=== PATIENT | female | born 1940 | race Caucasian/White ===

== ENCOUNTER 2019-12-11 14:10 | Outpatient (CLI) | payer MEDICARE, OTHER, SELFPAY ==
--- NOTE | 2019-12-11 14:20 | XR_ITS ---
WS: [id number] DEXA (DUAL ENERGY X-RAY ABSORPTIOMETRY) Bone mineral density was performed using a [employer] machine. HISTORY: OSTEOPOROSIS COMPARISON: 03/08/2015 Lumbar spine BMD (L1-L4): 0.797 g/cm2 T score: -3.2 Z score: -1.3 Total hip BMD: Left: 0.635 g/cm2. T score: -3.0 Z score: -0.9 Right: 0.715 g/cm2. T score: -2.3 Z score: -0.3 10 year probability of a major osteoporotic fracture is 24%. Compared to the prior study from 02/28/2015. Lumbar spine bone mineral density has decreased by 7.0%. Bilateral hips bone mineral density has decreased by 10.4%. XR/XR DEXA axial skeleton* [id number] IMPRESSION: OSTEOPOROSIS based upon the WHO classification for females. Significant decrease in bone mineral density in the lumbar spine and hips since 03/08/2015.
--- NOTE | 2019-12-11 14:21 | XR_ITS ---
WS: [id number] LUMBAR SPINE: 3 VIEWS TECHNIQUE: AP, lateral and L5-S1 spot. 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 Increase in lumbar lordosis. L1 30% compression fracture is stable. No retropulsio n. No new fractures. Disc spaces are narrowed throughout the lumbar spine. Facet arthropathy throughout the lumbar spine. Mild narrowing of the SI joints bilaterally. Prior cholecystectomy. XR/XR lumbar spine 2-3V* [id number] IMPRESSION: 1. Increase in lumbar lordosis with osteopenia. 2. Stable 30% L1 compression fracture. 3. Atherosclerosis aorta.
== END 2019-12-11 14:11 | disposition home or self-care (01) ==
LOC: RADWPI 14:20
PROVIDERS: Family Provider Family Medicine; PCP Family Medicine; Visit Provider Family Medicine
DX: M47.817 Spondylosis without myelopathy or radiculopathy, lumbosacral region (principal); M81.0 Age-related osteoporosis without current pathological fracture; M40.56 Lordosis, unspecified, lumbar region; M85.88 Other specified disorders of bone density and structure, other site; M48.56XA Collapsed vertebra, not elsewhere classified, lumbar region, initial encounter for fracture; X58.XXXA Exposure to other specified factors, initial encounter; I70.0 Atherosclerosis of aorta
CPT/HCPCS: 72100; 77080

== ENCOUNTER 2019-12-11 14:21 | Outpatient (CLI) | payer MEDICARE, OTHER, SELFPAY ==
--- NOTE | 2019-12-11 14:37 | XR_ITS ---
WS: [id number] CHEST 2 VIEWS HISTORY: COUGH COMPARISON: None available. Lungs: Mild pulmonary hyperinflation with flattening of the diaphragms. No pneumonia or pulmonary nod ule. Cardiac size: Normal. Mediastinum/Aorta: Mild atherosclerosis aorta. Bones: Increase in thoracic kyphosis. XR/XR chest 2V* [id number] IMPRESSION: Chronic emphysema with no acute cardiopulmonary disease.
== END 2019-12-11 14:22 | disposition home or self-care (01) ==
LOC: RADWPI 14:24
PROVIDERS: Family Provider Family Medicine; PCP Family Medicine
DX: J43.9 Emphysema, unspecified (principal)
CPT/HCPCS: 71046

== ENCOUNTER 2019-12-24 09:31 | Outpatient (CLI) | payer MEDICARE, OTHER, SELFPAY ==
[2019-12-24 10:05] LABS: Basophils # 0.1 10^3/uL (0.0-0.1); Basophils % 1.1 %; Eosinophils # 0.2 10^3/uL (0.0-0.8); Eosinophils % 2.7 %; Hematocrit 39.8 % (37.0-47.0); Hemoglobin 12.8 g/dL (11.5-15.3); Lymphocytes # 1.8 10^3/uL (0.8-4.8); Lymphocytes % 27.9 %; Mean Corpuscular HGB Conc 32.2 g/dL (30.0-36.0); Mean Corpuscular Hemoglobin 30.5 pg (28.0-34.0); Mean Platelet Volume 10.7 fL (7.4-10.4); Monocytes # 0.8 10^3/uL (0.2-0.9); Monocytes % 12.6 %; Neutrophils # 3.7 10^3/uL (1.8-7.7); Neutrophils % 55.4 %; Nucleated Red Blood Cells % 0 %; Platelet Count 386 10^3/cmm (130-400); Red Blood Count 4.19 10^6/uL (4.1-5.3); Red Cell Distribution Width 15.5 % (12.1-15.1); White Blood Count 6.6 10^3/uL (4.0-10.0)
[2019-12-24 10:31] LABS: Alanine Aminotransferase 23 U/L (0-33); Albumin Level 4.3 g/dL (3.5-5.2); Alkaline Phosphatase 85 IU/L (35-105); Anion Gap 13.1 (5-19); Aspartate Amino Transferase 23 U/L (0-32); Blood Urea Nitrogen 32 mg/dL (8-23); Calcium 10.2 mg/dL (8.5-10.5); Carbon Dioxide 32 mmol/L (22-29); Chloride 96 mmol/L (98-107); Globulin 3.1 g/dL (1.3-4.6); Glucose 105 mg/dL (65-115); Lactate Dehydrogenase 186 U/L (135-214); Potassium 4.1 mmol/L (3.5-5.1); Sodium 137 mmol/L (136-145); Total Bilirubin 0.4 mg/dL (0.15-1.2); Total Protein 7.4 g/dL (6.6-8.7)
[2019-12-24 12:28] LABS: Ferritin 45 ng/mL (15-150)
--- NOTE | 2019-12-24 19:39 | ONC FU_ITS ---
Dr. Ruano Patient Follow-Up Note Patient: Ingrid De Leon Unit #: [id number]: [id number] Dicatated By: Duong Ruano M.D.Date of Visit:Dec 24, 2019 Onc Med Follow-up/Prog Note Chief Complaint: Renal cell cancer. 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 She had known renal cell carcinoma, having undergone laparoscopic left nephrectomy at [facility] in 2004. In June 2016 she had evaluation with a CT pulmonary angiogram after presenting with chest pain and shortness of breath. That study showed no evidence of pulmonary emboli or other acute pathology. However, she was incidentally noted to have a pancreatic tail mass measuring 2.3 x 2.[address] abdomen/pelvis on 07/10/2016 again showed evidence of pancreatic tail neoplasm measuring 2.5 x 2.2 x 2 cm. There was evidence of previous left nephrectomy. There was no evidence for any other primary or metastatic neoplasm. She then had further evaluation by Dr. Henao in [place]. EUS with biopsy of the pancreatic mass on 08/06/2016 showed clear cell carcinoma. On 08/28/2016 she underwent exploratory laparotomy with left pancreatectomy and splenectomy, splenic artery lymph node dissection, mobilization of splenic flexure and omental pedicle flap. Pathology showed a well defined 2.9 x 2.2 x 2.1 cm mass located at the distal tip of the pancreatic parenchyma. There was no invasion into the outer surface of the pancreas nor into the splenic vessels or peripancreatic adipose tissue. 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 Tumor was noted to focally extend to within less than 1 mm of the inked peripancreatic soft tissue margin, but the final surgical margins were negative for neoplasm. There was no involvement in the spleen and there was no involvement into splenic artery lymph nodes. I had seen her initially on 11/19/2016. She was clearly at high risk for further recurrence, but in the absence of any approved adjuvant therapy for renal cell carcinoma, she was advised to continue observation/expectant management. Her other medical illnesses include hypertension, dyslipidemia, coronary artery disease, peripheral arterial disease, COPD,and GERD. She has a history of smoking 1 pack of cigarettes daily for 25-30 years. She quit smoking at least 15 years ago. INTERIM HISTORY: Surveillance CT of the abdomen/pelvis on 04/17/2017 showed postoperative changes of splenectomy, distal pancreatectomy, and left nephrectomy. Two small fluid collections within the left upper quadrant appeared to have diminished in size. There was no evidence for residual or recurrent disease. She continued regular followup with surveillance CT scans with Dr. Henao. Her repeat CT scan on 05/15/2018 showed evidence of relatively diffuse pneumoperitoneum, volume of which appeared stable or slightly increased. A very small focal defect within the right upper quadrant anterior abdominal wall with localized fat herniation measuring up to 3.9 cm was noted, and the hernia sac also appeared to contain gas from the pneumoperitoneum. Multiple gas bubbles were noted within the anterior lower abdomen and interspersed amongst bowel loops in the right lower quadrant of the abdomen and in the left side of the abdomen similar to the previous exam. The findings were felt to be suggestive of bowel perforation. Multiple air-fluid levels were noted within the small and large bowel. There was no obvious recurrence/progression of the renal cell cancer. She remained on observation/expectant management. I had seen her for a scheduled visit on 10/02/2019. She had multiple complaints, the most significant was that she had been hurting all over, particularly in her right hand and in her left arm and left leg. She had seen Dr. Daneille recently, and she had started taking ccolchicine. She also complained of shortness of breath and abdominal bloating. With those complaints, she had a restaging PET/CT on 10/10/2019. It showed no evidence for recurrent or residual malignancy. There were bilateral COPD changes noted. She is seen now for a follow-up visit. She says that about a month ago she was treated again for pneumonia. She continued, though, to have shortness of breath, to the point that she could not hardly breathe. She also was having back pain. She had seen Dr. Danielle. Her chest x-ray on 12/11/2019 showed evidence of chronic emphysema with no acute findings. X-ray of the lumbar spine showed stable 30% compression fracture at L1. DEXA scan showed T score -3.2 in the lumbar spine, -3.0 in the left hip, and -2.3 in the right hip. She was started on lisinopril, and she says her breathing has improved significantly since then. She says her energy is better now than it was. Her ECOG score is 1. She has good appetite. She has no fever or night sweats. She has not had much cough. She has some vague chest discomfort. She continues to complain of postprandial gas. She has constipation at times. She has not had diarrhea. She still has bad back pain, and she has been having muscle cramps in her legs and feet, both during the daytime and at night. Medications: Aspirin 0.5 Tablet (of 325 mg) Tablet, enteric coated Oral daily, Calcium-Vitamin D-Vitamin K mg 0.5 Tablet (of 750-500-40 mg - Units - mcg) Oral daily, Co Q-10 1 Capsule Oral daily, [place] 1 Tablet (of 0.6 mg) Oral daily, Creon 2 Capsule (of 16678 Units) Capsule Delayed Release Particles Oral t.i.d., HYDROcodone-Acetaminophen 1 Tablet (of 5-325 mg) Oral q 6 hours PRN, Lisinopril 0.5 (20 mg) Tablet Oral daily, Magnesium Oxide 1 Tablet (of 400 mg) Oral daily, Metoprolol Tartrate 1 (50 mg) Tablet Oral daily, MiraLax 1 Pack Oral b.i.d. PRN, [place] 3 1 (1200 mg) Capsule Oral daily, Ondansetron HCl 1 Tablet (of 4 mg) Oral t.i.d., Pantoprazole Sodium 1 (40 mg) Tablet, enteric coated Oral b.i.d., Rescue remedy spray Liquid PRN, Spiriva HandiHaler 1 (18 mcg) Capsule Inhalation every am, Ventolin HFA 1 puff(s) (of 108 (90 base) mcg/act) Aerosol, solution Inhalation PRN Allergies: No Known Allergies. Review of Systems: Constitutional - Her energy is better than it was. She does normal housework. Her appetite is good and her weight is up 10 pounds from her last visit. No fever, chills, hot flashes, or night sweats. ECOG score is 1, ENMT - She has postnasal drip. No mouth sores. No sore throat or difficulty swallowing, Hematologic/Lymphatic - She bruises easily, Respiratory - No shortness of breath. No cough. No pleuritic pain or hemoptysis, Cardiovascular - No angina pain. No palpitations, Gastrointestinal - No nausea or vomiting. She has heartburn depending on what she eats. She has constipation at times. No blood in the stool or black stools, Genitourinary (F) - No dysuria or hematuria. No urinary frequency. No urgency or incontinence, Musculoskeletal - She has been having more pain in her back. She is having cramping in her legs and feet, both during the daytime and at night, Integumentary - No skin complications, Neurologic - She has a headache at times. No dizziness. No numbness/paresthesias or other focal neurologic symptoms, Psychiatric - No anxiety or depression. No insomnia. Vital Signs: Performed on Dec 24, 2019 11:51 Height - 62.50 in Weight - 141.4 lbs (LOW) BSA - 1.66 sq.m BMI - 25.45 Temperature - 98.1 F (LOW) Pulse - 64 /min Respiration - 26 /min BP - 144/63 mm(hg) (HIGH) O2 Sat - 95 % (LOW) Pain - 5 Physical Examination: Constitutional - She looks pretty good generally, though she still appears short of breath with effort, Eyes - Sclerae nonicteric. Conjunctivae clear, ENMT - No lesions noted in the oral cavity, Hematologic/Lymphatic - No cervical, clavicular, or axillary adenopathy, Respiratory - Lungs sound clear with diminished air movement bilaterally, Cardiovascular - Heart rhythm is regular. There is no murmur, gallop or rub noted, Abdomen - Soft. Liver is not enlarged. There is no abdominal mass or ascites noted, and there is no inguinal adenopathy, Extremities - No edema, Neurologic - No focal neurologic deficits noted. Lab/Imaging: Test performed on Dec 24, 2019 09:36 Ferritin 45 ng/mL LDH (Total) 186 U/L Sodium 137 mmol/L Potassium 4.1 mmol/L Chloride 96 mmol/L CO2 32 mmol/L Anion Gap 13.1 BUN 32 mg/dL Creatinine 1.0 mg/dL Cr Clearance (Est) 45.43 mL/min Glucose 105 mg/dL Calcium 10.2 mg/dL Protein, Total 7.4 g/dL Albumin 4.3 g/dL Globulin 3.1 g/dL Bilirubin, Total 0.4 mg/dL ALT (SGPT) 23 U/L AST (SGOT) 23 U/L Alkaline Phosphatase 85 IU/L WBC 6.6 10 3/uL RBC 4.19 10 6/uL HGB 12.8 g/dL HCT 39.8 % MCV 95.0 fL MCH 30.5 pg MCHC 32.2 g/dL RDW 15.5 % Platelet Count 386 10 3/cmm MPV 10.7 fL Neutrophils 3.7 10 3/uL Lymphocytes 1.8 10 3/uL Monocytes 0.8 10 3/uL Eosinophils 0.2 10 3/uL Basophils 0.1 10 3/uL Neutrophil % 55.4 % Lymphocyte % 27.9 % Monocyte % 12.6 % Eosinophil % 2.7 % Basophils % 1.1 % Impression: 1. 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 She is currently N.E.D. following exploratory laparotomy with left pancreatectomy and splenectomy on 08/28/2016. 2. She underwent laparoscopic left nephrectomy for renal cell cancer in 2004. Her other medical illnesses include: 3. Hypertension. 4. Dyslipidemia. 5. Coronary artery disease. 6. Peripheral arterial disease. 7. GERD. 8. COPD. She has been followed on observation. She had persistent nausea/vomiting following her pancreatic surgery, but those symptoms eventually improved on treatment with Creon and ondansetron. During her further follow-up she continued to have somewhat marginal performance status, but with no evidence of any further recurrence/progression of the renal cell cancer. In September 2019 she had presented with worsening fatigue and generalized musculoskeletal pain. The symptoms were somewhat worrisome for recurrence/progression of her renal cell cancer, but a restaging PET/CT showed no evidence of residual or recurrent malignancy. She has since then had ongoing problems with fatigue, shortness of breath, and back pain. She continues to complain of postprandial abdominal bloating. Her breathing, though, has improved somewhat after starting lisinopril. She also has evidence of osteoporosis by DEXA scan, for which she is currently on treatment with calcitonin and calcium/vitamin D. Plan: She remains on observation/expectant management for the renal cell cancer. She is continuing cardiology follow-up with Dr. Brooks. I will see her again in 6 months, or sooner as needed. In the meantime, I will check serum iron studies. She will be given iron replacement if she is deficient. If not, she will be given the option to try ropinirole for the muscle cramps. Signed By: Duong Ruano M.D. <<Signature on File>>
[2019-12-25 08:03] LABS: Iron 124 ug/dL (37-145); Percent Saturation 37.2 % (20-50); Total Iron Binding Capacity 333 mcg/dl; Unsaturated Iron Binding 209 ug/dL (112-347)
== END 2019-12-24 09:32 | disposition home or self-care (01) ==
LOC: ONCMED 09:31
PROVIDERS: Family Provider Family Medicine; PCP Family Medicine; Visit Provider Internal Medicine Medical Oncology
DX: Z08 Encounter for follow-up examination after completed treatment for malignant neoplasm (principal); Z85.528 Personal history of other malignant neoplasm of kidney; D64.9 Anemia, unspecified; I10 Essential (primary) hypertension; E78.5 Hyperlipidemia, unspecified; I25.10 Atherosclerotic heart disease of native coronary artery without angina pectoris; I73.9 Peripheral vascular disease, unspecified; K21.9 Gastro-esophageal reflux disease without esophagitis; J44.9 Chronic obstructive pulmonary disease, unspecified; R25.2 Cramp and spasm; M81.0 Age-related osteoporosis without current pathological fracture; Z79.891 Long term (current) use of opiate analgesic; Z79.899 Other long term (current) drug therapy; Z90.5 Acquired absence of kidney; Z90.410 Acquired total absence of pancreas; Z90.411 Acquired partial absence of pancreas
CPT/HCPCS: 80053; 82728; 83540; 83550; 83615; 85025; 99214

== ENCOUNTER 2020-06-23 10:02 | Outpatient (CLI) | payer MEDICARE, OTHER, SELFPAY ==
[2020-06-23 10:39] LABS: Basophils # 0.1 10^3/uL (0.0-0.1); Basophils % 1.4 %; Eosinophils # 0.3 10^3/uL (0.0-0.8); Eosinophils % 4.3 %; Hematocrit 40.9 % (37.0-47.0); Hemoglobin 12.8 g/dL (11.5-15.3); Lymphocytes # 1.9 10^3/uL (0.8-4.8); Lymphocytes % 27.8 %; Mean Corpuscular HGB Conc 31.3 g/dL (30.0-36.0); Mean Corpuscular Hemoglobin 30.4 pg (28.0-34.0); Mean Corpuscular Volume 97.1 fL (81-99); Mean Platelet Volume 10.8 fL (7.4-10.4); Monocytes # 0.8 10^3/uL (0.2-0.9); Monocytes % 11.3 %; Neutrophils # 3.81 10^3/uL (1.8-7.7); Neutrophils % 55.1 %; Nucleated Red Blood Cells % 0 %; Platelet Count 375 10^3/cmm (130-400); Red Blood Count 4.21 10^6/uL (4.1-5.3); Red Cell Distribution Width 15.5 % (12.1-15.1); White Blood Count 6.9 10^3/uL (4.0-10.0)
[2020-06-23 10:59] LABS: Alanine Aminotransferase 31 U/L (0-33); Albumin Level 4.1 g/dL (3.5-5.2); Alkaline Phosphatase 111 IU/L (35-105); Anion Gap 9.9 (5-19); Aspartate Amino Transferase 37 U/L (0-32); Blood Urea Nitrogen 23 mg/dL (8-23); Calcium 9.5 mg/dL (8.5-10.5); Carbon Dioxide 35 mmol/L (22-29); Chloride 92 mmol/L (98-107); Ferritin 68 ng/mL (15-150); Globulin 3.4 g/dL (1.3-4.6); Glucose 109 mg/dL (65-115); Iron 62 ug/dL (37-145); Lactate Dehydrogenase 216 U/L (135-214); Osmolality Calculated 273 mOsm/kg (285-295); Percent Saturation 21.3 % (20-50); Potassium 3.9 mmol/L (3.5-5.1); Sodium 133 mmol/L (136-145); Total Bilirubin 0.2 mg/dL (0.15-1.2); Total Iron Binding Capacity 291 mcg/dl; Total Protein 7.5 g/dL (6.6-8.7); Unsaturated Iron Binding 229 ug/dL (112-347)
--- NOTE | 2020-06-26 13:50 | ONC FU_ITS ---
Dr. Ruano Patient Follow-Up Note Patient: Ingrid De Leon Unit #: [id number]: [id number] Dicatated By: Duong Ruano M.D.Date of Visit:Jun 23, 2020 Onc Med Follow-up/Prog Note Chief Complaint: Renal cell cancer. 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 She had known renal cell carcinoma, having undergone laparoscopic left nephrectomy at [facility] in 2004. In June 2016 she had evaluation with a CT pulmonary angiogram after presenting with chest pain and shortness of breath. That study showed no evidence of pulmonary emboli or other acute pathology. However, she was incidentally noted to have a pancreatic tail mass measuring 2.3 x 2.[address] abdomen/pelvis on 07/10/2016 again showed evidence of pancreatic tail neoplasm measuring 2.5 x 2.2 x 2 cm. There was evidence of previous left nephrectomy. There was no evidence for any other primary or metastatic neoplasm. She then had further evaluation by Dr. Henao in [place]. EUS with biopsy of the pancreatic mass on 08/06/2016 showed clear cell carcinoma. On 08/28/2016 she underwent exploratory laparotomy with left pancreatectomy and splenectomy, splenic artery lymph node dissection, mobilization of splenic flexure and omental pedicle flap. Pathology showed a well defined 2.9 x 2.2 x 2.1 cm mass located at the distal tip of the pancreatic parenchyma. There was no invasion into the outer surface of the pancreas nor into the splenic vessels or peripancreatic adipose tissue. 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 Tumor was noted to focally extend to within less than 1 mm of the inked peripancreatic soft tissue margin, but the final surgical margins were negative for neoplasm. There was no involvement in the spleen and there was no involvement into splenic artery lymph nodes. I had seen her initially on 11/19/2016. She was clearly at high risk for further recurrence, but in the absence of any approved adjuvant therapy for renal cell carcinoma, she was advised to continue observation/expectant management. Her other medical illnesses include hypertension, dyslipidemia, coronary artery disease, peripheral arterial disease, COPD,and GERD. She has a history of smoking 1 pack of cigarettes daily for 25-30 years. She quit smoking at least 15 years ago. INTERIM HISTORY: Surveillance CT of the abdomen/pelvis on 04/17/2017 showed postoperative changes of splenectomy, distal pancreatectomy, and left nephrectomy. Two small fluid collections within the left upper quadrant appeared to have diminished in size. There was no evidence for residual or recurrent disease. She continued regular followup with surveillance CT scans with Dr. Henao. Her repeat CT scan on 05/15/2018 showed evidence of relatively diffuse pneumoperitoneum, volume of which appeared stable or slightly increased. A very small focal defect within the right upper quadrant anterior abdominal wall with localized fat herniation measuring up to 3.9 cm was noted, and the hernia sac also appeared to contain gas from the pneumoperitoneum. Multiple gas bubbles were noted within the anterior lower abdomen and interspersed amongst bowel loops in the right lower quadrant of the abdomen and in the left side of the abdomen similar to the previous exam. The findings were felt to be suggestive of bowel perforation. Multiple air-fluid levels were noted within the small and large bowel. There was no obvious recurrence/progression of the renal cell cancer. I had seen her for a scheduled visit on 10/02/2019. She had multiple complaints, the most significant was that she had been hurting all over, particularly in her right hand and in her left arm and left leg. She had seen Dr. Danielle recently, and she had started taking ccolchicine. She also complained of shortness of breath and abdominal bloating. With those complaints, she had a restaging PET/CT on 10/10/2019. It showed no evidence for recurrent or residual malignancy. There were bilateral COPD changes noted. With those findings she continued on observation/expectant management. She is seen now for a follow-up visit. She has been feeling pretty good generally. Her main complaint is that she is short of breath, and it does limit her activity. She has started on a pulmonary nebulizer, but thus far she is using it only twice a day at half the recommended dosage. She is still able to do housework and live independently. ECOG score is 1. Her appetite is good. She has no fever or night sweats. She does not complain of cough. She occasionally has chest pain. Her nausea has been adequately managed with medication. She says her acid reflux is not as bad now after she stopped taking the medications for it. Bowel and bladder function have been okay. She does complain of having generalized pain, which he localizes to her muscles rather than to joints or bone. She has had some headaches. She has no focal neurologic symptoms. Medications: Aspirin 0.5 Tablet (of 325 mg) Tablet, enteric coated Oral daily, Calcium-Vitamin D-Vitamin K mg 1 Tablet (of 750-500-40 mg - Units - mcg) Oral daily, Co Q-10 1 Capsule Oral daily, Creon 2 Capsule (of 22386 Units) Capsule Delayed Release Particles Oral t.i.d., HYDROcodone-Acetaminophen 1 Tablet (of 5-325 mg) Oral q 6 hours PRN, Lisinopril 0.5 (20 mg) Tablet Oral daily, Magnesium Oxide 1 Tablet (of 400 mg) Oral daily, Metoprolol Tartrate 1 (50 mg) Tablet Oral daily, MiraLax 1 Pack Oral b.i.d. PRN, [place] 3 1 (1200 mg) Capsule Oral daily, Ondansetron HCl 1 Tablet (of 4 mg) Oral t.i.d., Rescue remedy spray Liquid PRN, Symbicort 1 Puff(s) (of 160-4.5 mcg/act) Aerosol Inhalation daily Allergies: No Known Allergies. Review of Systems: Constitutional - She has limited activity tolerance, but she is able to do housework and live independently. Appetite is good and weight is stable. No fever, night sweats, or hot flashes. ECOG score is 1, ENMT - No sinus congestion/drainage. No mouth sores. She recently has had sore throat. No difficulty swallowing, Hematologic/Lymphatic - She has some bruising, Respiratory - She has shortness of breath. No cough. No pleuritic pain or hemoptysis, Cardiovascular - She occasionally has chest pain. No palpitations, Gastrointestinal - She has had ongoing problems with nausea, but it is now managed adequately with medication. She says her acid reflux is not as bad now after stopping the medications. No diarrhea or constipation. No blood in the stool or black stools, Genitourinary (F) - No dysuria or hematuria. No urinary frequency. No urgency or incontinence, Musculoskeletal - She has pain all over. She thinks it is in the muscle rather than the joints or bone, Integumentary - No skin rash, Neurologic - She has had some headaches. No dizziness. No numbness or tingling. No other focal neurologic symptoms, Psychiatric - No anxiety or depression. No insomnia. Vital Signs: Performed on Jun 23, 2020 12:30 Height - 62.50 in Weight - 150.4 lbs (HIGH) BSA - 1.70 sq.m BMI - 27.07 Temperature - 97.9 F (LOW) Pulse - 71 /min Respiration - 28 /min BP - 119/51 mm(hg) O2 Sat - 93 % (LOW) Pain - 0 Physical Examination: Constitutional - She looks pretty good generally. She does appear short of breath with effort, Eyes - Sclerae nonicteric. Conjunctivae clear, ENMT - No lesions noted in the oral cavity, Hematologic/Lymphatic - No cervical, clavicular, or axillary adenopathy, Respiratory - Lungs sound clear with diminished air movement bilaterally, Cardiovascular - Heart rhythm is regular. There is no murmur, gallop or rub noted, Abdomen - Soft. Liver and spleen are not enlarged. There is no abdominal mass or ascites noted and there is no inguinal adenopathy, Extremities - No edema. Dorsalis pedis pulses are palpable bilaterally, Neurologic - No focal neurologic deficits noted. Lab/Imaging: Test performed on Jun 23, 2020 10:15 Ferritin 68 ng/mL Iron 62 mcg/dL LDH (Total) 216 U/L Sodium 133 mmol/L Iron Binding Capacity (TIBC) 291 mcg/dl Potassium 3.9 mmol/L % Iron Saturation 21.3 % Chloride 92 mmol/L CO2 35 mmol/L UIBC 229 mcg/dL Anion Gap 9.9 BUN 23 mg/dL Creatinine 0.7 mg/dL Cr Clearance (Est) 69.03 mL/min Glucose 109 mg/dL Calcium 9.5 mg/dL Protein, Total 7.5 g/dL Albumin 4.1 g/dL Globulin 3.4 g/dL Bilirubin, Total 0.2 mg/dL ALT (SGPT) 31 U/L AST (SGOT) 37 U/L Alkaline Phosphatase 111 IU/L WBC 6.9 10 3/uL RBC 4.21 10 6/uL HGB 12.8 g/dL HCT 40.9 % MCV 97.1 fL MCH 30.4 pg MCHC 31.3 g/dL RDW 15.5 % Platelet Count 375 10 3/cmm MPV 10.8 fL Neutrophils 3.81 10 3/uL Lymphocytes 1.9 10 3/uL Monocytes 0.8 10 3/uL Eosinophils 0.3 10 3/uL Basophils 0.1 10 3/uL Neutrophil % 55.1 % Lymphocyte % 27.8 % Monocyte % 11.3 % Eosinophil % 4.3 % Basophils % 1.4 % NRBC % 0 % Impression: 1. 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 She is currently N.E.D. following exploratory laparotomy with left pancreatectomy and splenectomy on 08/28/2016. 2. She underwent laparoscopic left nephrectomy for renal cell cancer in 2004. Her other medical illnesses include: 3. Hypertension. 4. Dyslipidemia. 5. Coronary artery disease. 6. Peripheral arterial disease. 7. GERD. 8. COPD. She has been followed on observation. She had persistent nausea/vomiting following her pancreatic surgery, but those symptoms eventually improved on treatment with Creon and ondansetron. During her further follow-up she continued to have somewhat marginal performance status, but with no evidence of any further recurrence/progression of the renal cell cancer. In September 2019 she had presented with worsening fatigue and generalized musculoskeletal pain. The symptoms were somewhat worrisome for recurrence/progression of her renal cell cancer, but a restaging PET/CT showed no evidence of residual or recurrent malignancy. She was found to have evidence of osteoporosis by DEXA scan, for which she has been on treatment with calcitonin and calcium/vitamin D. She continues to complain of shortness of breath and fatigue. She also complains of having generalized muscle pain. She has limited activity tolerance, but she is still able to live independently. She has now started Symbicort and a pulmonary nebulizer for her COPD. Plan: She remains on observation/expectant management for the renal cell cancer. She will continue the Symbicort, as directed. I did encourage her to increase her pulmonary nebulizer to 4 times a day. She continues her regular follow-up and imaging with Dr. Henao. I will see her again in 6 months, or sooner as needed. Signed By: Duong Ruano M.D. <<Signature on File>>
== END 2020-06-23 10:03 | disposition home or self-care (01) ==
LOC: ONCMED 10:07
PROVIDERS: PCP Family Medicine; Visit Provider Internal Medicine Medical Oncology
DX: Z08 Encounter for follow-up examination after completed treatment for malignant neoplasm (principal); Z85.528 Personal history of other malignant neoplasm of kidney; D64.9 Anemia, unspecified; Z90.5 Acquired absence of kidney; M79.10 Myalgia, unspecified site; I10 Essential (primary) hypertension; E78.5 Hyperlipidemia, unspecified; I25.10 Atherosclerotic heart disease of native coronary artery without angina pectoris; I73.9 Peripheral vascular disease, unspecified; K21.9 Gastro-esophageal reflux disease without esophagitis; J44.9 Chronic obstructive pulmonary disease, unspecified; Z90.411 Acquired partial absence of pancreas; Z90.81 Acquired absence of spleen
CPT/HCPCS: 36415; 80053; 82728; 83540; 83550; 83615; 85025; G0463

== ENCOUNTER 2020-08-01 10:29 | Outpatient (CLI) | payer MEDICARE, OTHER, SELFPAY ==
--- NOTE | 2020-08-01 10:46 | XR_ITS ---
WS: [id number] Bilateral hips. HISTORY: Hip pain. No trauma. TECHNIQUE: 2 views of each hip. Bones are very mildly osteopenic. Mild narrowing of the hip joints bilaterally. Mild irregularity leda ng the acetabulum. No destructive bone lesions. No soft tissue abnormality. XR/XR hip BI 3-4V wo/w [place] [id number] IMPRESSION: Mild bilateral hip joint osteoarthritis.
== END 2020-08-01 10:30 | disposition home or self-care (01) ==
LOC: RADWPI 10:33
PROVIDERS: PCP Family Medicine; Visit Provider Family Medicine
DX: M17.0 Bilateral primary osteoarthritis of knee (principal)
CPT/HCPCS: 73522

== ENCOUNTER 2020-11-18 09:58 | Outpatient (CLI) | payer MEDICARE, OTHER, SELFPAY ==
--- NOTE | 2020-11-18 10:05 | XR_ITS ---
WS: [id number] PROCEDURE: XR chest 2V* [id number] CLINICAL INFORMATION: WHEEZING COMPARISON: December 11, 2019 FINDINGS: Heart: Normal cardiac silhouette. Calcification. Lungs: Moderate chronic emphysematous changes. No acute pulmonary infiltrates. No consolidation pleur al fluid. Bones: Osteopenia. Chronic anterior wedging in the mid thoracic spine. Surgical clips at the GE junct ion. Cholecystectomy. XR/XR chest 2V* [id number] IMPRESSION: 1. Chronic emphysematous changes. 2. No acute pulmonary infiltrates. 3. Moderate thoracic kyphosis is unchanged.
== END 2020-11-18 09:59 | disposition home or self-care (01) ==
LOC: RADWPI 10:02
PROVIDERS: PCP Family Medicine; Visit Provider Family Medicine
DX: R06.2 Wheezing (principal); M40.294 Other kyphosis, thoracic region
CPT/HCPCS: 71046

== ENCOUNTER 2020-11-29 20:59 | Emergency (ER) | payer MEDICARE, OTHER, SELFPAY ==
[2020-11-29 21:04] VITALS: BP 126/61; PULSE 99; RESP 22; TEMP 36.7; O2SAT 90; BMI 24.7
--- NOTE | 2020-11-29 21:15 | W.ED.ABDPA2 ---
HPI - Abdominal Pain General: Chief Complaint: Abdominal Pain Stated Complaint: PAIN IN R SIDE Time Seen by Provider: 11/29/20 21:14 Source: patient Mode of arrival: ambulatory Limitations: no limitations History of Present Illness: HPI narrative: 80-year-old female comes in today with right upper quadrant abdominal pain for the last 2 days. Patient takes hydrocodone for her pain routinely but has not been able to control the pain with hydrocodone. Patient has a history of renal carcinoma. Patient also has atherosclerosis, dyslipidemia, hypertension, peripheral artery disease, and COPD. Patient appears in mild to moderate pain. Patient appears no acute distress. Review of Systems General: Reports: 10 or more systems reviewed and unremarkable except in HPI and below GI: Reports: abdominal pain PFSH ED PFSH: Medical History (Updated 11/29/20 @ 23:26 by FELICIA Borges) ASHD (arteriosclerotic heart disease) COPD (chronic obstructive pulmonary disease) Dyslipidemia HTN (hypertension) PAD (peripheral artery disease) Renal cell cancer S/p nephrectomy Tobacco abuse, in remission Family History Father CAD (coronary artery disease) Brother CAD (coronary artery disease) Myocardial infarction Social History Smoking and tobacco status: former smoker Lives independently: Yes Marital status: / Pets and animals: Yes Physical Exam Const: COMMON NORMALS: no acute distress and patient oriented x3 GENERAL APPEARANCE: cooperative HENMT: COMMON NORMALS: normocephalic and Normal external nose present HEAD & SCALP: normal to inspection and normocephalic NOSE: Normal external nose present MOUTH: Normal oral and palatal mucosa present (Mildly dry) Eye: GENERAL EYE: appearance normal, both eyes and all related structures Neck/C-Spine: COMMON NORMALS: full ROM Lymph: LYMPHATIC: no lymphadenopathy noted Chest: COMMONS NORMALS: normal inspection of the chest Resp: COMMON NORMALS: normal respiratory effort EFFORT & INSPECTION: Yes able to speak in complete sentences Cardio: COMMON NORMALS: regular rate and regular rhythm RATE: regular rate RHYTHM: regular rhythm GI: COMMON NORMALS: Soft to palpation and non-tender PALPATION: Yes Soft to palpation and Yes Tenderness to palpation present (GI) Details: RUQ Back/Pelvis: COMMON NORMALS: thoracic and lumbar spine normal to inspection Extremity: COMMON NORMALS: normal to inspection Neuro: COMMON NORMALS: patient oriented x3 and moves all extremities Psych: COMMON NORMALS: mental status grossly normal and cooperative Skin: COMMON NORMALS: no rashes or lesions noted GENERAL SKIN EXAM: no rashes or lesions noted Course Vital Signs: Vital signs: Vital Signs Temperature 98.1 F 11/29/20 21:04 Pulse Rate 93 11/29/20 23:45 Respiratory Rate 21 H 11/29/20 23:45 Blood Pressure 165/80 11/29/20 23:45 Pulse Oximetry 92 11/29/20 23:45 MDM - Abdominal Pain MDM Narrative: Medical decision making narrative: Patient comes in today with some right upper abdominal/right flank pain. Patient has a history of COPD, and cancer. On exam patient has decreased breath sounds in bilateral bases. Patient is mildly hypoxic on room air at 90 to 89-90%. Patient is alert and oriented and responds appropriately to questioning. Differential diagnosis includes renal calculi, constipation, pneumonia, sepsis. Laboratory values noted a high white count of 16.9 thousand. Metabolic panel noted a mild decrease in her sodium at 125. Chest x-ray noted a right lower lobe pneumonia. CT scan abdomen pelvis noted constipation with right lower lobe pneumonia. Reviewed exam with patient with recommendations for treatment with antibiotic. Offered to admit patient but she refused at this time and wished to go home. Patient was placed on antibiotic recommendations for follow-up or return to the ER for worsening symptoms. Lab Data: Labs: Lab Results 11/29/20 11/29/20 11/29/20 Range/Units 21:23 21:23 22:28 WBC 16.9 H (4.0-10.0) 10^3/ uL RBC 4.01 L (4.1-5.3) 10^6/u L Hgb 12.2 (11.5-15.3) g/dL Hct 37.4 (37.0-47.0) % MCV 93.3 (81-99) fL MCH 30.4 (28.0-34.0) pg MCHC 32.6 (30.0-36.0) g/dL RDW 14.1 (12.1-15.1) % Plt Count 316 (130-400) 10^3/c mm MPV 11.0 H (7.4-10.4) fL Neut % (Auto) 88.9 % Lymph % (Auto) 3.1 % Henderson % (Auto) 7.0 % Eos % (Auto) 0.1 % Baso % (Auto) 0.2 % Neut # (Auto) 15.02 H (1.8-7.7) 10^3/u L Lymph # (Auto) 0.5 L (0.8-4.8) 10^3/u L Henderson # (Auto) 1.2 H (0.2-0.9) 10^3/u L Eos # (Auto) 0.0 (0.0-0.8) 10^3/u L Baso # (Auto) 0.0 (0.0-0.1) 10^3/u L Nucleated RBC % (a uto) 0 % Nucleated RBCs # 0.0 /100WBC Sodium 125 L (136-145) mmol/L Potassium 4.1 (3.5-5.1) mmol/L Chloride 86 L (98-107) mmol/L Carbon Dioxide 25 (22-29) mmol/L Anion Gap 18.1 (5-19) BUN 19 (8-23) mg/dL Creatinine 0.6 (0.5-0.9) mg/dL GFR Calculation Not Reportable Glucose 124 H (65-115) mg/dL Calculated Osmolal ity 264 L (285-295) mOsm/k g Lactic Acid 0.7 (0.5-2.2) mmol/L Calcium 9.7 (8.5-10.5) mg/dL Total Bilirubin 0.7 (0.15-1.2) mg/dL AST 29 (0-32) U/L ALT 22 (0-33) U/L Alkaline Phosphata se 92 (35-105) IU/L Total Protein 7.3 (6.6-8.7) g/dL Albumin 3.4 L (3.5-5.2) g/dL Globulin 3.9 (1.3-4.6) g/dL Lipase 8 L (13-60) U/L Discharge Plan Discharge Patient Disposition: Home Clinical Impression: Pneumonia Qualifiers: Pneumonia type: due to unspecified organism Laterality: right Lung location: lower lobe of lung Qualified Code(s): J18.9 - Pneumonia, unspecified organism Constipation Qualifiers: Constipation type: unspecified constipation type Qualified Code(s): K59.00 - Constipation, unspecified Condition: Stable Prescriptions: New Senna Laxative 8.6 mg tablet 8.6 mg PO BID Qty: 10 RF: 0 cefdinir 300 mg capsule 300 mg PO BID 10 Days Qty: 20 RF: 0 azithromycin 250 mg tablet 250 mg PO DAILY 4 Days RF: 0 tramadol 50 mg tablet 50 mg PO Q6H PRN (Reason: pain) Qty: 14 RF: 0 No Action indapamide 2.5 mg tablet 2.5 mg PO QAM RF: 0 ondansetron HCl 4 mg tablet 4 mg PO Q6H PRNRF: 0 pantoprazole 40 mg tablet,delayed release (DR/EC) 40 mg PO DAILY RF: 0 zuqzmh-erjjtzer-eyqpelj PO DAILY RF: 0 omega-3 fatty acids [Fish Oil Concentrate] 1,000 mg capsule 1,000 mg PO DAILY RF: 0 coenzyme Q10 [Co Q-10] 100 mg capsule 200 mg PO DAILY RF: 0 albuterol sulfate [Ventolin HFA] 90 mcg/actuation HFA aerosol inhaler 2 puff INHALATION Q6H PRNRF: 0 cholecalciferol (vitamin D3) PO DAILY RF: 0 Spiriva with HandiHaler 18 mcg capsule, w/inhalation device 1 cap INHALATION DAILY RF: 0 aspirin [Aspir-Kelli] 325 mg tablet,delayed release (DR/EC) 325 mg PO DAILY RF: 0 metoprolol succinate 50 mg tablet extended release 24 hr 50 mg PO DAILY RF: 0 Discharge Orders: Discharge ED (Routine); Ordered 11/29/20 Ordered By: Ari Gan Referrals: Jose Danielle MD [Primary Care Provider] - Discharge Diet: Usual diet Discharge Activity: Increase activity as tolerated Patient Instructions: Constipation (ED) Activity Restrictions/Additional Instructions: Continue with routine care. Take medication and use inhalers as directed. Drink plenty of water. Follow-up with primary care for further treatment. Return to the emergency department for worsening symptoms. 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
[2020-11-29 21:29] LABS: Basophils % 0.2 %; Eosinophils % 0.1 %; Hematocrit 37.4 % (37.0-47.0); Hemoglobin 12.2 g/dL (11.5-15.3); Lymphocytes # 0.5 10^3/uL (0.8-4.8); Lymphocytes % 3.1 %; Mean Corpuscular HGB Conc 32.6 g/dL (30.0-36.0); Mean Corpuscular Hemoglobin 30.4 pg (28.0-34.0); Mean Corpuscular Volume 93.3 fL (81-99); Monocytes # 1.2 10^3/uL (0.2-0.9); Neutrophils # 15.02 10^3/uL (1.8-7.7); Neutrophils % 88.9 %; Nucleated Red Blood Cells % 0 %; Platelet Count 316 10^3/cmm (130-400); Red Blood Count 4.01 10^6/uL (4.1-5.3); Red Cell Distribution Width 14.1 % (12.1-15.1); White Blood Count 16.9 10^3/uL (4.0-10.0)
[2020-11-29] MEDS: morphine 4 mg/mL SDV 1 mL IVP (21:43)
[2020-11-29] MEDS: ondansetron 2 mg/ML SDV 2 mL 4 MG IVP (21:44)
[2020-11-29] MEDS: sodium chloride 0.9% 500 ML 999 ML IV (21:44)
--- NOTE | 2020-11-29 22:00 | XR_ITS ---
WS: [id number] PORTABLE CHEST HISTORY: dyspnea, abd pain COMPARISON: 11/18/2020 New dense area of consolidation in the RIGHT lower lobe. Otherwise very mild interstitial thickening at the LEFT lung base. Changes of emphysema. Small pleural effusion on the RIGHT with obscuration of the costophrenic angle. Cardiac size: Normal. Mediastinum/Aorta: Mild atherosclerosis aorta. Osteopenia. XR/XR chest 1V portable [id number] IMPRESSION: 1. New RIGHT lower lobe pneumonia. 2. Mild interstitial thickening at the LEFT lung base. May be pneumonitis.
[2020-11-29 22:09] LABS: Albumin Level 3.4 g/dL (3.5-5.2); Alkaline Phosphatase 92 IU/L (35-105); Blood Urea Nitrogen 19 mg/dL (8-23); Calcium 9.7 mg/dL (8.5-10.5); Carbon Dioxide 25 mmol/L (22-29); Chloride 86 mmol/L (98-107); Globulin 3.9 g/dL (1.3-4.6); Glucose 124 mg/dL (65-115); Lipase 8 U/L (13-60); Osmolality Calculated 264 mOsm/kg (285-295); Sodium 125 mmol/L (136-145); Total Bilirubin 0.7 mg/dL (0.15-1.2); Total Protein 7.3 g/dL (6.6-8.7)
[2020-11-29 22:16] LABS: Alanine Aminotransferase 22 U/L (0-33); Anion Gap 18.1 (5-19); Aspartate Amino Transferase 29 U/L (0-32); Potassium 4.1 mmol/L (3.5-5.1)
[2020-11-29 22:54] LABS: Lactic Sepsis W/Reflex 0.7 mmol/L (0.5-2.2)
--- NOTE | 2020-11-29 23:00 | CTR_ITS ---
PROCEDURE INFORMATION: Exam: CT Abdomen And Pelvis Without Contrast Exam date and time: 11/29/2020 11:02 PM Age: 80 years old Clinical indication: Abdominal pain; Right; Prior surgery; Surgery type: Gb. Nephrectomy. ; Patient HX: RT flank pain with dysuria. History of renal/pancreatic cancer; Additional info: Right flank pain TECHNIQUE: Imaging protocol: Computed tomography of the abdomen and pelvis without contrast. Total images: 308 Radiation optimization: All CT scans at this facility use at least one of these dose optimization techniques: automated exposure control; mA and/or kV adjustment per patient size (includes targeted exams where dose is matched to clinical indication); or iterative reconstruction. COMPARISON: CR XR hip BI 3-4V wo/w pel [id number] 08/01/2020 11:05 AM RADIATION DOSE METRICS: Total DLP (mGy-cm): 909.85 FINDINGS: Lungs: Within the field of view evidence of right lower lobe pneumonia. Associated right lower lobe tubular and cystic bronchiectasis. Panlobular emphysema. Mild peripheral interstitial pneumonitis right middle lobe. Mediastinal space: Small hiatal hernia. Liver: No visible hepatic mass. Rare hepatic calcified granuloma of antecedent disease. Gallbladder and bile ducts: Status post cholecystectomy. Pancreas: Status post partial pancreatectomy. Spleen: Status post splenectomy. Adrenal glands: Adrenal glands stable and unremarkable. Kidneys and ureters: Status post left nephrectomy. Right kidney unremarkable. No hydronephrosis or perinephric fluid. No visible nephrolithiasis. No visible right ureterolithiasis. Stomach and bowel: Constipation with fecal impaction. Nonobstructive bowel pattern. No visible evidence of significant adynamic or reactive ileus. Appendix: Findings suggesting status post appendectomy. Intraperitoneal space: No visible pneumoperitoneum. No visible generalized intraperitoneal ascites. Vasculature: The abdominal aorta is nonaneurysmal. Advanced arterial sclerotic disease. Lymph nodes: No visible generalized intraperitoneal or retroperitoneal lymphadenopathy. Urinary bladder: Urinary bladder unremarkable. Reproductive: Unremarkable as visualized. Bones/joints: No visible osteolytic or osteoblastic destructive process. Failure segmentation/hemivertebra T11 and T12. Old mild superior endplate depression L1. Osteopenia/osteoporosis. Degenerative disease. Soft tissues: Unremarkable. Other findings: Evidence of antecedent granulomatous disease. CT/CT kidney stone [id number] IMPRESSION: 1. Right lower lobe pneumonia. 2. Evidence of mild right middle lobe pneumonitis. 3. Constipation with fecal impaction. 4. Other nonurgent, nonemergent, chronic, postoperative, and age related findings as detailed in text above. Radiation Dose CTDIVOL = (mGy): DLP = 909.85 (mGy-cm)
[2020-11-29 23:45] VITALS: BP 165/80; PULSE 93; RESP 21; O2SAT 92
[2020-11-29] MEDS: azithromycin 250 mg Tablet 500 MG PO (23:47)
[2020-11-29] MEDS: cefTRIAXone 1,000 MG in sodium chloride 0.9% (plus) 50 ML 100 MG IV (23:47)
[2020-11-30] MEDS: ondansetron 2 mg/ML SDV 2 mL 4 MG IVP (00:20)
[2020-11-30] MEDS: TRAMadol 50 mg Tablet PO (00:21)
[2020-11-30 00:44] VITALS: BP 153/67; PULSE 84; RESP 17; O2SAT 94
== END 2020-11-30 00:35 | disposition home or self-care (01) ==
PROVIDERS: Emergency Provider Nurse Practitioner Family; PCP Family Medicine
DX: K59.00 Constipation, unspecified (principal); J44.0 Chronic obstructive pulmonary disease with (acute) lower respiratory infection; J18.9 Pneumonia, unspecified organism; Z79.82 Long term (current) use of aspirin; E78.5 Hyperlipidemia, unspecified; I10 Essential (primary) hypertension; Z85.528 Personal history of other malignant neoplasm of kidney; Z90.5 Acquired absence of kidney; Z87.891 Personal history of nicotine dependence
CPT/HCPCS: 12345; 36415; 71045; 74176; 80053; 83605; 83690; 85025; 96365; 96375; 96376; 99282; 99283; J0696; J2270; J2405; J7040; Q0144

== ENCOUNTER 2021-01-16 08:07 | Outpatient (CLI) | payer MEDICARE, OTHER, SELFPAY ==
[2021-01-16 08:40] LABS: Basophils # 0.1 10^3/uL (0.0-0.1); Basophils % 1.3 %; Eosinophils # 0.3 10^3/uL (0.0-0.8); Hemoglobin 12.4 g/dL (11.5-15.3); Lymphocytes # 1.5 10^3/uL (0.8-4.8); Lymphocytes % 22.2 %; Mean Corpuscular Hemoglobin 29.7 pg (28.0-34.0); Mean Corpuscular Volume 95.9 fL (81-99); Mean Platelet Volume 10.6 fL (7.4-10.4); Monocytes # 0.6 10^3/uL (0.2-0.9); Monocytes % 9.1 %; Neutrophils # 4.22 10^3/uL (1.8-7.7); Neutrophils % 63.3 %; Nucleated Red Blood Cells % 0 %; Platelet Count 466 10^3/cmm (130-400); Red Blood Count 4.17 10^6/uL (4.1-5.3); Red Cell Distribution Width 15.1 % (12.1-15.1); White Blood Count 6.7 10^3/uL (4.0-10.0)
[2021-01-16 08:56] LABS: Alanine Aminotransferase 12 U/L (0-33); Albumin Level 3.6 g/dL (3.5-5.2); Alkaline Phosphatase 102 IU/L (35-105); Anion Gap 11.4 (5-19); Aspartate Amino Transferase 23 U/L (0-32); Blood Urea Nitrogen 10 mg/dL (8-23); Calcium 9.7 mg/dL (8.5-10.5); Carbon Dioxide 33 mmol/L (22-29); Chloride 99 mmol/L (98-107); Globulin 3.5 g/dL (1.3-4.6); Glucose 105 mg/dL (65-115); Lactate Dehydrogenase 217 U/L (135-214); Osmolality Calculated 287 mOsm/kg (285-295); Potassium 4.4 mmol/L (3.5-5.1); Sodium 139 mmol/L (136-145); Total Bilirubin 0.3 mg/dL (0.15-1.2); Total Protein 7.1 g/dL (6.6-8.7)
--- NOTE | 2021-01-19 07:00 | ONC FU_ITS ---
Dr. Ruano Patient Follow-Up Note Patient: Ingrid De Leon Unit #: [id number]: 1940 Dicatated By: Duong Ruano M.D.Date of Visit:Jan 16, 2021 Onc Med Follow-up/Prog Note Chief Complaint: Renal cell cancer. 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 She had known renal cell carcinoma, having undergone laparoscopic left nephrectomy at [facility] in 2004. In June 2016 she had evaluation with a CT pulmonary angiogram after presenting with chest pain and shortness of breath. That study showed no evidence of pulmonary emboli or other acute pathology. However, she was incidentally noted to have a pancreatic tail mass measuring 2.3 x 2.[address] abdomen/pelvis on 07/10/2016 again showed evidence of pancreatic tail neoplasm measuring 2.5 x 2.2 x 2 cm. There was evidence of previous left nephrectomy. There was no evidence for any other primary or metastatic neoplasm. She then had further evaluation by Dr. Henao in [place]. EUS with biopsy of the pancreatic mass on 08/06/2016 showed clear cell carcinoma. On 08/28/2016 she underwent exploratory laparotomy with left pancreatectomy and splenectomy, splenic artery lymph node dissection, mobilization of splenic flexure and omental pedicle flap. Pathology showed a well defined 2.9 x 2.2 x 2.1 cm mass located at the distal tip of the pancreatic parenchyma. There was no invasion into the outer surface of the pancreas nor into the splenic vessels or peripancreatic adipose tissue. 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 Tumor was noted to focally extend to within less than 1 mm of the inked peripancreatic soft tissue margin, but the final surgical margins were negative for neoplasm. There was no involvement in the spleen and there was no involvement into splenic artery lymph nodes. I had seen her initially on 11/19/2016. She was clearly at high risk for further recurrence, but in the absence of any approved adjuvant therapy for renal cell carcinoma, she was advised to continue observation/expectant management. Surveillance CT of the abdomen/pelvis on 04/17/2017 showed postoperative changes of splenectomy, distal pancreatectomy, and left nephrectomy. Two small fluid collections within the left upper quadrant appeared to have diminished in size. There was no evidence for residual or recurrent disease. She continued regular followup with surveillance CT scans with Dr. Henao. Her repeat CT scan on 05/15/2018 showed evidence of relatively diffuse pneumoperitoneum, volume of which appeared stable or slightly increased. A very small focal defect within the right upper quadrant anterior abdominal wall with localized fat herniation measuring up to 3.9 cm was noted, and the hernia sac also appeared to contain gas from the pneumoperitoneum. Multiple gas bubbles were noted within the anterior lower abdomen and interspersed amongst bowel loops in the right lower quadrant of the abdomen and in the left side of the abdomen similar to the previous exam. The findings were felt to be suggestive of bowel perforation. Multiple air-fluid levels were noted within the small and large bowel. There was no obvious recurrence/progression of the renal cell cancer. I had seen her for a scheduled visit on 10/02/2019. She had multiple complaints, the most significant was that she had been hurting all over, particularly in her right hand and in her left arm and left leg. She had seen Dr. Danielle and she had started taking ccolchicine. She also complained of shortness of breath and abdominal bloating. With those complaints, she had a restaging PET/CT on 10/10/2019. It showed no evidence for recurrent or residual malignancy. There were bilateral COPD changes noted. With those findings she continued on observation/expectant management for the renal cell cancer. Her other medical illnesses include hypertension, dyslipidemia, coronary artery disease, peripheral arterial disease, COPD,and GERD. She has a history of smoking 1 pack of cigarettes daily for 25-30 years. She quit smoking at least 15 years ago. INTERIM HISTORY: On 11/29/2020 she was seen in the emergency room with abdominal pain. Her noncontrast CT abdomen/pelvis showed right lower lobe and right middle lobe pneumonia. There was evidence of constipation with fecal impaction. There were no other acute findings, and there was no evidence of metastatic disease. She improved with antibiotic therapy. She is seen for a follow-up visit. She has been feeling pretty good generally. She does complain that she has been having headaches, but she has had migraines all her life. Her energy has been okay. She still has limited activity. ECOG score is 1. She has good appetite. She has not had fever or night sweats. She had a recent episode in which she felt like she was about to freeze to . She says her breathing is better, though she still has some shortness of breath. She does not complain of cough and she has not been having chest pain. She was having vomiting and acid reflux symptoms after she stopped her GI meds, that is better now since she started taking them again. She says her bowel function has been okay. She has no complaints. She continues to complain that she has pain all over, but that is chronic. She has no focal neurologic symptoms. Medications: Aspirin 0.5 Tablet (of 325 mg) Tablet, enteric coated Oral daily, Calcium-Vitamin D-Vitamin K mg 1 Tablet (of 750-500-40 mg - Units - mcg) Oral daily, Co Q-10 1 Capsule Oral daily, [place] 2 Capsule ([place] 84679 Units) Capsule Delayed Release Particles Oral t.i.d., HYDROcodone-Acetaminophen 1 Tablet (of 5-325 mg) Oral q 6 hours PRN, Lisinopril 0.5 (20 mg) Tablet Oral daily, Magnesium Oxide 1 Tablet (of 400 mg) Oral daily, Metoprolol Tartrate 1 (50 mg) Tablet Oral daily, MiraLax 1 Pack Oral b.i.d. PRN, Axtell 3 1 (1200 mg) Capsule Oral daily, Ondansetron HCl 1 Tablet (of 4 mg) Oral t.i.d., Rescue remedy spray Liquid PRN, Symbicort 1 Puff(s) (of 160-4.5 mcg/act) Aerosol Inhalation daily Allergies: No Known Allergies. Vital Signs: Performed on Jan 16, 2021 09:42 Height - 62.50 in Weight - 145.6 lbs (LOW) BSA - 1.68 sq.m BMI - 26.21 Temperature - 98.0 F (LOW) Pulse - 71 /min Respiration - 20 /min BP - 158/82 mm(hg) (HIGH) O2 Sat - 92 % (LOW) Pain - 3 Fatigue - 5 Physical Examination: Constitutional - She looks pretty good generally, Eyes - Sclerae nonicteric. Conjunctivae clear, ENMT - No lesions noted in the oral cavity, Hematologic/Lymphatic - No cervical, clavicular, or axillary adenopathy, Respiratory - Lungs show diminished air movement bilaterally. There are scattered rales present, Cardiovascular - Heart rhythm is regular. There is no murmur, gallop or rub noted, Abdomen - Soft. Liver and spleen are not enlarged. There is no abdominal mass or ascites noted and there is no inguinal adenopathy, Extremities - No edema, Neurologic - No focal neurologic deficits noted. Lab/Imaging: Test performed on Jan 16, 2021 08:16 LDH (Total) 217 U/L Sodium 139 mmol/L Potassium 4.4 mmol/L Chloride 99 mmol/L CO2 33 mmol/L Anion Gap 11.4 BUN 10 mg/dL Creatinine 0.7 mg/dL Cr Clearance (Est) 65.72 mL/min Glucose 105 mg/dL Osmolality - Calculated 287 mOsm/kg Calcium 9.7 mg/dL Protein, Total 7.1 g/dL Albumin 3.6 g/dL Globulin 3.5 g/dL Bilirubin, Total 0.3 mg/dL ALT (SGPT) 12 U/L AST (SGOT) 23 U/L Alkaline Phosphatase 102 IU/L WBC 6.7 10 3/uL RBC 4.17 10 6/uL HGB 12.4 g/dL HCT 40.0 % MCV 95.9 fL MCH 29.7 pg MCHC 31.0 g/dL RDW 15.1 % Platelet Count 466 10 3/cmm MPV 10.6 fL Neutrophils 4.22 10 3/uL Lymphocytes 1.5 10 3/uL Monocytes 0.6 10 3/uL Eosinophils 0.3 10 3/uL Basophils 0.1 10 3/uL Neutrophil % 63.3 % Lymphocyte % 22.2 % Monocyte % 9.1 % Eosinophil % 4.0 % Basophils % 1.3 % NRBC % 0 % Problem List: 1. 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 She has been without evidence of disease following exploratory laparotomy with left pancreatectomy and splenectomy on 08/28/2016. 2. She underwent laparoscopic left nephrectomy for renal cell cancer in 2004. 3. Hypertension. 4. Dyslipidemia. 5. Coronary artery disease. 6. Peripheral arterial disease. 7. GERD. 8. COPD. 9. Osteoporosis. 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 She had undergone laparoscopic left nephrectomy for the renal cell cancer in 2004. She had evidence of pancreatic tail mass by CT scan in June 2016, subsequently confirmed on biopsy to be metastatic clear cell carcinoma. On 08/28/2016 she underwent left pancreatectomy with complete resection of the mass. Pathology was again consistent with metastatic clear-cell adenocarcinoma. She was then followed expectantly. In September 2019 she had presented with worsening fatigue and generalized musculoskeletal pain. The symptoms were somewhat worrisome for recurrence/progression of her renal cell cancer, but a restaging PET/CT showed no evidence of residual or recurrent malignancy. She was found to have evidence of osteoporosis by DEXA scan, for which she has been on treatment with calcitonin and calcium/vitamin D. During follow-up she has had chronic symptoms including fatigue and generalized pain and she has shortness of breath with limited activity tolerance associated with her underlying COPD. Her overall clinical status, though, remained stable, thus far with no evidence of any further recurrence of the renal cell cancer. She remains on observation/expectant management. I will see her again in 6 months. Signed By: Duong Ruano M.D. <<Signature on File>>
== END 2021-01-16 08:08 | disposition home or self-care (01) ==
LOC: ONCMED 08:11
PROVIDERS: PCP Family Medicine; Visit Provider Internal Medicine Medical Oncology
DX: Z08 Encounter for follow-up examination after completed treatment for malignant neoplasm (principal); Z85.07 Personal history of malignant neoplasm of pancreas; I10 Essential (primary) hypertension; E78.5 Hyperlipidemia, unspecified; I25.10 Atherosclerotic heart disease of native coronary artery without angina pectoris; I73.9 Peripheral vascular disease, unspecified; K21.9 Gastro-esophageal reflux disease without esophagitis; J44.9 Chronic obstructive pulmonary disease, unspecified; M81.0 Age-related osteoporosis without current pathological fracture; Z79.899 Other long term (current) drug therapy
CPT/HCPCS: 36415; 80053; 83615; 85025; G0463

== ENCOUNTER 2021-01-27 12:27 | Outpatient (CLI) | payer MEDICARE, OTHER, SELFPAY ==
--- NOTE | 2021-01-27 12:34 | USCV_ITS ---
Haley Ingrid Age: 80 Gender: F : 1940 Exam Date: 01/27/2021 13:22 Ordering Phys: Jose Danielle MD Technologist: TAMERA [place] [facility] [place]ication: CHRONIC OBSTRUCTIVE PULMONARY DZ BP: 168 / 72 HR: 74 Rhythm: Sinus Technical Quality: Adequate MEASUREMENTS (Male / Female) Normal Values 2D ECHO LV Diastolic Diameter PLAX 2.9 cm 4.2 - 5.9 / 3.9 - 5.3 cm LV Systolic Diameter PLAX 2.3 cm IVS Diastolic Thickness 1.5 cm 0.6 - 1.0 / 0.6 - 0.9 cm IVS Systolic Thickness 2.0 cm LVPW Diastolic Thickness 1.3 cm 0.6 - 1.0 / 0.6 - 0.9 cm LVPW Systolic Thickness 1.6 cm RV Chamber Size 2.6 cm LVOT Diameter 2.0 cm LV Ejection Fraction 2D Teich 48.6 % LV Ejection Fraction MOD 2C 42.4 % LV Ejection Fraction 2C AL 47.1 % LA Diameter 2.6 cm LA Width 3.1 cm LA Height 4.4 cm RA Width 3.1 cm RA Height 4.4 cm Aorta at Sinotubular Diameter 2.6 cm M-MODE Aortic Annulus Diameter 2.9 cm LA Ao Ratio MM 0.9 MV E Point Septal Separation 0.5 cm DOPPLER AV Peak Velocity 138.0 cm/s LVOT Peak Velocity 126.0 cm/s AV Area Cont Eq vti 2.6 cm squared AV Area Cont Eq pk 3.0 cm squared MV Area PHT 2.9 cm squared Mitral E to A Ratio 0.6 MV E' Velocity 32.5 cm/s Mitral E to MV E' Ratio 7.1 Mitral E to LV E' Lateral Ratio 6.5 Mitral E to LV E' Septal Ratio 7.7 TR Peak Velocity 382.2 cm/s TR Peak Gradient 58.4 mmHg Right Atrial Pressure 8.0 mmHg Pulmonary Artery Systolic Pressu 66.4 mmHg PV Peak Velocity 87.0 cm/s RV Acceleration Time 0.1 s RV Ejection Time 0.3 s RV AcT/ET 0.4 FINDINGS Left Ventricle Normal left ventricular size, systolic function and wall thickness, with no regional wall motion abnormalities. Left ventricular ejection fraction is estimated at 65 %. Grade I diastolic dysfunction (abnormal relaxation filling pattern), normal to mildly elevated filling pressures. Right Ventricle Normal right ventricular size and systolic function. Pulmonary artery pressure estimated at 25 mm Hg. Right Atrium Normal right atrial size. Left Atrium Normal left atrial size. Mitral Valve Structurally normal mitral valve. No mitral valve stenosis. No significant mitral valve regurgitation. Aortic Valve Aortic valve not well visualized. No aortic valve stenosis. No aortic valve regurgitation. Tricuspid Valve Structurally normal tricuspid valve. Trace tricuspid valve regurgitation. Pulmonic Valve Pulmonic valve not well visualized. Pericardium No pericardial effusion. Aorta Normal sized aortic root. CONCLUSIONS 1. Normal left ventricular size, systolic function and wall thickness, with no regional wall motion abnormalities. Left ventricular ejection fraction is estimated at 65 %. Grade I diastolic dysfunction (abnormal relaxation filling pattern), normal to mildly elevated filling pressures. 2. Pulmonary artery pressure estimated at 25 mm Hg. 3. No significant valvular abnormality. 4. No prior similar studies to compare. Mikayla Chamberlain MD (Electronically Signed) Final Date: 30 January 2021 06:38 S
== END 2021-01-27 12:28 | disposition home or self-care (01) ==
LOC: US 12:28
PROVIDERS: PCP Family Medicine; Visit Provider Family Medicine
DX: J44.9 Chronic obstructive pulmonary disease, unspecified (principal)
CPT/HCPCS: 93306

== ENCOUNTER → 2021-02-02 13:24 | Outpatient (BNVA) | payer MEDICARE, OTHER, SELFPAY | PROVIDERS: PCP Family Medicine; Visit Provider Family Medicine | DX: J44.9 Chronic obstructive pulmonary disease, unspecified (principal); Z20.822 Contact with and (suspected) exposure to COVID-19 | CPT/HCPCS: 87635 ==

== ENCOUNTER 2021-02-07 12:37 | Outpatient (CLI) | payer MEDICARE, OTHER, SELFPAY ==
--- NOTE | 2021-02-07 13:30 | PFTS_ITS ---
Date of Study:02/07/21 Date of Dictation: 02/07/2021 MECHANICS: Postbronchodilator forced vital capacity (FVC) is reduced. Postbronchodilator forced expiratory volume in one second (FEV1) is severely reduced 39 %. FEV1/FVC is reduced. There is significant response to bronchodilators. FLOW VOLUME LOOP: Scooping of expiratory limb suggestive of severe airway obstruction LUNG VOLUMES: Not measured DIFFUSING CAPACITY FOR CARBON MONOXIDE: Not measured . INTERPRETATION: The spirometry suggestive of severe obstructive ventilatory defect. There is significant response to bronchodilators. Please correlate clinically. MTDD
== END 2021-02-07 12:38 | disposition home or self-care (01) ==
LOC: RT 12:37
PROVIDERS: PCP Family Medicine; Visit Provider Family Medicine
DX: J44.9 Chronic obstructive pulmonary disease, unspecified (principal)
CPT/HCPCS: 94060; J7611

== ENCOUNTER 2021-02-15 08:47 | Outpatient (CLI) | payer MEDICARE, OTHER, SELFPAY ==
--- NOTE | 2021-02-15 08:58 | CT_ITS ---
WS: [id number] CT ABDOMEN AND PELVIS WITH CONTRAST HISTORY: GENERALIZED ABDOMINAL PAIN, history of renal and pancreatic cancer. TECHNIQUE: Imaging performed of the abdomen and pelvis with IV contrast. Single phase imaging of the abdomen. Coronal and sagittal reformats are submitted. All CT scans at [facility] use at least one of these dose optimization techniques: automated exposure control; mA and/or kV adjustment per patient size (includes targeted exams where dose is matched to clinical indication); or iterativ e reconstruction. IV CONTRAST: Visipaque 320; 95 mL IV. Oral contrast: Yes. DLP: 1079.31 mGycm COMPARISON: 11/29/2020 Lower thorax: Chronic emphysematous changes at the lung bases. A few scattered vague opacifications a t the RIGHT lung base. Mild pneumonitis. Heart is normal size. Small hiatal hernia. Liver/biliary system: Normal size liver. There is new portal venous air. There is also mild duct dila tation. Which was not present on 11/29/2020. Gallbladder: Status post cholecystectomy. Pancreas: Atrophic pancreas. The distal pancreas has been surgically removed. Remaining pancreas is a trophic. Spleen: Prior splenectomy. Adrenal glands: Normal. Right kidney: Normal. Left kidney: Prior nephrectomy. No recurrent mass at the surgical bed. Aorta: Extensive atherosclerosis. No aneurysm. There is extensive free air within the peritoneal cavity. There is evidence for pneumatosis involving large segment of the small bowel and possibly the descending colon also. Small amount of ascites. Pelvis: Marked fecal retention in the distal colon. No free fluid in the pelvis. Bones: L1 30% compression fracture. Osteopenia. CT/CT abdomen pelvis w con* [id number] IMPRESSION: 1. Large amount of free air with pneumatosis/ischemic change within the small bowel and probable descending colon and portal venous air. 2. New intrahepatic bile duct dilatation. 3. Prior splenectomy, cholecystectomy and LEFT nephrectomy. 4. Partial pancreatectomy. 5. Chronic emphysema. Notified Derian Vazquez at 02/15/2021 10:30 AM.
[2021-02-15] MEDS: iohexol 300 mg/mL 50 mL Btl PO (09:00)
[2021-02-15] MEDS: iodixanol 320 mg/mL 100mL Btl IV (10:01)
== END 2021-02-15 08:48 | disposition home or self-care (01) ==
LOC: RADWPI 08:54
PROVIDERS: PCP Family Medicine; Visit Provider Family Medicine
DX: R10.84 Generalized abdominal pain (principal); Z85.07 Personal history of malignant neoplasm of pancreas; Z85.528 Personal history of other malignant neoplasm of kidney; Z90.411 Acquired partial absence of pancreas; Z90.81 Acquired absence of spleen; Z90.49 Acquired absence of other specified parts of digestive tract; Z90.5 Acquired absence of kidney
CPT/HCPCS: 74177; Q9967

== ENCOUNTER 2021-05-19 09:19 | Outpatient (CLI) | payer MEDICARE, OTHER, SELFPAY ==
--- NOTE | 2021-05-19 09:30 | USCV_ITS ---
Ingrid De Leon Age: 80 Gender: F : 1940 Exam Date: 05/19/2021 09:59 Ordering Phys: Cruzito Coronado M.D ([email or web address]) Technologist: Sari Fajardo Exam Location: [facility] Indication: sob BP: 168 / 88 HR: 67 Rhythm: Sinus Technical Quality: Adequate MEASUREMENTS (Male / Female) Normal Values 2D ECHO LV Diastolic Diameter PLAX 3.2 cm 4.2 - 5.9 / 3.9 - 5.3 cm LV Systolic Diameter PLAX 1.6 cm IVS Diastolic Thickness 0.8 cm 0.6 - 1.0 / 0.6 - 0.9 cm IVS Systolic Thickness 1.8 cm LVPW Diastolic Thickness 0.8 cm 0.6 - 1.0 / 0.6 - 0.9 cm LVPW Systolic Thickness 1.5 cm LVOT Diameter 2.0 cm LV Ejection Fraction 2D Teich 83.4 % LV Ejection Fraction MOD 2C 51.9 % LV Ejection Fraction 2C AL 53.5 % LA Diameter 2.5 cm LA Width 3.2 cm LA Height 4.4 cm RA Width 2.9 cm RA Height 4.4 cm Aorta at Sinotubular Diameter 3.3 cm M-MODE LV Diastolic Diameter MM 4.8 cm 4.2 - 5.9 / 3.9 - 5.3 cm LV Systolic Diameter MM 4.0 cm LV Ejection Fraction MM Teich 32.4 % IVS Diastolic Thickness MM 0.6 cm 0.6 - 1.0 / 0.6 - 0.9 cm IVS Systolic Thickness MM 0.8 cm LVPW Diastolic Thickness MM 1.2 cm 0.6 - 1.0 / 0.6 - 0.9 cm LVPW Systolic Thickness MM 1.5 cm Aortic Annulus Diameter 3.7 cm LA Ao Ratio MM 0.6 MV E Point Septal Separation 0.3 cm DOPPLER MV E' Velocity 8.0 cm/s TR Peak Velocity 204.2 cm/s TR Peak Gradient 16.7 mmHg TR Mean Velocity 163.7 cm/s TR Mean Gradient 12.7 mmHg TR Velocity Time Integral 70.3 cm Right Atrial Pressure 3.0 mmHg Pulmonary Artery Systolic Pressu 19.7 mmHg PV Peak Velocity 61.0 cm/s RV Acceleration Time 0.1 s RV Ejection Time 0.3 s RV AcT/ET 0.2 FINDINGS Left Ventricle LV systolic function is normal with EF of 55-60%. No regional wall motion abnormalities are seen. Diastolic function is abnormal Right Ventricle Normal size and function Right Atrium Normal in size Left Atrium Normal in size Mitral Valve Grossly normal Aortic Valve Not well visualized Tricuspid Valve Grossly normal. Insufficient TR jet to calculate RVSP Pulmonic Valve Grossly normal Pericardium Normal Aorta Not well visualized CONCLUSIONS LV systolic function is normal with EF of 55-60%. Diastolic function is abnormal Compared to prior echocardiogram from 01/27/21, no signficant changes are noted Cruzito Coronado MD (Electronically Signed) Final Date: 28 May 2021 16:47 S
== END 2021-05-19 09:20 | disposition home or self-care (01) ==
LOC: RAD 09:24
PROVIDERS: PCP Family Medicine; Visit Provider Internal Medicine
DX: R06.02 Shortness of breath (principal)
CPT/HCPCS: 93308

== ENCOUNTER 2021-06-01 10:20 | Outpatient (CLI) | payer MEDICARE, OTHER, SELFPAY ==
--- NOTE | 2021-06-01 10:46 | XR_ITS ---
WS: [id number] PA and lateral chest, 06/01/2021 Clinical Data: PNEUMONIA OF BOTH LOWER LOBES DUE TO INFECTIOUS ORGANISM Comparison: Portable chest, 11/29/2020. Findings: There is minimal patchy atelectasis persists in the right lower lobe. No nodules, masses or effusions are seen. The pulmonary vascularity is nonremarkable. The heart is normal. The aortic arch and descending aorta show minimal calcification and tortuosity. XR/XR chest 2V* [id number] Impression: 1. Minimal right lower lobe atelectasis. 2. Atherosclerosis.
== END 2021-06-01 10:21 | disposition home or self-care (01) ==
PROVIDERS: PCP Family Medicine; Visit Provider Family Medicine
DX: J18.9 Pneumonia, unspecified organism (principal); J98.11 Atelectasis; I70.90 Unspecified atherosclerosis
CPT/HCPCS: 71046

== ENCOUNTER 2021-08-09 09:38 | Outpatient (CLI) | payer MEDICARE, OTHER, SELFPAY ==
--- NOTE | 2021-08-09 09:59 | XR_ITS ---
WS: [id number] LUMBAR SPINE TECHNIQUE: 3 views of the lumbar spine CLINICAL INFORMATION: LUMBAR AND SACRAL SPONDYLARTHRITIS COMPARISON: None. FINDINGS: Osteopenia. Mild lumbar curve convex right. Chronic anterior wedging in the lower lumbar spine and up per lumbar spine at L1. This appears unchanged since December 11, 2019. Mild disc space narrowing L2-3 with slight retrolisthesis L2 on L3. Moderate to advanced facet arthropathy L5-S1. Aortic calcificat ion. Cholecystectomy clips. XR/XR lumbar spine 2-3V* [id number] IMPRESSION: 1. Osteopenia. 2. Mild lumbar curve. 3. Chronic compression L1 unchanged. No acute appearing compression fractures. 4. Moderate spondylitic changes.
== END 2021-08-09 09:39 | disposition home or self-care (01) ==
PROVIDERS: PCP Family Medicine; Visit Provider Family Medicine
DX: M47.817 Spondylosis without myelopathy or radiculopathy, lumbosacral region (principal); M85.88 Other specified disorders of bone density and structure, other site; S32.019A Unspecified fracture of first lumbar vertebra, initial encounter for closed fracture; X58.XXXA Exposure to other specified factors, initial encounter
CPT/HCPCS: 72100

== ENCOUNTER 2021-08-29 09:51 | Outpatient (CLI) | payer MEDICARE, OTHER, SELFPAY ==
[2021-08-29 10:42] LABS: Basophils # 0.1 10^3/uL (0.0-0.1); Basophils % 0.6 %; Eosinophils # 0.3 10^3/uL (0.0-0.8); Eosinophils % 2.2 %; Hematocrit 39.8 % (37.0-47.0); Hemoglobin 12.6 g/dL (11.5-15.3); Lymphocytes # 2.4 10^3/uL (0.8-4.8); Mean Corpuscular HGB Conc 31.7 g/dL (30.0-36.0); Mean Corpuscular Hemoglobin 29.9 pg (28.0-34.0); Mean Corpuscular Volume 94.5 fl (81-99); Mean Platelet Volume 10.9 fL (7.4-10.4); Monocytes # 1.4 10^3/uL (0.2-0.9); Monocytes % 10.8 %; Neutrophils # 8.41 10^3/uL (1.8-7.7); Neutrophils % 67.1 %; Nucleated Red Blood Cells % 0 %; Platelet Count 396 10^3/cmm (130-400); Red Blood Count 4.21 10^6/uL (4.1-5.3); White Blood Count 12.5 10^3/uL (4.0-10.0)
[2021-08-29 11:01] LABS: Alanine Aminotransferase 18 U/L (0-33); Albumin Level 3.7 g/dL (3.5-5.2); Alkaline Phosphatase 88 IU/L (35-105); Anion Gap 13.8 (5-19); Aspartate Amino Transferase 19 U/L (0-32); Blood Urea Nitrogen 13 mg/dL (8-23); Calcium 9.8 mg/dL (8.5-10.5); Carbon Dioxide 30 mmol/L (22-29); Chloride 100 mmol/L (98-107); Globulin 3.4 g/dL (1.3-4.6); Glucose 111 mg/dL (65-115); Lactate Dehydrogenase 219 U/L (135-214); Osmolality Calculated 291 mOsm/kg (285-295); Potassium 3.8 mmol/L (3.5-5.1); Sodium 140 mmol/L (136-145); Total Bilirubin 0.3 mg/dL (0.15-1.2); Total Protein 7.1 g/dL (6.6-8.7)
--- NOTE | 2021-09-02 10:27 | ONC FU_ITS ---
Dr. Ruano Patient Follow-Up Note Patient: Ingrid De Leon Unit #: [id number]: 1940 Dicatated By: Duong Ruano M.D.Date of Visit:Aug 29, 2021 Onc Med Follow-up/Prog Note Chief Complaint: Renal cell cancer. 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 She had known renal cell carcinoma, having undergone laparoscopic left nephrectomy at [facility] in 2004. In June 2016 she had evaluation with a CT pulmonary angiogram after presenting with chest pain and shortness of breath. That study showed no evidence of pulmonary emboli or other acute pathology. However, she was incidentally noted to have a pancreatic tail mass measuring 2.3 x 2.[address] abdomen/pelvis on 07/10/2016 again showed evidence of pancreatic tail neoplasm measuring 2.5 x 2.2 x 2 cm. There was evidence of previous left nephrectomy. There was no evidence for any other primary or metastatic neoplasm. She then had further evaluation by Dr. Henao in [place]. EUS with biopsy of the pancreatic mass on 08/06/2016 showed clear cell carcinoma. On 08/28/2016 she underwent exploratory laparotomy with left pancreatectomy and splenectomy, splenic artery lymph node dissection, mobilization of splenic flexure and omental pedicle flap. Pathology showed a well defined 2.9 x 2.2 x 2.1 cm mass located at the distal tip of the pancreatic parenchyma. There was no invasion into the outer surface of the pancreas nor into the splenic vessels or peripancreatic adipose tissue. 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 Tumor was noted to focally extend to within less than 1 mm of the inked peripancreatic soft tissue margin, but the final surgical margins were negative for neoplasm. There was no involvement in the spleen and there was no involvement into splenic artery lymph nodes. I had seen her initially on 11/19/2016. She was clearly at high risk for further recurrence, but in the absence of any approved adjuvant therapy for renal cell carcinoma, she was advised to continue observation/expectant management. Surveillance CT of the abdomen/pelvis on 04/17/2017 showed postoperative changes of splenectomy, distal pancreatectomy, and left nephrectomy. Two small fluid collections within the left upper quadrant appeared to have diminished in size. There was no evidence for residual or recurrent disease. She continued regular followup with surveillance CT scans with Dr. Henao. Her repeat CT scan on 05/15/2018 showed evidence of relatively diffuse pneumoperitoneum, volume of which appeared stable or slightly increased. A very small focal defect within the right upper quadrant anterior abdominal wall with localized fat herniation measuring up to 3.9 cm was noted, and the hernia sac also appeared to contain gas from the pneumoperitoneum. Multiple gas bubbles were noted within the anterior lower abdomen and interspersed amongst bowel loops in the right lower quadrant of the abdomen and in the left side of the abdomen similar to the previous exam. The findings were felt to be suggestive of bowel perforation. Multiple air-fluid levels were noted within the small and large bowel. There was no obvious recurrence/progression of the renal cell cancer. I had seen her for a scheduled visit on 10/02/2019. She had multiple complaints, the most significant was that she had been hurting all over, particularly in her right hand and in her left arm and left leg. She had seen Dr. Danielle and she had started taking ccolchicine. She also complained of shortness of breath and abdominal bloating. With those complaints, she had a restaging PET/CT on 10/10/2019. It showed no evidence for recurrent or residual malignancy. There were bilateral COPD changes noted. With those findings she continued on observation/expectant management for the renal cell cancer. Her other medical illnesses include hypertension, dyslipidemia, coronary artery disease, peripheral arterial disease, COPD,and GERD. She has a history of smoking 1 pack of cigarettes daily for 25-30 years. She quit smoking at least 15 years ago. INTERIM HISTORY: On 11/29/2020 she was seen in the emergency room with abdominal pain. Her noncontrast CT abdomen/pelvis showed right lower lobe and right middle lobe pneumonia. There was evidence of constipation with fecal impaction. There were no other acute findings, and there was no evidence of metastatic disease. She improved with antibiotic therapy. A repeat CT of the abdomen/pelvis on 02/15/2021 showed new intrahepatic bile duct dilatation with a large amount of free air with pneumatosis/ischemic changes within the small bowel and probably descending colon. She has been following with Dr. Henao for further management. She did have a recent CT scan done at the [facility] in [place]. I do not have that result available yet. She is seen for a follow-up visit. She has been feeling okay. She does have limited activity tolerance, but she has been walking and doing light work. ECOG score is one. Her appetite is not very good, but her weight is up 3 pounds. She does not have fever or night sweats. She has shortness of breath and she is using oxygen in the evening. She does not complain of cough. She has been having some chest pain and she is being followed by cardiology now. She has a little nausea. She has ongoing problems with constipation. She sometimes has hesitancy with urination, but bladder function remains adequate. She has been having pain in her back and legs, and she also has pain in both ankles. She has headache when her blood pressure is elevated. She does not complain of dizziness, and she has no focal neurologic symptoms. Medications: Anucort-HC 1 (25 mg) Suppository Rectal t.i.d., Aspirin 0.5 Tablet (of 325 mg) Tablet, enteric coated Oral daily, Calcium-Vitamin D-Vitamin K mg 1 Tablet (of 750-500-40 mg - Units - mcg) Oral daily, Co Q-10 1 Capsule Oral daily, Creon 2 Capsule (of 04193 Units) Capsule Delayed Release Particles Oral t.i.d., HYDROcodone-Acetaminophen 1 Tablet (of 5-325 mg) Oral q 6 hours PRN, Lisinopril 0.5 (20 mg) Tablet Oral daily, Magnesium Oxide 1 Tablet (of 400 mg) Oral daily, Metoprolol Tartrate 1 (50 mg) Tablet Oral daily, MiraLax 1 Pack Oral b.i.d. PRN, [place] 3 1 (1200 mg) Capsule Oral daily, Ondansetron HCl 1 Tablet (of 4 mg) Oral t.i.d., Rescue remedy spray Liquid PRN, Symbicort 1 Puff(s) (of 160-4.5 mcg/act) Aerosol Inhalation daily Allergies: No Known Allergies. Vital Signs: Performed on Aug 29, 2021 12:56 Height - 62.50 in Weight - 157.4 lbs (HIGH) BSA - 1.74 sq.m BMI - 28.33 Temperature - 96.6 F (LOW) Pulse - 71 /min Respiration - 20 /min BP - 138/64 mm(hg) O2 Sat - 95 % (LOW) Pain - 6 Fatigue - 5 Physical Examination: Constitutional - She looks pretty good generally, Eyes - Sclerae nonicteric. Conjunctivae clear, ENMT - No lesions noted in the oral cavity, Hematologic/Lymphatic - No cervical, clavicular, or axillary adenopathy, Respiratory - Lungs sound clear with diminished air movement bilaterally, Cardiovascular - Heart rhythm is regular. There is no murmur, gallop or rub noted, Abdomen - Mildly distended and tympanic. There is some tenderness in the epigastric area. Liver and spleen are not enlarged. There is no abdominal mass or ascites noted and there is no inguinal adenopathy, Extremities - No edema. She has chronic purpura, Neurologic - No focal neurologic deficits noted. Lab/Imaging: Test performed on Aug 29, 2021 10:25 LDH (Total) 219 U/L Sodium 140 mmol/L Potassium 3.8 mmol/L Chloride 100 mmol/L CO2 30 mmol/L Anion Gap 13.8 BUN 13 mg/dL Creatinine 0.7 mg/dL Cr Clearance (Est) 71.04 mL/min Glucose 111 mg/dL Osmolality - Calculated 291 mOsm/kg Calcium 9.8 mg/dL Protein, Total 7.1 g/dL Albumin 3.7 g/dL Globulin 3.4 g/dL Bilirubin, Total 0.3 mg/dL ALT (SGPT) 18 U/L AST (SGOT) 19 U/L Alkaline Phosphatase 88 IU/L WBC 12.5 10 3/uL RBC 4.21 10 6/uL HGB 12.6 g/dL HCT 39.8 % MCV 94.5 fl MCH 29.9 pg MCHC 31.7 g/dL RDW 15.0 % Platelet Count 396 10 3/cmm MPV 10.9 fL Neutrophils 8.41 10 3/uL Lymphocytes 2.4 10 3/uL Monocytes 1.4 10 3/uL Eosinophils 0.3 10 3/uL Basophils 0.1 10 3/uL Neutrophil % 67.1 % Lymphocyte % 19.0 % Monocyte % 10.8 % Eosinophil % 2.2 % Basophils % 0.6 % NRBC % 0 % Problem List: 1. 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 She has been without evidence of disease following exploratory laparotomy with left pancreatectomy and splenectomy on 08/28/2016. 2. She underwent laparoscopic left nephrectomy for renal cell cancer in 2004. 3. Hypertension. 4. Dyslipidemia. 5. Coronary artery disease. 6. Peripheral arterial disease. 7. GERD. 8. COPD. 9. Osteoporosis. 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 She had undergone laparoscopic left nephrectomy for the renal cell cancer in 2004. She had evidence of pancreatic tail mass by CT scan in June 2016, subsequently confirmed on biopsy to be metastatic clear cell carcinoma. On 08/28/2016 she underwent left pancreatectomy with complete resection of the mass. Pathology was again consistent with metastatic clear-cell adenocarcinoma. She was then followed expectantly. In September 2019 she had presented with worsening fatigue and generalized musculoskeletal pain. The symptoms were somewhat worrisome for recurrence/progression of her renal cell cancer, but a restaging PET/CT showed no evidence of residual or recurrent malignancy. She was found to have evidence of osteoporosis by DEXA scan, for which she has been on treatment with calcitonin and calcium/vitamin D. During follow-up she has had chronic symptoms including fatigue and generalized pain and she has shortness of breath with limited activity tolerance associated with her underlying COPD. She had significant changes on follow-up CT abdomen/pelvis in February. She has had further management with Dr. Henao in [place], which included a recent follow-up CT. I will request records from Dr. Henao's office, and I will also request the CT scans for review. She will have further evaluation as indicated. The absence of any evidence of recurrence/progression of the renal cell cancer, I will just plan to see her again in 6 months. Signed By: Duong Ruano M.D. <<Signature on File>>
== END 2021-08-29 09:52 | disposition home or self-care (01) ==
LOC: ONCMED 09:59
PROVIDERS: PCP Family Medicine; Visit Provider Internal Medicine Medical Oncology
DX: C64.2 Malignant neoplasm of left kidney, except renal pelvis (principal); C78.89 Secondary malignant neoplasm of other digestive organs; Z79.899 Other long term (current) drug therapy
CPT/HCPCS: 36415; 80053; 83615; 85025; 99214

== ENCOUNTER 2021-10-01 15:26 | Inpatient (IN) | payer MEDICARE, OTHER, SELFPAY ==
[2021-10-01] VITALS (8 sets, daily range): BP systolic 142–198; BP diastolic 66–86; PULSE 74–82; RESP 15–18; TEMP 36.6–36.7; O2SAT 91–97
--- NOTE | 2021-10-01 15:54 | CTR_ITS ---
PROCEDURE INFORMATION: Exam: CT Abdomen And Pelvis With Contrast Exam date and time: 10/01/2021 3:54 PM Age: 81 years old Clinical indication: Abdominal pain; Localized; Left; Prior surgery; Surgery date: 6+ months; Surgery type: Whipple, spleen, gb, appy, L neph; Patient HX: HX of pancreatic and renal cell CA C/O L sided abd pain and constipation x 10 days TECHNIQUE: Imaging protocol: Computed tomography of the abdomen and pelvis with contrast. Radiation optimization: All CT scans at this facility use at least one of these dose optimization techniques: automated exposure control; mA and/or kV adjustment per patient size (includes targeted exams where dose is matched to clinical indication); or iterative reconstruction. Contrast material: VISI 320; Contrast volume: 95 ml; Contrast route: INTRAVENOUS (IV); COMPARISON: CT abdomen pelvis w con* [id number] 02/15/2021 9:57 AM RADIATION DOSE METRICS: Total DLP (mGy-cm): 1301.69 FINDINGS: Lungs: There is unchanged bronchiectasis and mild interstitial and ground-glass opacity in the lung bases compatible with unchanged mild pneumonitis or fibrosis. There is subpleural atelectasis of the dependent portions of the lungs. Diaphragm: A small hiatal hernia is present. Liver: The liver is otherwise homogeneous in density. Gallbladder and bile ducts: There has been a cholecystectomy. There is mild intrahepatic biliary duct dilatation compatible probable postoperative reservoir type changes. Pancreas: Postoperative changes of partial pancreatectomy are noted. No new pancreatic mass or inflammatory changes. Spleen: Normal. No splenomegaly. Adrenal glands: The adrenal glands are normal. Kidneys and ureters: There has been a left nephrectomy. Stomach and bowel: There is a large amount of colonic stool compatible with constipation without definite impaction. The stomach is collapsed. There is wall thickening of the distal stomach and duodenum. This appearance is compatible with probable gastro duodenitis increased since the prior exam. There are fluid-filled mildly dilated loops of small bowel with air-fluid levels compatible with a partial small bowel obstruction measuring up to 3.3 cm. There is an abrupt transition zone in the right lower quadrant without wall thickening suggestive of adhesions. Appendix: A normal appendix is identified. Intraperitoneal space: Unremarkable. No free air. No significant fluid collection. Vasculature: The aorta demonstrates moderate atherosclerotic calcification. Lymph nodes: Unremarkable.No enlarged lymph nodes. Urinary bladder: The bladder is normal. Reproductive: Unremarkable as visualized. Bones/joints: There is no acute bony abnormality. Chronic anterior wedging deformity of L1 is again noted as is partial fusion of T11 and T12. Soft tissues: There is a fat-containing umbilical hernia. CT/CT abdomen pelvis w con* [id number] IMPRESSION: 1. There are fluid-filled mildly dilated loops of small bowel with air-fluid levels compatible with a partial small bowel obstruction measuring up to 3.3 cm. There is an abrupt transition zone in the right lower quadrant without wall thickening suggestive of adhesions. 2. The stomach is collapsed. There is prominent wall thickening of the distal stomach and duodenum. This appearance is compatible with probable gastro duodenitis increased since the prior exam. 3. There is a large amount of colonic stool compatible with constipation without definite impaction. Radiation Dose CTDIVOL = (mGy): DLP = 1301.69 (mGy-cm)
[2021-10-01 16:19] LABS: Basophils # 0.1 10^3/uL (0.0-0.1); Basophils % 1.6 %; Eosinophils # 0.3 10^3/uL (0.0-0.8); Eosinophils % 3.9 %; Hematocrit 39.2 % (37.0-47.0); Hemoglobin 13.3 g/dL (11.5-15.3); Lymphocytes # 1.4 10^3/uL (0.8-4.8); Lymphocytes % 22.4 %; Mean Corpuscular HGB Conc 33.9 g/dL (30.0-36.0); Mean Corpuscular Hemoglobin 30.5 pg (28.0-34.0); Mean Corpuscular Volume 89.9 fl (81-99); Mean Platelet Volume 10.9 fL (7.4-10.4); Monocytes # 0.9 10^3/uL (0.2-0.9); Monocytes % 14.3 %; Neutrophils # 3.67 10^3/uL (1.8-7.7); Neutrophils % 57.5 %; Nucleated Red Blood Cells % 0 %; Platelet Count 391 10^3/cmm (130-400); Red Blood Count 4.36 10^6/uL (4.1-5.3); White Blood Count 6.4 10^3/uL (4.0-10.0)
--- NOTE | 2021-10-01 17:11 | ED_ITS ---
HPI - General Adult General: Chief complaint: Abdominal Pain Stated complaint: NOT HAVING BOWEL MOVEMENTS IN 12 DAYS Time Seen by Provider: 10/01/21 15:52 History of Present Illness: HPI narrative: Patient is an 81-year-old female with a history of left kidney cancer, COPD, prior rectal resection over 10 years ago presenting to emergency room with concerns of constipation. Patient tell me that she has improved for the last 12 days. She has tried enema, suppository without any improvement in symptoms. Patient is followed by Dr. Mayo and has an appointment with a shell molding roller blast operator in the next few days. Given no bowel movement in the last 12 days, patient decided to come to the emergency room for evaluation. Patient has no complaints of abdominal pain, has been able to pass gas without difficulty. Denies any fever or chills, nausea/vomiting. Has not had any decreased p.o. intake. No associated chest pain, shortness breath, palpitation or lightheadedness. Patient noticed that her abdomen is distended. Onset:12 days ago Duration:12 days Location:home Severity:moderate Review of Systems Narrative: Constitutional: No fever, no chills. HEENT: No vision changes CV: No chest pain, no palpitations PULM: no cough, no dyspnea. GI: No abdominal pain, no N/V/D. +constipation x 12 days : No dysuria MSKEL: No muscle pain SKIN: No new rashes, no lesions. NEURO: No headache, no focal weakness. HEME: No visible bruises PSYCH: Normal mood PFSH ED PFSH: Medical History ASHD (arteriosclerotic heart disease) COPD (chronic obstructive pulmonary disease) Dyslipidemia HTN (hypertension) PAD (peripheral artery disease) Renal cell cancer S/p nephrectomy Tobacco abuse, in remission Family History Father CAD (coronary artery disease) Brother CAD (coronary artery disease) Myocardial infarction Social History Smoking and tobacco status: former smoker Lives independently: Yes Marital status: / Pets and animals: Yes Physical Exam Narrative: EXAM NARRATIVE: Head: Atraumatic Eyes: PERRL, conjunctiva without injection ENT: Mucous membrane moist NECK: Supple, ROM intact LUNGS: LCTAB, no crackles/rhonchi CV: RRR ABDOMEN: Soft, +abd distension, no focal TTP. NO guarding rebound, guarding, rigidity. No CVA tenderness to percussion. Neg Irwin/Neg McBurney's point tenderness, no suprabupic tenderness to palpation. EXTREMITY: Normal ROM SKIN: No rash or erythema NEURO: Awake and alert, no focal motor deficits PSYCH: Normal mood and affect Course Vital Signs: Vital signs: Vital Signs Temperature 98.4 F 10/03/21 07:26 Pulse Rate 83 10/03/21 10:51 Respiratory Rate 16 10/03/21 10:51 Blood Pressure 154/66 10/03/21 07:26 Pulse Oximetry 92 10/03/21 10:51 MDM - General Adult MDM Narrative: Medical decision making narrative: Patient is an 81-year-old female with a history of COPD, left kidney cancer, prior rectal resection presenting to the emergency room with constipation x10 days. On exam, patient is hemodynamically stable without focal tenderness to palpation in the abdomen. Patient appears to have grossly distended abdomen. Workup: CBC, CMP, Lipase, UA, CT abd+pelvis CT abdomen pelvis showed partial small bowel obstruction with severe constipation. Patient will be given enema. NG-tube will be placed. No leukocytosis, afebrile, will be admitted to the hospital for enema and management small bowel dysfunction in the setting of severe constipation Disposition: Admission Lab Data: Labs: Lab Results 10/01/21 10/01/21 10/01/21 16:11 16:11 16:54 WBC 6.4 10^3/uL 10^3/ uL (4.0-10.0) RBC 4.36 10^6/uL 10^6 /uL (4.1-5.3) Hgb 13.3 g/dL g/dL (11.5-15.3) Hct 39.2 % % (37.0-47.0) MCV 89.9 fl fl (81-99) MCH 30.5 pg pg (28.0-34.0) MCHC 33.9 g/dL g/dL (30.0-36.0) RDW 15.0 % % (12.1-15.1) Plt Count 391 10^3/cmm 10^3 /cmm (130-400) MPV 10.9 fL H fL (7.4-10.4) Neut % (Auto) 57.5 % % Lymph % (Auto) 22.4 % % [place] % (Auto) 14.3 % % Eos % (Auto) 3.9 % % Baso % (Auto) 1.6 % % Neut # (Auto) 3.67 10^3/uL 10^3 /uL (1.8-7.7) Lymph # (Auto) 1.4 10^3/uL 10^3/ uL (0.8-4.8) [place] # (Auto) 0.9 10^3/uL 10^3/ uL (0.2-0.9) Eos # (Auto) 0.3 10^3/uL 10^3/ uL (0.0-0.8) Baso # (Auto) 0.1 10^3/uL 10^3/ uL (0.0-0.1) Nucleated RBC % (a uto) 0 % % Nucleated RBCs # 0.0 /100WBC /100W BC Sodium Cancelled 138 mmol/L mmol/L (136-145) Potassium Cancelled 4.2 mmol/L mmol/L (3.5-5.1) Chloride Cancelled 99 mmol/L mmol/L (98-107) Carbon Dioxide Cancelled 28 mmol/L mmol/L (22-29) Anion Gap Cancelled 15.2 (5-19) BUN Cancelled 9 mg/dL mg/dL (8-23) Creatinine Cancelled 0.6 mg/dL mg/dL (0.5-0.9) GFR Calculation Cancelled Not Reportable Glucose Cancelled 93 mg/dL mg/dL (65-115) Calculated Osmolal ity Cancelled 284 mOsm/kg L mOs m/kg (285-295) Calcium Cancelled 9.7 mg/dL mg/dL (8.5-10.5) Total Bilirubin Cancelled 0.3 mg/dL mg/dL (0.15-1.2) AST Cancelled 28 U/L U/L (0-32) ALT Cancelled 121 U/L H U/L (0-33) Alkaline Phosphata se Cancelled 123 IU/L H IU/L (35-105) Total Protein Cancelled 7.0 g/dL g/dL (6.6-8.7) Albumin Cancelled 3.9 g/dL g/dL (3.5-5.2) Globulin Cancelled 3.1 g/dL g/dL (1.3-4.6) Lipase Cancelled 10 U/L L U/L (13-60) Urine Color Urine Appearance Urine pH Ur Specific Gravit y Urine Protein Urine Glucose (UA) Urine Ketones Urine Blood Urine Nitrate Urine Bilirubin Urine Urobilinogen Ur Leukocyte Debbie ase 10/01/21 17:29 WBC RBC Hgb Hct MCV MCH MCHC RDW Plt Count MPV Neut % (Auto) Lymph % (Auto) [place] % (Auto) Eos % (Auto) Baso % (Auto) Neut # (Auto) Lymph # (Auto) [place] # (Auto) Eos # (Auto) Baso # (Auto) Nucleated RBC % (a uto) Nucleated RBCs # Sodium Potassium Chloride Carbon Dioxide Anion Gap BUN Creatinine GFR Calculation Glucose Calculated Osmolal ity Calcium Total Bilirubin AST ALT Alkaline Phosphata se Total Protein Albumin Globulin Lipase Urine Color Straw (Yellow) Urine Appearance Clear (CLEAR) Urine pH 6 (5-7) Ur Specific Gravit y 1.005 (1.005-1.030) Urine Protein Neg (Negative) Urine Glucose (UA) Norm (Normal) Urine Ketones Negative (Negative) Urine Blood Neg (Negative) Urine Nitrate Negative (Negative) Urine Bilirubin Neg (Negative) Urine Urobilinogen Norm mg/dL mg/dL (Negative) Ur Leukocyte Debbie ase Negative (Negative) Imaging Data^: Other Imaging: Radiologist's impression: [address] [id number] Scan ReportSigned Patient: Ingrid De Leon SUnit #: [id number]: 9Acct#:[id number]/Sex: 81 / FADM Date: 10/01/21Loc: ERRoom/Bed:Attending Dr: Ordering Provider/Ordering MD: Mahin Handley MD Date of Service: 10/01/21 Procedure(s): CT abdomen pelvis w con* [id number] Accession Number(s): [id number] Report Number: [id number] PROCEDURE INFORMATION: Exam: CT Abdomen And Pelvis With Contrast Exam date and time: 10/01/2021 3:54 PM Age: 81 years old Clinical indication: Abdominal pain; Localized; Left; Prior surgery; Surgery date: 6+ months; Surgery type: Whipple, spleen, gb, appy, L neph; Patient HX: HX of pancreatic and renal cell CA C/O L sided abd pain and constipation x 10 days TECHNIQUE: Imaging protocol: Computed tomography of the abdomen and pelvis with contrast. Radiation optimization: All CT scans at this facility use at least one of these dose optimization techniques: automated exposure control; mA and/or kV adjustment per patient size (includes targeted exams where dose is matched to clinical indication); or iterative reconstruction. Contrast material: VISI 320; Contrast volume: 95 ml; Contrast route: INTRAVENOUS (IV); COMPARISON: CT abdomen pelvis w con* [id number] 02/15/2021 9:57 AM RADIATION DOSE METRICS: Total DLP (mGy-cm): 1301.69 FINDINGS: Lungs: There is unchanged bronchiectasis and mild interstitial and ground-glass opacity in the lung bases compatible with unchanged mild pneumonitis or fibrosis. There is subpleural atelectasis of the dependent portions of the lungs. Diaphragm: A small hiatal hernia is present. Liver: The liver is otherwise homogeneous in density. Gallbladder and bile ducts: There has been a cholecystectomy. There is mild intrahepatic biliary duct dilatation compatible probable postoperative reservoir type changes. Pancreas: Postoperative changes of partial pancreatectomy are noted. No new pancreatic mass or inflammatory changes. Spleen: Normal. No splenomegaly. Adrenal glands: The adrenal glands are normal. Kidneys and ureters: There has been a left nephrectomy. Stomach and bowel: There is a large amount of colonic stool compatible with constipation without definite impaction. The stomach is collapsed. There is wall thickening of the distal stomach and duodenum. This appearance is compatible with probable gastro duodenitis increased since the prior exam. There are fluid-filled mildly dilated loops of small bowel with air-fluid levels compatible with a partial small bowel obstruction measuring up to 3.3 cm. There is an abrupt transition zone in the right lower quadrant without wall thickening suggestive of adhesions. Appendix: A normal appendix is identified. Intraperitoneal space: Unremarkable. No free air. No significant fluid collection. Vasculature: The aorta demonstrates moderate atherosclerotic calcification. Lymph nodes: Unremarkable.No enlarged lymph nodes. Urinary bladder: The bladder is normal. Reproductive: Unremarkable as visualized. Bones/joints: There is no acute bony abnormality. Chronic anterior wedging deformity of L1 is again noted as is partial fusion of T11 and T12. Soft tissues: There is a fat-containing umbilical hernia. CT/CT abdomen pelvis w con* [id number] IMPRESSION: 1. There are fluid-filled mildly dilated loops of small bowel with air-fluid levels compatible with a partial small bowel obstruction measuring up to 3.3 cm. There is an abrupt transition zone in the right lower quadrant without wall thickening suggestive of adhesions. 2. The stomach is collapsed. There is prominent wall thickening of the distal stomach and duodenum. This appearance is compatible with probable gastro duodenitis increased since the prior exam. 3. There is a large amount of colonic stool compatible with constipation without definite impaction. 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
[2021-10-01 17:44] LABS: Add Urine Microscopic? NO; Charge for UA Resulting for Rev
[2021-10-01 17:47] LABS: Bilirubin Urine Neg (Negative); Blood Urine Neg (Negative); Glucose Urine UA Norm (Normal); Ketones Urine Negative (Negative); Leukocyte Esterase Urine Negative (Negative); Nitrate Urine Negative (Negative); Protein Urine Neg (Negative); Specific Gravity, Urine 1.005 (1.005-1.030); Urine Appearance Clear (CLEAR); Urine Color Straw (Yellow); Urobilinogen Urine Norm (Negative); pH Urine 6 (5-7)
[2021-10-01 18:15] LABS: Alanine Aminotransferase 121 U/L (0-33); Albumin Level 3.9 g/dL (3.5-5.2); Alkaline Phosphatase 123 IU/L (35-105); Anion Gap 15.2 (5-19); Aspartate Amino Transferase 28 U/L (0-32); Blood Urea Nitrogen 9 mg/dL (8-23); Calcium 9.7 mg/dL (8.5-10.5); Carbon Dioxide 28 mmol/L (22-29); Chloride 99 mmol/L (98-107); Globulin 3.1 g/dL (1.3-4.6); Glucose 93 mg/dL (65-115); Lipase 10 U/L (13-60); Osmolality Calculated 284 mOsm/kg (285-295); Potassium 4.2 mmol/L (3.5-5.1); Sodium 138 mmol/L (136-145); Total Bilirubin 0.3 mg/dL (0.15-1.2)
[2021-10-01] MEDS: iodixanol 320 mg/mL 100mL Btl IV (18:41)
--- NOTE | 2021-10-01 19:29 | XRR_ITS ---
PROCEDURE INFORMATION: Exam: XR Chest Exam date and time: 10/01/2021 7:29 PM Age: 81 years old Clinical indication: Device placement; Ng tube; Additional info: Post ng tube insertion TECHNIQUE: Imaging protocol: XR of the chest. Views: 1 view. COMPARISON: CR XR chest 2V* [id number] 06/01/2021 10:52 AM FINDINGS: Tubes, catheters and devices: Enteric tube tip is over the fundus of the stomach (proximal stomach). Lungs: Unremarkable. No consolidation. Pleural spaces: Unremarkable. No pleural effusion. No pneumothorax. Heart/Mediastinum: Unremarkable. No cardiomegaly. Bones/joints: Unremarkable. XR/XR chest 1V [id number] IMPRESSION: Enteric tube tip is over the fundus of the stomach (proximal stomach). Radiation Dose CTDIVOL = (mGy): DLP = (mGy-cm)
[2021-10-01] MEDS: LORazepam 2 mg/mL INJ 1 mL 0.5 MG IVP (19:50)
[2021-10-01] MEDS: Fleet Enema 133 mL Enema PR (21:26)
[2021-10-01] MEDS: lidocaine 2% Urojet 20 mL TOPICAL (21:26)
--- NOTE | 2021-10-01 23:57 | PM.HP ---
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 She is currently disease free, on observation with oncology. Presented to the ER today with c/o constipation over the last 10-12 days. She has tried suppositries and enemas without significant improvement. denies nausea, vomiting, passing flatus, abdominal pain + along with noted abdominal distension. Review of Systems General: Reports: 10 or more systems reviewed and unremarkable except in HPI and below Const: Denies: fever(s), chills or body aches Eyes: Denies: change in vision, blurry vision or photophobia ENMT: Reports: hoarseness; Denies: throat pain, enlarged tonsils, odynophagia or nasal congestion Card: Denies: chest pain, palpitations, irregular heart rhythm, edema, swelling of feet/ankles, lightheadedness, pre-syncope, dyspnea on exertion or orthopnea Resp: Denies: dyspnea, productive cough, non-productive cough, wheezing, stridor, pain on inspiration, change in phlegm color, hemoptysis or chest congestion GI: Denies: abdominal pain, nausea, vomiting, hematemesis, coffee ground emesis, dysphagia, heartburn, diarrhea, constipation, GI cramping, change in stool character, hematochezia or melena : Denies: flank pain, difficulty voiding, dysuria, urinary frequency, urinary urgency, urinary hesitancy or hematuria Musc: Denies: neck pain, back pain, extremity pain, joint swelling, joint warmth or deformity Neuro: Denies: headache(s), numbness in extremities, weakness in extremities, sensory changes, difficulty walking, frequent falls, dizziness, vertigo, behavioral changes, Slurred speech present or seizure-like activity Psych: Denies: anxiety, depression, suicidal ideation or homicidal ideation Endo: Denies: polyuria, polydipsia, tired all the time, cold intolerance or hot flashes [place]/Lymph: Denies: easy bruising or easy bleeding Medications/Allergies Home Medications Medication Instructions Recorded Confirmed Last Taken Type albuterol sulfate 90 mcg/actuation 2 puff INHALATION Q6H PRN 12/30/19 04/17/21 Unknown History aerosol inhaler aspirin 325 mg tablet,delayed 325 mg PO DAILY 12/30/19 04/17/21 Unknown History release cholecalciferol (vitamin D3) PO DAILY 12/30/19 04/17/21 Unknown History coenzyme Q10 100 mg capsule 200 mg PO DAILY cap 12/30/19 04/17/21 Unknown History [id number] [Creon] PO DAILY 12/30/19 04/17/21 Unknown History metoprolol succinate 50 mg 50 mg PO DAILY 12/30/19 04/17/21 Unknown History tablet,extended release 24 hr omega-3 fatty acids 1,000 mg 1,000 mg PO DAILY 12/30/19 04/17/21 Unknown History capsule ondansetron HCl 4 mg tablet 4 mg PO Q6H PRN 12/30/19 04/17/21 Unknown History pantoprazole 40 mg tablet,delayed 40 mg PO DAILY 12/30/19 04/17/21 Unknown History release tiotropium bromide 18 mcg capsule 1 cap INHALATION DAILY 12/30/19 04/17/21 Unknown History with inhalation device indapamide 2.5 mg tablet 2.5 mg PO QAM 05/27/20 04/17/21 Unknown History sennosides [Senna Laxative] 8.6 mg PO BID #10 tab 11/29/20 04/17/21 Unknown Rx tramadol 50 mg PO Q6H PRN #14 tab 11/29/20 04/17/21 Unknown Rx polyethylene glycol 3350 [Miralax] 8.5 g PO DAILY PRN 28 Days #238 g 10/01/21 Unknown Rx Allergies Allergy/AdvReac Type Severity Reaction Status Date / Time adhesive tape Allergy Unknown Unknown Verified 04/17/21 13:13 PFSH Acute PFSH: Medical History ASHD (arteriosclerotic heart disease) COPD (chronic obstructive pulmonary disease) Dyslipidemia HTN (hypertension) PAD (peripheral artery disease) Renal cell cancer S/p nephrectomy Tobacco abuse, in remission Family History Father CAD (coronary artery disease) Brother CAD (coronary artery disease) Myocardial infarction Social History Smoking and tobacco status: former smoker Lives independently: Yes Marital status: / Pets and animals: Yes Vitals/I&O/Wt Last Vital Signs Temp 98.1 F 10/01/21 23:30 Pulse 74 10/01/21 23:30 Resp 18 10/01/21 23:30 BP 178/86 10/01/21 23:37 Pulse Ox 91 10/01/21 23:30 Weight last 48 hrs Weight 70.307 kg Physical Exam Narrative: EXAM NARRATIVE: General: No acute distress, AO x3 HEENT: PERRLA, pupils bilaterally equal and reactive, pallors not present Chest: Normal vesicular breath sounds, no added sounds, equal good air entry bilaterally CVS: S1-S2 regular, no murmurs, no tachycardia, no gallops, no rubs Abdomen: Soft, nontender, mildly distended, sluggish BS Neuro: No focal deficits, no facial deformity, AO x3, power 5/5 in all limbs Data : 10/01/21 16:11 10/01/21 16:54 Other Labs: Laboratory Results WBC 6.4 10^3/uL (4.0-10.0) 10/01/21 16:11 RBC 4.36 10^6/uL (4.1-5.3) 10/01/21 16:11 Hgb 13.3 g/dL (11.5-15.3) 10/01/21 16:11 Hct 39.2 % (37.0-47.0) 10/01/21 16:11 MCV 89.9 fl (81-99) 10/01/21 16:11 MCH 30.5 pg (28.0-34.0) 10/01/21 16:11 MCHC 33.9 g/dL (30.0-36.0) 10/01/21 16:11 RDW 15.0 % (12.1-15.1) 10/01/21 16:11 Plt Count 391 10^3/cmm (130-400) 10/01/21 16:11 MPV 10.9 fL (7.4-10.4) H 10/01/21 16:11 Neut % (Auto) 57.5 % 10/01/21 16:11 Lymph % (Auto) 22.4 % 10/01/21 16:11 [place] % (Auto) 14.3 % 10/01/21 16:11 Eos % (Auto) 3.9 % 10/01/21 16:11 Baso % (Auto) 1.6 % 10/01/21 16:11 Neut # (Auto) 3.67 10^3/uL (1.8-7.7) 10/01/21 16:11 Lymph # (Auto) 1.4 10^3/uL (0.8-4.8) 10/01/21 16:11 Becker # (Auto) 0.9 10^3/uL (0.2-0.9) 10/01/21 16:11 Eos # (Auto) 0.3 10^3/uL (0.0-0.8) 10/01/21 16:11 Baso # (Auto) 0.1 10^3/uL (0.0-0.1) 10/01/21 16:11 Nucleated RBC % (auto) 0 % 10/01/21 16:11 Nucleated RBCs # 0.0 /100WBC 10/01/21 16:11 Sodium 138 mmol/L (136-145) 10/01/21 16:54 Potassium 4.2 mmol/L (3.5-5.1) 10/01/21 16:54 Chloride 99 mmol/L (98-107) 10/01/21 16:54 Carbon Dioxide 28 mmol/L (22-29) 10/01/21 16:54 Anion Gap 15.2 (5-19) 10/01/21 16:54 BUN 9 mg/dL (8-23) 10/01/21 16:54 Creatinine 0.6 mg/dL (0.5-0.9) 10/01/21 16:54 GFR Calculation Not Reportable 10/01/21 16:54 Glucose 93 mg/dL (65-115) 10/01/21 16:54 Calculated Osmolality 284 mOsm/kg (285-295) L 10/01/21 16:54 Calcium 9.7 mg/dL (8.5-10.5) 10/01/21 16:54 Total Bilirubin 0.3 mg/dL (0.15-1.2) 10/01/21 16:54 AST 28 U/L (0-32) 10/01/21 16:54 ALT 121 U/L (0-33) H 10/01/21 16:54 Alkaline Phosphatase 123 IU/L (35-105) H 10/01/21 16:54 Total Protein 7.0 g/dL (6.6-8.7) 10/01/21 16:54 Albumin 3.9 g/dL (3.5-5.2) 10/01/21 16:54 Globulin 3.1 g/dL (1.3-4.6) 10/01/21 16:54 Lipase 10 U/L (13-60) L 10/01/21 16:54 Urine Color Straw (Yellow) 10/01/21 17:29 Urine Appearance Clear (CLEAR) 10/01/21 17:29 Urine pH 6 (5-7) 10/01/21 17:29 Ur Specific [place] 1.005 (1.005-1.030) 10/01/21 17:29 Urine Protein Neg (Negative) 10/01/21 17:29 Urine Glucose (UA) Norm (Normal) 10/01/21 17:29 Urine Ketones Negative (Negative) 10/01/21 17:29 Urine Blood Neg (Negative) 10/01/21 17:29 Urine Nitrate Negative (Negative) 10/01/21 17:29 Urine Bilirubin Neg (Negative) 10/01/21 17:29 Urine Urobilinogen Norm mg/dL (Negative) 10/01/21 17:29 Ur Leukocyte Esterase Negative (Negative) 10/01/21 17:29 Impressions Abdomen/Pelvis CT 10/01/21 15:54 IMPRESSION: 1. There are fluid-filled mildly dilated loops of small bowel with air-fluid levels compatible with a partial small bowel obstruction measuring up to 3.3 cm. There is an abrupt transition zone in the right lower quadrant without wall thickening suggestive of adhesions. 2. The stomach is collapsed. There is prominent wall thickening of the distal stomach and duodenum. This appearance is compatible with probable gastro duodenitis increased since the prior exam. 3. There is a large amount of colonic stool compatible with constipation without definite impaction. Radiation Dose CTDIVOL = (mGy): DLP = 1301.69 (mGy-cm) Chest X-Ray 10/01/21 19:29 IMPRESSION: Enteric tube tip is over the fundus of the stomach (proximal stomach). Radiation Dose CTDIVOL = (mGy): DLP = (mGy-cm) A&P Assessment and plan (1) Small bowel obstruction: Presenting with abdominal pain, distension and constipation x 10-[address] abdomen with SBO with transition zone in the right lower quadrant without wall thickening suggestive of adhesions, likely from prior surgeries Significant stool burden noted NG placed in ER to suction Given fleet enema additionally NPO until clinically improving COnservative mangament for now Clinically appearing to be euvolemic surgery consult if no significant improvement Status: Acute Additional A&P Information Obstructive lung disease : Continue albuterol and tiotropium inhalation CAD: continue ASA, metoprolol DVT ppx: lovenox Full code Attestations Medical Necessity Statement*: anticipate >2midnight admission for above defined care Coding Level of Care Code Acute Door Maker for [facility] Fwd Diagnoses Small bowel obstruction K56.609
[2021-10-02] VITALS (12 sets, daily range): BP systolic 136–182; BP diastolic 64–100; PULSE 71–92; RESP 15–20; TEMP 36.3–36.8; O2SAT 90–94
[2021-10-02] MEDS: morphine 4 mg/mL SDV 1 mL 2 MG IVP ×2 (00:06→23:37)
[2021-10-02] MEDS: famotidine 20 mg/2 mL INJ IVP ×2 (00:06→23:37)
[2021-10-02] MEDS: hyDRALAzine 20 mg/mL INJ 1 mL 10 MG IVP (03:50)
[2021-10-02 06:30] LABS: Basophils # 0.1 10^3/uL (0.0-0.1); Basophils % 1.9 %; Eosinophils # 0.4 10^3/uL (0.0-0.8); Hemoglobin 12.5 g/dL (11.5-15.3); Lymphocytes # 1.6 10^3/uL (0.8-4.8); Lymphocytes % 25.3 %; Mean Corpuscular HGB Conc 32.1 g/dL (30.0-36.0); Mean Corpuscular Hemoglobin 29.8 pg (28.0-34.0); Mean Corpuscular Volume 93.1 fl (81-99); Mean Platelet Volume 11.9 fL (7.4-10.4); Monocytes # 0.9 10^3/uL (0.2-0.9); Monocytes % 13.9 %; Neutrophils % 52.6 %; Nucleated Red Blood Cells % 0 %; Platelet Count 348 10^3/cmm (130-400); Red Blood Count 4.19 10^6/uL (4.1-5.3); Red Cell Distribution Width 15.4 % (12.1-15.1); White Blood Count 6.5 10^3/uL (4.0-10.0)
[2021-10-02 06:47] LABS: Alanine Aminotransferase 94 U/L (0-33); Albumin Level 3.4 g/dL (3.5-5.2); Alkaline Phosphatase 110 IU/L (35-105); Anion Gap 14.8 (5-19); Aspartate Amino Transferase 23 U/L (0-32); Blood Urea Nitrogen 8 mg/dL (8-23); Calcium 9.1 mg/dL (8.5-10.5); Carbon Dioxide 25 mmol/L (22-29); Chloride 103 mmol/L (98-107); Globulin 2.7 g/dL (1.3-4.6); Glucose 84 mg/dL (65-115); NT Pro B Type Natriuretic Pept 398 pg/mL (0-450); Osmolality Calculated 286 mOsm/kg (285-295); Potassium 3.8 mmol/L (3.5-5.1); Sodium 139 mmol/L (136-145); Thyroid Stimulating Hormone 1.74 uIU/mL (0.27-4.20); Total Bilirubin 0.4 mg/dL (0.15-1.2); Total Protein 6.1 g/dL (6.6-8.7)
[2021-10-02] MEDS: ondansetron 2 mg/ML SDV 2 mL 4 MG IVP (07:46)
[2021-10-02] MEDS: metoprolol succinate ER (24 HR) 50 mg Tablet PO (08:46)
[2021-10-02] MEDS: enoxaparin 40 mg/0.4 mL Syringe SUBCUT (08:46)
--- NOTE | 2021-10-02 09:45 | PC.CHAP ---
Pastoral Care Encounter/Spiritual Assessment Type of Contact [] Declined chemical processing technician visit [] Patient/Family/Request visit [] Outpatient visit [] Follow-up visit [] Physician referral [] Code/Alert [x] Routine visit [] Staff referral [] Actively dying [] Patient sleeping [] Family support [] [] Out of room [] Palliative care [] [] Receiving care in room [] Pre-surgical visit [] Trauma [] Long length of stay [] ICU visit [] Other: Relational/Emotional Strength [x] Patient feels connected with others/family/visitors/staff [] Distress [] Loneliness/isolation [] Abandonment Spirituality of Patient [x] Person of Jordyn [] Attends Cheondoism of their Jordyn [x] Believes in Prayer [] Reads Bible or Anglican materials [] There are Spiritual issues to be addressed Community Placement Worker Interventions [x] Prayer [x] Active listening [x] Non-anxious presence [x] Spiritual/emotional support [] Crisis/trauma care [] Spiritual counseling [] Bereavement support [] Provided bereavement packet [] Provided Bible/devotional materials [] Provided toy/stuffed animal, coloring book to patient or family member [] Provided Communion [] Anointing/[place] [] Salvation [] Completed spiritual assessment [] Other: Impact on Illness or Injury [] Angry [] Fearful [] Anxious [] Often cries [] Exhaustion [] Unable to work [] Unable to attend cheondoism [] Unable to walk/stand [] Unable to read [] Unable to drive [] Unable to eat/drink [] Unable to sleep [] Unable to be with family [] Patient intubated [] Other: Summary Time spent with patient 10 min
--- NOTE | 2021-10-02 10:33 | PC.PHAR ---
pt states she takes care of her own medications-pt states she stop taking the diltiazem filled on 08/24/21 90d/s for 120mg daily-pt states she takes 2 of the lisinopril 2.5mg tabs along with a 5mg tab daily-rx for 2.5mg daily filled on 09/12/21 90d/s and 5mg bid filled on 06/01/21 90d/s-notes are made in the pharmacy comments
--- NOTE | 2021-10-02 11:35 | PM.CONSULT ---
Providers/Reason For Consult Consulting Physician/Specialty*: Cosme Hollingsworth MD Reason for Consult*: Bowel obstruction Requesting Physician: Dr. 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 Patient presented with worsening abdominal discomfort and constipation as she did not have a bowel movement for the past 12 days or so. Patient undergone further work-up in the emergency department CT scan of the abdomen pelvis was done and shows: 1. There are fluid-filled mildly dilated loops of small bowel with air-fluid levels compatible with a partial small bowel obstruction measuring up to 3.3 cm. There is an abrupt transition zone in the right lower quadrant without wall thickening suggestive of adhesions. 2. The stomach is collapsed. There is prominent wall thickening of the distal stomach and duodenum. This appearance is compatible with probable gastro duodenitis increased since the prior exam. 3. There is a large amount of colonic stool compatible with constipation without definite impaction. General surgery was consulted and during the patient had an NG placed with 300 mL out, patient has been reporting that she has been passing gas. Review of Systems General: Reports: 10 or more systems reviewed and unremarkable except in HPI and below Meds/Allergies Home Medications and Allergies Home Medications Medication Instructions Recorded Confirmed Last Taken Type albuterol sulfate 90 mcg/actuation 2 puff INHALATION QID PRN 12/30/19 10/02/21 Unknown History aerosol inhaler coenzyme Q10 100 mg capsule 200 mg PO DAILY cap 12/30/19 10/02/21 Unknown History metoprolol succinate 50 mg 50 mg PO QAM 12/30/19 10/02/21 Unknown History tablet,extended release 24 hr ondansetron HCl 4 mg tablet 4 mg PO TID PRN 12/30/19 10/02/21 Unknown History polyethylene glycol 3350 [Miralax] 8.5 g PO DAILY PRN 28 Days #238 g 10/01/21 Unknown Rx Probiotic 1 cap PO DAILY PRN 10/02/21 10/02/21 Unknown History [employer] Care 1 tab PO DAILY 10/02/21 10/02/21 Unknown History aspirin [Aspir-81] 81 mg PO QAM 10/02/21 10/02/21 Unknown History budesonide-formoterol [Symbicort] 2 puff INHALATION BID 10/02/21 10/02/21 Unknown History diltiazem HCl 120 mg PO .PT STOP TAKING 10/02/21 10/02/21 Unknown History hydrocodone-acetaminophen 1 tab PO Q6H PRN 10/02/21 10/02/21 Unknown History hydrocortisone acetate [Anucort-HC] 25 mg PA TID PRN 10/02/21 10/02/21 Unknown History lactulose 15 ml PO BID 10/02/21 10/02/21 Unknown History tdlseb-[id number]-duxiulr [Creon] 2 cap PO TID 10/02/21 10/02/21 Unknown History lisinopril 5 mg PO QAM 10/02/21 10/02/21 Unknown History lisinopril 5 mg PO QAM 10/02/21 10/02/21 Unknown History magnesium oxide 420 mg PO DAILY 10/02/21 10/02/21 Unknown History nortriptyline 25 mg PO BEDTIME 10/02/21 10/02/21 Unknown History Allergies Allergy/AdvReac Type Severity Reaction Status Date / Time adhesive tape Allergy Unknown Unknown Verified 10/02/21 13:21 Current Medications Current Medications Generic Name Dose Route Start Last Admin Trade Name Freq PRN Reason Stop Dose Admin Aspirin 325 mg 10/02/21 09:00 10/02/21 08:47 Aspirin 325 Mg Tablet PO Not Given DAILY KAMARI Enoxaparin Sodium 40 mg 10/02/21 09:00 10/02/21 08:46 Enoxaparin 40 Mg/0.4 Ml Syringe SUBCUT 40 mg Q24H KAMARI Administration Famotidine 20 mg 10/01/21 23:45 10/02/21 00:06 Famotidine 20 Mg/2 Ml Inj IVP 20 mg Q12H KAMARI Administration Metoprolol Succinate 50 mg 10/02/21 09:00 10/02/21 08:46 Metoprolol Succinate Er (24 Hr) 50 Mg Tablet PO 50 mg DAILY KAMARI Administration Morphine Sulfate 2 mg 10/01/21 23:49 10/02/21 00:06 Morphine 4 Mg/Ml Sdv 1 Ml IVP 2 mg Q6H PRN Administration SEVERE PAIN Ondansetron HCl 4 mg 10/01/21 23:49 10/02/21 07:46 Ondansetron 2 Mg/Ml Sdv 2 Ml IVP 4 mg Q8H PRN Administration vomiting, or N/V if npo PFSH Acute PFSH: Medical History ASHD (arteriosclerotic heart disease) COPD (chronic obstructive pulmonary disease) Dyslipidemia HTN (hypertension) PAD (peripheral artery disease) Renal cell cancer S/p nephrectomy Tobacco abuse, in remission Family History Father CAD (coronary artery disease) Brother CAD (coronary artery disease) Myocardial infarction Social History Smoking and tobacco status: former smoker Lives independently: Yes Marital status: / Pets and animals: Yes Vitals/I&O/Wt Last Vital Signs Temp 97.5 F L 10/02/21 07:50 Pulse 83 10/02/21 08:20 Resp 17 10/02/21 08:20 BP 147/83 10/02/21 07:50 Pulse Ox 90 10/02/21 08:20 10/01/21 10/02/21 10/02/21 22:59 06:59 14:59 Output Total 200 / 200 Balance -200 / -200 Weight last 48 hrs Weight 155 lb Physical Exam Const: COMMON NORMALS: no acute distress and patient oriented x3 GENERAL APPEARANCE: cooperative ORIENTATION/CONSCIOUSNESS: Yes awake, Yes oriented to person, Yes oriented to place and Yes oriented to time HENMT: COMMON NORMALS: normocephalic HEAD & SCALP: normocephalic Eye: COMMON NORMALS: Equal, round and reactive pupils present and no scleral icterus PUPIL: Yes Equal, round and reactive pupils present Lymph: LYMPHATIC: no lymphadenopathy noted Chest: COMMONS NORMALS: normal inspection of the chest Resp: COMMON NORMALS: normal respiratory effort and clear to auscultation bilaterally AUSCULTATION: clear to auscultation bilaterally Cardio: COMMON NORMALS: S1 normal heart sound present and S2 normal heart sound present; negative for No murmurs present (Cardio) HEART SOUNDS: S1 normal heart sound present and S2 normal heart sound present GI: COMMON NORMALS: Soft to palpation; negative for No hepatosplenomegaly present INSPECTION: No normal to inspection and Yes incision (Previous chevron incision) PALPATION: Yes Soft to palpation, No Firmness to palpation present (GI), No Tenderness to palpation present (GI), No Guarding due to palpation present (GI), No Rigid due to palpation and No No hepatosplenomegaly present OTHER: Bowel sounds are hyperactive Neuro: COMMON NORMALS: patient oriented x3 SENSORIUM/ORIENTATION: Yes oriented to person, Yes oriented to place and Yes oriented to time Psych: COMMON NORMALS: mental status grossly normal Skin: COMMON NORMALS: no rashes or lesions noted GENERAL SKIN EXAM: no rashes or lesions noted A&P Assessment and plan (1) Small bowel obstruction: After thorough history physical examination and reviewing the chart and images of the CT scan of the abdomen pelvis with my personal interpretation patient does have a load of hard stool in her colon and since she has been passing gas I did discuss with the patient to start administer magnesium citrate 300 mL via the NG when she starts having bowel movements will DC NG and start the patient on clear liquid diet. There is no distinct transition point as I did discuss the CT scan images with Dr. Gonzalez I do believe that the patient's underlying pathology mainly constipation We will continue to follow on patient's clinical progress Assurance and education All questions have been answered and all concerns have been addressed to patient's satisfaction Thank you for consulting general surgery to participate taking care Ms. De Leon Status: Acute Consult Attestations Medical Necessity Statement: Per admitting service Time Spent in Patient Care: (>than 50% of time spent in counselling and/or direct pt care on unit). Coding Level of Care Code Acute Director Medical Science for Chg Fwd Exam Comprehensive Diagnoses Small bowel obstruction K56.609
--- NOTE | 2021-10-02 13:00 | P.PN_ITS ---
Subjective Subjective: Interval history: Seen this morning. Patient states that she has a history of rectal rupture due to constipation years ago. She has been on bowel regimen at home. Recently she was placed on nortriptyline by her doctor for anxiety and she believes that is what got her constipated. She has not had a bowel movement in 13 days at this point. She says she has tried enemas multiple times at home and was given 1 enema in the ER as well but nothing has happened so far. NG tube is draining reddish liquid. She is very concerned about her constipation and would like to have something given to her this morning. Vitals/I&O/Wt Last Vital Signs Temp 97.4 F L 10/02/21 12:00 Pulse 81 10/02/21 12:00 Resp 16 10/02/21 12:00 BP 136/73 10/02/21 12:00 Pulse Ox 94 10/02/21 12:00 10/01/21 10/02/21 10/02/21 22:59 06:59 14:59 Output Total 200 / 200 Balance -200 / -200 Weight last 48 hrs Weight 70.307 kg Physical Exam Narrative: EXAM NARRATIVE: General: Alert oriented x3, patient seen this morning sitting at edge of bed, NG tube in place draining reddish liquid. About 250 cc seen in the canister. HEENT: Normocephalic, atraumatic, EOMI, breathing normally, normal respiratory effort. Cardio: Regular rate rhythm, normal S1-S2, no murmurs rubs gallops, Respiratory: Diminished bilateral air entry, no wheezes or rhonchi appreciated. Clear to auscultation bilaterally GI: Abdomen soft, nontender, mildly distended, hyperactive bowel sounds present, no guarding or rigidity, Behavior: Appropriate and cooperative Extremities: no edema, no cyanosis Data : 10/02/21 04:58 10/02/21 04:58 A&P Assessment and plan (1) Constipation: Status: Acute (2) Small bowel obstruction: Status: Acute (3) Dyslipidemia: Status: Acute (4) HTN (hypertension): Status: Acute (5) COPD (chronic obstructive pulmonary disease): Status: Acute Additional A&P Information #Small bowel obstruction with transition zone in the right lower quadrant #History of appendectomy, cholecystectomy, pancreatectomy, nephrectomy #Acute on chronic constipation?no bowel movement for 13 days - Significant stool burden noted - NG placed in ER to suction - Given fleet enema additionally in ER. Still no BM. - Keep NPO - Consult gen surgery Dr. Mooney, will await recommendations. #Dyslipidemia #Hypertension -Continue home medications #COPD -PFT shows severe obstructive ventilatory defect with significant response to bronchodilators. Patient does have a history of COPD. Not on home oxygen. -On Symbicort and albuterol at home Attestations Medical Necessity Statement*: > 48 hours Time Spent in Patient Care: 16 - 35 minutes Coding Level of Care Code Acute Industrial Engineering Technologist for Chg Fwd Diagnoses Constipation K59.00 Small bowel obstruction K56.609 Dyslipidemia E78.5 HTN (hypertension) I10 COPD (chronic obstructive pulmonary disease) J44.9
[2021-10-02] MEDS: magnesium citrate Btl 296 mL 300 ML PO (13:47)
[2021-10-02] MEDS: dextrose 5%-sod chloride 0.9% 1,000 ML 100 ML IV (17:23)
--- NOTE | 2021-10-02 18:50 | PC.NURSE ---
Report to Dalia GALYE
[2021-10-03] VITALS (8 sets, daily range): BP systolic 148–171; BP diastolic 66–81; PULSE 70–92; RESP 16–18; TEMP 36.6–36.9; O2SAT 90–93
[2021-10-03] MEDS: dextrose 5%-sod chloride 0.9% 1,000 ML 100 ML IV ×3 (03:28→23:41)
[2021-10-03 05:16] LABS: Basophils # 0.1 10^3/uL (0.0-0.1); Basophils % 1.5 %; Eosinophils # 0.3 10^3/uL (0.0-0.8); Eosinophils % 5.9 %; Hematocrit 39.2 % (37.0-47.0); Hemoglobin 12.6 g/dL (11.5-15.3); Lymphocytes # 1.2 10^3/uL (0.8-4.8); Lymphocytes % 21.5 %; Mean Corpuscular HGB Conc 32.1 g/dL (30.0-36.0); Mean Corpuscular Hemoglobin 30.1 pg (28.0-34.0); Mean Corpuscular Volume 93.8 fl (81-99); Mean Platelet Volume 11.4 fL (7.4-10.4); Monocytes # 0.9 10^3/uL (0.2-0.9); Neutrophils % 55.1 %; Nucleated Red Blood Cells % 0 %; Platelet Count 371 10^3/cmm (130-400); Red Blood Count 4.18 10^6/uL (4.1-5.3); Red Cell Distribution Width 15.7 % (12.1-15.1); White Blood Count 5.4 10^3/uL (4.0-10.0)
[2021-10-03 06:22] LABS: Blood Urea Nitrogen 11 mg/dL (8-23); Calcium 8.6 mg/dL (8.5-10.5); Carbon Dioxide 27 mmol/L (22-29); Chloride 105 mmol/L (98-107); Glucose 117 mg/dL (65-115); Osmolality Calculated 292 mOsm/kg (285-295); Sodium 141 mmol/L (136-145)
[2021-10-03] MEDS: morphine 4 mg/mL SDV 1 mL 2 MG IVP (06:55)
--- NOTE | 2021-10-03 07:28 | PC.NURSE ---
Milk and Molasses enema given by [facility] at 0715. Patient tolerated well.
--- NOTE | 2021-10-03 07:50 | PC.NURSE ---
Patient had a moderate amount of liquid stool out at this time. a small amount of formed stool was noted. Patient also went to the bathroom and passed more stool but flushed before this nurse could see it.
--- NOTE | 2021-10-03 07:58 | XRR_ITS ---
PROCEDURE INFORMATION: Exam: XR Abdomen Exam date and time: 10/03/2021 7:58 AM Age: 81 years old Clinical indication: Condition or disease; Intestinal condition; Obstruction; Prior surgery; Surgery type: Lt kindey, pancreas; Patient HX: Abd pain all over, vomiitting, constipation x 15 days, follow up sbs; Additional info: Erect and supine, bowel obstruction TECHNIQUE: Imaging protocol: XR of the abdomen. Views: 2 Views. Upright and supine views. COMPARISON: CT abdomen pelvis w con* [id number] 10/01/2021 6:29 PM FINDINGS: Tubes, catheters and devices: Surgical clips over the upper abdomen. Enteric tube terminates in the region of the gastric fundus, with adjacent surgical clips. Gastrointestinal tract: Large volume of stool throughout the colon to the rectum. No dilated loops of small bowel identified. Intraperitoneal space: No free air. Bones/joints: No acute bony abnormality. XR/XR abdomen min 2V [id number] IMPRESSION: 1. Large volume of stool throughout the colon consistent with constipation. No dilated loops of small bowel are identified. 2. No free air. 3. Enteric tube terminates in the region of the gastric fundus. Radiation Dose CTDIVOL = (mGy): DLP = (mGy-cm)
[2021-10-03] MEDS: enoxaparin 40 mg/0.4 mL Syringe SUBCUT (08:41)
[2021-10-03] MEDS: metoprolol succinate ER (24 HR) 50 mg Tablet PO (08:41)
[2021-10-03] MEDS: ondansetron 2 mg/ML SDV 2 mL 4 MG IVP (08:41)
--- NOTE | 2021-10-03 14:59 | PM.PN ---
Subjective Subjective: Interval history: Patient seen this morning. She had vomiting with mag citrate yesterday and was given a milk molasses enema this morning. Still waiting to have a bowel movement. Abdomen does feel softer and she feels better but has not had a bowel movement so far. Patient states that she feels feces are stuck in the rectum and just not coming out. Vitals/I&O/Wt Last Vital Signs Temp 98.2 F 10/03/21 11:52 Pulse 87 10/03/21 11:52 Resp 16 10/03/21 11:52 BP 171/81 10/03/21 11:52 Pulse Ox 91 10/03/21 11:52 10/02/21 10/03/21 10/03/21 22:59 06:59 14:59 Intake Total 1120 / 1240 Output Total 600 / 600 980 / 1580 Balance -600 / -480 140 / -340 Weight last 48 hrs Weight 70.307 kg Physical Exam Narrative: EXAM NARRATIVE: General: Alert oriented x3, patient seen this this morning laying in bed appearing comfortable., NG tube in place . HEENT: Normocephalic, atraumatic, EOMI, breathing normally, normal respiratory effort. Cardio: Regular rate rhythm, normal S1-S2, no murmurs rubs gallops, Respiratory: Diminished bilateral air entry, no wheezes or rhonchi appreciated. Clear to auscultation bilaterally GI: Abdomen soft, nontender, mildly distended, bowel sounds present and seem to be normoactive today ,no guarding or rigidity, abdominal distention has decreased slightly and abdomen is much more soft compared to prior day. Behavior: Appropriate and cooperative Extremities: no edema, no cyanosis Data : 10/03/21 04:18 10/03/21 04:18 A&P Assessment and plan (1) Constipation: Status: Acute (2) Small bowel obstruction: Status: Acute (3) Dyslipidemia: Status: Acute (4) HTN (hypertension): Status: Acute (5) COPD (chronic obstructive pulmonary disease): Status: Acute Additional A&P Information #Small bowel obstruction with transition zone in the right lower quadrant #History of appendectomy, cholecystectomy, pancreatectomy, nephrectomy #Acute on chronic constipation?no bowel movement for 13 days - Significant stool burden noted. Most likely her symptoms are due to constipation. Case discussed with Dr. Hollingsworth. It does not seem that the patient has a true small bowel obstruction at this point. Her abdominal exam has improved. We will just give her time to get better. Enema given this morning did produce a very small bowel movement. We will see how the patient does. Continue to monitor. - NG placed in ER to suction - Given fleet enema additionally in ER. She vomited out the mag citrate that was given to her yesterday. - Keep NPO -Dr. Hollingsworth on board. Will await further recommendations. We will coordinate care with him for this patient. #Dyslipidemia #Hypertension -Continue home medications #COPD -PFT shows severe obstructive ventilatory defect with significant response to bronchodilators. Patient does have a history of COPD. Not on home oxygen. -On Symbicort and albuterol at home Attestations Medical Necessity Statement*: Greater than 24-hour stay anticipated at this point. Time Spent in Patient Care: 16 - 35 minutes Coding Level of Care Code Acute Animal Chiropractor for [facility] Fwd Diagnoses Constipation K59.00 Small bowel obstruction K56.609 Dyslipidemia E78.5 HTN (hypertension) I10 COPD (chronic obstructive pulmonary disease) J44.9
--- NOTE | 2021-10-03 15:40 | PC.NURSE ---
NG tube removed by Dr. Hollingsworth at this time. Patient may have slow clear liquids now.
[2021-10-03] MEDS: lactulose oral liq 20 gm/30 mL UDC 30 GM PO ×2 (16:21→21:35)
--- NOTE | 2021-10-03 16:29 | PM.PN ---
Subjective Subjective: Interval history: Patient overall feels well and continues to pass gas, did not tolerate magnesium citrate yesterday and she did vomit some. Medications: Reviewed: Yes Vitals/I&O/Wt Last Vital Signs Temp 98.0 F 10/03/21 16:00 Pulse 72 10/03/21 16:00 Resp 16 10/03/21 16:00 BP 152/81 10/03/21 16:00 Pulse Ox 92 10/03/21 16:00 10/03/21 10/03/21 10/03/21 06:59 14:59 22:59 Intake Total 1120 / 1240 1000 / 1000 Output Total 980 / 1580 Balance 140 / -340 1000 / 1000 Physical Exam Narrative: EXAM NARRATIVE: Patient is conscious alert oriented X3 BMI 27.5 Head and neck examination PERRLA no masses no cervical lymphadenopathy no jaundice NG in place with gastric aspirate Abdomen nontender nondistended soft no organomegaly guarding or rigidity/no signs of peritonitis Data : 10/03/21 04:18 10/03/21 04:18 A&P Assessment and plan (1) Small bowel obstruction: At that point I will offer the patient milk and molasses enema Will obtain KUB erect and supine position Once patient responds to that and she feels better we will follow on the x-rays as well, likely will DC NG tube and start the patient on clear liquid diet. The KUB came through and with my personal interpretation. There is no evidence of bowel obstruction yet the patient has a large load of stools in her colon, will add lactulose 30 mL every 6 hours Assurance and education All questions have been answered and all concerns have been addressed to patient's satisfaction Thank you for consulting general surgery to participate taking care Ms. De Leon Status: Acute Attestations Medical Necessity Statement*: per Admitting service Time Spent in Patient Care: 16 - 35 minutes (>than 50% of time spent in counselling and/or direct pt care on unit). Coding Level of Care Code Acute Environmental Adviser for [facility] Diagnoses Small bowel obstruction K56.609
--- NOTE | 2021-10-03 18:41 | PC.NURSE ---
Report to board certified family physician at this time.
[2021-10-03] MEDS: famotidine 20 mg/2 mL INJ IVP (23:49)
[2021-10-04] VITALS: BP 144/72; PULSE 78; RESP 17; TEMP 36.6; O2SAT 90
[2021-10-04 04:00] VITALS: BP 140/70; PULSE 83; RESP 17; TEMP 36.6; O2SAT 91
[2021-10-04] MEDS: lactulose oral liq 20 gm/30 mL UDC 30 GM PO (04:29)
[2021-10-04 05:16] LABS: Basophils # 0.1 10^3/uL (0.0-0.1); Basophils % 1.8 %; Eosinophils # 0.4 10^3/uL (0.0-0.8); Hematocrit 38.5 % (37.0-47.0); Hemoglobin 11.9 g/dL (11.5-15.3); Lymphocytes # 1.6 10^3/uL (0.8-4.8); Lymphocytes % 29.4 %; Mean Corpuscular HGB Conc 30.9 g/dL (30.0-36.0); Mean Corpuscular Hemoglobin 29.8 pg (28.0-34.0); Mean Corpuscular Volume 96.5 fl (81-99); Mean Platelet Volume 11.6 fL (7.4-10.4); Monocytes % 17.1 %; Neutrophils # 2.48 10^3/uL (1.8-7.7); Neutrophils % 44.5 %; Nucleated Red Blood Cells % 0 %; Platelet Count 337 10^3/cmm (130-400); Red Blood Count 3.99 10^6/uL (4.1-5.3); Red Cell Distribution Width 15.9 % (12.1-15.1); White Blood Count 5.6 10^3/uL (4.0-10.0)
[2021-10-04 05:36] LABS: Anion Gap 10.8 (5-19); Blood Urea Nitrogen 6 mg/dL (8-23); Carbon Dioxide 26 mmol/L (22-29); Chloride 109 mmol/L (98-107); Glucose 110 mg/dL (65-115); Magnesium 2.3 mg/dL (1.7-2.3); Osmolality Calculated 292 mOsm/kg (285-295); Potassium 3.8 mmol/L (3.5-5.1); Sodium 142 mmol/L (136-145)
[2021-10-04 07:39] VITALS: BP 85/44; PULSE 84; RESP 17; TEMP 37.2; O2SAT 93
[2021-10-04] MEDS: metoprolol succinate ER (24 HR) 50 mg Tablet PO (07:52)
[2021-10-04] MEDS: enoxaparin 40 mg/0.4 mL Syringe SUBCUT (07:52)
--- NOTE | 2021-10-04 09:21 | PC.SOCIAL ---
IMM updated IMM dated and initialed, copy made and given to patient
[2021-10-04 09:38] VITALS: PULSE 75; RESP 17; O2SAT 93
[2021-10-04 11:18] VITALS: BP 155/77; PULSE 78; RESP 17; TEMP 36.7; O2SAT 91
--- NOTE | 2021-10-04 12:05 | P.DS_ITS ---
Discharge Providers Date of Admission: 10/01/21 19:29 Date of Discharge: October 04, 2021 Attending Provider at Admission: Becca Trujillo MD Attending Provider at Discharge: Betty Skelton MD Primary Care Provider: Jose Danielle MD Diagnoses at Discharge Discharge Diagnosis (1) Small bowel obstruction: Status: Acute Reason for Visit Reason for Visit: NOT HAVING BOWEL MOVEMENTS IN 12 DAYS Hospital Course Hospital Course HPI as per Dr. Trujillo Ingrid De Leon is a 81 year old female with PMH hypertension, coronary disease, dyslipidemia, peripheral arterial disease, prior tobacco abuse, COPD, renal cell carcinoma stage IV metastatic to the tail of the pancreas s/p exploratory laparotomy with left pancreatectomy and splenectomy in 2015 and s/p left nephrectomy in 2004. She is currently disease free, on observation with oncology. Presented to the ER today with c/o constipation over the last 10-12 days. She has tried suppositries and enemas without significant improvement. denies nausea, vomiting, passing flatus, abdominal pain + along with noted abdominal distension. Course: Patient admitted for small bowel obstruction with transition zone in lateral quadrant. It appears that patient had constipation and there was no evidence of small bowel obstruction after images reviewed by general surgery and radiology. Patient was given enema, mag citrate and lactulose. She was able to pass gas and have bowel movement and tolerated diet. Therefore she was discharged. Patient is to follow-up with colorectal surgery outpatient for her chronic constipation and history of rectal rupture years ago. Patient in agreement with going home and appears back to baseline. Surgery cleared patient for discharge today. Physical Exam Narrative: EXAM NARRATIVE: General: Alert oriented x3, patient seen this this morning laying in bed appearing comfortable HEENT: Normocephalic, atraumatic, EOMI, breathing normally, normal respiratory effort. Cardio: Regular rate rhythm, normal S1-S2, no murmurs rubs gallops, Respiratory: Diminished bilateral air entry, no wheezes or rhonchi appreciated. Clear to auscultation bilaterally GI: Abdomen soft, nontender, abdominal distention decreased, bowel sounds normoactive. Behavior: Appropriate and cooperative Extremities: no edema, no cyanosis Discharge Data Data Completed and Pending: Completed Studies During Hospitalization Category Date Time Status CT abdomen pelvis w con* [id number] Urge nt Cat Scan 10/01/21 15:54 Completed XR abdomen min 2V [id number] Urgent Exams 10/03/21 07:58 Completed XR chest 1V [id number] Urgent Exams 10/01/21 19:29 Completed Labs from last 24 hours 10/04/21 10/04/21 04:14 04:14 WBC 5.6 RBC 3.99 L Hgb 11.9 Hct 38.5 MCV 96.5 MCH 29.8 MCHC 30.9 RDW 15.9 H Plt Count 337 MPV 11.6 H Neut % (Auto) 44.5 Lymph % (Auto) 29.4 Pacific % (Auto) 17.1 Eos % (Auto) 7.0 Baso % (Auto) 1.8 Neut # (Auto) 2.48 Lymph # (Auto) 1.6 [place] # (Auto) 1.0 H Eos # (Auto) 0.4 Baso # (Auto) 0.1 Nucleated RBC % (a uto) 0 Nucleated RBCs # 0.0 Sodium 142 Potassium 3.8 Chloride 109 H Carbon Dioxide 26 Anion Gap 10.8 BUN 6 L Creatinine 0.6 GFR Calculation Not Reportable Glucose 110 Calculated Osmolal ity 292 Calcium 8.0 L Magnesium 2.3 Vitals: Last Vital Signs Temp 98.1 F 10/04/21 11:18 Pulse 78 10/04/21 11:18 Resp 17 10/04/21 11:18 BP 155/77 10/04/21 11:18 Pulse Ox 91 10/04/21 11:18 Discharge Plan Discharge Patient Disposition: Home Condition: Stable Prescriptions: New Miralax 17 gram/dose powder 8.5 g PO DAILY PRN (Reason: constipation) 28 Days Qty: 238 RF: 0 Continued ondansetron HCl 4 mg tablet 4 mg PO TID PRN (Reason: Nausea And Vomiting) RF: 0 coenzyme Q10 [Co Q-10] 100 mg capsule 200 mg PO DAILY RF: 0 albuterol sulfate [Ventolin HFA] 90 mcg/actuation HFA aerosol inhaler 2 puff INHALATION QID PRN (Reason: Shortness Of Breath) RF: 0 metoprolol succinate [Toprol XL] 50 mg tablet extended release 24 hr 50 mg PO QAM RF: 0 magnesium oxide 420 mg Tablet 420 mg PO DAILY RF: 0 hydrocodone-acetaminophen 10-325 mg tablet 1 tab PO Q6H PRN (Reason: Pain) RF: 0 aspirin 81 mg Tablet,Delayed Release (Dr/Ec) 81 mg PO QAM RF: 0 Anucort-HC 25 mg suppository 25 mg IA TID PRN (Reason: Hemorrhoids) RF: 0 lactulose 10 gram/15 mL solution 15 ml PO BID RF: 0 Creon 36,000-114,000- 180,000 unit capsule,delayed release(DR/EC) 2 cap PO TID RF: 0 lisinopril 5 mg tablet 5 mg PO QAM RF: 0 lisinopril 2.5 mg tablet 5 mg PO QAM RF: 0 Symbicort 160-4.5 mcg/actuation HFA aerosol inhaler 2 puff INHALATION BID RF: 0 Probiotic 1 cap PO DAILY PRN (Reason: while on antibiotics) RF: 0 [employer] Bone Care 1 tab PO DAILY RF: 0 diltiazem HCl 120 mg capsule,extended release 24hr 120 mg PO .PT STOP TAKING RF: 0 Held nortriptyline 25 mg capsule 25 mg PO BEDTIME RF: 0 Hold Instructions: discuss with PCP before resuming Discharge Orders: Discharge Order (Routine); Ordered 10/04/21 Ordered By: Betty Skelton Referrals: Jose Danielle MD [Primary Care Provider] - 10/19/21 8:30 am Discharge Diet: Advance as tolerated Discharge Activity: Resume usual activity Patient Instructions: Polyethylene Glycol 3350 (By mouth), Constipation (ED), Opioid Safety Activity Restrictions/Additional Instructions: Our telehealth case manager will have you follow-up with Colorectal surgery in the next few days. You would be expected to have a phone call with our telehealth case manager who will put you on the schedule. Follow up with colorectal surgery. Discharge Attestations Time Spent in Discharge Care*: less than 30 min Quality Metrics Clinical Quality Measures During this hospital stay, did patient experience: None Coding Level of Care Code Acute Chg FW DC note Diagnoses Small bowel obstruction K56.609
--- NOTE | 2021-10-04 14:43 | PC.NURSE ---
Called patient's son Walker De Leon [phone] was unable to leave message. Called patient's son Fish [phone], he said he will call patient's son that is coming to get her and let him know.
--- NOTE | 2021-10-04 15:00 | PC.NURSE ---
IV removed intact. Patient tolerated well. Patient is A&Ox3. Respirations even and non-labored on room air. Reviewed discharge with patient. Patient verbalized understanding of follow up appointments and understands that case management will call her and talk to her about following up with sturgeon.
--- NOTE | 2021-10-04 15:22 | PC.NURSE ---
patient taken to private vehicle via wheelchair and transported home by son.
[2021-10-04 15:33] VITALS: BP 155/77; PULSE 78; RESP 17; TEMP 36.7; O2SAT 91
--- NOTE | 2021-10-09 09:28 | PC.SOCIAL ---
discharge follow up call made, pt reports she hasn't had a bm since being discharged on 10-04. She hasn't been taking the Miralax as prescribed, she reports is doesn't work for her. She has been take herbal supplements. Also reports she can't get her kidneys to work this am. Casting House Laborer called and spoke with Dr. Hollingsworth's office, they will let advertising copy writer know when they can see her. Updated pt on info. Will keep in touch with patient.
--- NOTE | 2021-10-09 13:42 | PC.SOCIAL ---
aligner typewriter called and let pt know that dr. mansfield's recommends pt to see her pcp until she can follow up with him. appointment made with dr. mansfield for 12-2 @1300. spoke with pt to see if she would see her pcp before. she states he's only in twice a month. she states she cant' wait to see dr. mansfield which aligner typewriter understands. pt states she is miserable and she will just go to [place] to have the surgery. discussed with pt to return to the ED if she didn't get anything scheduled in [place]. writers number given to patient if she needs further help.
== END 2021-10-04 15:20 | disposition home or self-care (01) | DRG 392 ==
LOC: ER 20:27 → MEDSURG 20:38
PROVIDERS: Internal Medicine; Admitting Provider Student in an Organized Health Care Education/Training Program; Emergency Provider Emergency Medicine; PCP Family Medicine; Visit Provider Internal Medicine
DX: K59.09 Other constipation (principal); K66.0 Peritoneal adhesions (postprocedural) (postinfection); I25.10 Atherosclerotic heart disease of native coronary artery without angina pectoris; J44.9 Chronic obstructive pulmonary disease, unspecified; I10 Essential (primary) hypertension; E78.5 Hyperlipidemia, unspecified; I73.9 Peripheral vascular disease, unspecified; K29.90 Gastroduodenitis, unspecified, without bleeding; Z85.53 Personal history of malignant neoplasm of renal pelvis; Z90.411 Acquired partial absence of pancreas; Z90.81 Acquired absence of spleen; Z90.5 Acquired absence of kidney; Z79.82 Long term (current) use of aspirin; Z87.891 Personal history of nicotine dependence; Z87.19 Personal history of other diseases of the digestive system; Z90.49 Acquired absence of other specified parts of digestive tract
CPT/HCPCS: 36415; 71045; 74019; 74177; 80048; 80053; 81003; 83690; 83735; 83880; 84443; 85025; 96372; 99285; J0360; J1650; J2060; J2270; J2405; J3490; Q9967

== ENCOUNTER 2021-10-10 10:19 | Observation (INO) | payer MEDICARE, OTHER, SELFPAY ==
[2021-10-10] VITALS (7 sets, daily range): BP systolic 104–200; BP diastolic 61–112; PULSE 82–102; RESP 16–23; TEMP 36.3–36.9; O2SAT 93–98
[2021-10-10 11:42] LABS: Add Urine Microscopic? NO; Charge for UA Resulting for Rev
[2021-10-10 11:46] LABS: Basophils # 0.1 10^3/uL (0.0-0.1); Basophils % 0.7 %; Eosinophils # 0.1 10^3/uL (0.0-0.8); Eosinophils % 1.9 %; Hematocrit 43.7 % (37.0-47.0); Hemoglobin 14.3 g/dL (11.5-15.3); Lymphocytes # 1.2 10^3/uL (0.8-4.8); Lymphocytes % 16.6 %; Mean Corpuscular HGB Conc 32.7 g/dL (30.0-36.0); Mean Corpuscular Hemoglobin 29.9 pg (28.0-34.0); Mean Corpuscular Volume 91.4 fl (81-99); Mean Platelet Volume 11.7 fL (7.4-10.4); Monocytes # 0.6 10^3/uL (0.2-0.9); Monocytes % 7.8 %; Neutrophils # 5.44 10^3/uL (1.8-7.7); Neutrophils % 72.7 %; Nucleated Red Blood Cells % 0 %; Platelet Count 343 10^3/cmm (130-400); Red Blood Count 4.78 10^6/uL (4.1-5.3); Red Cell Distribution Width 15.5 % (12.1-15.1); White Blood Count 7.5 10^3/uL (4.0-10.0)
--- NOTE | 2021-10-10 12:01 | CT_ITS ---
WS: [id number] CT ABDOMEN PELVIS TECHNIQUE: Contrast-enhanced CT of the abdomen and pelvis with coronal and sagittal reformatted image s. CLINICAL INFORMATION: abd pain COMPARISON: CT October 01, 2021 DLP: 1359.[address] scans at [facility] use at least one of these dose optimization techniques: automated e xposure control; mA and/or kV adjustment per patient size (includes targeted exams where dose is matc hed to clinical indication); or iterative reconstruction. FINDINGS: Marked constipation with dilatation of the rectosigmoid progressed compared to previous with wall thi ckening and surrounding induration. Mild wall thickening is new compared to previous. Small amount of free fluid in the pelvis. Tortuous sigmoid colon. Associated compression of the bladder. Transverse colon is decompressed. Submucosal enhancement involving the transverse colon and left jerardo cending colon. Recommend correlation for infectious or inflammatory colitis. Previously described small bowel obstruction has significantly improved with normal caliber small bow el loops today with a few air-fluid levels. No evidence of high-grade small bowel obstruction today. Submucosal enhancement diffusely involving the small bowel suspicious for enteritis. Again seen is the small esophageal hiatal hernia with gastric and duodenal mucosal enhancement compat ible with gastroduodenitis. This is unchanged. Lung bases are well aerated. Diffuse fatty infiltratio n the liver. Cholecystectomy clips. Normal portal vein and splenic vein. A few tiny hepatic cysts. Or igin gland is normal. Normal right renal parenchymal enhancement. Right extrarenal pelvis is unchange d. Prior resection of the pancreatic tail. Prior cholecystectomy and splenectomy. Prior left nephrectomy . Postoperative changes at the GE junction. Normal caliber abdominal aorta. No periaortic lymphadenopathy. No inguinal lymphadenopathy. CT/CT abdomen pelvis w con* [id number] IMPRESSION: 1. Marked progressed constipation with impaction and distention of the rectosi gmoid progressed compared to previous. Associated compression of the bladder. W all thickening with induration of the sigmoid colon is new from previous. Small amount of free fluid in the pelvis. 2. Previous described small bowel obstruction has significantly improved and e ssentially resolved. 3. Diffuse mucosal enhancement involving the small bowel and colon compatible with infectious or inflammatory enterocolitis. 4. Diffuse fatty infiltration liver. 5. Prior postoperative changes splenectomy,, left nephrectomy, cholecystectomy , and resection of the pancreatic tail. 6. Gastroduodenitis as previously described. Notified Raghav Hines DO at 10/10/2021 12:53 PM.
[2021-10-10 12:02] LABS: Urine Color Dark Yellow (Yellow)
[2021-10-10 12:03] LABS: Bilirubin Urine 1+ (Negative); Blood Urine Neg (Negative); Glucose Urine UA Norm (Normal); Ketones Urine 1+ (Negative); Nitrate Urine Negative (Negative); Protein Urine Neg (Negative); Urine Appearance Clear (CLEAR); pH Urine 5 (5-7)
[2021-10-10 12:04] LABS: Leukocyte Esterase Urine Negative (Negative); Urobilinogen Urine Norm (Negative)
[2021-10-10] MEDS: iodixanol 320 mg/mL 100mL Btl IV (12:32)
--- NOTE | 2021-10-10 12:38 | W.ED.ABDPA2 ---
HPI - Abdominal Pain General: Chief Complaint: Abdominal Pain Stated Complaint: CONSTIPATED/NO BOWEL MOVEMENTS Time Seen by Provider: 10/10/21 11:02 History of Present Illness: HPI narrative: 81-year-old female presents emergency room complaining abdominal pain and distention. She is recently at the hospital and admitted had thought she had a bowel obstruction initially based on the CT however it was mostly obstipation and she had adequate relief with milk molasses enema and was discharged home. She was discharged home 6 days ago and states she has not had a bowel movement since she having abdominal pain and discomfort and distention. She denies any fever sweats chills vomiting or passing any liquid stool. She denies any hematochezia or melena. Said multiple previous surgeries. MD elicited complaint: abdominal pain Pertinent past history: constipation Onset (ago): day(s) (6) Pain Consistency: constant Location: Diffuse Severity: mild Quality: cramping Radiation: none Exacerbating factors: nothing Relieving factors: nothing Associated Symptoms: Reports GI cramping and poor appetite; Denies anorexia, belching, bloating, change in bowel habits, change in stool character, chills, coffee ground emesis, constipation, diarrhea, dyspepsia, dysuria, excessive flatus, fever(s), heartburn, hematochezia, hematuria, hematemesis, fecal incontinence, loose stools, melena, nausea, syncope and vomiting Review of Systems Const: Denies: fever(s) or chills ENMT: Denies: throat pain, ear or mastoid pain, nasal discharge or nasal congestion Card: Denies: syncope Resp: Denies: dyspnea, productive cough or non-productive cough GI: Reports: GI cramping; Denies: nausea, vomiting, hematemesis, coffee ground emesis, heartburn, diarrhea, constipation, bloating, belching, excessive flatus, fecal incontinence, change in bowel habits, change in stool character, hematochezia or melena : Denies: dysuria or hematuria Skin/Breast: Denies: rash or pruritus PFSH ED PFSH: Medical History (Updated 10/17/21 @ 07:06 by Raghav Hines DO) ASHD (arteriosclerotic heart disease) COPD (chronic obstructive pulmonary disease) Dyslipidemia HTN (hypertension) PAD (peripheral artery disease) Renal cell cancer S/p nephrectomy Tobacco abuse, in remission Family History Father CAD (coronary artery disease) Brother CAD (coronary artery disease) Myocardial infarction Social History Smoking and tobacco status: former smoker Lives independently: Yes Marital status: / Pets and animals: Yes Physical Exam Const: COMMON NORMALS: no acute distress GENERAL APPEARANCE: cooperative and comfortable ORIENTATION/CONSCIOUSNESS: Yes awake, Yes oriented to person, Yes oriented to place and Yes oriented to time HENMT: COMMON NORMALS: normocephalic, atraumatic and hearing grossly normal bilaterally HEAD & SCALP: normocephalic and atraumatic Neck/C-Spine: COMMON NORMALS: no JVD Resp: COMMON NORMALS: normal respiratory effort, No retractions, No use of accessory muscles and clear to auscultation bilaterally AUSCULTATION: clear to auscultation bilaterally Cardio: COMMON NORMALS: no JVD, regular rate, regular rhythm and No murmurs present (Cardio) RATE: regular rate RHYTHM: regular rhythm GI: COMMON NORMALS: No hepatosplenomegaly present AUSCULTATION: Yes normoactive bowel sounds PALPATION: Yes Tenderness to palpation present (GI) (diffuse), No Guarding due to palpation present (GI) and Yes No hepatosplenomegaly present Extremity: COMMON NORMALS: normal to inspection, capillary refill normal, no clubbing, cyanosis or edema, no calf tenderness and no pedal edema Neuro: SENSORIUM/ORIENTATION: Yes oriented to person, Yes oriented to place and Yes oriented to time Skin: COMMON NORMALS: no rashes or lesions noted GENERAL SKIN EXAM: no rashes or lesions noted Course Vital Signs: Vital signs: Vital Signs Temperature 97.7 F 10/11/21 08:00 Pulse Rate 71 10/11/21 08:05 Respiratory Rate 20 H 10/11/21 08:05 Blood Pressure 116/72 10/11/21 08:00 Pulse Oximetry 94 10/11/21 08:05 MDM - Abdominal Pain MDM Narrative: Medical decision making narrative: Significant obstipation with inflammation of the colon. Radiology report concern for possible rupture of colon with distention worsens. Discussed with hospitalist and surgery patient start antibiotics orders written Lab Data: Labs: Lab Results 10/10/21 10/10/21 10/10/21 11:30 11:30 11:30 WBC 7.5 10^3/uL 10^3/ uL (4.0-10.0) RBC 4.78 10^6/uL 10^6 /uL (4.1-5.3) Hgb 14.3 g/dL g/dL (11.5-15.3) Hct 43.7 % % (37.0-47.0) MCV 91.4 fl fl (81-99) MCH 29.9 pg pg (28.0-34.0) MCHC 32.7 g/dL g/dL (30.0-36.0) RDW 15.5 % H % (12.1-15.1) Plt Count 343 10^3/cmm 10^3 /cmm (130-400) MPV 11.7 fL H fL (7.4-10.4) Neut % (Auto) 72.7 % % Lymph % (Auto) 16.6 % % [place] % (Auto) 7.8 % % Eos % (Auto) 1.9 % % Baso % (Auto) 0.7 % % Neut # (Auto) 5.44 10^3/uL 10^3 /uL (1.8-7.7) Lymph # (Auto) 1.2 10^3/uL 10^3/ uL (0.8-4.8) [place] # (Auto) 0.6 10^3/uL 10^3/ uL (0.2-0.9) Eos # (Auto) 0.1 10^3/uL 10^3/ uL (0.0-0.8) Baso # (Auto) 0.1 10^3/uL 10^3/ uL (0.0-0.1) Nucleated RBC % (a uto) 0 % % Nucleated RBCs # 0.0 /100WBC /100W BC Sodium Cancelled Potassium Cancelled Chloride Cancelled Carbon Dioxide Cancelled Anion Gap Cancelled BUN Cancelled Creatinine Cancelled GFR Calculation Cancelled Glucose Cancelled Calculated Osmolal ity Cancelled Lactic Acid 1.1 mmol/L mmol/L (0.5-2.2) Calcium Cancelled Magnesium Total Bilirubin Cancelled AST Cancelled ALT Cancelled Alkaline Phosphata se Cancelled Total Protein Cancelled Albumin Cancelled Globulin Cancelled Lipase Procalcitonin Urine Color Urine Appearance Urine pH Ur Specific Gravit y Urine Protein Urine Glucose (UA) Urine Ketones Urine Blood Urine Nitrate Urine Bilirubin Urine Urobilinogen Ur Leukocyte Debbie ase 10/10/21 10/10/21 10/10/21 11:30 13:46 13:46 WBC RBC Hgb Hct MCV MCH MCHC RDW Plt Count MPV Neut % (Auto) Lymph % (Auto) [place] % (Auto) Eos % (Auto) Baso % (Auto) Neut # (Auto) Lymph # (Auto) [place] # (Auto) Eos # (Auto) Baso # (Auto) Nucleated RBC % (a uto) Nucleated RBCs # Sodium 139 mmol/L mmol/L (136-145) Potassium 4.2 mmol/L mmol/L (3.5-5.1) Chloride 103 mmol/L mmol/L (98-107) Carbon Dioxide 23 mmol/L mmol/L (22-29) Anion Gap 17.2 (5-19) BUN 11 mg/dL mg/dL (8-23) Creatinine 0.6 mg/dL mg/dL (0.5-0.9) GFR Calculation Not Reportable Glucose 73 mg/dL mg/dL (65-115) Calculated Osmolal ity 286 mOsm/kg mOsm/ kg (285-295) Lactic Acid Calcium 8.9 mg/dL mg/dL (8.5-10.5) Magnesium 1.9 mg/dL mg/dL (1.7-2.3) Total Bilirubin 0.4 mg/dL mg/dL (0.15-1.2) AST 24 U/L U/L (0-32) ALT 27 U/L U/L (0-33) Alkaline Phosphata se 86 IU/L IU/L (35-105) Total Protein 5.7 g/dL L g/dL (6.6-8.7) Albumin 3.7 g/dL g/dL (3.5-5.2) Globulin 2.0 g/dL g/dL (1.3-4.6) Lipase 31 U/L U/L (13-60) Procalcitonin Urine Color Dark yellow (Yellow) Urine Appearance Clear (CLEAR) Urine pH 5 (5-7) Ur Specific Gravit y 1.020 (1.005-1.030) Urine Protein Neg (Negative) Urine Glucose (UA) Norm (Normal) Urine Ketones 1+ H (Negative) Urine Blood Neg (Negative) Urine Nitrate Negative (Negative) Urine Bilirubin 1+ H (Negative) Urine Urobilinogen Norm mg/dL mg/dL (Negative) Ur Leukocyte Debbie ase Negative (Negative) 10/10/21 13:46 WBC RBC Hgb Hct MCV MCH MCHC RDW Plt Count MPV Neut % (Auto) Lymph % (Auto) [place] % (Auto) Eos % (Auto) Baso % (Auto) Neut # (Auto) Lymph # (Auto) [place] # (Auto) Eos # (Auto) Baso # (Auto) Nucleated RBC % (a uto) Nucleated RBCs # Sodium Potassium Chloride Carbon Dioxide Anion Gap BUN Creatinine GFR Calculation Glucose Calculated Osmolal ity Lactic Acid Calcium Magnesium Total Bilirubin AST ALT Alkaline Phosphata se Total Protein Albumin Globulin Lipase Procalcitonin 0.05 ng/mL ng/mL (0-0.5) Urine Color Urine Appearance Urine pH Ur Specific Gravit y Urine Protein Urine Glucose (UA) Urine Ketones Urine Blood Urine Nitrate Urine Bilirubin Urine Urobilinogen Ur Leukocyte Debbie ase Discharge Plan Discharge Patient Disposition: Placed in Observation Admit Provider: Doron Rich Clinical Impression: Colitis, Obstipation, COPD (chronic obstructive pulmonary disease), HTN (hypertension), ASHD (arteriosclerotic heart disease) Discharge Diet: Cardiac Discharge Activity: Resume usual activity Coding Level of Care Code ED Degree Clerk for [employer] Fwd Exam Comprehensive
[2021-10-10 12:50] LABS: Lactic Sepsis W/Reflex 1.1 mmol/L (0.5-2.2)
[2021-10-10] MEDS: morphine 4 mg/mL SDV 1 mL 2 MG IVP (13:21)
[2021-10-10] MEDS: ketorolac 30 mg/mL INJ 15 MG IVP (13:21)
[2021-10-10] MEDS: metroNIDAZOLE IV 500 MG/100 ML PREMIX 100 MG IV (14:30)
[2021-10-10 14:49] LABS: Alanine Aminotransferase 27 U/L (0-33); Albumin Level 3.7 g/dL (3.5-5.2); Alkaline Phosphatase 86 IU/L (35-105); Anion Gap 17.2 (5-19); Aspartate Amino Transferase 24 U/L (0-32); Blood Urea Nitrogen 11 mg/dL (8-23); Calcium 8.9 mg/dL (8.5-10.5); Carbon Dioxide 23 mmol/L (22-29); Chloride 103 mmol/L (98-107); Creatinine Clr Calc Pharmacy 48.6505; Glucose 73 mg/dL (65-115); Osmolality Calculated 286 mOsm/kg (285-295); Potassium 4.2 mmol/L (3.5-5.1); Sodium 139 mmol/L (136-145); Total Bilirubin 0.4 mg/dL (0.15-1.2); Total Protein 5.7 g/dL (6.6-8.7)
[2021-10-10 14:54] LABS: Lipase 31 U/L (13-60); Magnesium 1.9 mg/dL (1.7-2.3)
[2021-10-10] MEDS: ciprofloxacin 400 MG/200 ML PREMIX 200 MG IV (14:56)
--- NOTE | 2021-10-10 15:39 | PC.PHAR ---
pt states she hasnt taken her medications in about 6 days since she was discharged from here-pt states her meds are the same as when she was here before-pt still states she takes 2 of the lisinopril 2.5mg tabs and a 5mg tab daily to make 10mg daily-ext med history shows 2.5mg daily last filled on 09/12/21 90d/s and 5mg bid filled on 06/01/21 90d/s-notes are made in the pharmacy comments-pts son had a med list with the medications entered med list had vit d zinc and vit c pt not taking
--- NOTE | 2021-10-10 16:52 | PM.HP ---
Providers/Chief Complaint Admitting Physician: Doron Rich MD Primary Care Provider: Jose Danielle MD Chief Complaint: CONSTIPATED/NO BOWEL MOVEMENTS History of Present Illness Ingrid De Leon is a 81 year old female with a past medical history of hypertension, CAD, dyslipidemia, peripheral arterial disease, tobacco abuse, COPD, renal cell carcinoma, pancreatic cancer, status post exploratory laparotomy with left pancreectomy, splenectomy, appendectomy, history of left nephrectomy in 2004, who presents to [facility] due to constipation, and abdominal pain. Patient was recently admitted to [facility] for small bowel obstruction,secondary to surgical adhesions, was also found to have a significant stool burden, was discharged home. She tells me that she has not had a bowel movement since she got in the hospital, she continues have abdominal pain, abdominal distention, she thinks that she had another bowel obstruction so she came to the emergency room. No fevers, chills, no lightheadedness, dizziness. No nausea, no vomiting. Work-up in the emergency room, CAT scan shows 1. Marked progressed constipation with impaction and distention of the rectosigmoid progressed compared to previous. Associated compression of the bladder. Wall thickening with induration of the sigmoid colon is new from previous. Small amount of free fluid in the pelvis. 2. Previous described small bowel obstruction has significantly improved and essentially resolved. 3. Diffuse mucosal enhancement involving the small bowel and colon compatible with infectious or inflammatory enterocolitis. 4. Diffuse fatty infiltration liver. 5. Prior postoperative changes splenectomy,, left nephrectomy, cholecystectomy, and resection of the pancreatic tail. 6. Gastroduodenitis as previously described. Patient was given a enema, in the emergency room, hospitalist team was called for admission. Patient is currently having a bowel movement, she is feeling better, no fevers, chills, nausea, vomiting?161/77, pulse 84, respiratory 18, temp 97.3, saturating 94% on 2 L she has been given Cipro and Flagyl, Review of Systems Const: Denies: fever(s), chills, fatigue or malaise Eyes: Denies: change in vision or blurry vision Card: Denies: chest pain or palpitations Resp: Denies: dyspnea, productive cough, non-productive cough or wheezing GI: Reports: abdominal pain and nausea; Denies: hematemesis, hematochezia or melena : Denies: flank pain, dysuria or urinary frequency Skin/Breast: Denies: rash Neuro: Denies: headache(s), dizziness or vertigo Medications/Allergies Home Medications Medication Instructions Recorded Confirmed Last Taken Type albuterol sulfate 90 mcg/actuation 2 puff INHALATION QID PRN 12/30/19 10/10/21 Unknown History aerosol inhaler coenzyme Q10 100 mg capsule 200 mg PO DAILY cap 12/30/19 10/10/21 Unknown History metoprolol succinate 50 mg 50 mg PO QAM 12/30/19 10/10/21 Unknown History tablet,extended release 24 hr ondansetron HCl 4 mg tablet 4 mg PO TID PRN 12/30/19 10/10/21 Unknown History polyethylene glycol 3350 [Miralax] 8.5 g PO DAILY PRN 28 Days #238 g 10/01/21 10/10/21 Unknown Rx Creon 2 cap PO TID 10/02/21 10/10/21 Unknown History Probiotic 1 cap PO DAILY PRN 10/02/21 10/10/21 Unknown History [employer] 1 tab PO DAILY 10/02/21 10/10/21 Unknown History aspirin 81 mg PO QAM 10/02/21 10/10/21 Unknown History budesonide-formoterol [Symbicort] 2 puff INHALATION BID 10/02/21 10/10/21 Unknown History diltiazem HCl 120 mg PO .PT STOP TAKING 10/02/21 10/10/21 Unknown History hydrocodone-acetaminophen 1 tab PO Q6H PRN 10/02/21 10/10/21 Unknown History hydrocortisone acetate [Anucort-HC] 25 mg PA TID PRN 10/02/21 10/10/21 Unknown History lactulose 15 ml PO BID 10/02/21 10/10/21 Unknown History lisinopril 5 mg PO QAM 10/02/21 10/10/21 Unknown History lisinopril 5 mg PO QAM 10/02/21 10/10/21 Unknown History magnesium oxide 420 mg PO DAILY 10/02/21 10/10/21 Unknown History nortriptyline 25 mg PO BEDTIME 10/02/21 10/10/21 Unknown History Allergies Allergy/AdvReac Type Severity Reaction Status Date / Time adhesive tape Allergy Unknown Unknown Verified 10/10/21 15:39 PFSH Acute PFSH: Medical History (Updated 10/10/21 @ 16:59 by Doron Rich MD) ASHD (arteriosclerotic heart disease) COPD (chronic obstructive pulmonary disease) Dyslipidemia HTN (hypertension) PAD (peripheral artery disease) Renal cell cancer S/p nephrectomy Tobacco abuse, in remission Family History Father CAD (coronary artery disease) Brother CAD (coronary artery disease) Myocardial infarction Social History Smoking and tobacco status: former smoker Lives independently: Yes Marital status: / Pets and animals: Yes Vitals/I&O/Wt Last Vital Signs Temp 97.3 F L 10/10/21 10:30 Pulse 84 10/10/21 10:30 Resp 18 10/10/21 10:30 BP 161/77 10/10/21 10:30 Pulse Ox 94 10/10/21 10:30 Weight last 48 hrs Weight 63.503 kg Physical Exam Const: COMMON NORMALS: no acute distress and patient oriented x3 GENERAL APPEARANCE: cooperative and comfortable HENMT: COMMON NORMALS: normocephalic HEAD & SCALP: normocephalic Eye: COMMON NORMALS: Equal, round and reactive pupils present and EOMs intact bilaterally GENERAL EYE: appearance normal, both eyes and all related structures PUPIL: Yes Equal, round and reactive pupils present Neck/C-Spine: COMMON NORMALS: full ROM and no lymphadenopathy THYROID: Thyroid normal Lymph: LYMPHATIC: no lymphadenopathy noted Resp: COMMON NORMALS: normal respiratory effort, No retractions, No use of accessory muscles and clear to auscultation bilaterally AUSCULTATION: clear to auscultation bilaterally Cardio: COMMON NORMALS: regular rate, regular rhythm, S1 normal heart sound present, S2 normal heart sound present, No gallops present (Cardio), No clicks present (Cardio) and No murmurs present (Cardio) RATE: regular rate RHYTHM: regular rhythm HEART SOUNDS: S1 normal heart sound present and S2 normal heart sound present GI: COMMON NORMALS: Soft to palpation and No hepatosplenomegaly present INSPECTION: Yes normal to inspection and Yes abdominal distension PALPATION: Yes Soft to palpation, Yes Tenderness to palpation present (GI) (Generalized) and Yes No hepatosplenomegaly present Extremity: COMMON NORMALS: normal to inspection, full ROM and no pedal edema Neuro: COMMON NORMALS: patient oriented x3, CN's II-XII intact bilaterally, moves all extremities and no focal motor deficits Psych: COMMON NORMALS: mental status grossly normal, Normal thought process present and cooperative THOUGHT PROCESS: Normal thought process present Urinary Catheter Management^: Harmon: Cath Placed During This Visit: yes Urinary Catheter Date of Insertion: 10/10/21 Urinary Catheter Time of Insertion: 14:46 Data : 10/10/21 11:30 10/10/21 13:46 A&P Assessment and plan (1) Colitis: 1. Marked progressed constipation with impaction and distention of the rectosigmoid progressed compared to previous. Associated compression of the bladder. Wall thickening with induration of the sigmoid colon is new from previous. Small amount of free fluid in the pelvis. 2. Previous described small bowel obstruction has significantly improved and essentially resolved. 3. Diffuse mucosal enhancement involving the small bowel and colon compatible with infectious or inflammatory enterocolitis. 4. Diffuse fatty infiltration liver. 5. Prior postoperative changes splenectomy,, left nephrectomy, cholecystectomy, and resection of the pancreatic tail. 6. Gastroduodenitis as previously described. -For impaction, will start on regimen of Colace, MiraLAX, milk of magnesia -We will start on Cipro and Flagyl for colitis -Serial abdominal exams -Continue n.p.o. -IV fluids -Continue home hydrocodone -Continue to clinically monitor -Patient is DNR/DNI -Heparin for DVT prophylaxis Status: Acute (2) Impaction of colon: Status: Acute (3) COPD (chronic obstructive pulmonary disease): Status: Acute (4) PAD (peripheral artery disease): Status: Acute (5) HTN (hypertension): Status: Acute (6) Dyslipidemia: Status: Acute (7) ASHD (arteriosclerotic heart disease): Status: Acute Attestations Medical Necessity Statement*: Patient requires hospitalization, outpatient with observation, for colitis, rectal impaction Coding Level of Care Code Acute Tube Winder for [facility] Diagnoses Colitis K52.9 Impaction of colon K56.49 COPD (chronic obstructive pulmonary disease) J44.9 PAD (peripheral artery disease) I73.9 HTN (hypertension) I10 Dyslipidemia E78.5 ASHD (arteriosclerotic heart disease) I25.10
[2021-10-10 17:43] LABS: Procalcitonin 0.05 ng/mL (0-0.5)
[2021-10-10] MEDS: pantoprazole 40 mg SDV IVP (18:19)
[2021-10-10] MEDS: docusate sodium 100 mg Capsule PO (18:19)
[2021-10-10] MEDS: magnesium hydroxide 30 mL UDC PO (18:19)
[2021-10-10] MEDS: D5-NS 0.45% + KCL 20 mEq 20 MEQ/1,000 ML BAG 100 MEQ IV (18:19)
[2021-10-10] MEDS: heparin 5,000 unit/mL INJ 1 mL 5000 UNIT SUBCUT (18:20)
[2021-10-10] MEDS: hyDRALAzine 20 mg/mL INJ 1 mL 10 MG IVP (19:43)
[2021-10-10] MEDS: ondansetron 2 mg/ML SDV 2 mL 4 MG IVP (19:53)
[2021-10-11] MEDS: metroNIDAZOLE IV 500 MG/100 ML PREMIX 100 MG IV ×2 (00:05→08:53)
[2021-10-11] MEDS: D5-NS 0.45% + KCL 20 mEq 20 MEQ/1,000 ML BAG 100 MEQ IV (03:15)
[2021-10-11] MEDS: ciprofloxacin 400 MG/200 ML PREMIX 200 MG IV (03:15)
[2021-10-11 03:59] VITALS: BP 137/64; PULSE 81; RESP 21; TEMP 37.1; O2SAT 97
[2021-10-11] MEDS: metoprolol succinate ER (24 HR) 50 mg Tablet PO (04:59)
[2021-10-11] MEDS: lisinopril 10 mg Tablet PO (04:59)
[2021-10-11] MEDS: aspirin 81 mg EC Tablet PO (04:59)
[2021-10-11] MEDS: heparin 5,000 unit/mL INJ 1 mL 5000 UNIT SUBCUT (04:59)
[2021-10-11] MEDS: ondansetron 2 mg/ML SDV 2 mL 4 MG IVP (05:17)
[2021-10-11 06:41] LABS: Basophils % 0.3 %; Eosinophils # 0.3 10^3/uL (0.0-0.8); Hematocrit 39.2 % (37.0-47.0); Hemoglobin 12.2 g/dL (11.5-15.3); Lymphocytes # 0.9 10^3/uL (0.8-4.8); Lymphocytes % 13.3 %; Mean Corpuscular HGB Conc 31.1 g/dL (30.0-36.0); Mean Corpuscular Hemoglobin 30.2 pg (28.0-34.0); Mean Platelet Volume 11.4 fL (7.4-10.4); Monocytes % 14.4 %; Neutrophils # 4.54 10^3/uL (1.8-7.7); Neutrophils % 66.6 %; Nucleated Red Blood Cells % 0 %; Platelet Count 314 10^3/cmm (130-400); Red Blood Count 4.04 10^6/uL (4.1-5.3); Red Cell Distribution Width 15.8 % (12.1-15.1); White Blood Count 6.8 10^3/uL (4.0-10.0)
[2021-10-11 07:21] LABS: Alanine Aminotransferase 24 U/L (0-33); Albumin Level 3.4 g/dL (3.5-5.2); Alkaline Phosphatase 80 IU/L (35-105); Aspartate Amino Transferase 21 U/L (0-32); Blood Urea Nitrogen 8 mg/dL (8-23); Calcium 8.8 mg/dL (8.5-10.5); Carbon Dioxide 28 mmol/L (22-29); Chloride 103 mmol/L (98-107); Creatinine Clr Calc Pharmacy 48.6505; Globulin 2.2 g/dL (1.3-4.6); Glucose 107 mg/dL (65-115); Magnesium 2.2 mg/dL (1.7-2.3); NT Pro B Type Natriuretic Pept 501 pg/mL (0-450); Osmolality Calculated 285 mOsm/kg (285-295); Phosphorus 2.8 mg/dL (2.5-4.5); Sodium 138 mmol/L (136-145); Thyroid Stimulating Hormone 1.22 uIU/mL (0.27-4.20); Total Bilirubin 0.4 mg/dL (0.15-1.2); Total Protein 5.6 g/dL (6.6-8.7)
[2021-10-11 07:34] LABS: Anion Gap 11.5 (5-19); Potassium 4.5 mmol/L (3.5-5.1)
[2021-10-11 08:00] VITALS: BP 116/72; PULSE 77; RESP 18; TEMP 36.5; O2SAT 91
[2021-10-11 08:05] VITALS: PULSE 71; RESP 20; O2SAT 94
--- NOTE | 2021-10-11 09:03 | PC.PT ---
PT attempted to evaluate patient this morning. Pt refused to participate. Pt observed to be independent with bed mobility and nurse reports pt is getting up ad mariaelena to go to the bathroom. We will attempt evaluation again this afternoon.
--- NOTE | 2021-10-11 09:58 | PC.CHAP ---
Pastoral Care Encounter/Spiritual Assessment Type of Contact [] Declined return to vendor visit [] Patient/Family/Request visit [] Outpatient visit [] Follow-up visit [] Physician referral [] Code/Alert [x] Routine visit [] Staff referral [] Actively dying [] Patient sleeping [] Family support [] [] Out of room [] Palliative care [] [] Receiving care in room [] Pre-surgical visit [] Trauma [] Long length of stay [] ICU visit [] Other: Relational/Emotional Strength x[x] Patient feels connected with others/family/visitors/staff [] Distress [] Loneliness/isolation [] Abandonment Spirituality of Patient [x] Person of Jordyn [] Attends [employer] of their Jordyn [x] Believes in Prayer [] Reads Bible or Jain materials [] There are Spiritual issues to be addressed Corporate Law Assistant Interventions [x] Prayer [x] Active listening [x] Non-anxious presence [] Spiritual/emotional support [] Crisis/trauma care [] Spiritual counseling [] Bereavement support [] Provided bereavement packet [] Provided Bible/devotional materials [] Provided toy/stuffed animal, coloring book to patient or family member [] Provided Communion [] Anointing/[place] [] Salvation [x] Completed spiritual assessment [] Other: Impact on Illness or Injury [] Angry [] Fearful [] Anxious [] Often cries [] Exhaustion [] Unable to work [] Unable to attend zoroastrianism [] Unable to walk/stand [] Unable to read [] Unable to drive [] Unable to eat/drink [] Unable to sleep [] Unable to be with family [] Patient intubated [] Other: Summary Time spent with patient 15 min
--- NOTE | 2021-10-11 12:37 | P.DS_ITS ---
Discharge Providers Date of Admission: 10/10/21 15:17 Date of Discharge: October 11, 2021 Attending Provider at Admission: Doron Rich MD Attending Provider at Discharge: Doron Rich MD Primary Care Provider: Jose Danielle MD Diagnoses at Discharge Discharge Diagnosis (1) Colitis: Status: Acute (2) Impaction of colon: Status: Acute (3) COPD (chronic obstructive pulmonary disease): Status: Acute (4) PAD (peripheral artery disease): Status: Acute (5) HTN (hypertension): Status: Acute (6) Dyslipidemia: Status: Acute (7) ASHD (arteriosclerotic heart disease): Status: Acute Reason for Visit Reason for Visit: CONSTIPATED/NO BOWEL MOVEMENTS Hospital Course Hospital Course Ingrid De Leon is a 81 year old female with a past medical history of hypertension, CAD, dyslipidemia, peripheral arterial disease, tobacco abuse, COPD, renal cell carcinoma, pancreatic cancer, status post exploratory laparotomy with left pancreectomy, splenectomy, appendectomy, history of left nephrectomy in 2004, who presents to [facility] due to constipation, and abdominal pain. Patient was recently admitted to [facility] for small bowel obstruction,secondary to surgical adhesions, was also found to have a significant stool burden, was discharged home. She tells me that she has not had a bowel movement since she got in the hospital, she continues have abdominal pain, abdominal distention, she thinks that she had another bowel obstruction so she came to the emergency room. No fevers, chills, no lightheadedness, dizziness. No nausea, no vomiting. Work-up in the emergency room, CAT scan shows 1. Marked progressed constipation with impaction and distention of the rectosigmoid progressed compared to previous. Associated compression of the bladder. Wall thickening with induration of the sigmoid colon is new from previous. Small amount of free fluid in the pelvis. 2. Previous described small bowel obstruction has significantly improved and essentially resolved. 3. Diffuse mucosal enhancement involving the small bowel and colon compatible with infectious or inflammatory enterocolitis. 4. Diffuse fatty infiltration liver. 5. Prior postoperative changes splenectomy,, left nephrectomy, cholecystectomy, and resection of the pancreatic tail. 6. Gastroduodenitis as previously described. Patient was given a enema, in the emergency room, hospitalist team was called for admission. Patient is currently having a bowel movement, she is feeling better, no fevers, chills, nausea, vomiting?161/77, pulse 84, respiratory 18, temp 97.3, saturating 94% on 2 L she has been given Cipro and Flagyl, Patient was admitted to [facility] for colitis and stool impaction 1. Marked progressed constipation with impaction and distention of the rectosigmoid progressed compared to previous. Associated compression of the bladder. Wall thickening with induration of the sigmoid colon is new from previous. Small amount of free fluid in the pelvis. 2. Previous described small bowel obstruction has significantly improved and essentially resolved. 3. Diffuse mucosal enhancement involving the small bowel and colon compatible with infectious or inflammatory enterocolitis. 4. Diffuse fatty infiltration liver. 5. Prior postoperative changes splenectomy,, left nephrectomy, cholecystectomy, and resection of the pancreatic tail. 6. Gastroduodenitis as previously described. -For impaction, was started on regimen of Colace, MiraLAX, milk of magnesia. Had large bowel movements, was feeling better, abdomen minimal distention, no nausea, vomiting, discharged home with bowel regimen. Colace twice a day. MiraLAX twice a day until she has a regular soft bowel movement daily, consistently, then use as needed. Milk of magnesia once a day until she has a regular soft bowel movement daily, consistently, then use as needed. Follow-up with envelope folding machine operator in [place] - started on Cipro and Flagyl for colitis, discharged on 5-day course Physical Exam Const: COMMON NORMALS: no acute distress and patient oriented x3 Resp: COMMON NORMALS: normal respiratory effort, No retractions, No use of accessory muscles and clear to auscultation bilaterally AUSCULTATION: clear to auscultation bilaterally Cardio: COMMON NORMALS: regular rate, regular rhythm, S1 normal heart sound present and S2 normal heart sound present RATE: regular rate RHYTHM: regular rhythm HEART SOUNDS: S1 normal heart sound present and S2 normal heart sound present GI: COMMON NORMALS: Normal to inspection, nondistended, normoactive bowel sounds present, Soft to palpation and non-tender PALPATION: Yes Soft to palpation Extremity: COMMON NORMALS: no pedal edema Neuro: COMMON NORMALS: patient oriented x3 Psych: COMMON NORMALS: mental status grossly normal Urinary Catheter Management^: Harmon: Cath Placed During This Visit: yes Reason for Continuing Indwelling Catheter: Other Urinary Catheter Date of Insertion: 10/10/21 Urinary Catheter Time of Insertion: 14:46 Discharge Data Data Completed and Pending: Completed Studies During Hospitalization Category Date Time Status CT abdomen pelvis w con* [id number] Stat Cat Scan 10/10/21 12:01 Completed Pending at discharge Category Date Time Status Magnesium AM LABS Lab 10/12/21 04:00 Ordered Magnesium AM LABS Lab 10/13/21 04:00 Ordered Phosphorus AM LAB S Lab 10/12/21 04:00 Ordered Phosphorus AM LAB S Lab 10/13/21 04:00 Ordered Labs from last 24 hours 10/11/21 10/11/21 10/10/21 05:28 05:28 13:46 WBC 6.8 RBC 4.04 L Hgb 12.2 Hct 39.2 MCV 97.0 D MCH 30.2 MCHC 31.1 RDW 15.8 H Plt Count 314 MPV 11.4 H Neut % (Auto) 66.6 Lymph % (Auto) 13.3 Hawkins % (Auto) 14.4 Eos % (Auto) 5.0 Baso % (Auto) 0.3 Neut # (Auto) 4.54 Lymph # (Auto) 0.9 Hawkins # (Auto) 1.0 H Eos # (Auto) 0.3 Baso # (Auto) 0.0 Nucleated RBC % (a uto) 0 Nucleated RBCs # 0.0 Sodium 138 Potassium 4.5 Chloride 103 Carbon Dioxide 28 Anion Gap 11.5 BUN 8 Creatinine 0.7 GFR Calculation Not Reportable Glucose 107 Calculated Osmolal ity 285 Lactic Acid Calcium 8.8 Phosphorus 2.8 Magnesium 2.2 Total Bilirubin 0.4 AST 21 ALT 24 Alkaline Phosphata se 80 NT-Pro-B Natriuret Pep 501 H Total Protein 5.6 L Albumin 3.4 L Globulin 2.2 Lipase Procalcitonin 0.05 TSH 1.22 10/10/21 10/10/21 10/10/21 13:46 13:46 11:30 WBC RBC Hgb Hct MCV MCH MCHC RDW Plt Count MPV Neut % (Auto) Lymph % (Auto) Hawkins % (Auto) Eos % (Auto) Baso % (Auto) Neut # (Auto) Lymph # (Auto) Hawkins # (Auto) Eos # (Auto) Baso # (Auto) Nucleated RBC % (a uto) Nucleated RBCs # Sodium 139 Potassium 4.2 Chloride 103 Carbon Dioxide 23 Anion Gap 17.2 BUN 11 Creatinine 0.6 GFR Calculation Not Reportable Glucose 73 Calculated Osmolal ity 286 Lactic Acid 1.1 Calcium 8.9 Phosphorus Magnesium 1.9 Total Bilirubin 0.4 AST 24 ALT 27 Alkaline Phosphata se 86 NT-Pro-B Natriuret Pep Total Protein 5.7 L Albumin 3.7 Globulin 2.0 Lipase 31 Procalcitonin TSH Vitals: Last Vital Signs Temp 97.7 F 10/11/21 08:00 Pulse 71 10/11/21 08:05 Resp 20 H 10/11/21 08:05 BP 116/72 10/11/21 08:00 Pulse Ox 94 10/11/21 08:05 Discharge Plan Discharge Patient Disposition: Home Condition: Stable Prescriptions: New magnesium hydroxide [Milk of Magnesia] 400 mg/5 mL Suspension 30 ml PO DAILY 30 Days Qty: 1800 RF: 0 docusate sodium 100 mg Capsule 100 mg PO BID 30 Days Qty: 60 RF: 0 polyethylene glycol 3350 17 gram Powder In Packet 17 g PO BID 30 Days Qty: 60 RF: 0 ciprofloxacin HCl [Cipro] 250 mg tablet 250 mg PO BID 5 Days Qty: 10 RF: 0 metronidazole [Flagyl] 500 mg tablet 500 mg PO Q8H 7 Days Qty: 21 RF: 0 Continued ondansetron HCl 4 mg tablet 4 mg PO TID PRN (Reason: Nausea And Vomiting) RF: 0 coenzyme Q10 [Co Q-10] 100 mg capsule 200 mg PO DAILY RF: 0 albuterol sulfate [Ventolin HFA] 90 mcg/actuation HFA aerosol inhaler 2 puff INHALATION QID PRN (Reason: Shortness Of Breath) RF: 0 metoprolol succinate [Toprol XL] 50 mg tablet extended release 24 hr 50 mg PO QAM RF: 0 magnesium oxide 420 mg Tablet 420 mg PO DAILY RF: 0 hydrocodone-acetaminophen 10-325 mg tablet 1 tab PO Q6H PRN (Reason: Pain) RF: 0 aspirin 81 mg Tablet,Delayed Release (Dr/Ec) 81 mg PO QAM RF: 0 hydrocortisone acetate [Anucort-HC] 25 mg suppository 25 mg UT TID PRN (Reason: Hemorrhoids) RF: 0 Creon 36,000-114,000- 180,000 unit capsule,delayed release(DR/EC) 2 cap PO TID RF: 0 nortriptyline 25 mg capsule 25 mg PO BEDTIME RF: 0 Hold Instructions: discuss with PCP before resuming lisinopril 5 mg tablet 5 mg PO QAM RF: 0 budesonide-formoterol [Symbicort] 160-4.5 mcg/actuation HFA aerosol inhaler 2 puff INHALATION BID RF: 0 Probiotic 1 cap PO DAILY PRN (Reason: while on antibiotics) RF: 0 [employer] 1 tab PO DAILY RF: 0 Discontinued polyethylene glycol 3350 [Miralax] 17 gram/dose powder 8.5 g PO DAILY PRN (Reason: constipation) 28 Days Qty: 238 RF: 0 lactulose 10 gram/15 mL solution 15 ml PO BID RF: 0 lisinopril 2.5 mg tablet 5 mg PO QAM RF: 0 diltiazem HCl 120 mg capsule,extended release 24hr 120 mg PO .PT STOP TAKING RF: 0 Discharge Orders: Discharge Order (Routine); Ordered 10/11/21 Ordered By: Doron Rich Referrals: Jose Danielle MD [Primary Care Provider] - Discharge Diet: Cardiac Discharge Activity: Resume usual activity Patient Instructions: Opioid Safety Activity Restrictions/Additional Instructions: -Take Colace 100 mg twice daily -Use MiraLAX twice a day until you have a regular soft bowel movement, daily, consistently, then use as needed -Use milk of mag once a day until you have a regular soft bowel movement, daily, consistently, then use as needed -Use antibiotics as prescribed -Please drink plenty of electrolyte balance fluids such as Powerade or Gatorade -Follow-up with envelope folding machine operator in [place] Discharge Attestations Time Spent in Discharge Care*: less than 30 min Quality Metrics Clinical Quality Measures During this hospital stay, did patient experience: None Coding Level of Care Code Acute Chg FW DC note Diagnoses Colitis K52.9 Impaction of colon K56.49 COPD (chronic obstructive pulmonary disease) J44.9 PAD (peripheral artery disease) I73.9 HTN (hypertension) I10 Dyslipidemia E78.5 ASHD (arteriosclerotic heart disease) I25.10
== END 2021-10-11 15:04 | disposition home or self-care (01) ==
LOC: ER 15:33 → MEDSURG 18:01
PROVIDERS: Physician Assistant; Admitting Provider Family Medicine; Emergency Provider Family Medicine; PCP Family Medicine; Visit Provider Family Medicine
DX: K52.9 Noninfective gastroenteritis and colitis, unspecified (principal); K56.49 Other impaction of intestine; J44.9 Chronic obstructive pulmonary disease, unspecified; I73.9 Peripheral vascular disease, unspecified; I10 Essential (primary) hypertension; E78.5 Hyperlipidemia, unspecified; I25.10 Atherosclerotic heart disease of native coronary artery without angina pectoris; F17.210 Nicotine dependence, cigarettes, uncomplicated; Z79.82 Long term (current) use of aspirin
CPT/HCPCS: 36415; 45915; 51702; 74177; 80053; 81003; 83605; 83690; 83735; 83880; 84100; 84145; 84443; 85025; 96365; 96366; 96367; 96372; 96375; 97165; 99285; C9113; G0378; J0360; J0744; J1644; J1885; J2270; J2405; Q9967; S0030

== ENCOUNTER → 2022-04-20 10:28 | Outpatient (BNVA) | payer MEDICARE, OTHER, SELFPAY | PROVIDERS: PCP Family Medicine; Visit Provider Internal Medicine | DX: R06.02 Shortness of breath (principal); I10 Essential (primary) hypertension; J44.9 Chronic obstructive pulmonary disease, unspecified; I73.9 Peripheral vascular disease, unspecified; E78.5 Hyperlipidemia, unspecified; I25.10 Atherosclerotic heart disease of native coronary artery without angina pectoris; C64.2 Malignant neoplasm of left kidney, except renal pelvis; C78.89 Secondary malignant neoplasm of other digestive organs | CPT/HCPCS: 80048; 80053; 83615; 83880; 85025 ==

== ENCOUNTER 2022-04-26 12:06 | Oncology outpatient (recurring) (ONCR) | payer MEDICARE, OTHER, SELFPAY | END 2022-05-10 23:59 | disposition home or self-care (01) | PROVIDERS: PCP Family Medicine; Referring Provider Surgery; Visit Provider Internal Medicine Medical Oncology | DX: C64.2 Malignant neoplasm of left kidney, except renal pelvis (principal); C78.89 Secondary malignant neoplasm of other digestive organs; J44.9 Chronic obstructive pulmonary disease, unspecified; Z87.891 Personal history of nicotine dependence | CPT/HCPCS: 99214 ==

== ENCOUNTER 2022-05-08 09:38 | Outpatient (CLI) | payer MEDICARE, OTHER, SELFPAY ==
--- NOTE | 2022-05-08 09:30 | USCV_ITS ---
Haley Ingrid Age: 81 Gender: F : 1940 Exam Date: 05/08/2022 09:54 Ordering Phys: Cruzito Coronado M.D ([email or web address]) Technologist: [place] [facility] [place]: chest pain ? rt side failure BP: 125 / 70 HR: 73 Rhythm: Sinus Technical Quality: Adequate MEASUREMENTS (Male / Female) Normal Values 2D ECHO LV Diastolic Diameter PLAX 4.5 cm 4.2 - 5.9 / 3.9 - 5.3 cm LV Systolic Diameter PLAX 3.0 cm IVS Diastolic Thickness 1.1 cm 0.6 - 1.0 / 0.6 - 0.9 cm IVS Systolic Thickness 1.4 cm LVPW Diastolic Thickness 1.6 cm 0.6 - 1.0 / 0.6 - 0.9 cm LVPW Systolic Thickness 1.4 cm LVOT Diameter 2.1 cm LV Ejection Fraction 2D Teich 52.7 % LV Ejection Fraction MOD 2C 66.2 % LV Ejection Fraction 2C AL 67.9 % LA Diameter 4.2 cm M-MODE Aortic Annulus Diameter 3.9 cm LA Ao Ratio MM 1.2 MV E Point Septal Separation 1.1 cm DOPPLER AV Peak Velocity 137.0 cm/s LVOT Peak Velocity 114.0 cm/s AV Area Cont Eq vti 3.1 cm squared AV Area Cont Eq pk 2.8 cm squared MV Area PHT 5.0 cm squared Mitral E to A Ratio 0.9 MV E' Velocity 44.5 cm/s Mitral E to MV E' Ratio 9.3 Mitral E to LV E' Lateral Ratio 9.0 Mitral E to LV E' Septal Ratio 9.7 TR Peak Velocity 152.3 cm/s TR Peak Gradient 9.3 mmHg TV Peak E Velocity 80.0 cm/s Right Atrial Pressure 3.0 mmHg Pulmonary Artery Systolic Pressu 12.3 mmHg PV Peak Velocity 90.0 cm/s FINDINGS Left Ventricle Normal left ventricular size. LV systolic function is normal with EF 55 to 60%. No regional wall motion abnormalities are seen. Grade 1 diastolic dysfunction is seen. Right Ventricle The right ventricle is normal in size and function. Right Atrium The right atrium is normal in size. Left Atrium The left atrium is normal in size. Mitral Valve Structurally normal mitral valve without significant stenosis or prolapse. There is trace mitral regurgitation. Aortic Valve Structurally normal aortic valve without significant sclerosis or stenosis. There is no aortic regurgitation. Tricuspid Valve Structurally normal tricuspid valve without significant stenosis. Trace tricuspid regurgitation. Pulmonary artery systolic pressure is normal. Pulmonic Valve Not well-visualized Pericardium Normal pericardium without effusion. Aorta Normal ascending aorta dimension. IVC CONCLUSIONS LV systolic function is normal with EF 55 to 60%. Grade 1 diastolic dysfunction Trace tricuspid regurgitation Trace mitral regurgitation Compared to prior echocardiogram from 01/27/2021, no significant changes are seen Cruzito Coronado MD (Electronically Signed) Final Date: 16 May 2022 18:53 S
== END 2022-05-08 09:39 | disposition home or self-care (01) ==
LOC: RAD 09:41
PROVIDERS: PCP Family Medicine; Visit Provider Internal Medicine
DX: I08.1 Rheumatic disorders of both mitral and tricuspid valves (principal); R06.02 Shortness of breath
CPT/HCPCS: 93306

== ENCOUNTER → 2022-06-13 10:07 | Outpatient (BNVA) | payer MEDICARE, OTHER, SELFPAY | PROVIDERS: PCP Nurse Practitioner Family; Visit Provider Internal Medicine Critical Care Medicine | DX: J43.2 Centrilobular emphysema (principal); Z87.891 Personal history of nicotine dependence; Z99.81 Dependence on supplemental oxygen; J96.11 Chronic respiratory failure with hypoxia; R60.9 Edema, unspecified | CPT/HCPCS: 99204 ==

== ENCOUNTER 2022-06-18 09:30 | Inpatient (IN) | payer MEDICARE, OTHER, SELFPAY ==
[2022-06-18] VITALS (66 sets, daily range): BP systolic 107–171; BP diastolic 50–79; PULSE 56–83; RESP 12–28; TEMP 36.4–36.6; O2SAT 91–100; BMI 32.9; BMI 33.1
--- NOTE | 2022-06-18 09:38 | XR_ITS ---
WS: [id number] XR chest 1V portable [id number] REASON FOR EXAM: dyspnea/cough FINDINGS: Mild cardiomegaly. Chest is relatively unchanged compared to 04/03/2022. There are coarse reticular interstitial lung opa cities in both lower lung felix. These appear to be chronic. No definite acute pulmonary parenchymal or pleural abnormality is identified. XR/XR chest 1V portable [id number] IMPRESSION: No definite interval change compared to the previous examination. Presumed chronic interstitial lung disease. It could be difficult to identify e daniella congestive heart failure superimposed on this chronic lung disease and if clinically warranted a follow-up chest x-ray can be obtained.
--- NOTE | 2022-06-18 09:38 | ECG_ITS ---
[facility] Test Date: 2022-06-18 Pat Name: Ingrid De Leon Department: Room: Gender: Female International Recruiter: : 1940 Requested By: Raghav Branham Order Number: [id number] Bakari MD: Clark Mayo M.D. Measurements Intervals [place] Rate: 68 P: 84 WA: 172 QRS: 50 QRSD: 85 T: 70 QT: 372 QTc: 397 Interpretive Statements SINUS RHYTHM ST ELEVATION, CONSIDER INFERIOR INJURY [MARKED ST ELEVATION W/O NORMALLY INFLECTED T WAVE IN II/aVF] ACUTE ME INTERPRETATION BASED ON A DEFAULT AGE OF 40 YEARS No previous ECG available for comparison Electronically Signed On 06-19-2022 0:43:05 CDT by Clark Mayo M.D. [email or web address]
--- NOTE | 2022-06-18 09:38 | CT_ITS ---
WS: [id number] CT HEAD NONCONTRAST HISTORY: Question stroke TECHNIQUE: Contiguous axial imaging performed through the brain in 2.5 mm imaging. Bone and soft tiss ue windows. Sagittal and coronal reformats reviewed. All CT scans at [facility] use at least one of these dose optimization techniques: automated exposure control; mA and/or kV adjustment per pa tient size (includes targeted exams where dose is matched to clinical indication); or iterative recon struction. DLP: 1127.18 mGy.cm COMPARISON: 08/06/2019 No acute intracranial hemorrhage or edema. Moderate atrophy and small vessel ischemic disease. Prior LEFT thalamic lacunar infarct. Ventricles: Ventricles are minimally prominent. No inferior displacement of the cerebellar tonsils. Paranasal sinuses: As visualized are clear. Mastoid air cells: Well pneumatized. Calvarium and scalp: Skull is intact with no soft tissue edema or swelling. CT/CT head wo con* [id number] IMPRESSION: 1. No acute intracranial hemorrhage or edema. 2. Moderate atrophy and small vessel ischemic disease. 3. Prior LEFT thalamic lacunar infarct.
--- NOTE | 2022-06-18 09:48 | ED_ITS ---
HPI - Neuro Symptoms/Deficit General: Chief Complaint: Neuro Symptoms/Deficit Stated Complaint: Numbness, Dizziness, Strokelike symptoms Time Seen by Provider: 06/18/22 09:37 PFS ED PFSH: Medical History ASHD (arteriosclerotic heart disease) COPD (chronic obstructive pulmonary disease) Dyslipidemia GERD (gastroesophageal reflux disease) HTN (hypertension) Osteoporosis PAD (peripheral artery disease) Renal cell cancer Tobacco abuse, in remission Surgical History Hx of cholecystectomy Hx of exploratory laparotomy (08/28/18) 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 recurrent renal cell cancer Hx of hemorrhoidectomy S/p nephrectomy (2004) Laparoscopic left nephrectomy for renal cell cancer Family History Father CAD (coronary artery disease) Brother CAD (coronary artery disease) Myocardial infarction Sister Psychiatric illness Other Cancer Chronic kidney disease (CKD) Hyperlipidemia Hypertension Lung disease Denies family history of Diabetes Clotting disorder Dementia Suicide Anesthesia complication Bleeding disorder Stroke Social History Smoking and tobacco status: former smoker Quit status (tobacco): has quit using tobacco Year quit tobacco: 1991 Former quit date comment: 1ppd X 30 years Alcohol intake: never Lives independently: Yes Marital status: / Pets and animals: Yes Course Vital Signs: Vital signs: Vital Signs Temperature 97.9 F 06/18/22 09:35 Pulse Rate 70 06/18/22 09:35 Respiratory Rate 19 H 06/18/22 09:35 Blood Pressure 130/63 06/18/22 09:35 Pulse Oximetry 92 06/18/22 09:35 Oxygen Delivery Pa thod 06/18/22 09:35 Discharge Plan Discharge Condition: Stable Prescriptions: No Action ondansetron HCl 4 mg tablet 4 mg PO TID PRN (Reason: Nausea And Vomiting) coenzyme Q10 [Co Q-10] 100 mg capsule 200 mg PO DAILY albuterol sulfate [Ventolin HFA] 90 mcg/actuation HFA aerosol inhaler 2 puff INHALATION QID PRN (Reason: Shortness Of Breath) metoprolol succinate [Toprol XL] 50 mg tablet extended release 24 hr 50 mg PO QAM B Complex Plus Vitamin C 37-05-32-5-300 mg capsule 1 cap PO DAILY Rx Instructions: give with food (meal/snack) Breztri Aerosphere 160-9-4.8 mcg/actuation HFA aerosol inhaler 2 inh inhalation BID nitroglycerin 0.4 mg tablet, sublingual 0.4 mg sublingual Q5M PRN Rx Instructions: do not exceed 3 doses per episode furosemide 40 mg tablet 60 mg PO DAILY pregabalin 50 mg capsule 50 mg PO TID tramadol 50 mg tablet 50 mg PO Q8H PRN fluticasone propionate [Allergy Relief (fluticasone)] 50 mcg/actuation spray,suspension 1 spray intranasal DAILY Rx Instructions: administer into each nostril azithromycin 250 mg tablet 250 mg PO .COMPLEX 60 Days Qty: 30 0RF Rx Instructions: 250 mg orally Saturday; start on day 2 of therapy potassium 20 mg tablet,chewable See Rx Instructions PO DAILY Rx Instructions: 1 tablet PO daily; magnesium oxide 420 mg Tablet 420 mg PO DAILY aspirin 81 mg Tablet,Delayed Release (Dr/Ec) 81 mg PO QAM Creon 36,000-114,000- 180,000 unit capsule,delayed release(DR/EC) 2 cap PO TID Probiotic 1 cap PO DAILY PRN (Reason: while on antibiotics) Referrals: Lorraine Samaniego FNP [Primary Care Provider] - Coding Level of Care Code ED Medical Screener for Dixon Gottlieb
--- NOTE | 2022-06-18 09:49 | XACV_ITS ---
Exam Room: ED.ROOM10 Ht: 160 cm Wt: 84 kg BSA: 1.97 m2 Gender: Female : 1940 Exam Priority: Routine Procedure(s): Procedure Description: Diagnostic procedure Procedure Description: Miscellaneous Procedure Description: ACT Procedure Description: Coronary Angiography Diagnostic Cath Status: Emergency Diagnostic Findings * INDICATION: 81 year old female with past medical history of diastolic congestive heart failure, tobacco abuse, CAD, PAD, hypertension who presented to the hospital after family noted that she had some slurring of speech earlier this morning. She was also having shortness of breath since last night with mild chest discomfort. EKG performed in the ER showed borderline ST elevation in inferior leads. Cardiac Chairman was emergently activated. Patient had significant orthopnea and could not lay down flat. She was intubated plan for CT head prior to going to cardiac Chairman. * Left main artery: Very short, patent LAD: Mid LAD has moderate 40 to 50% stenosis. Left circumflex artery: Patent. Has mild to moderate mid vessel stenosis. RCA: Patent. * Coronary angiography shows right dominance. Conclusions 1. Left main artery: Very short, patent LAD: Mid LAD has moderate 40 to 50% stenosis. Left circumflex artery: Patent. Has mild to moderate mid vessel stenosis. RCA: Patent. Recommendations * Patient will have outpatient stress test for mid LAD evaluation however it appears moderate with 40 to 50% stenosis. Medical therapy at this time. * Outpatient cardiology follow-up in 4 weeks. Interventional RX Recommendation: medical therapy and/or counseling Diagnostic RX Recommendation: medical therapy and/or counseling Pressures Phase:Rest AO : 124 / 65 ( 87 ) @ 11:32:00 AM 124 / 118 ( 86 ) @ 11:37:00 AM 125 / 118 ( 85 ) @ 11:37:00 AM Clinical Evaluation EBL: 5mL-10mL Procedural Details Estrella Kiara, RT(R) was relieved by Jada Thomas RN as monitoring person. Procedure Consent Obtained. Admit Source: Emergency department. Pre-Procedure Time Out. Identified patient by full name and date of as verbalized by the patient/guarantor. Does the consent match the physician's order: N/A Emergent. Accurate & Complete Informed Consent: Yes. Verbal consent given by patient and daughter in law in ED before being intubated. Inpatient/Outpatient History & Physical on Chart: N/A Emergent. If H&P is completed, is and addenduem needed: N/A Emergent; If yes, is the addendum complete: N/A Emergent. Visualize and Verify Site with Patient/Guarantor: N/A. Relevant Radiology Images available: N/A. The risks, benefits, and alternatives of sedation and/or procedure were discussed by physician. The patient agrees to continue in ED prior to intubation. Procedure started. Chairman Indications: New Onset Angina. Chest Pain Symptom Assessment: Typical Angina Symptoms. Correct patient, site and procedure confirmed by cath team. Current diagnosis: STEMI. Patient arrived to cathead worker on a ventilator and will be managed by respiratiory. Baseline sample Acquired. HR: 109 BPM. Physician notified. right groin was prepped with chloroprep then draped in the usual sterile fashion. IV Site on Arrival: 20 gauge in the left anticubital. Physician arrived. Physician scrubbed in. Immediate Pre-Procedure Time Out. Correct Patient: Yes; Correct Procedure: Yes; Correct Site: Yes; Correct Patient Position: Yes; Correct Supplies: Yes; Dried Flammable Prep: Yes; Blood Products Available: N/A;. Lidocaine 1% infiltrated to the right groin. Arterial access obtained with micropuncture set. A 5 martiniquais JL4 catheter in over wire. Multiple views taken of left coronary artery. Catheter out. 6 martiniquais JR 4 guide catheter was inserted over the wire. Multiple views taken of right coronary artery. Catheter removed over the standard wire. 6 martiniquais XB 3 guide catheter was inserted over the wire. Guide catheter out. A 5 martiniquais JL3.5 catheter in over wire. Multiple views taken of left coronary artery. Catheter out. A Suture was successful obtaining hemostatsis at the Right Femoral artery insertion site. Post Procedure: Pulses reassessed and unchanged. PERRLA. Strong, equal hand product evangelist bilaterally. No VTE prophylaxis required. ACT drawn. Results 130 seconds. Therapeutic limits - pre-heparin administration 90-150 seconds and monitoring heparin during a vascular procedure >250 seconds. Medication's Wasted: Heparin = 1000 u. Total IV fluids: 38 mL. Post-op diagnosis: Moderate LAD stenosis. Complications: none. Estimated blood loss: 5mL-10mL. Responsiveness - Pt intubated and sedated. Airway - Contines to be assisted by ventilator. Circulation: W/N/L, pulses unchanged. Nausea/Vomiting: N/A. Procedure completed. Patient transferred by bed to ICU. Vital chart was stopped. Access Site Site: Right Femoral artery Sheath Size: 6 Fr Hemostasis Method: Suture Hemostasis Success: Successful Procedure Medications Start: 10:28 AM Stop: 10:28 AM Medication: Versed Amount: 1 mg Route: I.V. Start: 10:28 AM Stop: 10:28 AM Medication: Fentanyl Amount: 50 mcg Route: I.V. Start: 10:35 AM Stop: 10:35 AM Medication: Versed Amount: 1 mg Route: I.V. I, the attending physician, have reviewed and verified all procedure medications. Yes, all medications given per verbal order History/Risk Factors Hypertension: No Dyslipidemia: No Peripheral Arterial Disease (PAD): No Myocardial Infarction (ID): No Obesity: No Renal Disease: No Prior Interventions PCI: No CABG: No Valve Surgery: No Report Signatures Finalized by Cruzito Coronado MD on 06/30/2022 10:34 AM
[2022-06-18 09:53] LABS: Basophils # 0.1 10^3/uL (0.0-0.1); Basophils % 0.9 %; Eosinophils # 0.2 10^3/uL (0.0-0.8); Eosinophils % 2.7 %; Hematocrit 37.9 % (37.0-47.0); Lymphocytes # 1.4 10^3/uL (0.8-4.8); Lymphocytes % 15.7 %; Mean Corpuscular HGB Conc 31.7 g/dL (30.0-36.0); Mean Corpuscular Hemoglobin 29.9 pg (28.0-34.0); Mean Corpuscular Volume 94.5 fl (81-99); Mean Platelet Volume 11.1 fL (7.4-10.4); Monocytes # 0.8 10^3/uL (0.2-0.9); Monocytes % 8.5 %; Neutrophils # 6.47 10^3/uL (1.8-7.7); Neutrophils % 71.9 %; Nucleated Red Blood Cells % 0 %; Platelet Count 314 10^3/cmm (130-400); Red Blood Count 4.01 10^6/uL (4.1-5.3); Red Cell Distribution Width 14.5 % (12.1-15.1)
[2022-06-18] MEDS: clopidogrel 300 mg Tablet PO (09:53)
[2022-06-18] MEDS: heparin 5,000 unit/mL INJ 1 mL 4000 UNIT IVP (09:53)
[2022-06-18] MEDS: aspirin 325 mg Tablet PO (09:53)
--- NOTE | 2022-06-18 09:57 | ED_ITS ---
HPI - Chest Pain General: Chief Complaint: Neuro Symptoms/Deficit Stated Complaint: Numbness, Dizziness, Strokelike symptoms Time Seen by Provider: 06/18/22 09:37 Source: patient Mode of arrival: ambulatory Limitations: no limitations History of Present Illness: 81-year-old female presents emergency room with family they were concerned that she had a stroke she was not tracking well this morning and a little bit confused with extremely short of breath and orthopneic. She has COPD. Her speech seemed garbled. She is however able to tell me that the blood pressure cuff hurt I asked her about chest pain she was having a little bit of chest pain. She can move all extremities has no focal neurologic deficits. She tells me she had some chest pain starting last night and is been moderate. On arrival here her speech was somewhat garbled but her stroke score is otherwise minimal. She is significant orthopnea and shortness of breath. She did have chest pain earlier, and is still having some chest discomfort at this time. MD complaint: chest pain Onset (ago): unknown Timing of current episode: constant Prior episodes: Yes Onset: during rest Pain location: left chest Pain radiation: none Severity: moderate Quality: tightness, aching and heaviness Relieving factors: nothing Exacerbating factors: nothing Associated symptoms: Reports dyspnea; Deny abdominal pain, fever(s), nausea or vomiting Review of Systems 2 Const: Denies: fever(s) or chills Card: Reports: chest pain, edema, dyspnea on exertion and orthopnea Resp: Reports: dyspnea; Denies: productive cough or non-productive cough GI: Denies: abdominal pain, nausea, vomiting, hematemesis, coffee ground emesis, diarrhea, constipation, bloating, hematochezia or melena Skin/Breast: Denies: rash or pruritus PFSH ED PFSH: Medical History Acute exacerbation of COPD with asthma Acute respiratory failure Anxiety disorder ASHD (arteriosclerotic heart disease) Chest pain CHF (congestive heart failure) COPD (chronic obstructive pulmonary disease) Dyslipidemia GERD (gastroesophageal reflux disease) HTN (hypertension) Osteoporosis PAD (peripheral artery disease) Renal cell cancer Tobacco abuse, in remission Surgical History Hx of cholecystectomy Hx of exploratory laparotomy (08/28/18) 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 recurrent renal cell cancer Hx of hemorrhoidectomy S/p nephrectomy (2004) Laparoscopic left nephrectomy for renal cell cancer Family History Father CAD (coronary artery disease) Brother CAD (coronary artery disease) Myocardial infarction Sister Psychiatric illness Other Cancer Chronic kidney disease (CKD) Hyperlipidemia Hypertension Lung disease Denies family history of Diabetes Clotting disorder Dementia Suicide Anesthesia complication Bleeding disorder Stroke Social History Smoking and tobacco status: former smoker Quit status (tobacco): has quit using tobacco Year quit tobacco: 1991 Former quit date comment: 1ppd X 30 years Alcohol intake: never Lives independently: Yes Marital status: / Pets and animals: Yes Physical Exam Const: GENERAL APPEARANCE: cooperative ORIENTATION/CONSCIOUSNESS: Yes awake HENMT: COMMON NORMALS: normocephalic and atraumatic HEAD & SCALP: normocephalic and atraumatic Eye: COMMON NORMALS: Equal, round and reactive pupils present, EOMs intact bilaterally, conjunctivae normal and no scleral icterus CONJUNCTIVA: Yes conjunctivae normal PUPIL: Yes Equal, round and reactive pupils present Resp: COMMON NORMALS: normal respiratory effort, No retractions, No use of accessory muscles and clear to auscultation bilaterally AUSCULTATION: clear to auscultation bilaterally Cardio: COMMON NORMALS: regular rate, regular rhythm and No murmurs present (Cardio) RATE: regular rate RHYTHM: regular rhythm GI: COMMON NORMALS: Soft to palpation and No hepatosplenomegaly present AUSCULTATION: Yes normoactive bowel sounds PALPATION: Yes Soft to palpation, No Tenderness to palpation present (GI), No Guarding due to palpation present (GI) and Yes No hepatosplenomegaly present Extremity: COMMON NORMALS: normal to inspection, capillary refill normal, no clubbing, cyanosis or edema, no calf tenderness and no pedal edema Skin: COMMON NORMALS: no rashes or lesions noted GENERAL SKIN EXAM: no rashes or lesions noted Procedures Intubation Time out performed: Yes sedative: Etomidate paralytic: Succinylcholine Laryngoscope: fiber optic video scope Assist Device Used: fiber optic device ET Tube Uncuffed: Yes Tube Secured Location: teeth Tube Placement Confirmation: visualized tube passing through cords, equal breath sounds bilaterally, no breath sounds over epigastrium and confirmation by capnometry Patient Tolerated Procedure: well Intubation Complications: none Additional Comments: Placement confirmed by chest x-ray Course Vital Signs: Vital signs: Vital Signs Temperature 97.8 F 06/19/22 07:30 Pulse Rate 78 06/19/22 11:52 Respiratory Rate 16 06/19/22 11:52 Blood Pressure 162/72 06/19/22 09:00 Pulse Oximetry 94 06/19/22 11:52 Oxygen Delivery Me thod 06/19/22 11:52 Oxygen Flow Rate 2 06/19/22 11:52 Fraction of Inspir ed Oxygen 30 06/18/22 14:58 MDM - Chest Pain Medical Decision Making ST elevation on initial EKG discussed with cardiology after initiating STEMI a lert. They are planning on taking the patient to the Customer Sales Distributor. She is extremely dyspneic or even lay down for exam after discussion with Dr. Osborne and reviewed with patient and family decided to intubate the patient to allow for urgent testing we will do a CT of the head if there is no evidence of bleeding proceed to Customer Sales Dist[facility]. Medical Records I reviewed the patient's medical records. Lab Data I reviewed the patient's lab results. : 06/19/22 08:24 06/19/22 08:[address] 06/18/22 09:38 IMPRESSION: 1. No acute intracranial hemorrhage or edema. 2. Moderate atrophy and small vessel ischemic disease. 3. Prior LEFT thalamic lacunar infarct. Chest X-Ray 06/18/22 11:36 IMPRESSION: 1. Satisfactory position of the nasogastric and endotracheal tubes. 2. Mild diffuse interstitial thickening. May be due to small amount of fluid overload or pneumonitis. Laboratory Results WBC 9.0 10^3/uL (4.0-10.0) 06/18/22 09:44 RBC 4.01 10^6/uL (4.1-5.3) L 06/18/22 09:44 Hgb 12.0 g/dL (11.5-15.3) 06/18/22 09:44 Hct 37.9 % (37.0-47.0) 06/18/22 09:44 MCV 94.5 fl (81-99) 06/18/22 09:44 MCH 29.9 pg (28.0-34.0) 06/18/22 09:44 MCHC 31.7 g/dL (30.0-36.0) 06/18/22 09:44 RDW 14.5 % (12.1-15.1) 06/18/22 09:44 Plt Count 314 10^3/cmm (130-400) 06/18/22 09:44 MPV 11.1 fL (7.4-10.4) H 06/18/22 09:44 Neut % (Auto) 71.9 % 06/18/22 09:44 Lymph % (Auto) 15.7 % 06/18/22 09:44 Ocean % (Auto) 8.5 % 06/18/22 09:44 Eos % (Auto) 2.7 % 06/18/22 09:44 Baso % (Auto) 0.9 % 06/18/22 09:44 Neut # (Auto) 6.47 10^3/uL (1.8-7.7) 06/18/22 09:44 Lymph # (Auto) 1.4 10^3/uL (0.8-4.8) 06/18/22 09:44 Ocean # (Auto) 0.8 10^3/uL (0.2-0.9) 06/18/22 09:44 Eos # (Auto) 0.2 10^3/uL (0.0-0.8) 06/18/22 09:44 Baso # (Auto) 0.1 10^3/uL (0.0-0.1) 06/18/22 09:44 Nucleated RBC % (auto) 0 % 06/18/22 09:44 Nucleated RBCs # 0.0 /100WBC 06/18/22 09:44 D-Dimer 1.41 ug/mIFEU (0-0.59) H 06/18/22 09:44 Sodium 135 mmol/L (136-145) L 06/18/22 09:44 Potassium 4.5 mmol/L (3.5-5.1) 06/18/22 09:44 Chloride 92 mmol/L (98-107) L 06/18/22 09:44 Carbon Dioxide 33 mmol/L (22-29) H 06/18/22 09:44 Anion Gap 14.5 (5-19) 06/18/22 09:44 BUN 49 mg/dL (8-23) H 06/18/22 09:44 Creatinine 1.0 mg/dL (0.5-0.9) H 06/18/22 09:44 GFR Calculation Not Reportable 06/18/22 09:44 Glucose 135 mg/dL (65-115) H 06/18/22 09:44 Calculated Osmolality 295 mOsm/kg (285-295) 06/18/22 09:44 Calcium 9.2 mg/dL (8.5-10.5) 06/18/22 09:44 Magnesium 2.4 mg/dL (1.7-2.3) H 06/18/22 09:44 Total Bilirubin 0.2 mg/dL (0.15-1.2) 06/18/22 09:44 AST 23 U/L (0-32) 06/18/22 09:44 ALT 22 U/L (0-33) 06/18/22 09:44 Alkaline Phosphatase 99 IU/L (35-105) 06/18/22 09:44 Troponin T Baseline 19 ng/L (0-10) H 06/18/22 09:44 NT-Pro-B Natriuret Pep 249 pg/mL (0-450) 06/18/22 09:44 Total Protein 7.0 g/dL (6.6-8.7) 06/18/22 09:44 Albumin 3.8 g/dL (3.5-5.2) 06/18/22 09:44 Globulin 3.2 g/dL (1.3-4.6) 06/18/22 09:44 TSH 3.18 uIU/mL (0.27-4.20) 06/18/22 09:44 Discharge Plan Discharge Patient Disposition: Admitted As Inpatient Admit Provider: Cruzito Coronado Clinical Impression: ST elevation (STEMI) myocardial infarction Condition: Stable Discharge Diet: Cardiac Discharge Activity: Increase activity as tolerated Coding Level of Care Code ED Behavioral Specialist for [facility] NIH stroke score NIHSS Level Of Consciousness - 1a: 1 Level Of Consciousness Questions - 1b: Both Correct Level Of Consciousness Commands - 1c: Both Correct Best Gaze - 2: Normal Visual Martins - 3: No Visual Loss Facial Palsy - 4: Normal Motor Arm Right - 5: No Drift Motor Arm Left - 5: No Drift Motor Leg Right - 6: No Drift Motor Leg Left - 6: No Drift Limb Ataxia - 7: Absent Sensory - 8: Normal Best Language - 9: Mild/Moderate Aphasia Dysarthia - 10: Mild/Moderate Dysarthia Extinction And Inattention - 11: 0 Score Total Score: 3
--- NOTE | 2022-06-18 10:01 | PM.HP ---
Providers/Chief Complaint Admitting Physician: Cruzito Coronado MD/Interventional Cardiology Primary Care Provider: FELICIA Orosco Chief Complaint: Shortness of breath, slurred speech History of Present Illness Ingrid De Leon is a 81 year old female with past medical history of diastolic congestive heart failure, tobacco abuse, CAD, PAD, hypertension who presented to the hospital after family noted that she had some slurring of speech earlier this morning. She was also having shortness of breath since last night with mild chest discomfort. EKG performed in the ER showed borderline ST elevation in inferior leads. Cardiac Ply Bander was emergently activated. Patient had significant orthopnea and could not lay down flat. She was intubated plan for CT head prior to going to cardiac Ply Bander. Review of Systems Narrative: CONSTITUTIONAL: No fever chills weight loss or gain or night sweats. [] HEENT: Normocephalic, atraumatic.[] RESPIRATORY: No cough, sputum, hemoptysis. Has wheezing CARDIOVASCULAR: Has shortness of breath and chest pain. GI: no nausea vomiting diarrhea. [] HYDRO GENERATION MANAGER: No numbness, tingling, weakness or loss of function in any part of the body. [] MUSCULOSKELETAL: No knee or joint pain or rashes. [] Medications/Allergies Home Medications Medication Instructions Recorded Confirmed Last Taken Type albuterol sulfate 90 mcg/actuation 2 puff inhalation QID PRN 12/30/19 06/18/22 Unknown History aerosol inhaler (Ventolin HFA) Shortness Of Breath ondansetron HCl 4 mg tablet 4 mg PO TID PRN Nausea And Vomiting 12/30/19 06/18/22 Unknown History aspirin 81 mg tablet,delayed 81 mg PO QAM 10/02/21 06/18/22 06/18/22 History release [id number]-bntugdv 2 cap PO AC 10/02/21 06/18/22 Unknown History 36,000-114,000-180,000 unit capsule,delay rel (Creon) magnesium oxide 420 mg tablet 420 mg PO DAILY 10/02/21 06/18/22 Unknown History budesonide 160 mcg-glycopyr 9 2 inh inhalation BID 04/20/22 06/18/22 06/18/22 History mcg-formot 4.8 mcg/actuation HFA inhaler (Breztri Aerosphere) nitroglycerin 0.4 mg sublingual 0.4 mg sublingual Q5M PRN Chest 04/20/22 06/18/22 Unknown History tablet Pain vitamin B comp and C no.3 15 mg-10 1 cap PO DAILY 04/20/22 06/18/22 Unknown History mg-50 mg-5 mg-300 mg capsule (B Complex Plus Vitamin C) azithromycin 250 mg tablet 250 mg PO .COMPLEX 60 days #30 tabs 06/13/22 06/18/22 06/18/22 Rx fluticasone propionate 50 2 spray intranasal DAILY PRN 06/13/22 06/18/22 Unknown History mcg/actuation nasal Allergy Symptoms spray,suspension (Allergy Relief (fluticasone)) furosemide 40 mg tablet 40 mg PO BID 06/13/22 06/18/22 06/18/22 History pregabalin 50 mg capsule 50 mg PO TID 06/13/22 06/18/22 06/18/22 05:00 History tramadol 50 mg tablet 25 mg PO Q8H PRN Pain 06/13/22 06/18/22 Unknown History albuterol sulfate 2.5 mg inhalation Q3H PRN 06/18/22 06/18/22 Unknown History Shortness Of Breath coenzyme Q10 100 mg capsule 100 mg PO DAILY 06/18/22 06/18/22 Unknown History (CoQ-10) lactobacillus combination no.4 3 3,000 mmu cells PO DAILY PRN 06/18/22 06/18/22 Unknown History billion cell capsule (Probiotic) unknown olmesartan 5 mg tablet 5 mg PO QAM 06/18/22 06/18/22 06/18/22 History potassium chloride 20 mEq 20 meq PO QAM 06/18/22 06/18/22 06/18/22 History tablet,extended release(part/cryst) Allergies Allergy/AdvReac Type Severity Reaction Status Date / Time adhesive tape Allergy Unknown Unknown Verified 06/13/22 10:26 PFSH Acute PFSH: Medical History Anxiety disorder ASHD (arteriosclerotic heart disease) COPD (chronic obstructive pulmonary disease) Dyslipidemia GERD (gastroesophageal reflux disease) HTN (hypertension) Osteoporosis PAD (peripheral artery disease) Renal cell cancer Tobacco abuse, in remission Surgical History Hx of cholecystectomy Hx of exploratory laparotomy (08/28/18) 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 recurrent renal cell cancer Hx of hemorrhoidectomy S/p nephrectomy (2004) Laparoscopic left nephrectomy for renal cell cancer Family History Father CAD (coronary artery disease) Brother CAD (coronary artery disease) Myocardial infarction Sister Psychiatric illness Other Cancer Chronic kidney disease (CKD) Hyperlipidemia Hypertension Lung disease Denies family history of Diabetes Clotting disorder Dementia Suicide Anesthesia complication Bleeding disorder Stroke Social History Smoking and tobacco status: former smoker Quit status (tobacco): has quit using tobacco Year quit tobacco: 1991 Former quit date comment: 1ppd X 30 years Alcohol intake: never Lives independently: Yes Marital status: / Pets and animals: Yes Vitals/I&O/Wt Last Vital Signs Temp 97.9 F 06/18/22 09:35 Pulse 70 06/18/22 09:35 Resp 19 H 06/18/22 09:35 BP 130/63 06/18/22 09:35 Pulse Ox 92 06/18/22 09:35 O2 Del Method 06/18/22 09:35 Weight last 48 hrs Weight 186 lb Physical Exam Narrative: GENERAL: Patient is alert, awake and oriented x3. [] NECK: No jugular vein distension. [] HEENT: No cyanosis. No icterus. No pallor. [] HEART: Regular S1 and S2. No murmur, rub or gallop. [] LUNGS: Clear to auscultate bilaterally. [] ABDOMEN: Soft, nontender and nondistended. Positive bowel sounds. No guarding, rebound or tenderness. [] CENTRAL NERVOUS SYSTEM: Grossly nonfocal. [] EXTREMITIES: Lower extremities with 1+ edema bilaterally. Pulses palpable in the lower extremities, both dorsalis pedis and posterior tibial. [] Data : 06/18/22 09:44 06/18/22 09:44 A&P Assessment and plan (1) CHF (congestive heart failure): Status: Acute (2) Acute exacerbation of COPD with asthma: Status: Acute (3) Chest pain: Status: Acute (4) HTN (hypertension): Status: Acute (5) PAD (peripheral artery disease): Status: Acute Plan Patient has presented with multiple symptoms including slurred speech, wheezing and respiratory failure. Also had atypical chest discomfort last night. Continue aspirin and Plavix. Patient is intubated. Plan for CT head to rule out head bleed and then will be taken to the cardiac Ply Bander for angiogram. Order echocardiogram. We will consult medicine team for help with medical issues. Appreciate input. Trend troponins Attestations Medical Necessity Statement*: Care expected to cross 2 midnights. Patient had presented with slurred speech, wheezing and respiratory failure. She is currently intubated. EKG showing borderline ST elevations. Plan for emergent cardiac cath. Coding Level of Care Code Acute Director Of Sales And Marketing for [facility] Fwd Diagnoses CHF (congestive heart failure) I50.9 Acute exacerbation of COPD with asthma J44.1; J45.901 Chest pain R07.9 HTN (hypertension) I10 PAD (peripheral artery disease) I73.9
--- NOTE | 2022-06-18 10:33 | PC.NURSE ---
Pt came in and EKG showed incidental STEMI. Pt intubated then taken to CT then blood bank laboratory technician.
[2022-06-18] MEDS: propofol 1,000 MG/100 ML INJ 7.59 MG IV (11:11)
--- NOTE | 2022-06-18 11:16 | USCV_ITS ---
Haley Ingrid Age: 81 Gender: F : 1940 Exam Date: 06/18/2022 12:41 Ordering Phys: Arian Lemus MD Technologist: Lloyd Collier Exam Location: [facility] Indication: CHF, CP BP: 126 / 66 HR: 64 Rhythm: Sinus Technical Quality: Adequate MEASUREMENTS (Male / Female) Normal Values 2D ECHO LV Diastolic Diameter PLAX 3.9 cm 4.2 - 5.9 / 3.9 - 5.3 cm LV Systolic Diameter PLAX 2.6 cm IVS Diastolic Thickness 0.8 cm 0.6 - 1.0 / 0.6 - 0.9 cm IVS Systolic Thickness 1.1 cm LVPW Diastolic Thickness 1.2 cm 0.6 - 1.0 / 0.6 - 0.9 cm LVPW Systolic Thickness 1.5 cm LVOT Diameter 2.0 cm LV Ejection Fraction 2D Teich 60.7 % LV Ejection Fraction MOD 2C 61.1 % LV Ejection Fraction 2C AL 60.9 % LA Diameter 3.1 cm LA Width 3.3 cm LA Height 4.3 cm RA Width 2.5 cm RA Height 4.6 cm Aorta at Sinotubular Diameter 2.1 cm IVC Diameter 1.2 cm M-MODE Aortic Annulus Diameter 2.4 cm LA Ao Ratio MM 1.3 MV E Point Septal Separation 0.2 cm DOPPLER Right Atrial Pressure 8.0 mmHg FINDINGS Left Ventricle Right Ventricle Right Atrium Left Atrium Mitral Valve Aortic Valve Tricuspid Valve Pulmonic Valve Pericardium Aorta IVC CONCLUSIONS This is limited echocardiogram performed to assess LV systolic function. LV systolic function is normal with EF of 60 to 65%. No regional wall motion abnormalities are seen. Compared to prior echocardiogram from 12/17/2021, no significant change in LV systolic function is seen. Cruzito Coronado MD (Electronically Signed) Final Date: 18 June 2022 18:48 S
[2022-06-18] MEDS: ipratropium-albuterol 3 mL Neb INHALATION ×4 (11:20→23:04)
--- NOTE | 2022-06-18 11:27 | P.CONIM_ITS ---
Providers/Reason For Consult Consulting Physician/Specialty*: Arian López, Hopitalist Reason for Consult*: medical mgmt Requesting Physician: Dr. Coronado Attending Physician: Cruzito Coronado M.D Primary Care Provider: FELICIA Orosco History of Present Illness History of Present Illness Ingrid De Leon is a 81 year old female who presented to the hospital with complaints of chest discomfort and shortness of breath. She had been asking for a breathing treatment. Family had been concerned as her speech has been some what garbled, and they were worried about a stroke. The emergency department physician did not notice anything focal. There was concerns regarding her EKG demonstrating ST elevation. An ST elevation alert was called, she was intubated secondary to her to respiratory distress as well as concerned she could not lay flat, and she was taken to angiogram lab. There she had an angiogram demonstrating moderate disease in her LAD, open RCA system and circumflex. No intervention was performed. I have been asked to see her regarding medical management and this intubated patient who has arrived in the ICU. Currently she awakens and moves all extremities, but is still somewhat sedated. I have vi sited with nursing staff, her attending physician, and RT. I have yet to visit with the patient's family. She does not seem in any distress currently. There are notes that she was actively wheezing on presentation. Review of Systems General: Reports: ROS unobtainable due to endotracheal tube Medications/Allergies Home Medications Medication Instructions Recorded Confirmed Last Taken Type albuterol sulfate 90 mcg/actuation 2 puff inhalation QID PRN 12/30/19 06/18/22 Unknown History aerosol inhaler (Ventolin HFA) Shortness Of Breath ondansetron HCl 4 mg tablet 4 mg PO TID PRN Nausea And Vomiting 12/30/19 06/18/22 Unknown History aspirin 81 mg tablet,delayed 81 mg PO QAM 10/02/21 06/18/22 06/18/22 History release zykart-btendqwn-ijoilmo 2 cap PO AC 10/02/21 06/18/22 Unknown History 36,000-114,000-180,000 unit capsule,delay rel (Creon) magnesium oxide 420 mg tablet 420 mg PO DAILY 10/02/21 06/18/22 Unknown History budesonide 160 mcg-glycopyr 9 2 inh inhalation BID 04/20/22 06/18/22 06/18/22 History mcg-formot 4.8 mcg/actuation HFA inhaler (Breztri Aerosphere) nitroglycerin 0.4 mg sublingual 0.4 mg sublingual Q5M PRN Chest 04/20/22 06/18/22 Unknown History tablet Pain vitamin B comp and C no.3 15 mg-10 1 cap PO DAILY 04/20/22 06/18/22 Unknown History mg-50 mg-5 mg-300 mg capsule (B Complex Plus Vitamin C) azithromycin 250 mg tablet 250 mg PO .COMPLEX 60 days #30 tabs 06/13/22 06/18/22 06/18/22 Rx fluticasone propionate 50 2 spray intranasal DAILY PRN 06/13/22 06/18/22 Unknown History mcg/actuation nasal Allergy Symptoms spray,suspension (Allergy Relief (fluticasone)) furosemide 40 mg tablet 40 mg PO BID 06/13/22 06/18/22 06/18/22 History pregabalin 50 mg capsule 50 mg PO TID 06/13/22 06/18/22 06/18/22 05:00 History tramadol 50 mg tablet 25 mg PO Q8H PRN Pain 06/13/22 06/18/22 Unknown History albuterol sulfate 2.5 mg inhalation Q3H PRN 06/18/22 06/18/22 Unknown History Shortness Of Breath coenzyme Q10 100 mg capsule 100 mg PO DAILY 06/18/22 06/18/22 Unknown History (CoQ-10) lactobacillus combination no.4 3 3,000 mmu cells PO DAILY PRN 06/18/22 06/18/22 Unknown History billion cell capsule (Probiotic) unknown olmesartan 5 mg tablet 5 mg PO QAM 06/18/22 06/18/22 06/18/22 History potassium chloride 20 mEq 20 meq PO QAM 06/18/22 06/18/22 06/18/22 History tablet,extended release(part/cryst) Allergies Allergy/AdvReac Type Severity Reaction Status Date / Time adhesive tape Allergy Unknown Unknown Verified 06/13/22 10:26 Current Medications Generic Name Dose Route Start Last Admin Trade Name Freq PRN Reason Stop Dose Admin Albuterol/Ipratropium 3 ml 06/18/22 11:15 06/18/22 11:20 Ipratropium-Albuterol 3 Ml Neb INHALATION 3 ml Q4H KAMARI Administration Midazolam HCl 100 mg/ Sodium 100 mls @ 0 mls/hr 06/18/22 10:00 06/18/22 11:06 Chloride IV 2 mg/hr .Q0M KAMARI 2 mls/hr Administration Protocol Per Protocol Fentanyl 2,500 mcg/ Sodium 250 mls @ 0 mls/hr 06/18/22 10:00 06/18/22 11:05 Chloride IV 25 mcg/hr .Q0M KAMARI 2.5 mls/hr Administration Protocol Per Protocol Propofol 1,000 mg in 100 mls @ 0 mls/hr 06/18/22 10:00 06/18/22 11:11 Diprivan IV 15 mcg/kg/min .Q0M KAMARI 7.59 mls/hr Administration Protocol Per Protocol PFSH Acute PFSH: Medical History (Updated 06/18/22 @ 11:34 by Arain Lemus MD) Anxiety disorder ASHD (arteriosclerotic heart disease) COPD (chronic obstructive pulmonary disease) Dyslipidemia GERD (gastroesophageal reflux disease) HTN (hypertension) Osteoporosis PAD (peripheral artery disease) Renal cell cancer Tobacco abuse, in remission Surgical History Hx of cholecystectomy Hx of exploratory laparotomy (08/28/18) 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 recurrent renal cell cancer Hx of hemorrhoidectomy S/p nephrectomy (2004) Laparoscopic left nephrectomy for renal cell cancer Family History Father CAD (coronary artery disease) Brother CAD (coronary artery disease) Myocardial infarction Sister Psychiatric illness Other Cancer Chronic kidney disease (CKD) Hyperlipidemia Hypertension Lung disease Denies family history of Diabetes Clotting disorder Dementia Suicide Anesthesia complication Bleeding disorder Stroke Social History Smoking and tobacco status: former smoker Quit status (tobacco): has quit using tobacco Year quit tobacco: 1991 Former quit date comment: 1ppd X 30 years Alcohol intake: never Lives independently: Yes Marital status: / Pets and animals: Yes Vitals/I&O/Wt Last Vital Signs Temp 97.9 F 06/18/22 09:35 Pulse 56 L 06/18/22 11:22 Resp 18 06/18/22 11:22 BP 130/63 06/18/22 09:35 Pulse Ox 98 06/18/22 11:22 O2 Del Method 06/18/22 11:22 FiO2 100 06/18/22 11:22 Weight last 48 hrs Weight 84.368 kg Physical Exam Narrative: General exam demonstrates an intubated and sedated white female, in no obvious distress HEENT: Endotracheal tube is noted. Pupils equally round. Oropharynx demonstrates endotracheal tube. Neck is supple no lymphadenopathy or thyromegaly Cardiovascular regular rate and rhythm without murmur. Heart sounds distant Lungs bilateral expiratory wheeze, no crackles Abdomen is soft nontender positive bowel sounds. Slightly protuberant. Orogastric tube has been ordered. exam normal female. Awaiting Harmon Extremities no cyanosis clubbing or edema, cap refill brisk Skin no rash Sedated. 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 Per history she was not able to lay flat. She was intubated secondary to respiratory distress as well as need for the patient to lay flat for coronary angiogram. Continue intubation currently, with sedation with propofol and fentanyl Wean as tolerated If appropriate, extubation trial Check ABG after FiO2 has been weaned down Check chest x-ray for placement of tube Status: Acute (2) Chest pain: Etiology unclear at this point. Angiogram done acutely did not demonstrate flow-limiting disease. Serial troponins Check BNP, dimer Obtain further history from the family Status: Acute (3) Acute exacerbation of COPD with asthma: Had significant wheezing upon presentation This could be the etiology of her chest discomfort as well as respiratory failure. Secondary to active wheezing initiate Solu-Medrol, DuoNeb every 4 hours, budesonide I believe she is on 2 L of oxygen chronically. Will need to confirm with family. Last pulmonary function test demonstrated an FEV1 of around 40% of predicted. Wean steroids quickly Levaquin IV considering severity of presentation. Check sputum culture. Cannot completely rule out pneumonia secondary to interstitial infiltrate. Status: Acute (4) CHF (congestive heart failure): I am concerned interstitial change on her chest x-ray could represent congestive heart failure. Check limited echo. A ventriculogram was not done with her cardiac cath. Check BNP Consider furosemide dose IV, but would like to see creatinine first in this patient with 1 kidney. Status: Acute Plan Slurring of speech. At this point considering presentation and exam at presentation CVA less likely Multiple other medical problems as outlined in past medical history. Note that she has only 1 kidney, and should be managed as a patient with chronic kidney disease. Full code currently Lovenox for DVT prophylaxis Further orders to follow as appropriate Thank you for this consultation Consult Attestations Medical Necessity Statement: As per primary Critical Care Time: The high probability of a clinically significant, sudden or life threatening deterioration of the patient's [pulmonary, renal] system(s) required my full and direct attention, intervention and personal management. The critical care time is as shown. This time is in addition to time spent performing any reported procedures but includes the following: [x] Data and vital sign review and interpretation [x] Patient assessment, examination and intervention [x] Documentation [x] Medication orders and management Critical Care Time (min): 66 Coding Level of Care Code Acute Health Care / Medical Job Titles for Dixon Gottlieb Diagnoses Acute respiratory failure J96.00 Chest pain R07.9 Acute exacerbation of COPD with asthma J44.1; J45.901 CHF (congestive heart failure) I50.9
[2022-06-18 11:28] LABS: Alanine Aminotransferase 22 U/L (0-33); Albumin Level 3.8 g/dL (3.5-5.2); Alkaline Phosphatase 99 IU/L (35-105); Anion Gap 14.5 (5-19); Aspartate Amino Transferase 23 U/L (0-32); Blood Urea Nitrogen 49 mg/dL (8-23); Calcium 9.2 mg/dL (8.5-10.5); Carbon Dioxide 33 mmol/L (22-29); Chloride 92 mmol/L (98-107); Globulin 3.2 g/dL (1.3-4.6); Glucose 135 mg/dL (65-115); Osmolality Calculated 295 mOsm/kg (285-295); Potassium 4.5 mmol/L (3.5-5.1); Sodium 135 mmol/L (136-145); Total Bilirubin 0.2 mg/dL (0.15-1.2)
--- NOTE | 2022-06-18 11:36 | XR_ITS ---
WS: [id number] PORTABLE CHEST HISTORY: tube placement COMPARISON: 06/18/2022 Endotracheal tube ends several centimeters above the bert in good position. Nasogastric tube extend s below the GE junction. Tip is within the fundus of the stomach. Mild interstitial thickening throughout both lungs. No dense consolidation. No pleural effusion or pn eumothorax. Cardiac size: Normal. Mediastinum/Aorta: Normal mediastinum. No osseous abnormality seen. XR/XR chest 1V portable [id number] IMPRESSION: 1. Satisfactory position of the nasogastric and endotracheal tubes. 2. Mild diffuse interstitial thickening. May be due to small amount of fluid o verload or pneumonitis.
--- NOTE | 2022-06-18 11:38 | ECG_ITS ---
[facility] Test Date: 2022-06-18 Pat Name: Ingrid De Leon Department: Room: ICU06 Gender: Female Purler: : 1940 Requested By: Raghav Branham Order Number: [id number] Bakari MD: Clark Mayo M.D. Measurements Intervals [place] Rate: 56 P: 82 AK: 185 QRS: 23 QRSD: 91 T: 70 QT: 419 QTc: 405 Interpretive Statements SINUS BRADYCARDIA MARKED ST ELEVATION, CONSIDER early repolarization changes Compared to ECG 06/18/2022 09:40:01 Sinus rhythm no longer present ST (T wave) deviation still present Electronically Signed On 06-19-2022 0:57:15 CDT by Clark Mayo M.D. [id number]
[2022-06-18 11:42] LABS: D Dimer 1.41 ug/mIFEU (0-0.59)
[2022-06-18 11:44] LABS: ABG PCO2 57.6 mmHg (35-45); ABG PH Result 7.36 (7.35-7.45); Arterial Blood Gas Hematocrit 34.8 % (37-47); Base Excess ABG 5.6 mmol/L (-2.0-2.0); Blood Gas Allen Test Pos; Blood Gas Operator Identificat CAK; Blood Gas Sample Site Radial, left; Blood Gas Sample Type Arterial; Blood Gas Tidal Volume 0.35; HCO3 ABG 32.5 mmol/L (22-26); Oxygen Device VENT
[2022-06-18 11:56] LABS: Troponin(5th) Baseline 19 ng/L (0-10)
--- NOTE | 2022-06-18 12:00 | USCV_ITS ---
Haley Ingrid Age: 81 Gender: F : 1940 Exam Date: 06/18/2022 13:06 Ordering Phys: Arian Lemus MD Technologist: Lloyd Collier [place] [facility] [place]: elevated D dimer HISTORY: elevated D dimer, CHF PROCEDURES: Venous duplex imaging was performed in bilateral lower extremities. The following venous structures were evaluated: common femoral vein, profunda vein, proximal portion of the greater saphenous vein, superficial femoral vein, and the popliteal vein. Bilaterally, the common femoral, superficial femoral, profunda femoral, popliteal, posterior tibial, greater saphenous veins, and the peroneal trunk were identified and interrogated in the standard fashion. These veins were found to be easily compressible with spontaneous blood flow. FINDINGS: Normal 2-D Doppler and augmentation and compressibility throughout the lower extremity venous structures. Additional imaging through the proximal calf veins also reveals no thrombus. Limited evaluation of the greater saphenous vein is patent with no thrombus. CONCLUSIONS No DVT bilateral lower extremities. Dr. Whitney Gonzalez DO (Electronically Signed) Final Date: 18 June 2022 14:56 S
[2022-06-18 12:19] LABS: Add Urine Microscopic? NO; Charge for UA Resulting for Rev
[2022-06-18] MEDS: famotidine 20 mg/2 mL INJ IVP (12:22)
[2022-06-18] MEDS: levofloxacin-dextrose 5 % 750 MG/150 ML PREMIX 100 MG IV (12:22)
[2022-06-18] MEDS: sodium chloride 0.9% 1,000 ML 35 ML IV (12:23)
[2022-06-18 12:33] LABS: Magnesium 2.4 mg/dL (1.7-2.3); NT Pro B Type Natriuretic Pept 249 pg/mL (0-450); Thyroid Stimulating Hormone 3.18 uIU/mL (0.27-4.20)
--- NOTE | 2022-06-18 12:52 | PC.NURSE ---
Pt arrived at 1055. Connected to ICU monitor. Pressure bag in place to R groin cath site, c/d/i. ETT in place, respiratory at bedside. Vent settings per flowsheet. Fentanyl and versed brought to bedside from computer laboratory technician. Gtts started per orders to Garrett ESTRADA. at bedside, ordered to stop versed and start propofol. Meds changed and propofol started. Harmon cath placed using sterile technique. OGT placed alongside ETT, auscultated. CXR ordered and completed. Sheath removed at 1125. Pressure held for 10 minutes. No bleeding noted, no hematoma noted. Gauze and tegaderm placed over site. Skin tear noted to LLE. Area is clean and dry. VSS. No other issues noted. Pt to remain supine per protocol. Will continue to monitor.
[2022-06-18 13:00] LABS: Specific Gravity, Urine 1.015 (1.005-1.030); Urine Appearance Clear (CLEAR); Urine Color Straw (Yellow); pH Urine 6 (5-7)
[2022-06-18 13:01] LABS: Bilirubin Urine Neg (Negative); Blood Urine Neg (Negative); Glucose Urine UA Norm (Normal); Ketones Urine Negative (Negative); Leukocyte Esterase Urine Negative (Negative); Nitrate Urine Negative (Negative); Protein Urine Neg (Negative); Urobilinogen Urine Norm (Negative)
[2022-06-18 13:43] LABS: Troponin 5 2HR 23.07 ng/L (0-10)
[2022-06-18 13:44] LABS: Troponin 5 2HR Delta 4.07 ABS# (0-10)
[2022-06-18] MEDS: pregabalin 25 mg Capsule PO ×2 (14:31→19:49)
--- NOTE | 2022-06-18 15:09 | ECG_ITS ---
[facility] Test Date: 2022-06-18 Pat Name: Ingrid De Leon Department: Room: ICU06 Gender: Female Associate Media Planner: : 1940 Requested By: Raghav Branham Order Number: [id number] Bakari MD: Cruzito Coronado M.D. Measurements Intervals [place] Rate: 70 P: 84 IA: 198 QRS: 10 QRSD: 88 T: 61 QT: 385 QTc: 416 Interpretive Statements SINUS RHYTHM ST ELEVATION, CONSIDER INFERIOR INJURY [MARKED ST ELEVATION W/O NORMALLY INFLECTED T-WAVE IN II/aVF] ACUTE NE Compared to ECG 06/18/2022 11:35:15 Sinus bradycardia no longer present ST (T wave) deviation still present Myocardial infarct finding still present Electronically Signed On 06-19-2022 19:03:52 CDT by Cruzito Coronado M.D. [id number]
--- NOTE | 2022-06-18 15:44 | PC.NURSE ---
Pt extubated to 2LNC per orders. Tolerated well. AAOX4. MAkes needs known and answers all questions appropriately. VSS. Will monitor. No bleeding noted from cath site.
--- NOTE | 2022-06-18 16:21 | PC.NURSE ---
Addendum entered by Pili Kern RN 06/18/22 16:22: Witnessed this waste of fentanyl gtt and versed gtt with SABRINA Judge Original Note: Wasted 234ml of fentanyl and 98ml of versed with Pili BENNETT.
[2022-06-18 16:28] LABS: Troponin 5 6HR 21.84 ng/L (0-10)
[2022-06-18 16:29] LABS: Troponin 5 6HR Delta 2.84 ng/L (0-12)
[2022-06-18] MEDS: budesonide 0.5 mg/2 mL Neb INHALATION (19:46)
[2022-06-18] MEDS: lipase-protease-amylase Capsule 2 EACH PO (19:48)
--- NOTE | 2022-06-18 20:42 | PC.NURSE ---
Patient very upset that she hadn't received her breathing treatment and needed one. Explained that I would call the MD and get an order. She then called out requesting her Creon. She was very anxious. Explained that the doctor would need to be called before she could get any new medications started. Before the doctor could be called she was back on the call light stating that she needed the medication ricardo. Once again explained that the doctor would need to be contacted. She then threatened to call her daughter in law and sign out AMA so that she could have her medications when she needed them. Explained again that it was going to take a phone call to the doctor to get the okay, that she did not need to call her daughter in law. She apologized for being so upset that she was feeling a panic attack coming on. Reassured patient that it was okay and that we would get her what she needed, just to give us a couple minutes. Was able to get a breathing treatment from respiratory and an order for her Creon which was given to her as well.
[2022-06-18] MEDS: lipase-protease-amylase Capsule 1 EACH PO (22:42)
[2022-06-19] VITALS (24 sets, daily range): BP systolic 126–163; BP diastolic 52–75; PULSE 71–89; RESP 13–23; TEMP 36.6–36.9; O2SAT 90–96
[2022-06-19] MEDS: ipratropium-albuterol 3 mL Neb INHALATION ×3 (04:39→11:51)
[2022-06-19] MEDS: pregabalin 25 mg Capsule PO ×2 (05:38→11:02)
[2022-06-19] MEDS: enoxaparin 30 mg/0.3 mL Syringe SUBCUT (05:39)
[2022-06-19] MEDS: aspirin 81 mg EC Tablet PO (05:39)
--- NOTE | 2022-06-19 07:45 | USCV_ITS ---
Haley Ingrid Age: 81 Gender: F : 1940 Exam Date: 06/19/2022 08:32 Ordering Phys: Arian Lemus MD Technologist: MINNIE [place] [facility] [place]ication: APHASIA Risk Factors: Previous Vascular Surgery: Right Brachial BP: / Left Brachial BP: / Right Left Velocity (cm/s) Spectral Plaque Velocity (cm/s) Spectral Plaque Syst/Diast Broadening Syst/Diast Broadening 84.90/ 8.80 Prox CCA 117.00/ 14.50 79.40/ 17.60 Mid CCA 114.40/ 13.10 59.50/ 16.50 Distal CCA 123.60/ 11.80 136.70/15.50 Prox ICA 89.40 / 14.50 146.00/23.30 Mid ICA 81.80 / 13.90 149.10/31.10 Distal ICA 106.00/ 20.50 204.20 ECA 315.50 1.76 ICA/CCA 0.86 Antegrade Vertebral Antegrade 63.10/ 14.50 cm/s 53.00/ 11.10 cm/s Tri Subclavian Tri 249.3 207.1 0 0 FINDINGS Comparison: none available. Diffuse bilateral scattered calcified plaque and intimal thickening throughout the common carotid arteries and extending through the bifurcation. Mild elevation of velocity. Antegrade vertebral arteries. CONCLUSIONS Bilateral ICA stenosis less than 50%. Dr. Whitney Gonzalez DO (Electronically Signed) Final Date: 19 June 2022 09:55 S
[2022-06-19] MEDS: lipase-protease-amylase Capsule 2 EACH PO ×2 (07:46→11:02)
--- NOTE | 2022-06-19 07:49 | P.PN_ITS ---
Subjective Subjective: Did well with extubation yesterday. This morning, denies any chest discomfort. Reports the biggest concern when she came in was that she could not speak. She denies any past history of aphasia. She denied any weakness on one side of the body or the other. She reported no headache. She states she feels back to normal now. She has not had a prior history of a stroke. Medications: Reviewed: Yes Vitals/I&O/Wt Last Vital Signs Temp 98.4 F 06/19/22 04:00 Pulse 82 06/19/22 06:30 Resp 16 06/19/22 06:30 BP 163/75 06/19/22 05:00 Pulse Ox 94 06/19/22 06:30 O2 Del Method 06/19/22 04:39 O2 Flow Rate 2 06/19/22 04:39 FiO2 30 06/18/22 14:58 06/18/22 06/19/22 06/19/22 22:59 06:59 14:59 Intake Total 838.885 / 1034.053 400 / 400 Output Total 1250 / 1250 2100 / 3350 Balance -411.115 / -215.947 -2100 / -2315.947 400 / 400 Weight last 48 hrs Weight 85.457 kg Weight 84.958 kg Weight 84.368 kg Physical Exam Narrative: General exam off ventilator, conversant Neck is supple no lymphadenopathy or thyromegaly Cardiovascular regular rate and rhythm without murmur. Heart sounds distant Lungs clear but with diminished breath sounds bilaterally Abdomen is soft nontender positive bowel sounds. exam normal female. Harmon noted Extremities no cyanosis clubbing or edema, cap refill brisk Skin no rash Neuro: No obvious focal deficits Urinary Catheter Management: Harmon: Cath Placed During This Visit: yes Reason for Continuing Indwelling Catheter: Accurate Measurement of Urinary Output in Critically Ill Patients Urinary Catheter Date of Insertion: 06/18/22 Urinary Catheter Time of Insertion: 11:00 Data : 06/18/22 09:44 06/18/22 09:44 Micro: Microbiology 06/18/22 11:10 Gram Stain - Final Sputum - Endotracheal Tube Aspirate A&P Assessment and plan (1) Acute respiratory failure: Patient presented in respiratory distress. Per history she was not able to lay flat. She was intubated secondary to respiratory distress as well as need for the patient to lay flat for coronary angiogram. Extubated yesterday Is doing well on her baseline oxygen at 2 L Needs to get up and around the room today to make sure she is back to baseline as far as her breathing and no other deficits exist. Status: Acute (2) Chest pain: Etiology unclear at this point. Angiogram done acutely did not demonstrate flow-limiting disease. Patient denies any chest discomfort currently. BNP was not elevated PE unlikely for dimer of 1.4 when adjusted for age Status: Acute (3) Acute exacerbation of COPD with asthma: Had significant wheezing upon presentation This could be the etiology of her chest discomfort as well as respiratory failure. Secondary to active wheezing initiate Solu-Medrol, DuoNeb every 4 hours, budesonide Discontinue IV steroids. She is now off ventilator doing well and back to baseline oxygen. Placed on prednisone 40 mg daily Change Levaquin to p.o. Status: Acute (4) CHF (congestive heart failure): BNP was normal Limited echo no acute changes. CHF unlikely Will restart her Lasix depending upon her creatinine. Note that she diuresed 1900 mL despite cautious fluid administration yesterday. Status: Acute Plan Slurring of speech, aphasia. Cannot completely rule out TIA. Carotid ultrasound today. No CTA secondary to history of 1 kidney, chronic kidney disease likely and received angiogram diet yesterday. Continue Plavix and aspirin, change in aspirin to low-dose at 81 mg. Up and about room today. Multiple other medical problems as outlined in past medical history. Note that she has only 1 kidney, and should be managed as a patient with chronic kidney disease. Full code currently Lovenox for DVT prophylaxis Discontinue Harmon Thank you for this consultation Attestations Medical Necessity Statement*: As per primary Coding Level of Care Code Acute Auto Vinyl Top Installer for Dixon Gottlieb Diagnoses Acute respiratory failure J96.00 Chest pain R07.9 Acute exacerbation of COPD with asthma J44.1; J45.901 CHF (congestive heart failure) I50.9
[2022-06-19] MEDS: budesonide 0.5 mg/2 mL Neb INHALATION (07:56)
[2022-06-19] MEDS: famotidine 20 mg Tablet PO (08:06)
[2022-06-19] MEDS: predniSONE 20 mg Tablet 40 MG PO (08:06)
[2022-06-19] MEDS: clopidogrel 75 mg Tablet PO (08:06)
[2022-06-19 09:00] LABS: Basophils % 0.1 %; Hematocrit 35.7 % (37.0-47.0); Hemoglobin 11.8 g/dL (11.5-15.3); Lymphocytes % 6.3 %; Mean Corpuscular HGB Conc 33.1 g/dL (30.0-36.0); Mean Corpuscular Hemoglobin 30.3 pg (28.0-34.0); Mean Corpuscular Volume 91.8 fl (81-99); Mean Platelet Volume 11.2 fL (7.4-10.4); Monocytes # 0.6 10^3/uL (0.2-0.9); Monocytes % 3.9 %; Neutrophils # 13.56 10^3/uL (1.8-7.7); Neutrophils % 89.3 %; Nucleated Red Blood Cells % 0 %; Platelet Count 330 10^3/cmm (130-400); Red Blood Count 3.89 10^6/uL (4.1-5.3); Red Cell Distribution Width 14.4 % (12.1-15.1); White Blood Count 15.2 10^3/uL (4.0-10.0)
[2022-06-19 09:29] LABS: Alanine Aminotransferase 113 U/L (0-33); Albumin Level 3.9 g/dL (3.5-5.2); Alkaline Phosphatase 104 IU/L (35-105); Anion Gap 14.1 (5-19); Aspartate Amino Transferase 85 U/L (0-32); Blood Urea Nitrogen 32 mg/dL (8-23); Calcium 9.7 mg/dL (8.5-10.5); Carbon Dioxide 30 mmol/L (22-29); Chloride 97 mmol/L (98-107); Glucose 131 mg/dL (65-115); Magnesium 2.6 mg/dL (1.7-2.3); Osmolality Calculated 293 mOsm/kg (285-295); Potassium 4.1 mmol/L (3.5-5.1); Sodium 137 mmol/L (136-145); Total Bilirubin 0.2 mg/dL (0.15-1.2); Total Protein 6.9 g/dL (6.6-8.7)
--- NOTE | 2022-06-19 09:33 | PC.CHAP ---
Pastoral Care Encounter/Spiritual Assessment Type of Contact [] Declined fabrication department supervisor visit [] Patient/Family/Request visit [] Outpatient visit [] Follow-up visit [] Physician referral [] Code/Alert [x] Routine visit [] Staff referral [] Actively dying [x] Patient sleeping [] Family support [] [] Out of room [] Palliative care [] [] Receiving care in room [] Pre-surgical visit [] Trauma [] Long length of stay [x] ICU visit [] Other: Relational/Emotional Strength [] Patient feels connected with others/family/visitors/staff [] Distress [] Loneliness/isolation [] Abandonment Spirituality of Patient [] Person of Jordyn [] Attends Spiritism of their Jordyn [] Believes in Prayer [] Reads Bible or Baptist materials [] There are Spiritual issues to be addressed Cyber Incident Responder Interventions [x] Prayer [] Active listening [] Non-anxious presence [] Spiritual/emotional support [] Crisis/trauma care [] Spiritual counseling [] Bereavement support [] Provided bereavement packet [] Provided Bible/devotional materials [] Provided toy/stuffed animal, coloring book to patient or family member [] Provided Communion [] Anointing/[place] [] Salvation [x] Completed spiritual assessment [] Other: Impact on Illness or Injury [] Angry [] Fearful [] Anxious [] Often cries [] Exhaustion [] Unable to work [] Unable to attend christianity [] Unable to walk/stand [] Unable to read [] Unable to drive [] Unable to eat/drink [] Unable to sleep [] Unable to be with family [] Patient intubated [] Other: Summary Time spent with patient
--- NOTE | 2022-06-19 10:39 | PC.NURSE ---
Pt demanding medications at this time. Spoke anibal IRBY about adjusting schedule of one medication and received new orders for that. Now pt is demanding another med that is not due. Pt education provided r/t medication administration and timing. Pt remains adamant that she must have her meds that arent due until noon. Will continue to educate as needed. All other needs provided for including ambulation, urination and food and drinks. CLWR, pt up to chair in room.
--- NOTE | 2022-06-19 10:45 | P.DS_ITS ---
Discharge Providers Date of Admission: 06/18/22 11:03 Date of Discharge: June 19, 2022 Attending Provider at Admission: Cruzito Coronado M.D Attending Provider at Discharge: Cruzito Coronado M.D Consults: Hospitalist team Primary Care Provider: FELICIA Orosco Diagnoses at Discharge Discharge Diagnosis (1) Acute respiratory failure: Status: Inactive (2) Chest pain: Status: Inactive (3) Acute exacerbation of COPD with asthma: Status: Inactive (4) CHF (congestive heart failure): Status: Inactive Reason for Visit Reason for Visit: Shortness of breath, slurred speech Brief History: 81 year old female with past medical history of diastolic congestive heart failure, tobacco abuse, CAD, PAD, hypertension who presented to the hospital after family noted that she had some slurring of speech earlier this morning.? She was also having shortness of breath since last night with mild chest discomfort.? EKG performed in the ER showed borderline ST elevation in inferior leads.? Cardiac Registered Dietetic Technician was emergently activated.? Patient had significant orthopnea and could not lay down flat.? She was intubated plan for CT head prior to going to cardiac Registered Dietetic Technician. Hospital Course Hospital Course 81 year old female with past medical history of diastolic congestive heart failure, tobacco abuse, CAD, PAD, hypertension who presented to the hospital after family noted that she had some slurring of speech earlier this morning.? She was also having shortness of breath since last night with mild chest discomfort.? EKG performed in the ER showed borderline ST elevation in inferior leads.? Cardiac Registered Dietetic Technician was emergently activated.? Patient had significant orthopnea and could not lay down flat.? She was intubated plan for CT head prior to going to cardiac Registered Dietetic Technician. Coronary angiogram demonstrated moderate mid LAD stenosis. Otherwise no significant stenosis was found. Medical management was opted. Today she was extubated afterwards. Hospitalist team was consulted for medical management and evaluation of possible TIA. Her symptoms resolved of slurred speech. Carotid duplex did not reveal significant stenosis. Echocardiogram showed normal LV systolic function. Patient stayed stable overnight and was discharged home in a stable condition. Physical Exam Narrative: GENERAL: Patient is alert, awake and oriented x3. [] NECK: No jugular vein distension. [] HEENT: No cyanosis. No icterus. No pallor. [] HEART: Regular S1 and S2. No murmur, rub or gallop. [] LUNGS: Clear to auscultate bilaterally. [] ABDOMEN: Soft, nontender and nondistended. Positive bowel sounds. No guarding, rebound or tenderness. [] CENTRAL NERVOUS SYSTEM: Grossly nonfocal. [] EXTREMITIES: Lower extremities with 1+ edema bilaterally. Pulses palpable in the lower extremities, both dorsalis pedis and posterior tibial. [] Urinary Catheter Management: Harmon: Cath Placed During This Visit: yes, but has since been removed by the nurse Reason for Continuing Indwelling Catheter: Decision to DC Catheter Urinary Catheter Date of Insertion: 06/18/22 Urinary Catheter Time of Insertion: 11:00 Date Urinary Catheter Removed: 06/19/22 Time Urinary Catheter Discontinued: 09:13 Discharge Data Studies Completed and Pending Completed Studies During Hospitalization Category Date Time Status CT head wo con* [id number] Stat Cat Scan 06/18/22 09:38 Completed XR chest 1V portable [id number] Stat Exams 06/18/22 09:38 Completed XR chest 1V portable [id number] Stat Exams 06/18/22 11:36 [place] [id number] Routine Ultrasound 06/18/22 12:00 Completed CV. 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 No acute intracranial hemorrhage or edema. 2. Moderate atrophy and small vessel ischemic disease. 3. Prior LEFT thalamic lacunar infarct. Chest X-Ray 06/18/22 11:36 IMPRESSION: 1. Satisfactory position of the nasogastric and endotracheal tubes. 2. Mild diffuse interstitial thickening. May be due to small amount of fluid overload or pneumonitis. Laboratory Results WBC 15.2 10^3/uL (4.0-10.0) H 06/19/22 08:24 RBC 3.89 10^6/uL (4.1-5.3) L 06/19/22 08:24 Hgb 11.8 g/dL (11.5-15.3) 06/19/22 08:24 Hct 35.7 % (37.0-47.0) L 06/19/22 08:24 MCV 91.8 fl (81-99) 06/19/22 08:24 MCH 30.3 pg (28.0-34.0) 06/19/22 08:24 MCHC 33.1 g/dL (30.0-36.0) 06/19/22 08:24 RDW 14.4 % (12.1-15.1) 06/19/22 08:24 Plt Count 330 10^3/cmm (130-400) 06/19/22 08:24 MPV 11.2 fL (7.4-10.4) H 06/19/22 08:24 Neut % (Auto) 89.3 % 06/19/22 08:24 Lymph % (Auto) 6.3 % 06/19/22 08:24 [place] % (Auto) 3.9 % 06/19/22 08:24 Eos % (Auto) 0.0 % 06/19/22 08:24 Baso % (Auto) 0.1 % 06/19/22 08:24 Neut # (Auto) 13.56 10^3/uL (1.8-7.7) H 06/19/22 08:24 Lymph # (Auto) 1.0 10^3/uL (0.8-4.8) 06/19/22 08:24 [place] # (Auto) 0.6 10^3/uL (0.2-0.9) 06/19/22 08:24 Eos # (Auto) 0.0 10^3/uL (0.0-0.8) 06/19/22 08:24 Baso # (Auto) 0.0 10^3/uL (0.0-0.1) 06/19/22 08:24 Nucleated RBC % (auto) 0 % 06/19/22 08:24 Nucleated RBCs # 0.0 /100WBC 06/19/22 08:24 D-Dimer 1.41 ug/mIFEU (0-0.59) H 06/18/22 09:44 Specimen Type Arterial 06/18/22 11:32 Sample Site Radial, left 06/18/22 11:32 ABG pH 7.36 (7.35-7.45) 06/18/22 11:32 ABG pCO2 57.6 mmHg (35-45) H 06/18/22 11:32 ABG pO2 258.0 mmHg (80.0-100.0) H 06/18/22 11:32 ABG HCO3 32.5 mmol/L (22-26) H 06/18/22 11:32 ABG Base Excess 5.6 mmol/L (-2.0-2.0) H 06/18/22 11:32 Mateo Test Pos 06/18/22 11:32 Hematocrit 34.8 % (37-47) L 06/18/22 11:32 O2 Delivery Device Vent 06/18/22 11:32 FiO2 60.0 % 06/18/22 11:32 Tidal Volume 0.35 06/18/22 11:32 PEEP 5.0 cmH20 06/18/22 11:32 Steel Rule Inspector ID Cak 06/18/22 11:32 Sodium 137 mmol/L (136-145) 06/19/22 08:24 Potassium 4.1 mmol/L (3.5-5.1) 06/19/22 08:24 Chloride 97 mmol/L (98-107) L 06/19/22 08:24 Carbon Dioxide 30 mmol/L (22-29) H 06/19/22 08:24 Anion Gap 14.1 (5-19) 06/19/22 08:24 BUN 32 mg/dL (8-23) H 06/19/22 08:24 Creatinine 0.7 mg/dL (0.5-0.9) 06/19/22 08:24 GFR Calculation Not Reportable 06/19/22 08:24 Glucose 131 mg/dL (65-115) H 06/19/22 08:24 Calculated Osmolality 293 mOsm/kg (285-295) 06/19/22 08:24 Calcium 9.7 mg/dL (8.5-10.5) 06/19/22 08:24 Magnesium 2.6 mg/dL (1.7-2.3) H 06/19/22 08:24 Total Bilirubin 0.2 mg/dL (0.15-1.2) 06/19/22 08:24 AST 85 U/L (0-32) H 06/19/22 08:24 ALT 113 U/L (0-33) H 06/19/22 08:24 Alkaline Phosphatase 104 IU/L (35-105) 06/19/22 08:24 Troponin T Baseline 19 ng/L (0-10) H 06/18/22 09:44 Troponin T 120 Minute 23.07 ng/L (0-10) H 06/18/22 11:30 Delta Troponin T 4.07 ABS# (0-10) 06/18/22 11:30 Troponin T Hi Sens 6Hr 21.84 ng/L (0-10) H 06/18/22 15:57 Troponin T Hi Sens 6Hr Delta 2.84 ng/L (0-12) 06/18/22 15:57 NT-Pro-B Natriuret Pep 249 pg/mL (0-450) 06/18/22 09:44 Total Protein 6.9 g/dL (6.6-8.7) 06/19/22 08:24 Albumin 3.9 g/dL (3.5-5.2) 06/19/22 08:24 Globulin 3.0 g/dL (1.3-4.6) 06/19/22 08:24 TSH 3.18 uIU/mL (0.27-4.20) 06/18/22 09:44 Urine Color Straw (Yellow) 06/18/22 11:40 Urine Appearance Clear (CLEAR) 06/18/22 11:40 Urine pH 6 (5-7) 06/18/22 11:40 Ur Specific [place] 1.015 (1.005-1.030) 06/18/22 11:40 Urine Protein Neg (Negative) 06/18/22 11:40 Urine Glucose (UA) Norm (Normal) 06/18/22 11:40 Urine Ketones Negative (Negative) 06/18/22 11:40 Urine Blood Neg (Negative) 06/18/22 11:40 Urine Nitrate Negative (Negative) 06/18/22 11:40 Urine Bilirubin Neg (Negative) 06/18/22 11:40 Urine Urobilinogen Norm mg/dL (Negative) 06/18/22 11:40 Ur Leukocyte Esterase Negative (Negative) 06/18/22 11:40 Vitals Last Vital Signs Temp 97.8 F 06/19/22 07:30 Pulse 82 06/19/22 10:00 Resp 17 06/19/22 10:00 BP 162/72 06/19/22 09:00 Pulse Ox 96 06/19/22 10:00 O2 Del Method 06/19/22 07:57 O2 Flow Rate 2 06/19/22 07:57 FiO2 30 06/18/22 14:58 Discharge Plan Discharge Patient Disposition: Home Condition: Stable Prescriptions: New prednisone 20 mg Tablet 40 mg PO DAILY Qty: 8 0RF famotidine 20 mg Tablet 20 mg PO BID Qty: 60 0RF levofloxacin 750 mg Tablet 750 mg PO DAILY@0600 Qty: 4 0RF pregabalin 25 mg Capsule 25 mg PO TID Qty: 90 0RF Continued ondansetron HCl 4 mg tablet 4 mg PO TID PRN (Reason: Nausea And Vomiting) albuterol sulfate [Ventolin HFA] 90 mcg/actuation HFA aerosol inhaler 2 puff INHALATION QID PRN (Reason: Shortness Of Breath) B Complex Plus Vitamin C 58-06-36-5-300 mg capsule 1 cap PO DAILY Rx Instructions: give with food (meal/snack) Breztri Aerosphere 160-9-4.8 mcg/actuation HFA aerosol inhaler 2 inh inhalation BID nitroglycerin 0.4 mg tablet, sublingual 0.4 mg sublingual Q5M PRN (Reason: Chest Pain) Rx Instructions: do not exceed 3 doses per episode tramadol 50 mg tablet 25 mg PO Q8H MDD 1.5 tabs PRN (Reason: Pain) fluticasone propionate [Allergy Relief (fluticasone)] 50 mcg/actuation spray,suspension 2 spray intranasal DAILY PRN (Reason: Allergy Symptoms) Rx Instructions: administer into each nostril azithromycin 250 mg tablet 250 mg PO .COMPLEX 60 Days Qty: 30 0RF Rx Instructions: 250 mg orally Saturday; start on day 2 of therapy magnesium oxide 420 mg Tablet 420 mg PO DAILY aspirin 81 mg Tablet,Delayed Release (Dr/Ec) 81 mg PO QAM Creon 36,000-114,000- 180,000 unit capsule,delayed release(DR/EC) 2 cap PO AC Rx Instructions: and before snacks albuterol sulfate 2.5 mg /3 mL (0.083 %) solution for nebulization 2.5 mg inhalation Q3H PRN (Reason: Shortness Of Breath) potassium chloride 20 mEq tablet,ER particles/crystals 20 meq PO QAM olmesartan 5 mg tablet 5 mg PO QAM CoQ-10 100 mg Capsule 100 mg PO DAILY Probiotic 3 billion cell Capsule 3,000 mmu cells PO DAILY PRN (Reason: unknown) Rx Instructions: administer with a meal Changed furosemide 40 mg tablet 20 mg PO BID Qty: 120 0RF Discontinued pregabalin 50 mg capsule 50 mg PO TID No Action clopidogrel 75 mg tablet 75 mg PO DAILY Qty: 90 2RF Discharge Orders: Discharge Order (Routine); Ordered 06/19/22 Ordered By: Cruzito Coronado Referrals: Marian Dias MD [Physician] - 1 month (We called and faxed [facility] Neurology to schedule an follow-up appointment in 1 month. If you haven't heard from them by tomorrow afternoon. Please call ) Lorraine Samaniego FNP [Primary Care Provider] - 4-7 days (Please follow-up with Lorraine Samaniego on June 22 at 2:00P.M. If you have any or need to reschedule. Please call ) Venessa Bernal FNP [Nurse Practitioner] - 7-10 days (Please follow-up with Venessa Bernal on June 27 at 10:15A.M. Also, please follow-up with Dr. Will on at 11:15A.M. If you have any questions or need to reschedule. Please call ) Discharge Diet: Cardiac Discharge Activity: Increase activity as tolerated Patient Instructions: Famotidine (By mouth), Prednisone (By mouth), Levofloxacin (By mouth), Clopidogrel (By mouth) (Plavix), Pregabalin (By mouth), CHF Stoplight, COPD Stoplight, Chest Pain Stoplight, Opioid Safety Activity Restrictions/Additional Instructions: Take all medicines as prescribed Keep follow-up Please give restrictions regarding, after left heart cath, leave incision on right groin open to air. Note reduction in Lyrica dose Note initiation of Plavix 75 mg a day. Watch for any bleeding. Contact your primary care provider should this occur Return for any concerns. Discharge Attestations Time Spent in Discharge Care*: greater than 30 min Quality Metrics Clinical Quality Measures [ No reported AMI, CVA or VTE this stay] Coding Level of Care Code Acute Chg FW DC note Diagnoses Acute respiratory failure J96.00 Chest pain R07.9 Acute exacerbation of COPD with asthma J44.1; J45.901 CHF (congestive heart failure) I50.9
--- NOTE | 2022-06-19 11:32 | PC.NURSE ---
PIV removed, dc instructions given. Pt andfamily verbalize understanding. Pt dressing at this time.
== END 2022-06-19 12:15 | disposition home health service (06) | DRG 189 ==
LOC: ER 09:49 → CCL 10:24 → ICU 11:04
PROVIDERS: Internal Medicine; Admitting Provider Internal Medicine; Emergency Provider Family Medicine; PCP Nurse Practitioner Family; Visit Provider Internal Medicine
PROC: B2111ZZ Fluoroscopy of Multiple Coronary Arteries using Low Osmolar Contrast (ICD-10-PCS; principal; 2022-06-18 10:00)
DX: J96.00 Acute respiratory failure, unspecified whether with hypoxia or hypercapnia (principal); G45.9 Transient cerebral ischemic attack, unspecified; J44.1 Chronic obstructive pulmonary disease with (acute) exacerbation; I50.32 Chronic diastolic (congestive) heart failure; I11.0 Hypertensive heart disease with heart failure; I25.10 Atherosclerotic heart disease of native coronary artery without angina pectoris; E78.5 Hyperlipidemia, unspecified; K21.9 Gastro-esophageal reflux disease without esophagitis; M81.0 Age-related osteoporosis without current pathological fracture; I73.9 Peripheral vascular disease, unspecified; R94.31 Abnormal electrocardiogram [ECG] [EKG]; Z85.528 Personal history of other malignant neoplasm of kidney; Z90.5 Acquired absence of kidney; Z87.891 Personal history of nicotine dependence; Z82.49 Family history of ischemic heart disease and other diseases of the circulatory system
CPT/HCPCS: 31500; 36415; 36600; 51702; 70450; 71045; 80053; 81003; 82803; 83735; 83880; 84443; 84484; 85025; 85378; 87070; 87205; 93005; 93308; 93454; 93880; 93970; 94002; 94640; 94799; 96360; 96365; 96372; 96375; 99152; 99153; 99291; C1769; C1887; C1894; J0330; J1650; J1956; J2250; J2704; J2930; J3010; J3490; J7030; J7050; J7512; J7626; Q9967

== ENCOUNTER → 2022-06-27 10:25 | Outpatient (BNVA) | payer MEDICARE, OTHER, SELFPAY | PROVIDERS: PCP Nurse Practitioner Family; Visit Provider Nurse Practitioner Family | DX: I25.10 Atherosclerotic heart disease of native coronary artery without angina pectoris (principal); M79.661 Pain in right lower leg; R60.9 Edema, unspecified; Z87.891 Personal history of nicotine dependence; I11.0 Hypertensive heart disease with heart failure; I50.9 Heart failure, unspecified | CPT/HCPCS: 99214 ==

== ENCOUNTER 2022-06-28 12:37 | Outpatient (CLI) | payer MEDICARE, OTHER, SELFPAY ==
[2022-06-28 13:26] LABS: Anion Gap 12.8 (5-19); Blood Urea Nitrogen 29 mg/dL (8-23); Calcium 9.4 mg/dL (8.5-10.5); Carbon Dioxide 32 mmol/L (22-29); Chloride 90 mmol/L (98-107); Glucose 103 mg/dL (65-115); Osmolality Calculated 276 mOsm/kg (285-295); Potassium 4.8 mmol/L (3.5-5.1); Sodium 130 mmol/L (136-145)
--- NOTE | 2022-06-28 13:30 | USCV_ITS ---
Ingrid De Leon Age: 81 Gender: F : 1940 Exam Date: 06/28/2022 13:22 Ordering Phys: Venessa Bernal Technologist: Lloyd Collier Exam Location: [facility] – [place]_ Indication: rule out dvt, edema PROCEDURES: Venous duplex imaging was performed in only the right lower extremity. The following venous structures were evaluated: common femoral vein, profunda vein, proximal portion of the greater saphenous vein, superficial femoral vein, and the popliteal vein. In addition, the posterior tibial and peroneal trunk were evaluated. Serial compression, augmentation maneuvers, and spectral Doppler flow evaluation were performed. FINDINGS: Normal 2-D Doppler and augmentation and compressibility throughout the lower extremity venous structures. Additional imaging through the proximal calf veins also reveals no thrombus. Limited evaluation of the greater saphenous vein is patent with no thrombus.. There appears to be a fluid like area in the right popliteal fossa, possible bakers cyst. Also, there is an edematous appearing area posterior to the right knee. CONCLUSIONS No evidence of right lower extremity DVT. Right popliteal cyst 5.4 x 1.0 x 1.1cm with internal debris Ziggy Mendoza MD (Electronically Signed) Final Date: 28 June 2022 17:54 S
== END 2022-06-28 12:38 | disposition home or self-care (01) ==
LOC: RAD 12:40
PROVIDERS: PCP Nurse Practitioner Family; Visit Provider Nurse Practitioner Family
DX: Z09 Encounter for follow-up examination after completed treatment for conditions other than malignant neoplasm (principal); R60.9 Edema, unspecified; M79.661 Pain in right lower leg; I25.10 Atherosclerotic heart disease of native coronary artery without angina pectoris; M71.21 Synovial cyst of popliteal space [Baker], right knee
CPT/HCPCS: 36415; 80048; 93971

== ENCOUNTER → 2022-07-09 09:52 | Outpatient (BNVA) | payer MEDICARE, OTHER, SELFPAY | PROVIDERS: PCP Nurse Practitioner Family; Visit Provider Specialist | DX: I99.8 Other disorder of circulatory system (principal); Z86.73 Personal history of transient ischemic attack (TIA), and cerebral infarction without residual deficits; J44.9 Chronic obstructive pulmonary disease, unspecified; Z99.3 Dependence on wheelchair; Z77.098 Contact with and (suspected) exposure to other hazardous, chiefly nonmedicinal, chemicals | CPT/HCPCS: 99204; 99205 ==

== ENCOUNTER 2022-07-12 17:07 | Emergency (ER) | payer MEDICARE, OTHER, SELFPAY ==
--- NOTE | 2022-07-12 17:20 | ECG_ITS ---
[facility] Test Date: 2022-07-12 Pat Name: Ingrid De Leon Department: Room: Gender: Female Country Singer: : 1940 Requested By: Mahin Handley Order Number: [id number] Bakari MD: Clark Mayo M.D. Measurements Intervals Imogene Rate: 79 P: 157 MS: 173 QRS: 26 QRSD: 94 T: 128 QT: 365 QTc: 419 Interpretive Statements ECTOPIC ATRIAL RHYTHM MODERATE ST DEPRESSION [0.05+ mV ST DEPRESSION] ABNORMAL QRS-T ANGLE [QRS-T AXIS DIFFERENCE > 60] Compared to ECG 06/18/2022 15:09:18 Ectopic atrial rhythm now present Sinus rhythm no longer present Myocardial infarct finding no longer present ST (T wave) deviation still present Electronically Signed On 07-13-2022 15:37:51 CDT by Clark Mayo M.D. [id number]
[2022-07-12 17:22] VITALS: BP 127/60; PULSE 80; RESP 16; TEMP 36.6; O2SAT 94
--- NOTE | 2022-07-12 17:42 | W.ED.GENADLT ---
HPI - General Adult General: Chief complaint: Chest Pain Stated complaint: SOB, Chest pains Time Seen by Provider: 07/12/22 17:30 History of Present Illness: Patient is an 81-year-old female with history of COPD/asthma, CHF clear on 2 to 3 L of oxygen who presents emergency room with acute onset shortness of breath since 4 PM yesterday. Patient tells me that she was using a chest device for physical therapy. Shortly after using the device, patient began feeling short of breath. Patient also reports pleuritic chest pain and chest pain with deep inspiration. Patient denies any anticoagulation. Patient has only 1 kidney. Patient tells me that she is compliant with her furosemide 20 mg twice daily. She denies any cough, runny nose, sore throat, exertional chest pain, pressure-like chest pain, abdominal pain, nausea/vomiting, diarrhea melena hematochezia. Patient has no complaints. Onset:4pm yesterday Duration:ongoing Location:home Severity:moderate Associated symptoms: Reports dyspnea; Deny chest pain, nausea, rash, palpitations or vomiting Review of Systems Const: Reports: fever(s), body aches, fatigue and night sweats; Denies: chills Eyes: Denies: change in vision ENMT: Denies: mouth pain Card: Denies: chest pain or palpitations Resp: Reports: dyspnea; Denies: non-productive cough GI: Denies: abdominal pain, nausea, vomiting or diarrhea : Denies: dysuria Musc: Denies: extremity pain Skin/Breast: Denies: rash or new lesions Neuro: Denies: weakness in extremities Psych: Reports: other (Normal mood) Lincoln/Lymph: Denies: easy bruising PFSH ED PFSH: Medical History Acute exacerbation of COPD with asthma Acute respiratory failure Anxiety disorder ASHD (arteriosclerotic heart disease) Chest pain CHF (congestive heart failure) COPD (chronic obstructive pulmonary disease) Dyslipidemia GERD (gastroesophageal reflux disease) HTN (hypertension) Osteoporosis PAD (peripheral artery disease) Renal cell cancer Tobacco abuse, in remission Surgical History Hx of cholecystectomy Hx of exploratory laparotomy (08/28/18) 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 recurrent renal cell cancer Hx of hemorrhoidectomy S/p nephrectomy (2004) Laparoscopic left nephrectomy for renal cell cancer Family History Father CAD (coronary artery disease) Brother CAD (coronary artery disease) Myocardial infarction Sister Psychiatric illness Other Cancer Chronic kidney disease (CKD) Hyperlipidemia Hypertension Lung disease Denies family history of Diabetes Clotting disorder Dementia Suicide Anesthesia complication Bleeding disorder Stroke Social History Smoking and tobacco status: former smoker (40 years ) Quit status (tobacco): has quit using tobacco Year quit tobacco: 1991 Former quit date comment: 1ppd X 30 years Alcohol intake: never Lives independently: Yes Marital status: / Pets and animals: Yes Physical Exam Const: COMMON NORMALS: alert HENMT: COMMON NORMALS: atraumatic HEAD & SCALP: atraumatic MOUTH: moist mucous membranes not abnormal Eye: COMMON NORMALS: EOMs intact bilaterally and conjunctivae normal CONJUNCTIVA: Yes conjunctivae normal Neck/C-Spine: COMMON NORMALS: full ROM and supple Resp: COMMON NORMALS: normal respiratory effort OTHER: +b/l wheezes expiratory Cardio: COMMON NORMALS: regular rate RATE: regular rate GI: COMMON NORMALS: Soft to palpation and non-tender PALPATION: Yes Soft to palpation OTHER: No focal TTP. NO guarding rebound, guarding, rigidity. No CVA tenderness to percussion. Neg Irwin/Neg McBurney's point tenderness, no suprabupic tenderness to palpation. Extremity: COMMON NORMALS: full ROM Neuro: SENSORIUM/ORIENTATION: Yes alert MOTOR EXAM: No Abnormal motor strength present and Other motor observations present (no focal motor deficits) Psych: COMMON NORMALS: speech normal SPEECH: Yes normal speech MOOD & AFFECT: Yes euthymic mood Course Vital Signs: Vital signs: Vital Signs Temperature 97.8 F 07/12/22 17:22 Pulse Rate 80 07/12/22 18:37 Respiratory Rate 20 H 07/12/22 18:24 Blood Pressure 127/60 07/12/22 17:22 Pulse Oximetry 97 07/12/22 18:24 Oxygen Delivery Me thod 07/12/22 18:24 Oxygen Flow Rate 3 07/12/22 18:24 MDM - General Adult Medical Decision Making Patient is an 81-year-old female with history of COPD/asthma, CHF clear on 2 to 3 L of oxygen who presents emergency room with acute onset shortness of breath since 4 PM yesterday. Patient is afebrile with a white count of 7.7. Sodium 131. X-ray chest appears to be clear. CT is negative for any acute large pulmonary embolism. Troponin with delta less than 5. EKG is nonischemic. COVID negative. Patient reports feeling symptomatically improved after observation and breathing treatment in the emergency room. Disposition: Discharge. Patient counseled regarding diagnostic impression, treatment plan. Patient given ED strict return precautions to return for continuation, worsening, or development of new symptoms. Instructed to f/u w/ PCP regarding symptoms today. Patient verbalized understanding. Lab Data : 07/12/22 18:13 07/12/22 18:13 Radiology Impressions Chest CTA 07/12/22 19:22 IMPRESSION: 1. Examination is somewhat limited due to patient respiratory motion. 2. No gross evidence of pulmonary embolism. 3. Old granulomatous disease. 4. T7 compression fracture. Chronic appearing but new compared with 07/06/2016. 5. Small hiatus hernia. Laboratory Results WBC 7.7 10^3/uL (4.0-10.0) 07/12/22 18:13 RBC 3.79 10^6/uL (4.1-5.3) L 07/12/22 18:13 Hgb 11.2 g/dL (11.5-15.3) L 07/12/22 18:13 Hct 35.2 % (37.0-47.0) L 07/12/22 18:13 MCV 92.9 fl (81-99) 07/12/22 18:13 MCH 29.6 pg (28.0-34.0) 07/12/22 18:13 MCHC 31.8 g/dL (30.0-36.0) 07/12/22 18:13 RDW 14.1 % (12.1-15.1) 07/12/22 18:13 Plt Count 366 10^3/cmm (130-400) 07/12/22 18:13 MPV 10.5 fL (7.4-10.4) H 07/12/22 18:13 Neut % (Auto) 64.5 % 07/12/22 18:13 Lymph % (Auto) 19.6 % 07/12/22 18:13 [place] % (Auto) 11.4 % 07/12/22 18:13 Eos % (Auto) 3.6 % 07/12/22 18:13 Baso % (Auto) 0.6 % 07/12/22 18:13 Neut # (Auto) 4.97 10^3/uL (1.8-7.7) 07/12/22 18:13 Lymph # (Auto) 1.5 10^3/uL (0.8-4.8) 07/12/22 18:13 [place] # (Auto) 0.9 10^3/uL (0.2-0.9) 07/12/22 18:13 Eos # (Auto) 0.3 10^3/uL (0.0-0.8) 07/12/22 18:13 Baso # (Auto) 0.1 10^3/uL (0.0-0.1) 07/12/22 18:13 Nucleated RBC % (auto) 0 % 07/12/22 18:13 Nucleated RBCs # 0.0 /100WBC 07/12/22 18:13 D-Dimer 1.23 ug/mIFEU (0-0.59) H 07/12/22 18:13 Sodium 131 mmol/L (136-145) L 07/12/22 18:13 Potassium 4.4 mmol/L (3.5-5.1) 07/12/22 18:13 Chloride 95 mmol/L (98-107) L 07/12/22 18:13 Carbon Dioxide 28 mmol/L (22-29) 07/12/22 18:13 Anion Gap 12.4 (5-19) 07/12/22 18:13 BUN 12 mg/dL (8-23) 07/12/22 18:13 Creatinine 0.6 mg/dL (0.5-0.9) 07/12/22 18:13 GFR Calculation Not Reportable 07/12/22 18:13 Glucose 104 mg/dL (65-115) 07/12/22 18:13 Calculated Osmolality 272 mOsm/kg (285-295) L 07/12/22 18:13 Calcium 9.2 mg/dL (8.5-10.5) 07/12/22 18:13 Troponin T Baseline 22 ng/L (0-10) H 07/12/22 18:13 Troponin T 120 Minute 22.10 ng/L (0-10) H 07/12/22 20:30 Delta Troponin T 0.10 ABS# (0-10) 07/12/22 20:30 NT-Pro-B Natriuret Pep 311 pg/mL (0-450) 07/12/22 18:13 Coronavirus 229E (PCR) Not detected (NOT DETECT) 07/12/22 18:40 SARS-CoV-2 (PCR) Not detected (NOT DETECT) 07/12/22 18:40 Imaging Data Other Imaging: Radiologist's impression: [employer] [address] [address] Scan Report Signed Patient: Ingrid De Leon Unit #: [id number] : 1940 Age/Sex: 81 / F ADM Date: 07/12/22 Loc: ER Room/Bed: Attending Dr: Ordering Provider/Ordering MD: Mahin Handley MD Date of Service: 07/12/22 Procedure(s): CT angio chest PE protcl [id number] Accession Number(s): [id number] Report Number: [id number] PROCEDURE INFORMATION: Exam: CTA Chest With Contrast Exam date and time: 07/12/2022 8:32 PM Age: 81 years old Clinical indication: Shortness of breath and wheezing; Prior surgery; Patient HX: Pancreatic CA, renal cell CA, high d dimer, hypoxia; Additional info: Elevate dimer, pleueritic chest pain TECHNIQUE: Imaging protocol: Computed tomographic angiography of the chest with contrast. 3D rendering (Not supervised by radiologist): MIP and/or 3D reconstructed images were created by the technologist. Radiation optimization: All CT scans at this facility use at least one of these dose optimization techniques: automated exposure control; mA and/or kV adjustment per patient size (includes targeted exams where dose is matched to clinical indication); or iterative reconstruction. Contrast material: OMNIPAQUE 350; Contrast volume: 55 ml; Contrast route: INTRAVENOUS (IV);? COMPARISON: CT angio chest PE protcl [id number] 07/06/2016 11:06 AM RADIATION DOSE METRICS: Total DLP (mGy-cm): 385.14 FINDINGS: Limitations: Study is moderately limited by patient respiratory motion especially at the lung bases. Pulmonary arteries: Normal. No pulmonary emboli. Aorta:? There is atherosclerotic calcification of the ascending thoracic aorta aortic arch and descending thoracic aorta.There is no thoracic aortic aneurysm or dissection. Lungs: There is moderate centrilobular emphysema. There is mild dependent atelectasis at the lung bases. No focal consolidation is identified. Pleural spaces: Unremarkable. No pneumothorax. No pleural effusion. Heart: There is moderate atherosclerotic calcification of the coronary arteries. Lymph nodes: There is no evidence of lymphadenopathy. There are calcified hilar and mediastinal lymph nodes in keeping with old granulomatous disease. Diaphragm: There is a small hiatal hernia. Bones/joints: There is moderate chronic appearing wedging of T7. This represents compression fracture of uncertain age but new compared with 07/06/2016. Chronic compression deformity the superior endplate of L1 not significantly changed. The thoracic spine demonstrates moderate degenerative changes at multiple levels. Soft tissues: Unremarkable. CT/CT angio chest PE protcl [id number] IMPRESSION: 1. Examination is somewhat limited due to patient respiratory motion. 2. No gross evidence of pulmonary embolism. 3. Old granulomatous disease. 4. T7 compression fracture. Chronic appearing but new compared with 07/06/2016. 5. Small hiatus hernia. ? Dictated By: Woody Antoine Signed By: Woody Antoine Signed Date/Time: 07/12/222103 DD/ [address] [address] [address] Scan Report Signed Patient: Ingrid De Leon Unit #: [id number] : 1940 Age/Sex: 81 / F ADM Date: 07/12/22 Loc: ER Room/Bed: Attending Dr: Ordering Provider/Ordering MD: Mahin Handley MD Date of Service: 07/12/22 Procedure(s): CT angio chest PE protcl [id number] Accession Number(s): [id number] Report Number: [id number] PROCEDURE INFORMATION: Exam: CTA Chest With Contrast Exam date and time: 07/12/2022 8:32 PM Age: 81 years old Clinical indication: Shortness of breath and wheezing; Prior surgery; Patient HX: Pancreatic CA, renal cell CA, high d dimer, hypoxia; Additional info: Elevate dimer, pleueritic chest pain TECHNIQUE: Imaging protocol: Computed tomographic angiography of the chest with contrast. 3D rendering (Not supervised by radiologist): MIP and/or 3D reconstructed images were created by the technologist. Radiation optimization: All CT scans at this facility use at least one of these dose optimization techniques: automated exposure control; mA and/or kV adjustment per patient size (includes targeted exams where dose is matched to clinical indication); or iterative reconstruction. Contrast material: OMNIPAQUE 350; Contrast volume: 55 ml; Contrast route: INTRAVENOUS (IV);? COMPARISON: CT angio chest PE protcl [id number] 07/06/2016 11:06 AM RADIATION DOSE METRICS: Total DLP (mGy-cm): 385.14 FINDINGS: Limitations: Study is moderately limited by patient respiratory motion especially at the lung bases. Pulmonary arteries: Normal. No pulmonary emboli. Aorta:? There is atherosclerotic calcification of the ascending thoracic aorta aortic arch and descending thoracic aorta.There is no thoracic aortic aneurysm or dissection. Lungs: There is moderate centrilobular emphysema. There is mild dependent atelectasis at the lung bases. No focal consolidation is identified. Pleural spaces: Unremarkable. No pneumothorax. No pleural effusion. Heart: There is moderate atherosclerotic calcification of the coronary arteries. Lymph nodes: There is no evidence of lymphadenopathy. There are calcified hilar and mediastinal lymph nodes in keeping with old granulomatous disease. Diaphragm: There is a small hiatal hernia. Bones/joints: There is moderate chronic appearing wedging of T7. This represents compression fracture of uncertain age but new compared with 07/06/2016. Chronic compression deformity the superior endplate of L1 not significantly changed. The thoracic spine demonstrates moderate degenerative changes at multiple levels. Soft tissues: Unremarkable. CT/CT angio chest PE protcl [id number] IMPRESSION: 1. Examination is somewhat limited due to patient respiratory motion. 2. No gross evidence of pulmonary embolism. 3. Old granulomatous disease. 4. T7 compression fracture. Chronic appearing but new compared with 07/06/2016. 5. Small hiatus hernia. ? Dictated By: Woody Antoine Signed By: Woody Antoine Signed Date/Time: 07/12/222103 DD/ 31 Discharge Plan Discharge Patient Disposition: Home Clinical Impression: Wheezing, Asthma exacerbation Condition: Stable Prescriptions: No Action albuterol sulfate [Ventolin HFA] 90 mcg/actuation HFA aerosol inhaler 2 puff INHALATION QID PRN (Reason: Shortness Of Breath) Aime Aerosphere 160-9-4.8 mcg/actuation HFA aerosol inhaler 2 inh inhalation BID nitroglycerin 0.4 mg tablet, sublingual 0.4 mg sublingual Q5M PRN (Reason: Chest Pain) Rx Instructions: do not exceed 3 doses per episode tramadol 50 mg tablet 25 mg PO Q8H MDD 1.5 tabs PRN (Reason: Pain) fluticasone propionate [Allergy Relief (fluticasone)] 50 mcg/actuation spray,suspension 2 spray intranasal DAILY PRN (Reason: Allergy Symptoms) Rx Instructions: administer into each nostril clopidogrel 75 mg tablet 75 mg PO DAILY Qty: 90 2RF magnesium oxide 420 mg Tablet 420 mg PO DAILY Creon 36,000-114,000- 180,000 unit capsule,delayed release(DR/EC) 2 cap PO AC Rx Instructions: and before snacks albuterol sulfate 2.5 mg /3 mL (0.083 %) solution for nebulization 2.5 mg inhalation Q3H PRN (Reason: Shortness Of Breath) potassium chloride 20 mEq tablet,ER particles/crystals 20 meq PO QAM olmesartan 5 mg tablet 5 mg PO QAM coenzyme Q10 [CoQ-10] 100 mg Capsule 100 mg PO DAILY pregabalin 25 mg Capsule 25 mg PO TID Qty: 90 0RF furosemide 40 mg tablet See Rx Instructions .ROUTE .COMPLEX Rx Instructions: 40 mg orally IN AM AND 20 AT NOON Discharge Orders: Discharge ED (Routine); Ordered 07/12/22 Ordered By: Mahin Handley Referrals: Lorraine Samaniego FNP [Primary Care Provider] - Discharge Diet: Advance as tolerated Discharge Activity: Increase activity as tolerated Activity Restrictions/Additional Instructions: Come back to the emergency room if your symptoms worsen, have any shortness of breath, fever/chills, dehydration, inability tolerate food or drinks, any difficulty breathing, or any new or concerning complaints. Coding Level of Care Code ED Club Room Attendant for Dixon Fwnicolette Exam Comprehensive
[2022-07-12 18:19] LABS: Basophils # 0.1 10^3/uL (0.0-0.1); Basophils % 0.6 %; Eosinophils # 0.3 10^3/uL (0.0-0.8); Eosinophils % 3.6 %; Hematocrit 35.2 % (37.0-47.0); Hemoglobin 11.2 g/dL (11.5-15.3); Lymphocytes # 1.5 10^3/uL (0.8-4.8); Lymphocytes % 19.6 %; Mean Corpuscular HGB Conc 31.8 g/dL (30.0-36.0); Mean Corpuscular Hemoglobin 29.6 pg (28.0-34.0); Mean Corpuscular Volume 92.9 fl (81-99); Mean Platelet Volume 10.5 fL (7.4-10.4); Monocytes # 0.9 10^3/uL (0.2-0.9); Monocytes % 11.4 %; Neutrophils # 4.97 10^3/uL (1.8-7.7); Neutrophils % 64.5 %; Nucleated Red Blood Cells % 0 %; Platelet Count 366 10^3/cmm (130-400); Red Blood Count 3.79 10^6/uL (4.1-5.3); Red Cell Distribution Width 14.1 % (12.1-15.1); White Blood Count 7.7 10^3/uL (4.0-10.0)
[2022-07-12 18:24] VITALS: PULSE 79; RESP 20; O2SAT 97
[2022-07-12] MEDS: ipratropium-albuterol 3 mL Neb INHALATION ×3 (18:25)
[2022-07-12 18:37] VITALS: PULSE 80
[2022-07-12 18:40] LABS: D Dimer 1.23 ug/mIFEU (0-0.59)
[2022-07-12 18:52] LABS: Troponin(5th) Baseline 22 ng/L (0-10)
[2022-07-12 18:53] LABS: Anion Gap 12.4 (5-19); Blood Urea Nitrogen 12 mg/dL (8-23); Calcium 9.2 mg/dL (8.5-10.5); Carbon Dioxide 28 mmol/L (22-29); Chloride 95 mmol/L (98-107); Glucose 104 mg/dL (65-115); NT Pro B Type Natriuretic Pept 311 pg/mL (0-450); Osmolality Calculated 272 mOsm/kg (285-295); Potassium 4.4 mmol/L (3.5-5.1); Sodium 131 mmol/L (136-145)
--- NOTE | 2022-07-12 19:22 | CTR_ITS ---
PROCEDURE INFORMATION: Exam: CTA Chest With Contrast Exam date and time: 07/12/2022 8:32 PM Age: 81 years old Clinical indication: Shortness of breath and wheezing; Prior surgery; Patient HX: Pancreatic CA, renal cell CA, high d dimer, hypoxia; Additional info: Elevate dimer, pleueritic chest pain TECHNIQUE: Imaging protocol: Computed tomographic angiography of the chest with contrast. 3D rendering (Not supervised by radiologist): MIP and/or 3D reconstructed images were created by the technologist. Radiation optimization: All CT scans at this facility use at least one of these dose optimization techniques: automated exposure control; mA and/or kV adjustment per patient size (includes targeted exams where dose is matched to clinical indication); or iterative reconstruction. Contrast material: OMNIPAQUE 350; Contrast volume: 55 ml; Contrast route: INTRAVENOUS (IV); COMPARISON: CT angio chest PE protcl [id number] 07/06/2016 11:06 AM RADIATION DOSE METRICS: Total DLP (mGy-cm): 385.14 FINDINGS: Limitations: Study is moderately limited by patient respiratory motion especially at the lung bases. Pulmonary arteries: Normal. No pulmonary emboli. Aorta: There is atherosclerotic calcification of the ascending thoracic aorta aortic arch and descending thoracic aorta.There is no thoracic aortic aneurysm or dissection. Lungs: There is moderate centrilobular emphysema. There is mild dependent atelectasis at the lung bases. No focal consolidation is identified. Pleural spaces: Unremarkable. No pneumothorax. No pleural effusion. Heart: There is moderate atherosclerotic calcification of the coronary arteries. Lymph nodes: There is no evidence of lymphadenopathy. There are calcified hilar and mediastinal lymph nodes in keeping with old granulomatous disease. Diaphragm: There is a small hiatal hernia. Bones/joints: There is moderate chronic appearing wedging of T7. This represents compression fracture of uncertain age but new compared with 07/06/2016. Chronic compression deformity the superior endplate of L1 not significantly changed. The thoracic spine demonstrates moderate degenerative changes at multiple levels. Soft tissues: Unremarkable. CT/CT angio chest PE protcl [id number] IMPRESSION: 1. Examination is somewhat limited due to patient respiratory motion. 2. No gross evidence of pulmonary embolism. 3. Old granulomatous disease. 4. T7 compression fracture. Chronic appearing but new compared with 07/06/2016. 5. Small hiatus hernia.
--- NOTE | 2022-07-12 19:34 | ECG_ITS ---
[facility] Test Date: 2022-07-12 Pat Name: Ingrid De Leon Department: Room: Gender: Female Health Systems Analyst: : 1940 Requested By: Mahin Handley Order Number: [id number] Bakari MD: Clark Mayo M.D. Measurements Intervals [place] Rate: 81 P: 72 MO: 176 QRS: 17 QRSD: 84 T: 67 QT: 368 QTc: 427 Interpretive Statements SINUS RHYTHM Compared to ECG 07/12/2022 17:20:05 Ectopic atrial rhythm no longer present ST (T wave) deviation no longer present Electronically Signed On 07-13-2022 15:52:24 CDT by Clark Mayo M.D. [email or web address]
[2022-07-12 20:33] LABS: Adenovirus Not Detected (NOT DETECT); Chlamydia Pneumoniae Not Detected (NOT DETECT); Coronavirus 229E,HKU1,NL63,OC4 Not Detected (NOT DETECT); Human Metapneumovirus Not Detected (NOT DETECT); Human Rhinovirus/Enterovirus Not Detected (NOT DETECT); Influenza A Not Detected (NOT DETECT); Influenza A H1 Not Detected (NOT DETECT); Influenza A H1-2009 Not Detected (NOT DETECT); Influenza A H3 Not Detected (NOT DETECT); Influenza B Not Detected (NOT DETECT); Mycoplasma Pneumoniae Not Detected (NOT DETECT); Parainfluenza Virus Type 1 Not Detected (NOT DETECT); Parainfluenza Virus Type 2 Not Detected (NOT DETECT); Parainfluenza Virus Type 3 Not Detected (NOT DETECT); Parainfluenza Virus Type 4 Not Detected (NOT DETECT); Respiratory Syncytial Virus A Not Detected (NOT DETECT); Respiratory Syncytial Virus B Not Detected (NOT DETECT); SARS-COV-2 Not Detected (NOT DETECT)
[2022-07-12] MEDS: sodium chloride 0.9% 500 ML IV (20:37)
[2022-07-12] MEDS: midazolam 1 mg/mL INJ 2 mL 0.5 MG IVP (20:37)
[2022-07-12] MEDS: iohexol 350 mg/mL 100 mL Btl IV (20:37)
[2022-07-12] MEDS: predniSONE 20 mg Tablet 60 MG PO (21:53)
--- NOTE | 2022-07-12 22:04 | PC.NURSE ---
Pt. refused to have blood pressure cuff on due to sensitive skin. Pt. states that she has a condition in which her skin hurts each time she is touched
== END 2022-07-12 22:05 | disposition home or self-care (01) ==
PROVIDERS: Emergency Provider Emergency Medicine; PCP Nurse Practitioner Family
DX: J45.901 Unspecified asthma with (acute) exacerbation (principal); Z79.02 Long term (current) use of antithrombotics/antiplatelets; I11.0 Hypertensive heart disease with heart failure; I50.9 Heart failure, unspecified; J44.9 Chronic obstructive pulmonary disease, unspecified; E78.5 Hyperlipidemia, unspecified; Z85.528 Personal history of other malignant neoplasm of kidney; Z20.822 Contact with and (suspected) exposure to COVID-19
CPT/HCPCS: 71275; 80048; 83880; 84484; 85025; 85378; 87635; 93005; 94640; 96361; 96374; 96375; 99285; J2250; J2930; J7040; J7512; Q9967

== ENCOUNTER → 2022-08-03 11:11 | Outpatient (BNVA) | payer MEDICARE, OTHER, SELFPAY | PROVIDERS: PCP Nurse Practitioner Family; Visit Provider Internal Medicine | DX: I11.0 Hypertensive heart disease with heart failure (principal); I50.9 Heart failure, unspecified; Z87.891 Personal history of nicotine dependence; J44.9 Chronic obstructive pulmonary disease, unspecified; I71.9 Aortic aneurysm of unspecified site, without rupture; E78.5 Hyperlipidemia, unspecified; I25.10 Atherosclerotic heart disease of native coronary artery without angina pectoris | CPT/HCPCS: 99214 ==

== ENCOUNTER → 2022-08-16 10:22 | Outpatient (BNVA) | payer MEDICARE, OTHER, SELFPAY | PROVIDERS: PCP Nurse Practitioner Family; Visit Provider Internal Medicine Critical Care Medicine | DX: J44.9 Chronic obstructive pulmonary disease, unspecified (principal); J96.11 Chronic respiratory failure with hypoxia; R60.9 Edema, unspecified; Z87.891 Personal history of nicotine dependence; Z99.81 Dependence on supplemental oxygen | CPT/HCPCS: 99214 ==

== ENCOUNTER 2022-10-24 09:09 | Emergency (ER) | payer MEDICARE, OTHER, SELFPAY ==
[2022-10-24 09:20] VITALS: BP 161/67; PULSE 76; RESP 16; TEMP 36.8; O2SAT 99; BMI 32.9
--- NOTE | 2022-10-24 10:23 | XRR_ITS ---
PROCEDURE INFORMATION: Exam: XR Right Shoulder Exam date and time: 10/24/2022 11:18 AM Age: 82 years old Clinical indication: Pain; Shoulder; Right; Patient HX: HX of renal and pancreas cancer; Additional info: Shoulder pain TECHNIQUE: Imaging protocol: Radiologic exam of the Right shoulder. Views: 2 or more views. COMPARISON: CR XR shoulder RT min 2V* [id number] 12/05/2016 11:27 AM FINDINGS: Bones/joints: There are mild degenerative changes at the AC joint. Glenohumeral joint is fairly well preserved. There is no fracture, malalignment or underlying osseous lesion detected. Soft tissues: Normal. XR/XR shoulder RT min 2V* [id number] IMPRESSION: No acute bony abnormalities.
--- NOTE | 2022-10-24 10:23 | XRR_ITS ---
PROCEDURE INFORMATION: Exam: XR Thoracic Spine Exam date and time: 10/24/2022 11:18 AM Age: 82 years old Clinical indication: Pain in thoracic spine; Patient HX: HX of renal and pancreas cancer; Additional info: Mid back pain TECHNIQUE: Imaging protocol: Radiologic exam of the thoracic spine. Views: 3 views. COMPARISON: CR XR chest 2V* [id number] 07/12/2022 4:02 PM FINDINGS: Bones/joints: There is mild accentuated kyphotic curvature midthoracic spine, unchanged. There is a severe wedge-shaped compression fracture of T7 that has progressed from previous exam. There are no other fractures detected. Mild degenerative changes are present the lower thoracic spine, stable. Soft tissues: There are granulomatous calcifications within the mediastinum, unchanged. XR/XR thoracic spine 3V* [id number] IMPRESSION: Severe compression fracture T7 progressed from previous exam.
--- NOTE | 2022-10-24 10:23 | XRR_ITS ---
PROCEDURE INFORMATION: Exam: XR Lumbosacral Spine Exam date and time: 10/24/2022 11:18 AM Age: 82 years old Clinical indication: Low back pain; Prior surgery; Surgery type: Spleen, intestinal; Patient HX: HX of renal pancreas cancer TECHNIQUE: Imaging protocol: Radiologic exam of the lumbosacral spine. Views: 2 or 3 views. COMPARISON: CR XR lumbar spine 2-3V* [id number] 08/09/2021 10:37 AM FINDINGS: Bones/joints: Lumbar curvature alignment is unremarkable. There is mild wedge-shaped compression fracture L1, stable. Disc heights are fairly well maintained. Moderate degenerative changes lower lumbar facet joints most pronounced at L5-S1. Soft tissues: Unremarkable. Vasculature: Abdominal aorta is diffusely calcified. XR/XR lumbar spine 2-3V* [id number] IMPRESSION: No acute abnormalities.
--- NOTE | 2022-10-24 10:35 | ED_ITS ---
Documented by User: MARCO Ramirez 10/25/22 07:30 HPI - Back Pain/Injury General: Chief Complaint: Back Pain/Injury Stated Complaint: back pain Time Seen by Provider: 10/24/22 09:53 History of Present Illness: Patient is an 82-year-old female comes to the ED with back pain. Patient says she has been having this kind of back pain for over 3 months. When she first got it flared up and it was really painful and then improved but she was still having some manageable mid and lower back pain daily. Approximately 2 days ago it flared back up again and now she is having 8 out of 10 back pain that is located in her lumbar and mid back region as well. Denies any pain radiating down her legs. Denies any trauma or injury to cause acute pain. Any movements causes sharp spasm-like pain in her back. She takes tramadol at home for pain. She also reports some chronic right shoulder pain as well. Denies any injury to cause right shoulder pain. Associated symptoms: Deny abdominal pain, chills, dysuria, fatigue, fever(s), hematuria, nausea or vomiting Review of Systems Const: Denies: fever(s), chills or fatigue Eyes: Denies: change in vision or eye discomfort ENMT: Denies: throat pain, odynophagia, nasal discharge or nasal congestion Card: Denies: chest pain, palpitations, edema, swelling of feet/ankles, dyspnea on exertion or orthopnea Resp: Denies: dyspnea, productive cough or non-productive cough GI: Denies: abdominal pain, nausea, vomiting, diarrhea, constipation or hematochezia : Denies: flank pain, dysuria or hematuria Musc: Reports: back pain and extremity pain (Right Shoulder pain); Denies: neck pain or extremity swelling Skin/Breast: Denies: rash or new lesions Neuro: Denies: headache(s), numbness in extremities or weakness in extremities PFSH ED PFSH: Medical History Acute exacerbation of COPD with asthma Acute respiratory failure Anxiety disorder ASHD (arteriosclerotic heart disease) Chest pain CHF (congestive heart failure) COPD (chronic obstructive pulmonary disease) Dyslipidemia GERD (gastroesophageal reflux disease) HTN (hypertension) Osteoporosis PAD (peripheral artery disease) Renal cell cancer Tobacco abuse, in remission Surgical History Hx of cholecystectomy Hx of exploratory laparotomy (08/28/18) 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 recurrent renal cell cancer Hx of hemorrhoidectomy S/p nephrectomy (2004) Laparoscopic left nephrectomy for renal cell cancer Family History Father CAD (coronary artery disease) Brother CAD (coronary artery disease) Myocardial infarction Sister Psychiatric illness Other Cancer Chronic kidney disease (CKD) Hyperlipidemia Hypertension Lung disease Denies family history of Diabetes Clotting disorder Dementia Suicide Anesthesia complication Bleeding disorder Stroke Social History Smoking and tobacco status: former smoker Quit status (tobacco): has quit using tobacco Year quit tobacco: 1991 Former quit date comment: 1ppd X 30 years Alcohol intake: never Lives independently: Yes Marital status: / Pets and animals: Yes Physical Exam Const: COMMON NORMALS: patient oriented x3 and alert HENMT: COMMON NORMALS: normocephalic HEAD & SCALP: normocephalic MOUTH: Normal oral and palatal mucosa present THROAT: posterior oropharynx normal and uvula midline Eye: COMMON NORMALS: Equal, round and reactive pupils present and EOMs intact bilaterally GENERAL EYE: appearance normal, both eyes and all related structures PUPIL: Yes Equal, round and reactive pupils present Neck/C-Spine: COMMON NORMALS: supple GENERAL: Yes normal visual inspection Lymph: LYMPHATIC: no lymphadenopathy noted Resp: COMMON NORMALS: normal respiratory effort, No retractions, No use of accessory muscles and clear to auscultation bilaterally AUSCULTATION: clear to auscultation bilaterally Cardio: COMMON NORMALS: regular rate, regular rhythm, S1 normal heart sound present, S2 normal heart sound present, No gallops present (Cardio), No clicks present (Cardio), No murmurs present (Cardio) and Peripheral pulses 2+ throughout RATE: regular rate RHYTHM: regular rhythm HEART SOUNDS: S1 normal heart sound present and S2 normal heart sound present PERIPHERAL PULSES: Peripheral pulses 2+ throughout GI: COMMON NORMALS: Normal to inspection, nondistended, normoactive bowel sounds present, Soft to palpation, non-tender and no masses PALPATION: Yes Soft to palpation : COMMON NORMALS: Yes no CVA tenderness BLADDER/KIDNEY EXAM: Yes no CVA tenderness Back/Pelvis: COMMON NORMALS: no CVA tenderness THORACIC SPINE/UPPER BACK: Yes thoracic spinal tenderness and Yes paraspinal muscle tenderness Thoracic paraspinal muscle tenderness: bilateral LUMBAR SPINE/LOWER BACK: Yes pain with ROM, Yes lumbar spinal tenderness and Yes paraspinal muscle tenderness Lumbar paraspinal muscle tenderness: bilateral Extremity: GENERAL: Yes normal exam except as noted Neuro: COMMON NORMALS: patient oriented x3 and moves all extremities SENSORIUM/ORIENTATION: Yes alert Skin: COMMON NORMALS: no rashes or lesions noted GENERAL SKIN EXAM: no rashes or lesions noted and dry skin Course Vital Signs: Vital signs: Vital Signs Temperature 98.2 F 10/24/22 09:20 Pulse Rate 76 10/24/22 09:20 Respiratory Rate 15 10/24/22 10:39 Blood Pressure 161/67 10/24/22 09:20 Pulse Oximetry 95 10/24/22 10:39 Oxygen Delivery Me thod 10/24/22 09:20 Oxygen Flow Rate 2 10/24/22 09:20 MDM - Back Pain/Injury Medical Decision Making Patient is an 82-year-old female who comes to the ED with mid back pain and right shoulder pain. She has been dealing with this pain for over 3 months. Denies any recent injury or trauma. Denies cauda equina symptoms. Vitals are stable. Patient has some thoracic and lumbar spinal tenderness along with paraspinal muscle tenderness bilaterally of the thoracic and lumbar spine. Rest of exam is benign. Lumbar spine x-ray and right shoulder x-ray showed no acute findings. Thoracic spine x-ray showed severe compression fracture of T7 which is progressed from previous x-ray. I placed an order with case management for patient be referred to Dr. Ferrell for follow-up. She was given morphine here to help with pain. Placed an order with PT for patient to be fitted for a TLSO brace. She is diagnosed with a thoracic go lumbar vertebral compression fracture and discharged home with a prescription for muscle relaxer and hydrocodone for pain. Return ED precautions given. She was told that case management will contact her in the next several days set up an appointment with Dr. Ferrell for further evaluation of T7 compression fracture. Patient understood and agreed with plan. Labs Radiology Impressions Lumbar Spine X-Ray 10/24/22 10:23 IMPRESSION: No acute abnormalities. Shoulder X-Ray 10/24/22 10:23 IMPRESSION: No acute bony abnormalities. Thoracic Spine X-Ray 10/24/22 10:23 IMPRESSION: Severe compression fracture T7 progressed from previous exam. Discharge Plan Discharge Patient Disposition: Home Clinical Impression: Compression fracture of thoracolumbar vertebra Condition: Stable Prescriptions: New methocarbamol 750 mg tablet 750 mg PO Q8H PRN (Reason: back muscle spasms and pain) Qty: 20 0RF No Action albuterol sulfate [Ventolin HFA] 90 mcg/actuation HFA aerosol inhaler 2 puff INHALATION QID PRN (Reason: Shortness Of Breath) Breztri Aerosphere 160-9-4.8 mcg/actuation HFA aerosol inhaler 2 inh inhalation BID nitroglycerin 0.4 mg tablet, sublingual 0.4 mg sublingual Q5M PRN (Reason: Chest Pain) Rx Instructions: do not exceed 3 doses per episode tramadol 50 mg tablet 25 mg PO Q8H MDD 1.5 tabs PRN (Reason: Pain) fluticasone propionate [Allergy Relief (fluticasone)] 50 mcg/actuation spray,suspension 2 spray intranasal DAILY PRN (Reason: Allergy Symptoms) Rx Instructions: administer into each nostril clopidogrel 75 mg tablet 75 mg PO DAILY Qty: 90 2RF mupirocin 2 % ointment 1 applic topical BID Qty: 22 1RF Rx Instructions: Apply to affected area twice daily until healed. azithromycin 250 mg tablet 250 mg PO .COMPLEX 90 Days Qty: 45 1RF Rx Instructions: 250 mg orally; Saturday azithromycin 250 mg tablet 250 mg PO .COMPLEX 90 Days Qty: 36 0RF Rx Instructions: 250 mg orally Saturday; furosemide 40 mg tablet 40 mg PO DAILY Qty: 90 2RF Rx Instructions: 40 mg orally daily; magnesium oxide 420 mg Tablet 420 mg PO DAILY Creon 36,000-114,000- 180,000 unit capsule,delayed release(DR/EC) 2 cap PO AC Rx Instructions: and before snacks albuterol sulfate 2.5 mg /3 mL (0.083 %) solution for nebulization 2.5 mg inhalation Q3H PRN (Reason: Shortness Of Breath) potassium chloride 20 mEq tablet,ER particles/crystals 20 meq PO QAM olmesartan 5 mg tablet 5 mg PO QAM coenzyme Q10 [CoQ-10] 100 mg Capsule 100 mg PO DAILY pregabalin 25 mg Capsule 25 mg PO TID Qty: 90 0RF Discharge Orders: Discharge ED (Routine); Ordered 10/24/22 Ordered By: Osmel Elena Referrals: Lorraine Samaniego FNP [Primary Care Provider] - Discharge Diet: Regular Discharge Activity: Limit activity as instructed Patient Instructions: Thoracolumbar Fracture (ED) Activity Restrictions/Additional Instructions: Follow-up with medical provider as directed. Case management should be contact ing you next several days to set up an appointment with Dr. Ferrell for follow-up on thoracic vertebrae compression fracture. Wear TLSO brace. Take medications as prescribed. Return to the ER or your medical provider if condition worsens. Please read and understand discharge instructions. Thank you for choosing [facility] for your healthcare needs today. Please realize this is an emergency room and that we are providing you with a medical screening exam and this may not be complete and all inclusive of all the testing and or work up that you may need to determine your ailment or severity of your illness. It is very important that you follow up as instructed or that you return to the Emergency Department should you have concerns or if your condition changes or worsens in any way. 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 [employer] Exam Comprehensive Documented by User: Raghav Hines DO 10/26/22 10:41 HPI - Back Pain/Injury General: Chief Complaint: Back Pain/Injury Stated Complaint: back pain Time Seen by Provider: 10/24/22 09:53 PFS ED PFSH: Medical History Acute exacerbation of COPD with asthma Acute respiratory failure Anxiety disorder ASHD (arteriosclerotic heart disease) Chest pain CHF (congestive heart failure) COPD (chronic obstructive pulmonary disease) Dyslipidemia GERD (gastroesophageal reflux disease) HTN (hypertension) Osteoporosis PAD (peripheral artery disease) Renal cell cancer Tobacco abuse, in remission Surgical History Hx of cholecystectomy Hx of exploratory laparotomy (08/28/18) 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 recurrent renal cell cancer Hx of hemorrhoidectomy S/p nephrectomy (2004) Laparoscopic left nephrectomy for renal cell cancer Family History Father CAD (coronary artery disease) Brother CAD (coronary artery disease) Myocardial infarction Sister Psychiatric illness Other Cancer Chronic kidney disease (CKD) Hyperlipidemia Hypertension Lung disease Denies family history of Diabetes Clotting disorder Dementia Suicide Anesthesia complication Bleeding disorder Stroke Social History Smoking and tobacco status: former smoker Quit status (tobacco): has quit using tobacco Year quit tobacco: 1991 Former quit date comment: 1ppd X 30 years Alcohol intake: never Lives independently: Yes Marital status: / Pets and animals: Yes Course Vital Signs: Vital signs: Vital Signs Temperature 98.2 F 10/24/22 09:20 Pulse Rate 76 10/24/22 09:20 Respiratory Rate 15 10/24/22 10:39 Blood Pressure 161/67 10/24/22 09:20 Pulse Oximetry 95 10/24/22 10:39 Oxygen Delivery Me thod 10/24/22 09:20 Oxygen Flow Rate 2 10/24/22 09:20 MDM - Back Pain/Injury Medical Decision Making Patient is an 82-year-old female who comes to the ED with mid back pain and right shoulder pain. She has been dealing with this pain for over 3 months. Denies any recent injury or trauma. Denies cauda equina symptoms. Vitals are stable. Patient has some thoracic and lumbar spinal tenderness along with paraspinal muscle tenderness bilaterally of the thoracic and lumbar spine. Rest of exam is benign. Lumbar spine x-ray and right shoulder x-ray showed no acute findings. Thoracic spine x-ray showed severe compression fracture of T7 which is progressed from previous x-ray. I placed an order with case management for patient be referred to Dr. Ferrell for follow-up. She was given morphine here to help with pain. Placed an order with PT for patient to be fitted for a TLSO brace. She is diagnosed with a thoracic go lumbar vertebral compression fracture and discharged home with a prescription for muscle relaxer and hydrocodone for pain. Return ED precautions given. She was told that case management will contact her in the next several days set up an appointment with Dr. Ferrell for further evaluation of T7 compression fracture. Patient understood and agreed with plan. Chart reviewed and patient discussed with midlevel. Agree with assessment and plan. Medical Records I reviewed the patient's medical records. Labs I reviewed the patient's lab results. Radiology Impressions Lumbar Spine X-Ray 10/24/22 10:23 IMPRESSION: No acute abnormalities. Shoulder X-Ray 10/24/22 10:23 IMPRESSION: No acute bony abnormalities. Thoracic Spine X-Ray 10/24/22 10:23 IMPRESSION: Severe compression fracture T7 progressed from previous exam. Discharge Plan Discharge Patient Disposition: Home Clinical Impression: Compression fracture of thoracolumbar vertebra Condition: Stable Prescriptions: New methocarbamol 750 mg tablet 750 mg PO Q8H PRN (Reason: back muscle spasms and pain) Qty: 20 0RF No Action albuterol sulfate [Ventolin HFA] 90 mcg/actuation HFA aerosol inhaler 2 puff INHALATION QID PRN (Reason: Shortness Of Breath) Secure Fortresstri Aerosphere 160-9-4.8 mcg/actuation HFA aerosol inhaler 2 inh inhalation BID nitroglycerin 0.4 mg tablet, sublingual 0.4 mg sublingual Q5M PRN (Reason: Chest Pain) Rx Instructions: do not exceed 3 doses per episode tramadol 50 mg tablet 25 mg PO Q8H MDD 1.5 tabs PRN (Reason: Pain) fluticasone propionate [Allergy Relief (fluticasone)] 50 mcg/actuation spray,suspension 2 spray intranasal DAILY PRN (Reason: Allergy Symptoms) Rx Instructions: administer into each nostril clopidogrel 75 mg tablet 75 mg PO DAILY Qty: 90 2RF mupirocin 2 % ointment 1 applic topical BID Qty: 22 1RF Rx Instructions: Apply to affected area twice daily until healed. azithromycin 250 mg tablet 250 mg PO .COMPLEX 90 Days Qty: 45 1RF Rx Instructions: 250 mg orally; Saturday azithromycin 250 mg tablet 250 mg PO .COMPLEX 90 Days Qty: 36 0RF Rx Instructions: 250 mg orally Saturday; furosemide 40 mg tablet 40 mg PO DAILY Qty: 90 2RF Rx Instructions: 40 mg orally daily; magnesium oxide 420 mg Tablet 420 mg PO DAILY Creon 36,000-114,000- 180,000 unit capsule,delayed release(DR/EC) 2 cap PO AC Rx Instructions: and before snacks albuterol sulfate 2.5 mg /3 mL (0.083 %) solution for nebulization 2.5 mg inhalation Q3H PRN (Reason: Shortness Of Breath) potassium chloride 20 mEq tablet,ER particles/crystals 20 meq PO QAM olmesartan 5 mg tablet 5 mg PO QAM coenzyme Q10 [CoQ-10] 100 mg Capsule 100 mg PO DAILY pregabalin 25 mg Capsule 25 mg PO TID Qty: 90 0RF Discharge Orders: Discharge ED (Routine); Ordered 10/24/22 Ordered By: Osmel Elena Referrals: Lorraine Samaniego FNP [Primary Care Provider] - Discharge Diet: Regular Discharge Activity: Limit activity as instructed Patient Instructions: Thoracolumbar Fracture (ED) Activity Restrictions/Additional Instructions: Follow-up with medical provider as directed. Case management should be contacting you next several days to set up an appointment with Dr. Ferrell for follow-up on thoracic vertebrae compression fracture. Wear TLSO brace. Take medications as prescribed. Return to the ER or your medical provider if condition worsens. Please read and understand discharge instructions. Thank you for choosing [facility] for your healthcare needs today. Please realize this is an emergency room and that we are providing you with a medical screening exam and this may not be complete and all inclusive of all the testing and or work up that you may need to determine your ailment or severity of your illness. It is very important that you follow up as instructed or that you return to the Emergency Department should you have concerns or if your condition changes or worsens in any way. 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 [facility] [employer] Exam Comprehensive
[2022-10-24 10:39] VITALS: RESP 15; O2SAT 95
[2022-10-24] MEDS: morphine 4 mg/mL SDV 1 mL IM (10:39)
[2022-10-24] MEDS: orphenadrine 30 mg/mL Inj 2 mL 60 MG IM (10:39)
--- NOTE | 2022-10-24 13:19 | DCPLANNER ---
Addendum entered by Celsa Estevez 11/16/22 10:09: Patient had a follow up appointment with ortho - patient did attend appointment Addendum entered by Celsa Estevez 10/30/22 12:09: Patient has a follow up appointment scheduled for Sunday, November 06, 2022 at 8:[address] Ferrell at ortho. Clinic will call patient with appointment information. Original Note: customer manager had message to schedule a follow up appointment for patient with ortho. customer manager sent patients information to the front office staff at ortho. Patients information will be printed and reviewed. Clinic will call patient with appointment information.
== END 2022-10-24 12:44 | disposition home or self-care (01) ==
PROVIDERS: Emergency Provider Physician Assistant; PCP Nurse Practitioner Family
DX: S22.060A Wedge compression fracture of T7-T8 vertebra, initial encounter for closed fracture (principal); Z79.02 Long term (current) use of antithrombotics/antiplatelets; Z87.891 Personal history of nicotine dependence; J44.9 Chronic obstructive pulmonary disease, unspecified; I11.0 Hypertensive heart disease with heart failure; I50.9 Heart failure, unspecified; E78.5 Hyperlipidemia, unspecified; Z85.528 Personal history of other malignant neoplasm of kidney; X58.XXXA Exposure to other specified factors, initial encounter
CPT/HCPCS: 72072; 72100; 73030; 96372; 97760; 99284; J2270; J2360; L0456

== ENCOUNTER 2022-10-26 08:20 | Oncology outpatient (recurring) (ONCR) | payer MEDICARE, OTHER, SELFPAY ==
[2022-10-26 08:35] LABS: Basophils # 0.1 10^3/uL (0.0-0.1); Basophils % 0.9 %; Eosinophils # 0.2 10^3/uL (0.0-0.8); Eosinophils % 3.1 %; Hematocrit 35.1 % (37.0-47.0); Hemoglobin 10.8 g/dL (11.5-15.3); Lymphocytes # 1.2 10^3/uL (0.8-4.8); Lymphocytes % 20.1 %; Mean Corpuscular HGB Conc 30.8 g/dL (30.0-36.0); Mean Corpuscular Hemoglobin 28.9 pg (28.0-34.0); Mean Corpuscular Volume 93.9 fl (81-99); Mean Platelet Volume 11.1 fL (7.4-10.4); Monocytes # 0.6 10^3/uL (0.2-0.9); Monocytes % 10.8 %; Neutrophils # 3.77 10^3/uL (1.8-7.7); Neutrophils % 64.8 %; Nucleated Red Blood Cells % 0 %; Platelet Count 287 10^3/cmm (130-400); Red Blood Count 3.74 10^6/uL (4.1-5.3); Red Cell Distribution Width 16.2 % (12.1-15.1); White Blood Count 5.8 10^3/uL (4.0-10.0)
[2022-10-26 08:55] LABS: Alanine Aminotransferase 97 U/L (0-33); Albumin Level 3.8 g/dL (3.5-5.2); Alkaline Phosphatase 121 U/L (35-105); Anion Gap 11.5 (5-19); Aspartate Amino Transferase 55 U/L (0-32); Blood Urea Nitrogen 30 mg/dL (8-23); Carbon Dioxide 31 mmol/L (22-29); Chloride 95 mmol/L (98-107); Globulin 2.8 g/dL (1.3-4.6); Glucose 114 mg/dL (65-115); Lactate Dehydrogenase 199 U/L (135-214); Osmolality Calculated 283 mOsm/kg (285-295); Potassium 4.5 mmol/L (3.5-5.1); Sodium 133 mmol/L (136-145); Total Bilirubin 0.2 mg/dL (0.15-1.2); Total Protein 6.6 g/dL (6.6-8.7)
[2022-10-26 10:09] LABS: Iron 40 ug/dL (37-145); Percent Saturation 15.4 % (20-50); Total Iron Binding Capacity 259 mcg/dl; Unsaturated Iron Binding 219 ug/dL (112-347)
[2022-10-26 10:25] LABS: Vitamin B12 222 pg/mL (232-1245)
== END 2022-11-10 23:59 | disposition home or self-care (01) ==
PROVIDERS: PCP Nurse Practitioner Family; Referring Provider Surgery; Visit Provider Internal Medicine Medical Oncology
DX: C64.2 Malignant neoplasm of left kidney, except renal pelvis (principal); Z08 Encounter for follow-up examination after completed treatment for malignant neoplasm; Z85.528 Personal history of other malignant neoplasm of kidney; Z90.5 Acquired absence of kidney; M81.0 Age-related osteoporosis without current pathological fracture; J44.9 Chronic obstructive pulmonary disease, unspecified; R53.83 Other fatigue; M48.54XA Collapsed vertebra, not elsewhere classified, thoracic region, initial encounter for fracture; Z87.891 Personal history of nicotine dependence; D64.9 Anemia, unspecified
CPT/HCPCS: 36415; 80053; 82607; 83540; 83550; 83615; 85025; 99214

== ENCOUNTER → 2022-11-06 07:51 | Outpatient (BNVA) | payer MEDICARE, OTHER, SELFPAY | PROVIDERS: PCP Nurse Practitioner Family; Visit Provider Orthopaedic Surgery | DX: M48.54XA Collapsed vertebra, not elsewhere classified, thoracic region, initial encounter for fracture (principal) | CPT/HCPCS: 99204 ==

== ENCOUNTER → 2023-03-01 09:15 | Outpatient (BNVA) | payer MEDICARE, OTHER, SELFPAY | PROVIDERS: PCP Nurse Practitioner Family; Visit Provider Internal Medicine Pulmonary Disease | DX: J44.9 Chronic obstructive pulmonary disease, unspecified (principal); J96.11 Chronic respiratory failure with hypoxia; R60.9 Edema, unspecified; Z87.891 Personal history of nicotine dependence; Z99.81 Dependence on supplemental oxygen | CPT/HCPCS: 99214 ==

== ENCOUNTER → 2023-03-13 08:48 | Outpatient (BNVA) | payer MEDICARE, OTHER, SELFPAY | PROVIDERS: PCP Nurse Practitioner Family; Visit Provider Dermatology | DX: L72.0 Epidermal cyst (principal) | CPT/HCPCS: 11104 ==

== ENCOUNTER 2023-03-21 09:00 | Oncology outpatient (recurring) (ONCR) | payer MEDICARE, OTHER, SELFPAY ==
[2023-03-14 11:22] LABS: Basophils # 0.1 10^3/uL (0.0-0.1); Basophils % 1.1 %; Eosinophils # 0.2 10^3/uL (0.0-0.8); Eosinophils % 2.8 %; Hematocrit 31.6 % (37.0-47.0); Hemoglobin 9.9 g/dL (11.5-15.3); Lymphocytes # 1.5 10^3/uL (0.8-4.8); Lymphocytes % 20.4 %; Mean Corpuscular HGB Conc 31.3 g/dL (30.0-36.0); Mean Corpuscular Hemoglobin 29.3 pg (28.0-34.0); Mean Corpuscular Volume 93.5 fl (81-99); Mean Platelet Volume 11.6 fL (7.4-10.4); Monocytes # 0.8 10^3/uL (0.2-0.9); Monocytes % 10.9 %; Neutrophils # 4.82 10^3/uL (1.8-7.7); Neutrophils % 64.5 %; Nucleated Red Blood Cells % 0 %; Platelet Count 251 10^3/cmm (130-400); Red Blood Count 3.38 10^6/uL (4.1-5.3); Red Cell Distribution Width 15.9 % (12.1-15.1); White Blood Count 7.5 10^3/uL (4.0-10.0)
[2023-03-14 11:58] LABS: Alanine Aminotransferase 19 U/L (0-33); Albumin Level 3.6 g/dL (3.5-5.2); Alkaline Phosphatase 85 U/L (35-105); Anion Gap 12.2 (5-19); Aspartate Amino Transferase 25 U/L (0-32); Blood Urea Nitrogen 32 mg/dL (8-23); Calcium 8.9 mg/dL (8.5-10.5); Carbon Dioxide 33 mmol/L (22-29); Chloride 92 mmol/L (98-107); Globulin 2.7 g/dL (1.3-4.6); Glucose 106 mg/dL (65-115); Osmolality Calculated 283 mOsm/kg (285-295); Potassium 4.2 mmol/L (3.5-5.1); Sodium 133 mmol/L (136-145); Total Bilirubin 0.2 mg/dL (0.15-1.2); Total Protein 6.3 g/dL (6.6-8.7)
[2023-03-14] MEDS: ferric carboxy (IVPB) 750 MG in sodium chloride 0.9% (100 ml) 100 ML 345 MG IV (13:58)
[2023-03-14] MEDS: sodium chloride 0.9% 250 ML 75 ML IV (13:59)
[2023-03-14 14:40] VITALS: BP 124/64; PULSE 72; RESP 18; TEMP 36.3; O2SAT 95
[2023-03-20 09:35] LABS: Methylmalonic Acid 438 nmol/L (87-318)
[2023-03-21] MEDS: ferric carboxy (IVPB) 750 MG in sodium chloride 0.9% (100 ml) 100 ML 345 MG IV (10:02)
[2023-03-21] MEDS: cyanocobalamin 1,000 mcg/mL SDV 1000 MCG SUBCUT (10:04)
[2023-03-21 10:45] VITALS: BP 141/74; PULSE 68; RESP 16; TEMP 36.6; O2SAT 96
== END 2023-04-10 23:59 | disposition home or self-care (01) ==
PROVIDERS: PCP Nurse Practitioner Family; Visit Provider Internal Medicine Medical Oncology
DX: D50.8 Other iron deficiency anemias (principal); C64.2 Malignant neoplasm of left kidney, except renal pelvis
CPT/HCPCS: 36415; 80053; 83921; 85025; 96365; 96372; 99214; J1439; J3420; J7050

== ENCOUNTER 2023-04-25 10:26 | Oncology outpatient (recurring) (ONCR) | payer MEDICARE, OTHER, SELFPAY ==
[2023-04-25 10:34] VITALS: BP 136/79; PULSE 78; RESP 18; TEMP 36.3; O2SAT 97
[2023-04-25 10:59] LABS: Basophils # 0.1 10^3/uL (0.0-0.1); Basophils % 1.1 %; Eosinophils # 0.2 10^3/uL (0.0-0.8); Hematocrit 37.2 % (37.0-47.0); Hemoglobin 11.9 g/dL (11.5-15.3); Lymphocytes # 1.1 10^3/uL (0.8-4.8); Lymphocytes % 14.1 %; Mean Corpuscular Hemoglobin 30.5 pg (28.0-34.0); Mean Corpuscular Volume 95.4 fl (81-99); Mean Platelet Volume 12.2 fL (7.4-10.4); Monocytes # 0.8 10^3/uL (0.2-0.9); Monocytes % 10.2 %; Neutrophils % 72.4 %; Nucleated Red Blood Cells % 0 %; Platelet Count 297 10^3/cmm (130-400); Red Cell Distribution Width 16.4 % (12.1-15.1)
[2023-04-25 11:39] LABS: Alanine Aminotransferase 18 U/L (0-33); Alkaline Phosphatase 110 U/L (35-105); Anion Gap 10.1 (5-19); Aspartate Amino Transferase 24 U/L (0-32); Blood Urea Nitrogen 21 mg/dL (8-23); Calcium 9.1 mg/dL (8.5-10.5); Carbon Dioxide 32 mmol/L (22-29); Chloride 97 mmol/L (98-107); Globulin 2.8 g/dL (1.3-4.6); Glucose 103 mg/dL (65-115); Osmolality Calculated 283 mOsm/kg (285-295); Potassium 4.1 mmol/L (3.5-5.1); Sodium 135 mmol/L (136-145); Total Bilirubin 0.2 mg/dL (0.15-1.2); Total Protein 6.8 g/dL (6.6-8.7)
[2023-04-25 12:39] LABS: Ferritin 850 ng/mL (15-150); Iron 60 ug/dL (37-145); Percent Saturation 30.7 % (20-50); Total Iron Binding Capacity 195 mcg/dl; Unsaturated Iron Binding 135 ug/dL (112-347)
[2023-04-25] MEDS: cyanocobalamin 1,000 mcg/mL SDV 1000 MCG IM (13:32)
[2023-04-25 13:36] VITALS: BP 138/61; PULSE 77; RESP 16; TEMP 36.9; O2SAT 94
== END 2023-05-10 23:59 | disposition home or self-care (01) ==
PROVIDERS: PCP Nurse Practitioner Family; Visit Provider Internal Medicine Medical Oncology
DX: C64.2 Malignant neoplasm of left kidney, except renal pelvis (principal); D50.8 Other iron deficiency anemias; Z90.5 Acquired absence of kidney; Z87.891 Personal history of nicotine dependence; C78.89 Secondary malignant neoplasm of other digestive organs
CPT/HCPCS: 96372; 80053; 82728; 83540; 83550; 85025; 99214; J3420

== ENCOUNTER → 2023-05-03 09:06 | Outpatient (BNVA) | payer MEDICARE, OTHER, SELFPAY | PROVIDERS: PCP Nurse Practitioner Family; Visit Provider Internal Medicine | DX: I25.10 Atherosclerotic heart disease of native coronary artery without angina pectoris (principal); J44.9 Chronic obstructive pulmonary disease, unspecified; I73.9 Peripheral vascular disease, unspecified; I10 Essential (primary) hypertension; E78.5 Hyperlipidemia, unspecified; Z87.891 Personal history of nicotine dependence | CPT/HCPCS: 99214 ==

== ENCOUNTER 2023-05-23 08:56 | Oncology outpatient (recurring) (ONCR) | payer MEDICARE, OTHER, SELFPAY ==
[2023-05-23 09:04] VITALS: BP 102/61; PULSE 79; RESP 20; TEMP 36.4; O2SAT 96
[2023-05-23] MEDS: cyanocobalamin 1,000 mcg/mL SDV 1000 MCG IM (09:09)
[2023-05-23 09:11] VITALS: BP 111/78; PULSE 78; RESP 20; TEMP 36.6; O2SAT 96
== END 2023-06-10 23:59 | disposition home or self-care (01) ==
PROVIDERS: PCP Nurse Practitioner Family; Visit Provider Internal Medicine Medical Oncology
DX: E53.8 Deficiency of other specified B group vitamins (principal)
CPT/HCPCS: 96372; J3420

== ENCOUNTER → 2023-05-28 08:54 | Outpatient (BNVA) | payer MEDICARE, OTHER, SELFPAY | PROVIDERS: PCP Nurse Practitioner Family; Visit Provider Nurse Practitioner Family | DX: I96 Gangrene, not elsewhere classified (principal); I87.2 Venous insufficiency (chronic) (peripheral); L97.822 Non-pressure chronic ulcer of other part of left lower leg with fat layer exposed | CPT/HCPCS: 97597; 99213; A6212 ==

== ENCOUNTER → 2023-05-31 09:16 | Outpatient (BNVA) | payer MEDICARE, OTHER, SELFPAY | PROVIDERS: PCP Nurse Practitioner Family; Visit Provider Internal Medicine Pulmonary Disease | DX: J44.9 Chronic obstructive pulmonary disease, unspecified (principal); J96.11 Chronic respiratory failure with hypoxia; R60.9 Edema, unspecified; Z87.891 Personal history of nicotine dependence; Z99.81 Dependence on supplemental oxygen | CPT/HCPCS: 99214 ==

== ENCOUNTER 2023-06-04 07:57 | Outpatient (CLI) | payer MEDICARE, OTHER, SELFPAY ==
--- NOTE | 2023-06-04 08:00 | USCV_ITS ---
Ingrid De Leon Age: 82 Gender: F : 1940 Exam Date: 06/04/2023 08:29 Ordering Phys: Christina Albert NP Technologist: [place] [facility] [place]: le [place] Risk Factors: Previous Vascular Surgery: RIGHT LEFT BP: 110.0 / 65.00 BP: 111.0/ 61.00 0 0 Waveform Velocity (cm/s) Velocity (cm/s) Waveform Triphasic 154.6 Iliac Prox 135.5 Triphasic Triphasic 144.3 Iliac Mid 121.1 Triphasic Triphasic 119.3 Iliac Distal 150.4 Triphasic Triphasic 156.1 CELL TUBER HAND 147.0 Triphasic Triphasic 101.3 SFA Prox 142.0 Triphasic Triphasic 79.8 SFA Mid 75.2 Triphasic Triphasic SFA Dist Triphasic 83.2 151.7 Triphasic 42.6 POP 57.7 Triphasic Triphasic 51.5 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 Normal resting MOHINI bilaterally suggesting no significant arterial obstruction 2. Mild to moderate diffuse plaques in the iliac arteries bilaterally. Mild diffuse plaque in the femoral and popliteal arteries bilaterally 3. No significant arterial obstruction, based on the above findings Dr Clark Mayo MD [facility] (Electronically Signed) Final Date: 05 June 2023 10:02 S
== END 2023-06-04 07:58 | disposition home or self-care (01) ==
PROVIDERS: PCP Nurse Practitioner Family; Visit Provider Nurse Practitioner Family
DX: L97.221 Non-pressure chronic ulcer of left calf limited to breakdown of skin (principal); I70.203 Unspecified atherosclerosis of native arteries of extremities, bilateral legs; I70.8 Atherosclerosis of other arteries
CPT/HCPCS: 93925; 97597

== ENCOUNTER 2023-06-11 15:19 | Outpatient (CLI) | payer MEDICARE, OTHER, SELFPAY ==
--- NOTE | 2023-06-11 | MR_ITS ---
WS: [id number] MRI LUMBAR SPINE NONCONTRAST TECHNIQUE: Sagittal T1, T2 and STIR imaging. Axial T1 and T2 imaging. CLINICAL INFORMATION: m51.34 COMPARISON: 2015 FINDINGS: Mild lumbar curve. Mild acute appearing compression L3 superior endplate with loss of approximately 2 5% vertebral body height. No significant retropulsion. Mild chronic compression superior endplate L1 with endplate Schmorl's node. No other acute appearing compression fractures. L1-L2: Mild annular bulging. Mild facet arthropathy. Mild RIGHT foraminal narrowing. L2-L3: Slight retrolisthesis. Mild annular bulging. Slight narrowing of subarticular recess bilateral ly. Mild facet arthropathy. Foramen are patent. L3-L4: Mild annular bulging with mild central canal stenosis. Slight narrowing of the subarticular re cess bilaterally. Moderate facet arthropathy. Foramen are patent. L4-L5: Mild annular bulging with a small annular fissure. Moderate to severe central canal stenosis w ith impingement on traversing L5 nerve roots bilaterally. Moderate facet arthropathy ligamentum flavu m hypertrophy. Central canal stenosis progressed compared to 2015. Tiny annular fissure. L5-S1: Slight anterolisthesis L5 on S1. Mild annular bulging with slight effacement of the ventral th ecal sac. Moderate facet arthropathy. Mild bilateral foraminal narrowing. Rectosigmoid distention with impaction. Prior LEFT nephrectomy. Visualized pelvic bony structures: Normal. Paravertebral soft tissues: Normal. MR/MR lumbar spine wo con* [id number] IMPRESSION: 1. Mild acute compression superior endplate L2 with edema and loss of approxim ately 25% vertebral body height. No retropulsion. 2. Moderate to severe central canal stenosis L4-L5 progressed compared to prev ious with mild annular bulging and small annular fissure. Moderate facet arthro michael and ligamentum flavum hypertrophy contributes to stenosis. 3. Mild central canal stenosis L3-L4. 4. Prior LEFT nephrectomy.
--- NOTE | 2023-06-11 | MR_ITS ---
WS: [id number] MRI THORACIC SPINE WITHOUT CONTRAST TECHNIQUE: Sagittal T1, T2 and STIR imaging. Axial T2 imaging. Noncontrast imaging obtained. CLINICAL INFORMATION: m513.34 COMPARISON: Radiograph October 2022 FINDINGS: Osteopenia. Moderate thoracic kyphosis. Chronic compression with anterior wedging and near vertebra p paddy configuration at T7 which appears unchanged since October 24, 2022 radiograph. Trace residual e mirza in the T7 vertebral body. Mild retropulsion T7 with mild central canal stenosis and slight inden tation on the thoracic cord. Cord signal appears normal. More recent appearing compression of the T11 superior endplate with loss of approximately 20% vertebr al body height. No significant retropulsion. No other acute thoracic compression fractures. Tiny central protrusion thoracic spine at C6-C7. Mild bilateral T7-T8 bony foraminal narrowing. Moder ate facet arthropathy lower thoracic spine.Normal caliber thoracic aorta. MR/MR thoracic spin wo con* [id number] IMPRESSION: 1. Acute appearing compression fracture superior endplate T11 with mild edema and approximately 20% loss vertebral body height. No significant retropulsion. 2. Chronic compression with anterior wedging at T7 with vertebral plana deform ity anteriorly. This appears unchanged since the prior radiograph October 2022 . 3. Mild disc bulging T7-T8 with mild central canal stenosis and slight indenta tion on the thoracic cord. Cord signal remains normal.
== END 2023-06-11 15:20 | disposition home or self-care (01) ==
PROVIDERS: PCP Nurse Practitioner Family; Visit Provider General Practice
DX: M51.36 Other intervertebral disc degeneration, lumbar region (principal); S22.089A Unspecified fracture of T11-T12 vertebra, initial encounter for closed fracture; M51.34 Other intervertebral disc degeneration, thoracic region; X58.XXXA Exposure to other specified factors, initial encounter
CPT/HCPCS: 72146; 72148; 97597; 99212; A6210

== ENCOUNTER 2023-06-20 09:00 | Oncology outpatient (recurring) (ONCR) | payer MEDICARE, OTHER, SELFPAY ==
[2023-06-20 09:29] VITALS: BP 112/62; PULSE 70; RESP 20; TEMP 35.8; O2SAT 94
[2023-06-20] MEDS: cyanocobalamin 1,000 mcg/mL SDV 1000 MCG IM (09:30)
== END 2023-07-11 23:59 | disposition home or self-care (01) ==
LOC: ONCMED 09:01
PROVIDERS: PCP Nurse Practitioner Family; Visit Provider Internal Medicine Medical Oncology
DX: E53.8 Deficiency of other specified B group vitamins (principal)
CPT/HCPCS: 96372; J3420

== ENCOUNTER → 2023-06-25 08:40 | Outpatient (BNVA) | payer MEDICARE, OTHER, SELFPAY | PROVIDERS: PCP Nurse Practitioner Family; Visit Provider Nurse Practitioner Family | DX: Z09 Encounter for follow-up examination after completed treatment for conditions other than malignant neoplasm (principal) | CPT/HCPCS: 99212; A6210 ==

== ENCOUNTER → 2023-07-10 09:50 | Outpatient (BNVA) | payer MEDICARE, OTHER, SELFPAY | PROVIDERS: PCP Nurse Practitioner Family; Visit Provider Dermatology | DX: D48.5 Neoplasm of uncertain behavior of skin (principal) | CPT/HCPCS: 11104; 11105 ==

== ENCOUNTER 2023-08-01 11:00 | Oncology outpatient (recurring) (ONCR) | payer MEDICARE, OTHER, SELFPAY ==
[2023-07-18] MEDS: cyanocobalamin 1,000 mcg/mL SDV 1000 MCG IM (09:16)
[2023-07-18 09:20] VITALS: BP 109/53; PULSE 75; RESP 16; TEMP 36.9; O2SAT 92
[2023-08-01 11:11] VITALS: BP 127/63; PULSE 78; RESP 16; TEMP 36.9; O2SAT 90
[2023-08-01 11:17] LABS: Basophils # 0.1 10^3/uL (0.0-0.1); Basophils % 1.1 %; Eosinophils # 0.2 10^3/uL (0.0-0.8); Eosinophils % 2.9 %; Hematocrit 37.9 % (36-47); Lymphocytes # 1.6 10^3/uL (0.8-4.8); Lymphocytes % 20.7 %; Mean Corpuscular HGB Conc 31.1 g/dL (30-55); Mean Corpuscular Hemoglobin 30.4 pg (27-33); Mean Corpuscular Volume 97.7 fl (85-98); Mean Platelet Volume 11.8 fL (7.4-10.4); Monocytes # 0.9 10^3/uL (0.2-0.9); Monocytes % 11.7 %; Neutrophils # 4.76 10^3/uL (1.8-7.7); Neutrophils % 63.3 %; Nucleated Red Blood Cells % 0 %; Platelet Count 271 10^3/cmm (157-399); Red Blood Count 3.88 10^6/uL (3.85-5.65); Red Cell Distribution Width 14.4 % (12.1-15.1); White Blood Count 7.52 10^3/uL (3.29-11.43)
[2023-08-01 11:31] LABS: Alanine Aminotransferase 16 U/L (0-33); Alkaline Phosphatase 91 U/L (35-105); Anion Gap 11.4 (5-19); Aspartate Amino Transferase 27 U/L (0-32); Blood Urea Nitrogen 35 mg/dL (8-23); Calcium 9.4 mg/dL (8.5-10.5); Carbon Dioxide 36 mmol/L (22-29); Chloride 94 mmol/L (98-107); Ferritin 466 ng/mL (15-150); Globulin 3.1 g/dL (1.3-4.6); Glucose 107 mg/dL (65-115); Iron 70 ug/dL (37-145); Osmolality Calculated 292 mOsm/kg (285-295); Percent Saturation 35.3 % (20-50); Potassium 4.4 mmol/L (3.5-5.1); Sodium 137 mmol/L (136-145); Total Bilirubin 0.2 mg/dL (0.15-1.2); Total Iron Binding Capacity 198 mcg/dl; Total Protein 7.1 g/dL (6.6-8.7); Unsaturated Iron Binding 128 ug/dL (112-347)
[2023-08-06 01:00] LABS: Methylmalonic Acid 215 nmol/L (87-318)
== END 2023-08-10 23:59 | disposition home or self-care (01) ==
PROVIDERS: Nurse Practitioner Family; PCP Nurse Practitioner Family; Visit Provider Internal Medicine Medical Oncology
DX: E53.8 Deficiency of other specified B group vitamins (principal); C64.2 Malignant neoplasm of left kidney, except renal pelvis; C78.89 Secondary malignant neoplasm of other digestive organs; D50.8 Other iron deficiency anemias; R53.0 Neoplastic (malignant) related fatigue; R06.02 Shortness of breath; Z99.81 Dependence on supplemental oxygen; Z79.891 Long term (current) use of opiate analgesic; Z53.9 Procedure and treatment not carried out, unspecified reason
CPT/HCPCS: 36415; 80053; 82728; 83540; 83550; 83921; 85025; 96372; 99214; J3420

== ENCOUNTER 2023-10-30 10:54 | Oncology outpatient (recurring) (ONCR) | payer MEDICARE, OTHER, SELFPAY ==
[2023-10-30 11:03] VITALS: BP 117/47; PULSE 72; RESP 18; TEMP 37.1; O2SAT 94
[2023-10-30 11:21] LABS: Basophils # 0.1 10^3/uL (0.0-0.1); Basophils % 0.7 %; Eosinophils # 0.2 10^3/uL (0.0-0.8); Eosinophils % 2.4 %; Hematocrit 37.4 % (36-47); Lymphocytes # 1.4 10^3/uL (0.8-4.8); Lymphocytes % 19.1 %; Mean Corpuscular HGB Conc 32.1 g/dL (30-55); Mean Corpuscular Hemoglobin 29.6 pg (27-33); Mean Corpuscular Volume 92.3 fl (85-98); Mean Platelet Volume 11.3 fL (7.4-10.4); Monocytes # 0.8 10^3/uL (0.2-0.9); Monocytes % 10.8 %; Neutrophils # 4.76 10^3/uL (1.8-7.7); Neutrophils % 66.7 %; Nucleated Red Blood Cells % 0 %; Platelet Count 294 10^3/cmm (157-399); Red Blood Count 4.05 10^6/uL (3.85-5.65); Red Cell Distribution Width 14.4 % (12.1-15.1); White Blood Count 7.13 10^3/uL (3.29-11.43)
[2023-10-30 11:38] LABS: Alanine Aminotransferase 17 U/L (0-33); Alkaline Phosphatase 108 U/L (35-105); Anion Gap 9.4 (5-19); Aspartate Amino Transferase 20 U/L (0-32); Blood Urea Nitrogen 29 mg/dL (8-23); Calcium 9.6 mg/dL (8.5-10.5); Carbon Dioxide 35 mmol/L (22-29); Chloride 94 mmol/L (98-107); Ferritin 333 ng/mL (15-150); Glucose 99 mg/dL (65-115); Iron 61 ug/dL (37-145); Osmolality Calculated 284 mOsm/kg (285-295); Percent Saturation 25.6 % (20-50); Potassium 4.4 mmol/L (3.5-5.1); Sodium 134 mmol/L (136-145); Total Bilirubin 0.3 mg/dL (0.15-1.2); Total Iron Binding Capacity 238 mcg/dl; Unsaturated Iron Binding 177 ug/dL (112-347)
== END 2023-11-10 23:59 | disposition home or self-care (01) ==
LOC: ONCMED 10:55
PROVIDERS: PCP Nurse Practitioner Family; Visit Provider Internal Medicine Medical Oncology
DX: E53.8 Deficiency of other specified B group vitamins (principal); D64.9 Anemia, unspecified; D50.8 Other iron deficiency anemias; C64.2 Malignant neoplasm of left kidney, except renal pelvis; C78.89 Secondary malignant neoplasm of other digestive organs
CPT/HCPCS: 36415; 80053; 82728; 83540; 83550; 85025; 99214

== ENCOUNTER → 2023-11-13 08:47 | Outpatient (BNVA) | payer MEDICARE, OTHER, SELFPAY | PROVIDERS: PCP Nurse Practitioner Family; Visit Provider Nurse Practitioner Family | DX: L72.0 Epidermal cyst (principal); B35.3 Tinea pedis; L57.8 Other skin changes due to chronic exposure to nonionizing radiation; D22.4 Melanocytic nevi of scalp and neck; L81.4 Other melanin hyperpigmentation; S40.912A Unspecified superficial injury of left shoulder, initial encounter; X58.XXXA Exposure to other specified factors, initial encounter | CPT/HCPCS: 10060; 99213 ==

== ENCOUNTER → 2023-12-11 09:59 | Outpatient (BNVA) | payer MEDICARE, OTHER, SELFPAY | PROVIDERS: PCP Nurse Practitioner Family; Visit Provider Dermatology | DX: L72.0 Epidermal cyst (principal); L82.0 Inflamed seborrheic keratosis; L81.4 Other melanin hyperpigmentation; L57.0 Actinic keratosis | CPT/HCPCS: 17000; 17110; 99213 ==

== ENCOUNTER → 2024-01-23 09:18 | Outpatient (BNVA) | payer MEDICARE, OTHER, SELFPAY | PROVIDERS: PCP Nurse Practitioner Family; Visit Provider Internal Medicine Pulmonary Disease | DX: J22 Unspecified acute lower respiratory infection (principal); J44.9 Chronic obstructive pulmonary disease, unspecified; J96.11 Chronic respiratory failure with hypoxia; R60.9 Edema, unspecified; F17.201 Nicotine dependence, unspecified, in remission | CPT/HCPCS: 99214 ==

== ENCOUNTER → 2024-04-01 12:41 | Outpatient (BNVA) | payer MEDICARE, OTHER, SELFPAY | PROVIDERS: PCP Nurse Practitioner Family; Visit Provider Internal Medicine | DX: J44.9 Chronic obstructive pulmonary disease, unspecified (principal); I73.9 Peripheral vascular disease, unspecified; E78.5 Hyperlipidemia, unspecified; I25.10 Atherosclerotic heart disease of native coronary artery without angina pectoris; Z87.891 Personal history of nicotine dependence; I11.0 Hypertensive heart disease with heart failure; I50.9 Heart failure, unspecified | CPT/HCPCS: 99214 ==

== ENCOUNTER 2024-04-18 20:48 | Emergency (ER) | payer MEDICARE, OTHER, SELFPAY ==
[2024-04-18 20:52] VITALS: BP 115/70; PULSE 70; RESP 16; TEMP 36.4; O2SAT 96; BMI 36.6
--- NOTE | 2024-04-18 21:08 | ECG_ITS ---
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 Measurements Intervals [place] Rate: 70 P: 70 SD: 193 QRS: -15 QRSD: 80 T: 48 QT: 388 QTc: 420 Interpretive Statements SINUS RHYTHM POSSIBLE RIGHT VENTRICULAR CONDUCTION DELAY [RSR (QR) IN V1/V2] Compared to ECG 07/12/2022 19:49:43 No significant changes Electronically Signed On 04-19-2024 20:27:58 CDT by Clark Mayo M.D. [id number]
--- NOTE | 2024-04-18 21:08 | XRR_ITS ---
PROCEDURE INFORMATION: Exam: XR Chest Exam date and time: 04/18/2024 9:21 PM Age: 83 years old Clinical indication: Pain; Chest pressure; Prior surgery; Surgery date: 6+ months; Surgery type: Gb. Nephrectomy; Patient HX: Chest discomfort with hypotension. History of renal cancer. ; Additional info: Cp TECHNIQUE: Imaging protocol: Radiologic exam of the chest. Views: 1 view. COMPARISON: CT angio chest PE protcl [id number] 07/12/2022 8:32 PM FINDINGS: Lungs: Bibasilar atelectasis versus infiltrate. Pleural spaces: Unremarkable. No pleural effusion. No pneumothorax. Heart/Mediastinum: Cardiomegaly. Bones/joints: Unremarkable. XR/XR chest 1V portable [id number] IMPRESSION: 1. Bibasilar atelectasis versus infiltrate. 2. Cardiomegaly.
[2024-04-18] MEDS: morphine 4 mg/mL SDV 1 mL IVP (21:22)
[2024-04-18] MEDS: ondansetron 2 mg/ML SDV 2 mL 4 MG IVP (21:22)
[2024-04-18 21:24] LABS: Basophils # 0.1 10^3/uL (0.0-0.1); Basophils % 0.9 %; Eosinophils # 0.3 10^3/uL (0.0-0.8); Eosinophils % 3.5 %; Hematocrit 38.5 % (36-47); Lymphocytes # 1.5 10^3/uL (0.8-4.8); Lymphocytes % 19.8 %; Mean Corpuscular HGB Conc 32.5 g/dL (30-55); Mean Corpuscular Hemoglobin 29.5 pg (27-33); Mean Corpuscular Volume 90.8 fl (85-98); Mean Platelet Volume 10.9 fL (7.4-10.4); Monocytes # 0.8 10^3/uL (0.2-0.9); Monocytes % 10.9 %; Neutrophils # 4.96 10^3/uL (1.8-7.7); Neutrophils % 64.6 %; Nucleated Red Blood Cells % 0 %; Platelet Count 321 10^3/cmm (157-399); Red Blood Count 4.24 10^6/uL (3.85-5.65); Red Cell Distribution Width 14.7 % (12.1-15.1); White Blood Count 7.68 10^3/uL (3.29-11.43)
[2024-04-18 21:41] LABS: Troponin(5th) Baseline 23 ng/L (0-10)
[2024-04-18 21:43] LABS: Alanine Aminotransferase 20 U/L (0-33); Albumin Level 4.1 g/dL (3.5-5.2); Alkaline Phosphatase 107 U/L (35-105); Aspartate Amino Transferase 23 U/L (0-32); Blood Urea Nitrogen 33 mg/dL (8-23); Calcium 9.6 mg/dL (8.5-10.5); Carbon Dioxide 32 mmol/L (22-29); Chloride 94 mmol/L (98-107); Creatinine Clr Calc Pharmacy 52.7887; Globulin 3.3 g/dL (1.3-4.6); Glucose 112 mg/dL (65-115); Lipase 54 U/L (13-60); Osmolality Calculated 290 mOsm/kg (285-295); Sodium 136 mmol/L (136-145); Total Bilirubin 0.2 mg/dL (0.15-1.2); Total Protein 7.4 g/dL (6.6-8.7)
[2024-04-18 21:51] LABS: INR 0.89 (0.8-1.2)
--- NOTE | 2024-04-18 22:27 | W.ED.CHESTPA ---
HPI - Chest Pain General: Chief Complaint: Chest Pain Stated Complaint: n/v bp low headache Time Seen by Provider: 04/18/24 20:57 Source: patient Mode of arrival: ambulatory Limitations: no limitations History of Present Illness: 83-year-old female who is here with multiple complaints that over the last few weeks she has been having some nausea along with chest pain shortness of breath headaches and just not feeling well. She states that she has no chest pain currently she has chronic dyspnea from her COPD she rates her headache a 4 out of 10. She denies any worsening proving factors. Associated symptoms: Reports abdominal pain, dyspnea and nausea; Deny fever(s) or vomiting Review of Systems Const: Denies: fever(s), chills, body aches or change in appetite Eyes: Denies: eye discomfort ENMT: Denies: throat pain or dental pain Card: Reports: chest pain Resp: Reports: dyspnea GI: Reports: abdominal pain and nausea; Denies: vomiting or diarrhea Musc: Reports: back pain; Denies: neck pain Skin/Breast: Denies: rash Neuro: Reports: headache(s) PFSH ED PFSH: Medical History Anemia CHF (congestive heart failure) Acute exacerbation of COPD with asthma Chest pain Acute respiratory failure Anxiety disorder Osteoporosis GERD (gastroesophageal reflux disease) Tobacco abuse, in remission ASHD (arteriosclerotic heart disease) Dyslipidemia HTN (hypertension) PAD (peripheral artery disease) COPD (chronic obstructive pulmonary disease) Renal cell cancer Surgical History Hx of exploratory laparotomy (08/28/18) 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 recurrent renal cell cancer Hx of hemorrhoidectomy Hx of cholecystectomy S/p nephrectomy (2004) Laparoscopic left nephrectomy for renal cell cancer Family History Father CAD (coronary artery disease) Brother CAD (coronary artery disease) Myocardial infarction Sister Psychiatric illness Other Cancer Chronic kidney disease (CKD) Hyperlipidemia Hypertension Lung disease Denies family history of Diabetes Clotting disorder Dementia Suicide Anesthesia complication Bleeding disorder Stroke Social History Smoking and tobacco/nicotine status: former use of tobacco/nicotine Quit status (tobacco/nicotine): has quit using Year quit tobacco: 1991 Former quit date comment: 1ppd X 30 years Alcohol intake: never Lives independently: Yes Marital status: / Pets and animals: Yes Physical Exam Const: COMMON NORMALS: no acute distress, patient oriented x3 and healthy appearing HENMT: COMMON NORMALS: normocephalic and atraumatic HEAD & SCALP: normocephalic and atraumatic Eye: COMMON NORMALS: Equal, round and reactive pupils present and EOMs intact bilaterally PUPIL: Yes Equal, round and reactive pupils present Neck/C-Spine: COMMON NORMALS: full ROM and supple Chest: COMMONS NORMALS: normal inspection of the chest and normal palpation of entire chest wall Resp: COMMON NORMALS: normal respiratory effort, No retractions, No use of accessory muscles and clear to auscultation bilaterally AUSCULTATION: clear to auscultation bilaterally Cardio: COMMON NORMALS: regular rate, regular rhythm and No murmurs present (Cardio) RATE: regular rate RHYTHM: regular rhythm GI: COMMON NORMALS: Normal to inspection, nondistended, normoactive bowel sounds present, Soft to palpation, non-tender and no masses PALPATION: Yes Soft to palpation Extremity: COMMON NORMALS: normal to inspection and full ROM Neuro: COMMON NORMALS: patient oriented x3, moves all extremities and no focal motor deficits Psych: COMMON NORMALS: mental status grossly normal, Normal thought process present and cooperative THOUGHT PROCESS: Normal thought process present Skin: COMMON NORMALS: no rashes or lesions noted and no wounds GENERAL SKIN EXAM: no rashes or lesions noted Course Vital Signs: Vital signs: Vital Signs Temperature 97.5 F L 04/18/24 20:52 Pulse Rate 70 04/18/24 20:52 Respiratory Rate 16 04/18/24 20:52 Blood Pressure 115/70 04/18/24 20:52 Pulse Oximetry 96 04/18/24 20:52 Oxygen Delivery Me thod Nasal Cannula 04/18/24 20:52 Oxygen Flow Rate 3 04/18/24 20:52 MDM - Chest Pain Medical Decision Making Patient presents for multiple complaints she is mainly complaining about back pain here she is also had some abdominal and chest pain her troponins here are negative CT did show compression fractures her pain is improved here blood works normal she is stable for discharge at this time we will place her on pain meds she does see pain management she is to follow-up she is return if worsening her and family understand agree to plan Medical Records I reviewed the patient's medical records. Lab Data I reviewed the patient's lab results. 04/18/24 21:17 04/18/24 21:17 Radiology Impressions Chest X-Ray 04/18/24 21:08 IMPRESSION: 1. Bibasilar atelectasis versus infiltrate. 2. Cardiomegaly. Chest/Abdomen/Pelvis CT 04/18/24 23:07 IMPRESSION: 1. Negative for pulmonary embolus. 2. Emphysematous changes. 3. Bibasilar right greater left atelectasis versus minimal infiltrate. 4. T7 and T11 vertebral body compression fractures, appears progressed the T7 compared to prior exam, negative for retropulsion of bony fragments. 5. Emphysematous changes. 6. Cardiomegaly. 7. Coronary artery atherosclerotic calcifications. 8. Distal esophageal wall thickening, please correlate for esophagitis. 9. Small hiatal hernia. IMPRESSION: 1. Prominent fluid in the small bowel without dilation may reflect an enteritis. 2. Cholecystectomy. 3. Biliary dilation, likely related to prior cholecystectomy. 4. Left kidney is absent. 5. Diverticulosis without diverticulitis. 6. L2 vertebral body compression fracture without retropulsion of bony fragments, age indeterminate. 7. Cholecystectomy. Laboratory Results WBC 7.68 10^3/uL (3.29-11.43) 04/18/24 21:17 RBC 4.24 10^6/uL (3.85-5.65) 04/18/24 21:17 Hgb 12.50 g/dL (11.27-16.99) 04/18/24 21:17 Hct 38.5 % (36-47) 04/18/24 21:17 MCV 90.8 fl (85-98) 04/18/24 21:17 MCH 29.5 pg (27-33) 04/18/24 21:17 MCHC 32.5 g/dL (30-55) 04/18/24 21:17 RDW 14.7 % (12.1-15.1) 04/18/24 21:17 Plt Count 321 10^3/cmm (157-399) 04/18/24 21:17 MPV 10.9 fL (7.4-10.4) H 04/18/24 21:17 Neut % (Auto) 64.6 % 04/18/24 21:17 Lymph % (Auto) 19.8 % 04/18/24 21:17 Stephenson % (Auto) 10.9 % 04/18/24 21:17 Eos % (Auto) 3.5 % 04/18/24 21:17 Baso % (Auto) 0.9 % 04/18/24 21:17 Neut # (Auto) 4.96 10^3/uL (1.8-7.7) 04/18/24 21:17 Lymph # (Auto) 1.5 10^3/uL (0.8-4.8) 04/18/24 21:17 Stephenson # (Auto) 0.8 10^3/uL (0.2-0.9) 04/18/24 21:17 Eos # (Auto) 0.3 10^3/uL (0.0-0.8) 04/18/24 21:17 Baso # (Auto) 0.1 10^3/uL (0.0-0.1) 04/18/24 21:17 Nucleated RBC % (auto) 0 % 04/18/24 21:17 Nucleated RBCs # 0.0 /100WBC 04/18/24 21:17 PT 12.30 SECONDS (12.1-14.9) 04/18/24 21:17 INR 0.89 (0.8-1.2) 04/18/24 21:17 Sodium 136 mmol/L (136-145) 04/18/24 21:17 Potassium 4.0 mmol/L (3.5-5.1) 04/18/24 21:17 Chloride 94 mmol/L (98-107) L 04/18/24 21:17 Carbon Dioxide 32 mmol/L (22-29) H 04/18/24 21:17 Anion Gap 14.0 (5-19) 04/18/24 21:17 BUN 33 mg/dL (8-23) H 04/18/24 21:17 Creatinine 0.8 mg/dL (0.5-0.9) 04/18/24 21:17 GFR Calculation Not Reportable 04/18/24 21:17 Glucose 112 mg/dL (65-115) 04/18/24 21:17 Calculated Osmolality 290 mOsm/kg (285-295) 04/18/24 21:17 Calcium 9.6 mg/dL (8.5-10.5) 04/18/24 21:17 Total Bilirubin 0.2 mg/dL (0.15-1.2) 04/18/24 21:17 AST 23 U/L (0-32) 04/18/24 21:17 ALT 20 U/L (0-33) 04/18/24 21:17 Alkaline Phosphatase 107 U/L (35-105) H 04/18/24 21:17 Troponin T Baseline 23 ng/L (0-10) H 04/18/24 21:17 Troponin T 120 Minute 22.98 ng/L (0-10) H 04/18/24 22:58 Delta Troponin T -0.02 ABS# (0-10) L 04/18/24 22:58 Total Protein 7.4 g/dL (6.6-8.7) 04/18/24 21:17 Albumin 4.1 g/dL (3.5-5.2) 04/18/24 21:17 Globulin 3.3 g/dL (1.3-4.6) 04/18/24 21:17 Lipase 54 U/L (13-60) 04/18/24 21:17 All radiology interpretation(s) finalized by discharge Discharge Plan Discharge Patient Disposition: Home Clinical Impression: Abdominal pain, Compressed spine fracture Condition: Stable Prescriptions: New hydrocodone-acetaminophen 5-325 mg tablet 1 tab PO Q6H PRN (Reason: pain) Qty: 14 0RF ondansetron 4 mg tablet,disintegrating 4 mg PO Q6H PRN (Reason: nausea and vomiting) Qty: 14 0RF No Action albuterol sulfate [Ventolin HFA] 90 mcg/actuation HFA aerosol inhaler 2 puff INHALATION QID PRN (Reason: Shortness Of Breath) nitroglycerin 0.4 mg tablet, sublingual 0.4 mg sublingual Q5M PRN (Reason: Chest Pain) Rx Instructions: do not exceed 3 doses per episode tramadol 50 mg tablet 25 mg PO Q8H MDD 1.5 tabs PRN (Reason: Pain) fluticasone propionate [Allergy Relief (fluticasone)] 50 mcg/actuation spray,suspension 2 spray intranasal DAILY PRN (Reason: Allergy Symptoms) Rx Instructions: administer into each nostril mupirocin 2 % ointment 1 applic topical BID Qty: 22 1RF Rx Instructions: Apply to affected area twice daily until healed. aspirin 81 mg tablet,delayed release (DR/EC) 81 mg PO DAILY pregabalin 25 mg capsule 50 mg PO TID lutein 6 mg capsule 6 mg PO DAILY Rx Instructions: give with meal/snack budesonide 0.5 mg/2 mL suspension for nebulization 0.25 mg inhalation BID budesonide 0.5 mg/2 mL suspension for nebulization 0.5 mg inhalation BID Qty: 120 11RF formoterol fumarate [Perforomist] 20 mcg/2 mL solution for nebulization 2 ml inhalation BID Qty: 120 11RF Yupelri 175 mcg/3 mL solution for nebulization 175 mcg inhalation DAILY Qty: 90 11RF ginkgo biloba 40 mg tablet 40 mg PO DAILY Rx Instructions: give with meal/snack furosemide 40 mg tablet 40 mg PO DAILY Qty: 90 2RF Rx Instructions: 40 mg orally daily; azithromycin 250 mg tablet 250 mg PO .COMPLEX 90 Days Qty: 45 1RF Rx Instructions: 250 mg orally; Saturday magnesium oxide 420 mg Tablet 420 mg PO DAILY Creon 36,000-114,000- 180,000 unit capsule,delayed release(DR/EC) 2 cap PO AC Rx Instructions: and before snacks methocarbamol 750 mg tablet 750 mg PO Q8H PRN (Reason: back muscle spasms and pain) Qty: 20 0RF albuterol sulfate 2.5 mg /3 mL (0.083 %) solution for nebulization 2.5 mg inhalation Q3H PRN (Reason: Shortness Of Breath) potassium chloride 20 mEq tablet,ER particles/crystals 20 meq PO QAM olmesartan 5 mg tablet 5 mg PO QAM coenzyme Q10 [CoQ-10] 100 mg Capsule 100 mg PO DAILY Discharge Orders: Discharge ED (Routine); Ordered 04/19/24 Ordered By: Sumit Thomas Referrals: Lorraine Samaniego, SURG RN [Primary Care Provider] - Discharge Diet: Advance as tolerated Discharge Activity: Resume usual activity Patient Instructions: Vertebral Compression Fracture (ED), Abdominal Pain (ED) Coding Level of Care Code 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
[2024-04-18 23:01] VITALS: BP 138/72; PULSE 88; RESP 16; O2SAT 95
--- NOTE | 2024-04-18 23:07 | CTR_ITS ---
PROCEDURE INFORMATION: Exam: CTA Chest With Contrast Exam date and time: 04/18/2024 11:23 PM Age: 83 years old Clinical indication: Abdominal pain; Generalized; Other: N/a; Chest pressure and radiating; Prior surgery; Surgery date: 6+ months; Surgery type: Gb. Nephrectomy; Patient HX: Chest pain radiating posteriorly with severe abd pain. Hypotensive. History of renal cancer. ; Additional info: Cp/abd pain TECHNIQUE: Imaging protocol: Computed tomographic angiography of the chest with contrast. Exam focused on the arteries. 3D rendering (Not supervised by radiologist): MIP and/or 3D reconstructed images were created by the technologist. Radiation optimization: All CT scans at this facility use at least one of these dose optimization techniques: automated exposure control; mA and/or kV adjustment per patient size (includes targeted exams where dose is matched to clinical indication); or iterative reconstruction. Contrast material: OMNI 350; Contrast volume: 100 ml; Contrast route: INTRAVENOUS (IV); COMPARISON: CT angio chest PE protcl [id number] 07/12/2022 8:32 PM RADIATION DOSE METRICS: Total DLP (mGy-cm): 1864.91 FINDINGS: Pulmonary arteries: Normal. No pulmonary emboli. Aorta: Unremarkable. No aortic aneurysm. No aortic dissection. Lungs: Emphysematous changes. Bibasilar right greater left atelectasis versus minimal infiltrate. Emphysematous changes. Pleural spaces: Unremarkable. No pneumothorax. No pleural effusion. Heart: Cardiomegaly. Coronary arteries: Coronary artery atherosclerotic calcifications. Esophagus: Distal esophageal wall thickening, please correlate for esophagitis. Lymph nodes: Unremarkable. No enlarged lymph nodes. Diaphragm: Small hiatal hernia. Bones/joints: T7 and T11 vertebral body compression fractures, appears progressed the T7 compared to prior exam, negative for retropulsion of bony fragments. Soft tissues: Unremarkable. PROCEDURE INFORMATION: Exam: CT Abdomen And Pelvis With Contrast Exam date and time: 04/18/2024 11:23 PM Age: 83 years old Clinical indication: Abdominal pain; Generalized; Other: N/a; Chest pressure and radiating; Prior surgery; Surgery date: 6+ months; Surgery type: Gb. Nephrectomy; Patient HX: Chest pain radiating posteriorly with severe abd pain. Hypotensive. History of renal cancer. ; Additional info: Cp/abd pain TECHNIQUE: Imaging protocol: Computed tomography of the abdomen and pelvis with contrast. Radiation optimization: All CT scans at this facility use at least one of these dose optimization techniques: automated exposure control; mA and/or kV adjustment per patient size (includes targeted exams where dose is matched to clinical indication); or iterative reconstruction. Contrast material: OMNI 350; Contrast volume: 100 ml; Contrast route: INTRAVENOUS (IV); COMPARISON: CT abdomen pelvis w con* [id number] 10/10/2021 12:22 PM RADIATION DOSE METRICS: Total DLP (mGy-cm): 1864.91 FINDINGS: Liver: Normal. No mass. Gallbladder and bile ducts: Cholecystectomy. Biliary dilation, likely related to prior cholecystectomy. Cholecystectomy. Pancreas: Normal. No ductal dilation. Spleen: Normal. No splenomegaly. Adrenal glands: Normal. No mass. Kidneys and ureters: Left kidney is absent. Stomach and bowel: Prominent fluid in the small bowel without dilation may reflect an enteritis. Diverticulosis without diverticulitis. Appendix: No evidence of appendicitis. Intraperitoneal space: Unremarkable. No free air. No significant fluid collection. Vasculature: Unremarkable. No abdominal aortic aneurysm. Lymph nodes: Unremarkable. No enlarged lymph nodes. Urinary bladder: Unremarkable as visualized. Reproductive: Unremarkable as visualized. Bones/joints: L2 vertebral body compression fracture without retropulsion of bony fragments, age indeterminate. Soft tissues: Unremarkable. CT/CT angio chest w abd pel w con IMPRESSION: 1. Negative for pulmonary embolus. 2. Emphysematous changes. 3. Bibasilar right greater left atelectasis versus minimal infiltrate. 4. T7 and T11 vertebral body compression fractures, appears progressed the T7 compared to prior exam, negative for retropulsion of bony fragments. 5. Emphysematous changes. 6. Cardiomegaly. 7. Coronary artery atherosclerotic calcifications. 8. Distal esophageal wall thickening, please correlate for esophagitis. 9. Small hiatal hernia. IMPRESSION: 1. Prominent fluid in the small bowel without dilation may reflect an enteritis. 2. Cholecystectomy. 3. Biliary dilation, likely related to prior cholecystectomy. 4. Left kidney is absent. 5. Diverticulosis without diverticulitis. 6. L2 vertebral body compression fracture without retropulsion of bony fragments, age indeterminate. 7. Cholecystectomy.
[2024-04-18] MEDS: HYDROmorphone 1 mg/mL INJ 1 mL IVP (23:18)
[2024-04-18 23:19] LABS: Troponin 5 2HR 22.98 ng/L (0-10)
[2024-04-18 23:20] LABS: Troponin 5 2HR Delta -0.02 ABS# (0-10)
[2024-04-18] MEDS: iohexol 350 mg/mL 500 mL Btl (per mL) IV (23:24)
[2024-04-18 23:46] VITALS: BP 128/76; PULSE 82; RESP 16; O2SAT 92
--- NOTE | 2024-04-18 23:47 | PC.NURSE ---
Pt. drowsy after dilaudid pain medication. Pt. oxygen turned to 5L per nasal canula , due to SPO2 at 89% from pain medication .
[2024-04-19 01:06] VITALS: BP 130/69; PULSE 86; RESP 16; O2SAT 91
== END 2024-04-19 01:09 | disposition home or self-care (01) ==
PROVIDERS: Emergency Provider Emergency Medicine; PCP Nurse Practitioner Family
DX: S22.060A Wedge compression fracture of T7-T8 vertebra, initial encounter for closed fracture (principal); S22.080A Wedge compression fracture of T11-T12 vertebra, initial encounter for closed fracture; R10.9 Unspecified abdominal pain; Z79.82 Long term (current) use of aspirin; I11.0 Hypertensive heart disease with heart failure; I50.9 Heart failure, unspecified; J44.9 Chronic obstructive pulmonary disease, unspecified; E78.5 Hyperlipidemia, unspecified; Z85.528 Personal history of other malignant neoplasm of kidney; X58.XXXA Exposure to other specified factors, initial encounter
CPT/HCPCS: 36415; 71045; 71275; 74177; 80053; 83690; 84484; 85025; 85610; 93005; 96374; 96375; 99285; J1170; J2270; J2405; Q9967

== ENCOUNTER → 2024-07-29 10:30 | Outpatient (BNVA) | payer MEDICARE, OTHER, SELFPAY | PROVIDERS: PCP Nurse Practitioner Family; Visit Provider Internal Medicine Critical Care Medicine | DX: J96.21 Acute and chronic respiratory failure with hypoxia (principal); J96.22 Acute and chronic respiratory failure with hypercapnia; J44.1 Chronic obstructive pulmonary disease with (acute) exacerbation; J98.4 Other disorders of lung; K44.9 Diaphragmatic hernia without obstruction or gangrene; K21.9 Gastro-esophageal reflux disease without esophagitis; E66.09 Other obesity due to excess calories; Z68.39 Body mass index [BMI] 39.0-39.9, adult; R29.898 Other symptoms and signs involving the musculoskeletal system; Z71.89 Other specified counseling | CPT/HCPCS: 99214 ==

== ENCOUNTER → 2025-01-29 09:30 | Outpatient (BNVA) | payer MEDICARE, OTHER, SELFPAY | PROVIDERS: PCP Nurse Practitioner Family; Visit Provider Nurse Practitioner Family | DX: L82.1 Other seborrheic keratosis (principal); L81.4 Other melanin hyperpigmentation; L57.8 Other skin changes due to chronic exposure to nonionizing radiation; D22.39 Melanocytic nevi of other parts of face; L82.0 Inflamed seborrheic keratosis; Z78.9 Other specified health status; L29.89 Other pruritus; R20.8 Other disturbances of skin sensation; R58 Hemorrhage, not elsewhere classified; L53.8 Other specified erythematous conditions; L57.0 Actinic keratosis | CPT/HCPCS: 17000; 17110; 99213 ==

== ENCOUNTER 2025-03-06 20:36 | Inpatient (IN) | payer MEDICARE, OTHER, SELFPAY ==
[2025-03-06] VITALS (30 sets, daily range): BP systolic 112–142; BP diastolic 46–67; PULSE 71–100; RESP 12–23; TEMP 36.5; O2SAT 84–99; BMI 28.3
--- NOTE | 2025-03-06 20:45 | ECG_ITS ---
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
--- NOTE | 2025-03-06 21:04 | XRR_ITS ---
PROCEDURE INFORMATION: Exam: XR Chest Exam date and time: 03/06/2025 10:33 PM Age: 84 years old Clinical indication: Shortness of breath; EMS arrival for AMS. Patient very lethargic. Patient has history of copd and is currently hypoxic and hypercapnic requiring bipap. ; Additional info: SOB TECHNIQUE: Imaging protocol: Radiologic exam of the chest. Views: 1 view. COMPARISON: CT angio chest w abd pel w con 04/18/2024 11:23 PM FINDINGS: Lungs: Streaky bibasilar opacities, not significantly changed from 04/18/2024 radiographs allowing for differences in patient positioning and technique. Background emphysema. Pleural spaces: No visible pneumothorax. No large pleural effusion. Heart/Mediastinum: Stable cardiomediastinal silhouette. Bones/joints: No visible acute fracture. XR/XR chest 1V portable [id number] IMPRESSION: Streaky bibasilar opacities, not significantly changed from 04/18/2024 radiographs allowing for differences in patient positioning and technique, most consistent with chronic atelectasis/scarring. No definite new opacities.
--- NOTE | 2025-03-06 21:04 | CTR_ITS ---
PROCEDURE INFORMATION: Exam: CT Head Without Contrast Exam date and time: 03/06/2025 10:21 PM Age: 84 years old Clinical indication: Altered mental status/memory loss; EMS arrival for AMS. Patient very lethargic. Patient has history of copd and is currently hypoxic and hypercapnic requiring bipap. TECHNIQUE: Imaging protocol: Computed tomography of the head without contrast. Radiation optimization: All CT scans at this facility use at least one of these dose optimization techniques: automated exposure control; mA and/or kV adjustment per patient size (includes targeted exams where dose is matched to clinical indication); or iterative reconstruction. COMPARISON: CT head wo con* [id number] 06/18/2022 10:13 AM RADIATION DOSE METRICS: Total DLP (mGy-cm): 1175.58 FINDINGS: Brain: No acute intracranial hemorrhage. No acute territorial region of dick-white dedifferentiation. No extra-axial collection. No mass effect or midline shift. Mild burden of nonspecific white matter hypoattenuation, most commonly sequela of chronic microvascular ischemic change. Generalized parenchymal volume loss. 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 Cerebral ventricles: No acute hydrocephalus. Paranasal sinuses: Visualized sinuses are well-aerated. No fluid levels. Mastoid air cells: Visualized mastoid air cells are well aerated. Orbital cavities: Globes are intact. 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 Bones: No acute calvarial fracture. Soft tissues: No acute abnormality. CT/CT head wo con* [id number] IMPRESSION: No acute intracranial hemorrhage, CT evidence of acute territorial infarct, or mass effect.
[2025-03-06 21:20] LABS: ABG PCO2 98.8 mmHg (35-45); ABG PH Result 7.15 (7.35-7.45); Arterial Blood Gas Hematocrit 38.6 % (37-47); Base Excess ABG 2.8 mmol/L (-2.0-2.0); Blood Gas Allen Test Pos; Blood Gas Sample Site Brachial, right; Blood Gas Sample Type Arterial; Carboxyhemoglobin 1.1 %THgb (0.4-20.1); HCO3 ABG 34.6 mmol/L (22-26); HGB O2 Sat 94.3 % (95-100); Methemoglobin 1.3 % (0.4-1.5); Oxygen Device NC; PO2 ABG 92.1 mmHg (80.0-100.0); Total Hemoglobin 12.6 g/dL (12-16)
[2025-03-06 21:41] LABS: Basophils % 0.5 %; Lymphocytes # 0.7 10^3/uL (0.8-4.8); Lymphocytes % 11.2 %; Mean Corpuscular HGB Conc 29.5 g/dL (30-55); Mean Corpuscular Volume 98.1 fl (85-98); Mean Platelet Volume 12.1 fL (7.4-10.4); Monocytes # 0.5 10^3/uL (0.2-0.9); Monocytes % 7.8 %; Neutrophils # 5.18 10^3/uL (1.8-7.7); Neutrophils % 79.6 %; Nucleated Red Blood Cells % 0 %; Platelet Count 239 10^3/cmm (157-399); Red Blood Count 4.28 10^6/uL (3.85-5.65); Red Cell Distribution Width 15.9 % (12.1-15.1); White Blood Count 6.51 10^3/uL (3.29-11.43)
[2025-03-06 22:04] LABS: Lactic Sepsis W/Reflex 0.7 mmol/L (0.5-2.2)
[2025-03-06 22:05] LABS: Alanine Aminotransferase 32 U/L (0-33); Albumin Level 4.1 g/dL (3.5-5.2); Alkaline Phosphatase 93 U/L (35-105); Anion Gap 13.9 (5-19); Aspartate Amino Transferase 42 U/L (0-32); Blood Urea Nitrogen 46 mg/dL (8-23); Calcium 8.3 mg/dL (8.5-10.5); Carbon Dioxide 31 mmol/L (22-29); Chloride 98 mmol/L (98-107); Creatinine Clr Calc Pharmacy 36.2933; Globulin 2.9 g/dL (1.3-4.6); Glucose 132 mg/dL (65-115); Osmolality Calculated 298 mOsm/kg (285-295); Potassium 5.9 mmol/L (3.5-5.1); Sodium 137 mmol/L (136-145); Total Bilirubin 0.2 mg/dL (0.15-1.2)
[2025-03-06 22:07] LABS: Troponin(5th) Baseline 41 ng/L (0-10)
[2025-03-06 22:14] LABS: NT Pro B Type Natriuretic Pept 1113 pg/mL (0-450)
[2025-03-06 22:47] LABS: Influenza A NEGATIVE (Negative); Influenza B NEGATIVE (Negative); Respiratory Syncytial Virus Ce NEGATIVE (Negative); SARS-CoV-2 PCR NEGATIVE (Negative)
--- NOTE | 2025-03-06 23:05 | ECG_ITS ---
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
--- NOTE | 2025-03-06 23:06 | PM.HP ---
Providers/Chief Complaint Primary Care Provider: FELICIA Orosco Chief Complaint: AMS History of Present Illness Ingrid De Leon is a 84 year old female with a past medical history significant for chronic hypoxic respiratory failure on 2 L baseline, asthma, COPD, diastolic heart failure, coronary artery disease, peripheral vascular disease, renal cancer, tobacco use disorder in remission, anxiety, and multiple other comorbidities who presents emergency department via EMS with respiratory distress and altered mental status. Upon assessment in the emergency department room 13, patient is very lethargic but arousable. Due to her mentation, limited history is obtainable from the patient. Collateral information is collected from ED provider, chart review, and family was bedside. They report the patient was in her usual state of health until the night prior when she fell injuring her left knee for the most part. She has not complained of any new pain or trauma other than chronic arthritic pains. They states that their home health nurse evaluated the patient today and did not find any other new findings from the fall. She does have a skin tear as well as bruising on her left lower extremity. They report patient was found to be altered and confused by an aunt for which EMS was called. She was found to be hypoxic but on supplemental support. In the emergency department, blood gas revealed acute hypercapnia. Intubation was considered but family confirmed DNR/DNI status. Patient was found to be tachypneic and hypoxic. CBC was largely unremarkable. Renal panel showed hyperkalemia to 5.9, metabolic alkalosis, azotemia and elevated NT proBNP to 1113 pg/mL. Rapid flu, RSV and COVID negative. Head CT was negative for acute intracranial findings. Chest showed streaky bibasilar opacities not significantly changed from chest x-ray in April 2024. Patient was treated with IV fluid bolus, vancomycin and Zosyn. Family reports the patient typically uses 2 L of oxygen at baseline chronically. She does not use CPAP or BiPAP. She does live home alone and typically able to take care of herself. She often uses a walker for ambulation. Review of Systems Narrative: A complete review of systems was obtained and is negative except as stated in HPI. Medications/Allergies Home Medications ?Medication ?Instructions ?Recorded ?Confirmed ?Last Taken ?Type albuterol sulfate 90 mcg/actuation 2 puff inhalation QID PRN 12/30/19 07/29/24 07/12/22 History aerosol inhaler (Ventolin HFA) Shortness Of Breath [id number]-[id number]-[id number] 2 cap PO AC 10/02/21 07/29/24 07/12/22 History 36,000-114,000-180,000 unit capsule,delay rel (Creon) magnesium oxide 420 mg tablet 420 mg PO DAILY 10/02/21 07/29/24 07/12/22 History nitroglycerin 0.4 mg sublingual 0.4 mg sublingual Q5M PRN Chest 04/20/22 07/29/24 Unknown History tablet Pain fluticasone propionate 50 2 spray intranasal DAILY PRN 06/13/22 07/29/24 Unknown History mcg/actuation nasal Allergy Symptoms spray,suspension (Allergy Relief (fluticasone)) tramadol 50 mg tablet 25 mg PO Q8H PRN Pain 06/13/22 07/29/24 07/12/22 History albuterol sulfate 2.5 mg/3 mL 2.5 mg inhalation Q3H PRN 06/18/22 07/29/24 07/12/22 17:00 History (0.083 %) solution for nebulization Shortness Of Breath coenzyme Q10 100 mg capsule 100 mg PO DAILY 06/18/22 07/29/24 07/12/22 History (CoQ-10) olmesartan 5 mg tablet 5 mg PO QAM 06/18/22 07/29/24 07/12/22 History potassium chloride 20 mEq 20 meq PO QAM 06/18/22 07/29/24 07/12/22 History tablet,extended release(part/cryst) furosemide 40 mg tablet 40 mg PO DAILY #90 tabs 10/23/22 07/29/24 Unknown Rx methocarbamol 750 mg tablet 750 mg PO Q8H PRN back muscle 10/24/22 07/29/24 Unknown Rx spasms and pain #20 tabs mupirocin 2 % topical ointment 1 applic topical BID #22 grams 10/24/22 07/29/24 Unknown Rx aspirin 81 mg tablet,delayed 81 mg PO DAILY 03/14/23 07/29/24 Unknown History release pregabalin 25 mg capsule 50 mg PO TID 03/14/23 07/29/24 Unknown History lutein 6 mg capsule 6 mg PO DAILY 08/01/23 07/29/24 Unknown History budesonide 0.5 mg/2 mL suspension 0.25 mg inhalation BID 10/30/23 07/29/24 Unknown History for nebulization budesonide 0.5 mg/2 mL suspension 0.5 mg (2 mL) inhalation BID COPD 01/23/24 07/29/24 Unknown Rx for nebulization #120 mL formoterol fumarate 20 mcg/2 mL 2 ml inhalation BID COPD #120 mL 01/23/24 07/29/24 Unknown Rx solution for nebulization (Perforomist) ginkgo biloba 40 mg tablet 40 mg PO DAILY 01/23/24 07/29/24 Unknown History revefenacin 175 mcg/3 mL solution 175 mcg (3 mL) inhalation DAILY 01/23/24 07/29/24 Unknown Rx for nebulization (Judd) COPD #90 mL hydrocodone 5 mg-acetaminophen 325 1 tab PO Q6H PRN pain #14 tabs 04/19/24 07/29/24 Unknown Rx mg tablet ondansetron 4 mg disintegrating 4 mg PO Q6H PRN nausea and 04/19/24 07/29/24 Unknown Rx tablet vomiting #14 tabs azithromycin 250 mg tablet 250 mg PO .COMPLEX 90 days #45 tabs 07/16/24 07/29/24 Unknown Rx cefdinir 300 mg capsule 300 mg PO BID COPD exacerbation 07/29/24 07/29/24 Unknown Rx #14 caps prednisone 10 mg tablet 10 mg PO DAILY #32 tabs 07/29/24 07/29/24 Unknown Rx Allergies Allergy/AdvReac Type Severity Reaction Status Date / Time adhesive tape Allergy Unknown Unknown Verified 07/29/24 10:44 PFSH Acute PFSH: Medical History CHF (congestive heart failure) Anemia Acute exacerbation of COPD with asthma Chest pain Acute respiratory failure Anxiety disorder Osteoporosis GERD (gastroesophageal reflux disease) Tobacco abuse, in remission ASHD (arteriosclerotic heart disease) Dyslipidemia HTN (hypertension) PAD (peripheral artery disease) COPD (chronic obstructive pulmonary disease) Renal cell cancer Surgical History Hx of exploratory laparotomy (08/28/18) 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 recurrent renal cell cancer Hx of hemorrhoidectomy Hx of cholecystectomy S/p nephrectomy (2004) Laparoscopic left nephrectomy for renal cell cancer Family History Father CAD (coronary artery disease) Brother CAD (coronary artery disease) Myocardial infarction Sister Psychiatric illness Other Cancer Chronic kidney disease (CKD) Hyperlipidemia Hypertension Lung disease Denies family history of Diabetes Clotting disorder Dementia Suicide Anesthesia complication Bleeding disorder Stroke Social History Smoking and tobacco/nicotine status: former use of tobacco/nicotine Quit status (tobacco/nicotine): has quit using Year quit tobacco: 1991 Former quit date comment: 1ppd X 30 years Alcohol intake: never Lives independently: Yes Marital status: / Pets and animals: Yes Vitals/I&O/Wt Last Vital Signs Temp 97.7 F 03/06/25 20:46 Pulse 73 03/06/25 22:50 Resp 23 H 03/06/25 21:45 BP 112/67 03/06/25 22:50 Pulse Ox 84 L 03/06/25 22:15 FiO2 87 03/06/25 22:00 03/06/25 03/06/25 03/07/25 14:59 22:59 06:59 Intake Total 0 / 0 Balance 0 / 0 Weight last 48 hrs Weight 68.039 kg Physical Exam Narrative: General: Patient is very lethargic, nearly stuporous. On BiPAP. Head: Normocephalic. Eyes closed. Neck: No JVD. Cardiovascular: RRR. No gallops. No murmurs. Lungs: Poor to moderate air movement. Prolonged expiratory phase. Tachypneic. Slight increased work of breathing. On BiPAP support. Skin: No jaundice. No rashes. Abdomen: Normal bowel sounds, abdomen soft and nontender. Genito Urinary: Genital exam not performed since complaints not related. Rectal: Rectal exam not performed since no symptoms indicated blood loss. Extremities: No cyanosis or clubbing. Musculoskeletal: Both lower extremities were wrapped with gauze. Gauze removed from right lower extremity. Most of callus was removed from left lower extremities for further evaluation which showed skin tear and bruising. Her mid calf was not observed on the left lower leg due to excessive wraps. Neurological: No myoclonus. Lethargic. Data 03/06/25 21:36 03/06/25 21:36 Micro: Microbiology 04/26/25 21:25 Blood Culture - Preliminary Blood SPECIMEN COLLECTED 03/06/25 21:20 Blood Culture - Preliminary Blood SPECIMEN COLLECTED A&P Assessment and plan (1) CHF (congestive heart failure): (2) Dyslipidemia: (3) Class 2 obesity without serious comorbidity with body mass index (BMI) of 39.0 to 39.9 in adult: Qualifiers: Obesity type: due to excess calories Qualified Code(s): E66.09 - Other obesity due to excess calories; Z68.39 - Body mass index [BMI] 39.0-39.9, adult (4) COPD exacerbation: (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: (7) Fall: (8) Skin tear: (9) CO2 narcosis: (10) Hyperkalemia: (11) Metabolic alkalosis: (12) Azotemia: (13) Transaminitis: Plan Acute metabolic encephalopathy with CO2 narcosis - Head CT negative for acute findings - Continue BiPAP treatment - Avoid sedating medications - Supportive care Acute hypercapnic respiratory failure requiring noninvasive mechanical ventilation Acute on chronic hypoxic respiratory failure Acute on chronic asthma/COPD overlap with acute exacerbation Respiratory acidosis with compensatory metabolic alkalosis History of end stage COPD - Start systemic steroids with Solu-Medrol - Pulmicort nebs - Scheduled DuoNebs - Check procalcitonin and CRP - Continue broad-spectrum antibiotics for now Hyperkalemia - Status post IV fluid bolus in ED - Hold ACEI and K supplement - Calcium gluconate ordered - Kayexalate ordered, mentation may not prevent administration - Telemetry monitoring next - Repeat labs in a.m. Mechanical fall Skin tear to left knee - Fall precautions - Treat underlying respiratory disease - Consider wound care consult when available - May benefit from therapy evaluation pending clinical course History of diastolic heart failure - BMP elevated to 1113 pg/mL - Presentation more suspicious for lung disease rather than CHF - Strict I's and O's - Daily assessments of volume - Hold on diuresis History of stroke History of CAD History of PVD History of dysplipidemia - Continue ASA Hx of pancreatic surgery - Continue Creon Chronic pain - Hold home opioids until mentation improves DVT ppx: Lovenox Code: DNR/DNI PDMP PDMP Reviewed: Not Reviewed Attestations Medical Necessity Statement*: Patient presents with altered mental status, found to have CO2 narcosis secondary to respiratory failure with expected hospitalization to cross 2 midnights for IV steroids, IV antibiotics, nebulizing treatments and supportive care. Coding Level of Care Code Acute Code for Chg Fwd Diagnoses CHF (congestive heart failure) I50.9 Dyslipidemia E78.5 Class 2 obesity due to excess calories without serious comorbidity with body mass index (BMI) of 39.0 to 39.9 in adult E66.09; Z68.39 Obesity type: due to excess calories COPD exacerbation J44.1 End stage COPD J44.9 Lacunar stroke I63.81 Fall W19.XXXA Skin tear CO2 narcosis R06.89 Hyperkalemia E87.5 Metabolic alkalosis E87.3 Azotemia R79.89 Transaminitis R74.01
[2025-03-06] MEDS: piperacillin-tazobactam 4.5 GM in sodium chloride 0.9% (plus) 50 ML IV (23:14)
[2025-03-06] MEDS: sodium chloride 0.9% 1,000 ML 999 ML IV (23:14)
--- NOTE | 2025-03-06 23:18 | ED_ITS ---
HPI - Altered Mental Status 2 General: Chief Complaint: Altered Mental Status Stated Complaint: AMS Time Seen by Provider: 03/06/25 20:45 History of Present Illness: 84-year-old female presenting with alter ed mental status. Time of onset is unknown. She was found by air EMS to be hypoxic, not terribly responsive. Upon placing oxygen on the patient, and increasing saturations from low 80s to 90s, she became more responsive. She evidently answers simple questions for them. She denied chest pain. She has had a cough. She is on oxygen at home. Related Data Home Medications ?Medication ?Instructions ?Recorded ?Confirmed albuterol sulfate 90 mcg/actuation 2 puff inhalation Q ID PRN 12/30/19 07/29/24 aerosol inhaler (Ventolin HFA) Shortness Of Breath pechmg-jbpttzas-ludazsk 2 cap PO AC 10/02/21 4 36,000-114,000-180,000 unit capsule,delay rel (Creon) magnesium oxide 420 mg tablet 420 mg PO DAILY 10/02/21 07/29/24 nitroglycerin 0.4 mg sublingual 0.4 mg sublingual Q5M PRN Chest 04/20/22 07/29/24 tablet Pain fluticasone propionate 50 2 spray intranasal DAILY PRN 06/13/22 07/29/24 mcg/actuation nasal Allergy Symptoms spray,suspension (Allergy Relief (fluticasone)) tramadol 50 mg tablet 25 mg PO Q8H PRN Pain 07/29/24 albuterol sulfate 2.5 mg/3 mL 2.5 mg inhalation Q3H AL N 06/18/22 07/29/24 (0.083 %) solution for nebulization Shortness Of Breat h coenzyme Q10 100 mg capsule 100 mg PO DAILY 06/18/22 0 07/29/24 (CoQ-10) olmesartan 5 mg tablet 5 mg PO QAM 06/18/22 4 potassium chloride 20 mEq 20 meq PO QAM 06/18/2207/29 tablet,extended release(part/cryst) aspirin 81 mg tablet,delayed 81 mg PO DAILY 03/14/23 0 07/29/24 release pregabalin 25 mg capsule 50 mg PO TID 03/14/23 lutein 6 mg capsule 6 mg PO DAILY 08/01/2307/29 budesonide 0.5 mg/2 mL suspension 0.25 mg inhalation B ID 10/30/23 07/29/24 for nebulization ginkgo biloba 40 mg tablet 40 mg PO DAILY 01/23/24 Previous Rx's ?Medication ?Instructions ?Recorded furosemide 40 mg tablet 40 mg PO DAILY #90 tabs 10/11 01/30 methocarbamol 750 mg tablet 750 mg PO Q8H PRN back mus lashell 10/24/22 spasms and pain #20 tabs mupirocin 2 % topical ointment 1 applic topical BID #2 2 grams 10/24/22 budesonide 0.5 mg/2 mL suspension 0.5 mg (2 mL) inhala tion BID COPD 01/23/24 for nebulization #120 mL formoterol fumarate 20 mcg/2 mL 2 ml inhalation BID CO PD #120 mL 01/23/24 solution for nebulization (Perforomist) revefenacin 175 mcg/3 mL solution 175 mcg (3 mL) inhal ation DAILY 01/23/24 for nebulization (Yupelri) COPD #90 mL hydrocodone 5 mg-acetaminophen 325 1 tab PO Q6H PRN pa in #14 tabs 04/19/24 mg tablet ondansetron 4 mg disintegrating 4 mg PO Q6H PRN nausea and 04/19/24 tablet vomiting #14 tabs azithromycin 250 mg tablet 250 mg PO .COMPLEX 90 days #45 tabs 07/16/24 cefdinir 300 mg capsule 300 mg PO BID COPD exacerbat ion 07/29/24 #14 caps prednisone 10 mg tablet 10 mg PO DAILY #32 tabs 07/12 07/04 Allergies Allergy/AdvReac Type Severity Reaction Status Date / Time adhesive tape Allergy Unknown Unknown Verified 07/29/24 10:44 PFSH ED 2 PFSH: Medical History CHF (congestive heart failure) Anemia Acute exacerbation of COPD with asthma Chest pain Acute respiratory failure Anxiety disorder Osteoporosis GERD (gastroesophageal reflux disease) Tobacco abuse, in remission ASHD (arteriosclerotic heart disease) Dyslipidemia HTN (hypertension) PAD (peripheral artery disease) COPD (chronic obstructive pulmonary disease) Renal cell cancer Surgical History Hx of exploratory laparotomy (08/28/18) 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 recurrent renal cell cancer Hx of hemorrhoidectomy Hx of cholecystectomy S/p nephrectomy (2004) Laparoscopic left nephrectomy for renal cell cancer Family History Father CAD (coronary artery disease) Brother CAD (coronary artery disease) Myocardial infarction Sister Psychiatric illness Other Cancer Chronic kidney disease (CKD) Hyperlipidemia Hypertension Lung disease Denies family history of Diabetes Clotting disorder Dementia Suicide Anesthesia complication Bleeding disorder Stroke Social History Smoking and tobacco/nicotine status: former use of tobacco/nicotine Quit status (tobacco/nicotine): has quit using Year quit tobacco: 1991 Former quit date comment: 1ppd X 30 years Alcohol intake: never Lives independently: Yes Marital status: / Pets and animals: Yes Physical Exam 2 Const: EXAM LIMITATIONS: altered mental status GENERAL APPEARANCE: c ooperative, lethargic and ill appearing ORIENTATION/CONSCIOUSNESS: Yes lethargic HENMT: COMMON NORMALS: normocephalic and atraumatic HEAD & SCALP: n ormocephalic and atraumatic FACE & SINUS: face symmetric Eye: COMMON NORMALS: Equal, round and reactive pupils present PUPIL: Yes Equal, round and reactive pupils present Resp: EFFORT & INSPECTION: Yes decreased respiratory effort AUSCULTATION: d iminished lung sounds Cardio: COMMON NORMALS: regular rate and regular rhythm RATE: regular rate RHYTHM: regular rhythm GI: COMMON NORMALS: Soft to palpation PALPATION: Yes Soft to palpation Extremity: COMMON NORMALS: capillary refill normal Neuro: [place] COMA SCALE: document GCS findings [place] coma scale eye opening: To sound [place] coma scale verbal response: Words [place] coma scale motor response: Obey commands [place] coma scale total score: 12 S ENSORIUM/ORIENTATION: Yes lethargic Course 2 Vital Signs: Vital signs: Vital Signs Temperature 97.9 F 03/07/25 00:30 Pulse Rate 70 03/07/25 01:19 Respiratory Rate 16 03/07/25 01:19 Blood Pressure 98/59 03/07/25 00:30 Pulse Oximetry 95 03/07/25 01:19 Oxygen Delivery Me thod BiPAP 03/07/25 01:19 Fraction of Inspir ed Oxygen 35 03/07/25 01:19 MDM - Altered Mental Status Medical Decision Making 84-year-old patient with history of COPD, atherosclerotic heart disease, and evidently CHF. On arrival, she is somnolent. She will shake her head yes and no to some questions. She will squeeze my hand, but not hold up 2 fingers. Her pH is 7.15 on arterial blood gas testing with a pCO2 of 99 and PO2 of 92. This was on 5 L of oxygen by nasal cannula. On preparing for elective intubation, we question the family if this was their wishes. It is the family's wish for her the patient not to be intubated. In respect of their wishes, she is placed on BiPAP. Patient maintaining saturations above 90% on BiPAP. Heart rate is 72, blood pressure is 120/66. White count is 6.5, hemoglobin is 12. Potassium is 5.9 with no acute EKG changes. BUN is 46 creatinine is 1.0. Chest x-ray shows bibasilar opacities. She is treated for pneumonia. Lactic acid is normal. Head CT is nonacute. Swabs are negative for COVID flu and RSV. Will repeat ABG on BiPAP. I reinterviewed family. They continue to wish no intubation at this point. She will go to the ICU. Lab Data 03/06/25 21:36 03/06/25 21:36 Radiology Impressions Chest X-Ray 03/06/25 21:04 IMPRESSION: Streaky bibasilar opacities, not significantly changed from 04/18/2024 radiographs allowing for differences in patient positioning and technique, most consistent with chronic atelectasis/scarring. No definite new opacities. Head CT 03/06/25 21:04 IMPRESSION: No acute intracranial hemorrhage, CT evidence of acute territorial infarct, or mass effect. Laboratory Results WBC 6.51 10^3/uL (3.29-11.43) 03/06/25 21:36 RBC 4.28 10^6/uL (3.85-5.65) 03/06/25 21:36 Hgb 12.40 g/dL (11.27-16.99) 03/06/25 21:36 Hct 42.0 % (36-47) 03/06/25 21:36 MCV 98.1 fl (85-98) H 03/06/25 21:36 MCH 29.0 pg (27-33) 03/06/25 21:36 MCHC 29.5 g/dL (30-55) L 03/06/25 21:36 RDW 15.9 % (12.1-15.1) H 03/06/25 21:36 Plt Count 239 10^3/cmm (157-399) 03/06/25 21:36 MPV 12.1 fL (7.4-10.4) H 03/06/25 21:36 Neut % (Auto) 79.6 % 03/06/25 21:36 Lymph % (Auto) 11.2 % 03/06/25 21:36 Jessamine % (Auto) 7.8 % 03/06/25 21:36 Eos % (Auto) 0.0 % 03/06/25 21:36 Baso % (Auto) 0.5 % 03/06/25 21:36 Neut # (Auto) 5.18 10^3/uL (1.8-7.7) 03/06/25 21:36 Lymph # (Auto) 0.7 10^3/uL (0.8-4.8) L 03/06/25 21:36 Jessamine # (Auto) 0.5 10^3/uL (0.2-0.9) 03/06/25 21:36 Eos # (Auto) 0.0 10^3/uL (0.0-0.8) 03/06/25 21:36 Baso # (Auto) 0.0 10^3/uL (0.0-0.1) 03/06/25 21:36 Nucleated RBC % (auto) 0 % 03/06/25 21:36 Nucleated RBCs # 0.0 /100WBC 03/06/25 21:36 Specimen Type Arterial 03/06/25 21:09 Sample Site Brachial, right 03/06/25 21:09 ABG pH 7.15 (7.35-7.45) L* 03/06/25 21:09 ABG pCO2 98.8 mmHg (35-45) H* 03/06/25 21:09 ABG pO2 92.1 mmHg (80.0-100.0) 03/06/25 21:09 ABG HCO3 34.6 mmol/L (22-26) H 03/06/25 21:09 ABG Base Excess 2.8 mmol/L (-2.0-2.0) H 03/06/25 21:09 Mateo Test Pos 03/06/25 21:09 Hematocrit 38.6 % (37-47) 03/06/25 21:09 Hgb O2 Saturation 94.3 % (95-100) L 03/06/25 21:09 Carboxyhemoglobin 1.1 %THgb (0.4-20.1) 03/06/25 21:09 Methemoglobin 1.3 % (0.4-1.5) 03/06/25 21:09 Total Hemoglobin 12.6 g/dL (12-16) 03/06/25 21:09 O2 Delivery Device Nc 03/06/25 21:09 O2 Liters/Min 6.0 % 03/06/25 21:09 Mechanical And [employer] Car Checker ID [email or web address] 03/06/25 21:09 Sodium 137 mmol/L (136-145) 03/06/25 21:36 Potassium 5.9 mmol/L (3.5-5.1) H 03/06/25 21:36 Chloride 98 mmol/L (98-107) 03/06/25 21:36 Carbon Dioxide 31 mmol/L (22-29) H 03/06/25 21:36 Anion Gap 13.9 (5-19) 03/06/25 21:36 BUN 46 mg/dL (8-23) H 03/06/25 21:36 Creatinine 1.0 mg/dL (0.5-0.9) H 03/06/25 21:36 GFR Calculation Not Reportable 03/06/25 21:36 Glucose 132 mg/dL (65-115) H 03/06/25 21:36 Calculated Osmolality 298 mOsm/kg (285-295) H 03/06/25 21:36 Lactic Acid 0.7 mmol/L (0.5-2.2) 03/06/25 21:36 Calcium 8.3 mg/dL (8.5-10.5) L 03/06/25 21:36 Total Bilirubin 0.2 mg/dL (0.15-1.2) 03/06/25 21:36 AST 42 U/L (0-32) H 03/06/25 21:36 ALT 32 U/L (0-33) 03/06/25 21:36 Alkaline Phosphatase 93 U/L (35-105) 03/06/25 21:36 Troponin T Baseline 41 ng/L (0-10) H 03/06/25 21:36 Troponin T 120 Minute 37.88 ng/L (0-10) H 03/06/25 23:20 Delta Troponin T -3.12 ABS# (0-10) L 03/06/25 23:20 NT-Pro-B Natriuret Pep 1113 pg/mL (0-450) H 03/06/25 21:36 Total Protein 7.0 g/dL (6.6-8.7) 03/06/25 21:36 Albumin 4.1 g/dL (3.5-5.2) 03/06/25 21:36 Globulin 2.9 g/dL (1.3-4.6) 03/06/25 21:36 Influenza A (PCR) Negative (Negative) 03/06/25 21:55 Influenza Type B (PCR) Negative (Negative) 03/06/25 21:55 RSV (PCR) Negative (Negative) 03/06/25 21:55 SARS-CoV-2 (PCR) Negative (Negative) 03/06/25 21:55 All radiology interpretation(s) finalized by discharge Critical Care Time 2 Critical Care Time: Critical Care Time: Yes Total Critical Care Time: 40 Attestation: This case had a high probability of a clinically significant, sudden, or life threatening deterioration of this patient's condition which required my full and direct attention, intervention and personal management. Time does not include any procedures performed. Discharge Plan Discharge Patient Disposition: Admitted As Inpatient Admit Provider: Osmel Cheema Clinical Impression: Acute on chronic respiratory failure with hypoxia and hypercapnia, COPD (chronic obstructive pulmonary disease) Condition: Critical Coding Level of Care Code ED Academic Success Coordinator for Dixon Gottlieb
[2025-03-06 23:46] LABS: Troponin 5 2HR 37.88 ng/L (0-10)
[2025-03-06] MEDS: VANCOMYCIN ADD-Vantage 1,000 MG in 0.9% NaCl ADD-Vantage 250 ML 250 MG IV (23:47)
[2025-03-06 23:54] LABS: Troponin 5 2HR Delta -3.12 ABS# (0-10)
[2025-03-07] VITALS (55 sets, daily range): BP systolic 83–165; BP diastolic 41–77; PULSE 68–89; RESP 15–27; TEMP 36.2–37.8; O2SAT 85–99
[2025-03-07] MEDS: ipratropium-albuterol 3 mL Neb INHALATION ×7 (01:19→23:41)
[2025-03-07] MEDS: enoxaparin 40 mg/0.4 mL Syringe SUBCUT (01:32)
[2025-03-07] MEDS: methylPREDNISolone sod succ 40 mg/mL INJ IVP ×4 (01:32→17:18)
[2025-03-07] MEDS: cefTRIAXone 1,000 mg SDV 1000 MG IVP (01:32)
[2025-03-07] MEDS: calcium gluconate 0.9% NaCL 1 GM/50 ML PREMIX IV (01:33)
[2025-03-07] MEDS: AZITHROMYCIN ADD-Vantage 500 MG in 0.9% NaCl ADD-Vantage 250 ML 250 MG IV ×2 (01:33→23:04)
[2025-03-07 05:28] LABS: MRSA PCR OZH (swab) NOT DETECTED (Not Detecte)
[2025-03-07 05:37] LABS: Basophils % 0.2 %; Hematocrit 40.3 % (36-47); Lymphocytes # 1.2 10^3/uL (0.8-4.8); Lymphocytes % 13.9 %; Mean Corpuscular Hemoglobin 28.8 pg (27-33); Mean Corpuscular Volume 99.3 fl (85-98); Mean Platelet Volume 12.3 fL (7.4-10.4); Monocytes # 0.7 10^3/uL (0.2-0.9); Monocytes % 7.6 %; Neutrophils # 6.77 10^3/uL (1.8-7.7); Nucleated Red Blood Cells % 0 %; Platelet Count 212 10^3/cmm (157-399); Red Blood Count 4.06 10^6/uL (3.85-5.65); Red Cell Distribution Width 16.2 % (12.1-15.1); White Blood Count 8.79 10^3/uL (3.29-11.43)
[2025-03-07 05:58] LABS: Troponin 5 6HR 37.68 ng/L (0-10)
[2025-03-07 05:59] LABS: Troponin 5 6HR Delta -3.32 ng/L (0-12)
[2025-03-07 06:05] LABS: Alanine Aminotransferase 28 U/L (0-33); Albumin Level 3.4 g/dL (3.5-5.2); Alkaline Phosphatase 80 U/L (35-105); Anion Gap 13.2 (5-19); Aspartate Amino Transferase 37 U/L (0-32); Blood Urea Nitrogen 49 mg/dL (8-23); Calcium 7.8 mg/dL (8.5-10.5); Carbon Dioxide 30 mmol/L (22-29); Chloride 101 mmol/L (98-107); Creatinine Clr Calc Pharmacy 40.2765; Globulin 2.9 g/dL (1.3-4.6); Glucose 115 mg/dL (65-115); Magnesium 2.9 mg/dL (1.7-2.3); Osmolality Calculated 302 mOsm/kg (285-295); Phosphorus 4.3 mg/dL (2.5-4.5); Potassium 5.2 mmol/L (3.5-5.1); Sodium 139 mmol/L (136-145); Total Bilirubin 0.2 mg/dL (0.15-1.2); Total Protein 6.3 g/dL (6.6-8.7)
[2025-03-07] MEDS: budesonide 0.5 mg/2 mL Neb INHALATION ×2 (07:40→19:50)
[2025-03-07 08:32] LABS: Arterial Blood Gas Hematocrit 37.2 % (37-47); Base Excess ABG 1.1 mmol/L (-2.0-2.0); Blood Gas Allen Test Pos; Blood Gas Operator Identificat BROMA; Blood Gas Sample Site Radial, right; Blood Gas Sample Type Arterial; HCO3 ABG 31.8 mmol/L (22-26); Oxygen Device BIPAP; PO2 ABG 83.8 mmHg (80.0-100.0); PO2 FiO2 Ratio Arterial Blood 239
[2025-03-07 08:34] LABS: ABG PCO2 86.5 mmHg (35-45); ABG PH Result 7.17 (7.35-7.45)
--- NOTE | 2025-03-07 09:46 | CTR_ITS ---
PROCEDURE INFORMATION: Exam: CTA Chest With Contrast Exam date and time: 03/07/2025 11:52 AM Age: 84 years old Clinical indication: Abdominal tenderness; Shortness of breath; Additional info: SOB TECHNIQUE: Imaging protocol: Computed tomographic angiography of the chest with contrast. Exam focused on the arteries. 3D rendering (Not supervised by radiologist): MIP and/or 3D reconstructed images were created by the technologist. Radiation optimization: All CT scans at this facility use at least one of these dose optimization techniques: automated exposure control; mA and/or kV adjustment per patient size (includes targeted exams where dose is matched to clinical indication); or iterative reconstruction. Contrast material: OMNIPAQUE 350; Contrast volume: 100 ml; Contrast route: INTRAVENOUS (IV); COMPARISON: CT angio chest w abd pel w con 04/18/2024 11:23 PM RADIATION DOSE METRICS: Total DLP (mGy-cm): 1516.83 FINDINGS: Pulmonary arteries: No filling defects in the pulmonary arteries to suggest pulmonary embolism. Aorta: No evidence for aortic aneurysm or aortic dissection. Other arteries: Stable moderate atherosclerotic calcifications in the visualized arteries. Trachea: Tracheobronchial structures are patent. Lungs: Stable cylindrical bronchiectasis in the right and left lower lobes. Stable linear scarring in the mid and lower lungs. Interval development of dependent atelectasis in the right and left lower lobes. Calcified granuloma in the right middle lobe. Pleural spaces: No pneumothorax. No pleural effusion. Heart: Stable moderate enlargement of the heart. Coronary arteries: Stable moderate atherosclerotic calcification in the coronary arteries. Esophagus: The esophagus is unremarkable. Mediastinal space: No mediastinal hematoma. No pneumomediastinum. Lymph nodes: Calcified lymph nodes in the mediastinum and left hilum. Bones/joints: Bones are diffusely osteopenic. Degenerative changes in the spine and shoulders. Old, severe compression deformity of T8. Old, moderate compression deformity of T11. Osseous findings are stable. Soft tissues: No acute abnormality in the extrathoracic soft tissues. PROCEDURE INFORMATION: Exam: CT Abdomen And Pelvis With Contrast Exam date and time: 03/07/2025 11:52 AM Age: 84 years old Clinical indication: Abdominal tenderness; Shortness of breath; Additional info: SOB TECHNIQUE: Imaging protocol: Computed tomography of the abdomen and pelvis with contrast. Radiation optimization: All CT scans at this facility use at least one of these dose optimization techniques: automated exposure control; mA and/or kV adjustment per patient size (includes targeted exams where dose is matched to clinical indication); or iterative reconstruction. Contrast material: OMNIPAQUE 350; Contrast volume: 100 ml; Contrast route: INTRAVENOUS (IV); COMPARISON: CT abdomen pelvis w con* [id number] 10/10/2021 12:22 PM RADIATION DOSE METRICS: Total DLP (mGy-cm): 1516.8 FINDINGS: Liver: The liver is unremarkable. Gallbladder and biliary ducts: Stable findings consistent with a previous cholecystectomy. No biliary ductal dilatation. 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 No pancreatic ductal dilatation. 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 Adrenal glands: Stable nodularity of the right and left adrenal glands. Kidneys and ureters: The right kidney is unremarkable. The right ureter is unremarkable. Stable findings consistent with a previous left nephrectomy. Stomach and bowel: The rectum is distended and stool-filled. No wall thickening. No pneumatosis. No acute abnormality in the small bowel. No acute abnormality in the stomach. Appendix: Appendix not definitely visualized. No inflammatory changes in the pericecal region however. Intraperitoneal space: No free intraperitoneal air. No ascites. No loculated fluid collections to suggest an abscess. Vasculature: Stable moderate atherosclerotic calcifications in the visualized arteries. No evidence for aortic aneurysm or aortic dissection. The splenic vein has been surgically removed. Hepatic veins, portal veins, and SMV are patent. Lymph nodes: No lymphadenopathy. Urinary bladder: The bladder is decompressed by a Harmon catheter. Reproductive: Unremarkable as visualized. Bones/joints: Bones are diffusely osteopenic. Old, moderate compression deformities of L1 and L2. Soft tissues: No acute abnormality in the extra-abdominal soft tissues. CT/CT angio chest w abd pel w con IMPRESSION: 1. No evidence for pulmonary embolism. 2. Interval development of dependent atelectasis in the right and left lower lobes. 3. Incidental/nonacute findings are listed in the report. IMPRESSION: 1. The rectum is distended and stool-filled. No wall thickening. No pneumatosis. 2. Incidental/nonacute findings are listed in the report.
--- NOTE | 2025-03-07 09:46 | USR_ITS ---
PROCEDURE INFORMATION: Exam: US Duplex Lower Extremity Veins, Bilateral Exam date and time: 03/07/2025 1:16 PM Age: 84 years old Clinical indication: Swelling (edema) of limb; Lower extremity, bilateral TECHNIQUE: Imaging protocol: Real-time duplex ultrasound of the bilateral extremities with 2-D dick scale, color Doppler flow and spectral waveform analysis including responses to compression and other maneuvers (when performed) with image documentation. Complete exam focused on the lower extremity veins. COMPARISON: US ROR venous duplex [facility] 04/29/2023 4:26 PM FINDINGS: Right deep veins: The common femoral, femoral, proximal profunda femoral, popliteal, posterior tibial, and peroneal veins are patent without thrombus. Normal compressibility and/or augmentation response. Left deep veins: The common femoral, femoral, proximal profunda femoral, popliteal, posterior tibial, and peroneal veins are patent without thrombus. Normal compressibility and/or augmentation response. Superficial veins: Greater saphenous veins at the saphenofemoral junctions are patent bilaterally without thrombus. Soft tissues: Small Murry's cyst in the right popliteal fossa. Vaxk-[id number] subcutaneous edema in the right and left lower legs. US/CV venous duplex [facility] [id number] IMPRESSION: 1. No evidence for deep venous thrombosis in the right or left lower extremities. 2. Small Murry's cyst in the right popliteal fossa. 3. Wsyp-sx-[id number] subcutaneous edema in the right and left lower legs.
[2025-03-07] MEDS: FUROsemide 10 mg/mL SDV 4mL 40 MG IVP ×2 (11:16→20:51)
--- NOTE | 2025-03-07 11:30 | PC.PHAR ---
Family States they know for sure Patient took her medication on Saturday. Family wasn't sure about Saturday.
[2025-03-07] MEDS: iohexol 350 mg/mL 500 mL Btl (per mL) IV (12:15)
[2025-03-07 13:38] LABS: ABG PH Result 7.22 (7.35-7.45); Alveolar-Arterial Oxygen Gradi 12.3 mmHg (5-10); Arterial Blood Gas Hematocrit 37.2 % (37-47); Blood Gas Allen Test Pos; Blood Gas Operator Identificat BROMA; Blood Gas Sample Site Radial, left; Blood Gas Sample Type Arterial; Carboxyhemoglobin 1.1 %THgb (0.4-20.1); HCO3 ABG 30.7 mmol/L (22-26); HGB O2 Sat 90.6 % (95-100); Ionized Calcium Level - ABG 1.1 mmol/L (1.1-1.4); Methemoglobin 1.2 % (0.4-1.5); Oxygen Device BIPAP; Oxygen Saturation ABG 92.8; PO2 ABG 65.6 mmHg (80.0-100.0); PO2 FiO2 Ratio Arterial Blood 187; Potassium Level - ABG 4.9 mmol/L (3.5-5.0); Total Hemoglobin 12.1 g/dL (12-16)
[2025-03-07 13:40] LABS: ABG PCO2 75.6 mmHg (35-45)
--- NOTE | 2025-03-07 14:18 | P.PN_ITS ---
Subjective 2 Subjective: - Patient was examined this morning, cur rently on BiPAP, in mild to moderate respiratory distress, nasal flaring, intercostal retractions suprasternal retractions, she is short of breath with a few words, but she can follow commands, she is alert to person, not place, time she is able to move bilateral upper lower extremities - Repeat ABG shows PCO2 improved to 86.5 , discussed with respiratory therapy switched to AVAPS, - She does have bilateral extreme edema started on Lasix, CT chest abdomen pelvis venous ultrasound - Repeat ABG in the afternoon shows a pC O2 of 75.6, reviewed outpatient physician's notes, patient has end-stage COPD, chronic restrictive lung disease, hiatal hernia, obesity, severe deconditioning Vitals/I&O/Wt Last Vital Signs Temp 98.3 F 03/07/25 13:00 Pulse 78 03/07/25 13:00 Resp 17 03/07/25 13:00 BP 118/53 03/07/25 13:00 Pulse Ox 94 03/07/25 13:00 O2 Del Method BiPAP 03/07/25 11:10 FiO2 35 03/07/25 11:10 03/06/25 03/07/25 03/07/25 22:59 06:59 14:59 Intake Total 0 / 0 1600 / 1600 Balance 0 / 0 1600 / 1600 Weight last 48 hrs Weight 98.883 kg Weight 99.246 kg Weight 68.039 kg Physical Exam 2 Const: EXAM LIMITATIONS: altered mental status GENERAL APPEARANCE: ill appearing ORIENTATION/CONSCIOUSNESS: Yes awake, Yes oriented to person and Yes confused; not oriented to place and not oriented to time Eye: COMMON NORMALS: Equal, round and reactive pupils present PUPIL: Yes Equal, round and reactive pupils present Resp: OTHER: Wheezing and crackles in all lung felix, tachypnea, nasal flaring, intercostal retractions, suprasternal retractions, mild to moderate respiratory failure Cardio: COMMON NORMALS: regular rate, regular rhythm, S1 normal heart sound present and S2 normal heart sound present RATE: regular rate RHYTHM: r egular rhythm HEART SOUNDS: S1 normal heart sound present and S2 normal heart sound present GI: COMMON NORMALS: Normal to inspection, nondistended, normoactive bowel sounds present, Soft to palpation and non-tender PALPATION: Yes Soft to palpation Extremity: NARRATIVE EXTREMITY EXAM: 2+ pitting edema Neuro: SENSORIUM/ORIENTATION: Yes oriented to person, No oriented to place and No oriented to time Urinary Catheter Management: Harmon: Cath Placed During This Visit: yes Reason for Continuing Indwelling Catheter: Accurate Measurement of Urinary Output in Critically Ill Patients Urinary Catheter Date of Insertion: 03/07/25 Urinary Catheter Time of Insertion: 02:05 Sepsis: Is patient septic: Yes Focused sepsis exam performed: Yes F ocused sepsis exam: DP PT pulses palpable, cap refill greater than 2 seconds, no mottling Date exam was performed: 03/07/25 Time exam was performed: 08:30 Data 03/07/25 05:10 03/07/25 05:10 Micro: Microbiology 03/06/25 21:25 Blood Culture - Preliminary Blood SPECIMEN COLLECTED 03/06/25 21:20 Blood Culture - Preliminary Blood SPECIMEN COLLECTED A&P Assessment and plan (1) CHF (congestive heart failure): (2) Dyslipidemia: (3) Class 2 obesity without serious comorbidity with body mass index (BMI) of 39.0 to 39.9 in adult: Qualifiers: Obesity type: due to excess calories Qualified Code(s): E66.09 - Other obesity due to excess calories; Z68.39 - Body mass index [BMI] 39.0-39.9, adult (4) COPD exacerbation: (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: (7) Fall: (8) Skin tear: (9) CO2 narcosis: (10) Hyperkalemia: (11) Metabolic alkalosis: (12) Azotemia: (13) Transaminitis: (14) Pneumonia: Qualifiers: Laterality: right Lung location: lower lobe of lung Pneumonia type: d ue to unspecified organism Qualified Code(s): J18.9 - Pneumonia, unspecified organism Plan Acute metabolic encephalopathy - Secondary to CO2 narcosis -Pneumonia - Head CT negative for acute findings - Continue BiPAP treatment - Avoid sedating medications - Supportive care Acute hypercapnic respiratory failure requiring noninvasive mechanical ventilation Acute on chronic hypoxic respiratory failure Acute on chronic asthma/COPD overlap with acute exacerbation Respiratory acidosis with compensatory metabolic alkalosis History of end stage COPD With pneumonia With systolic and diastolic CHF exacerbation Plan -CT CT angiogram of the chest -Continue Solu-Medrol 40 mg IV every 6 hours - Pulmicort nebs - Scheduled DuoNebs - Continue Rocephin - Continue azithromycin Sepsis, sepsis features met given acute respiratory failure, acute respiratory distress, pneumonia - Secondary to pneumonia - Continue to monitor Hyperkalemia -will be receiving Lasix - Telemetry monitoring next - Repeat labs Mechanical fall Skin tear to left knee - Fall precautions - Treat underlying respiratory disease - Consider wound care consult when available - History of diastolic heart failure - BMP elevated to 1113 pg/mL - Lasix 40 IV twice daily - Strict I's and O's - Daily assessments of volume History of stroke History of CAD History of PVD History of dysplipidemia - Continue ASA Hx of pancreatic surgery - Continue Creon Chronic pain - Hold home opioids until mentation improves DVT ppx: Lovenox Code: DNR/DNI Plan for today, venous ultrasound, CT chest abdomen pelvis, continue to monitor ABG resp monitor respiratory status IV antibiotics, IV steroids, continue BiPAP, continue Lasix, keep n.p.o. PDMP PDMP Reviewed: Not Reviewed Attestations 2 Medical Necessity Statement*: Patient requires hospitalization, inpatient, greater than 2 midnights, for acute hypercarbic respiratory failure with acute encephalopathy, with pneumonia, with CHF, with COPD Diagnoses CHF (congestive heart failure) I50.9 Dyslipidemia E78.5 Class 2 obesity due to excess calories without serious comorbidity with body mass index (BMI) of 39.0 to 39.9 in adult E66.09; Z68.39 Obesity type: due to excess calories COPD exacerbation J44.1 End stage COPD J44.9 Lacunar stroke I63.81 Fall W19.XXXA Skin tear CO2 narcosis R06.89 Hyperkalemia E87.5 Metabolic alkalosis E87.3 Azotemia R79.89 Transaminitis R74.01 Pneumonia J18.9 Laterality: right Lung location: lower lobe of lung Pneumonia type: due to unspecified organism
[2025-03-07] MEDS: dexmedeTOMIDine 0.9 % NaCL 400 MCG/100 ML PREMIX IV (15:40)
[2025-03-07] MEDS: dexmedeTOMIDine 0.9 % NaCL 400 MCG/100 ML PREMIX 24.72 MCG IV (19:43)
[2025-03-07] MEDS: dexmedeTOMIDine 0.9 % NaCL 400 MCG/100 ML PREMIX 29.67 MCG IV (23:04)
[2025-03-08] VITALS (40 sets, daily range): BP systolic 117–185; BP diastolic 56–99; PULSE 64–129; RESP 14–23; TEMP 36.4–37; O2SAT 88–97
[2025-03-08] MEDS: enoxaparin 40 mg/0.4 mL Syringe SUBCUT (00:20)
[2025-03-08] MEDS: methylPREDNISolone sod succ 40 mg/mL INJ IVP ×4 (00:20→17:19)
[2025-03-08] MEDS: cefTRIAXone 1,000 mg SDV 1000 MG IVP (00:20)
[2025-03-08] MEDS: dexmedeTOMIDine 0.9 % NaCL 400 MCG/100 ML PREMIX 27.19 MCG IV (02:38)
[2025-03-08] MEDS: ipratropium-albuterol 3 mL Neb INHALATION ×5 (02:59→20:22)
--- NOTE | 2025-03-08 03:24 | PC.NURSE ---
Blood pressures with systolic in 170's consistently, telephone order for 10 mg ivp hydralazine once per Dr. Cheema.
[2025-03-08] MEDS: hyDRALAzine 20 mg/mL INJ 1 mL 10 MG IVP (03:28)
[2025-03-08] MEDS: dexmedeTOMIDine 0.9 % NaCL 400 MCG/100 ML PREMIX 24.72 MCG IV (06:59)
[2025-03-08] MEDS: budesonide 0.5 mg/2 mL Neb INHALATION ×2 (08:18→20:21)
--- NOTE | 2025-03-08 08:30 | PC.NURSE ---
Agree with SN Andre critical care assessment.
[2025-03-08] MEDS: FUROsemide 10 mg/mL SDV 4mL 40 MG IVP (08:52)
[2025-03-08] MEDS: aspirin 81 mg EC Tablet PO (08:52)
[2025-03-08 09:20] LABS: Hematocrit 40.5 % (36-47); Lymphocytes # 0.8 10^3/uL (0.8-4.8); Lymphocytes % 11.1 %; Mean Corpuscular HGB Conc 30.9 g/dL (30-55); Mean Corpuscular Hemoglobin 28.3 pg (27-33); Mean Corpuscular Volume 91.8 fl (85-98); Monocytes # 0.4 10^3/uL (0.2-0.9); Monocytes % 5.8 %; Neutrophils # 6.16 10^3/uL (1.8-7.7); Neutrophils % 82.7 %; Nucleated Red Blood Cells % 0 %; Platelet Count 257 10^3/cmm (157-399); Red Blood Count 4.41 10^6/uL (3.85-5.65); White Blood Count 7.45 10^3/uL (3.29-11.43)
[2025-03-08 09:31] LABS: ABG PCO2 53.2 mmHg (35-45); Arterial Blood Gas Hematocrit 40.9 % (37-47); Base Excess ABG 6.5 mmol/L (-2.0-2.0); Blood Gas Allen Test Pos; Blood Gas Operator Identificat GD; Blood Gas Sample Site Radial, right; Blood Gas Sample Type Arterial; HCO3 ABG 32.8 mmol/L (22-26); Oxygen Device BIPAP; PO2 ABG 78.4 mmHg (80.0-100.0); PO2 FiO2 Ratio Arterial Blood 224
[2025-03-08 09:47] LABS: Procalcitonin 0.11 ng/mL (0-0.5)
[2025-03-08 09:59] LABS: Alanine Aminotransferase 26 U/L (0-33); Albumin Level 3.8 g/dL (3.5-5.2); Alkaline Phosphatase 79 U/L (35-105); Anion Gap 16.7 (5-19); Aspartate Amino Transferase 30 U/L (0-32); Blood Urea Nitrogen 49 mg/dL (8-23); C Reactive Protein 10.5 mg/L (0.0-4.9); Calcium 8.3 mg/dL (8.5-10.5); Carbon Dioxide 30 mmol/L (22-29); Chloride 100 mmol/L (98-107); Creatinine Clr Calc Pharmacy 48.5103; Globulin 3.2 g/dL (1.3-4.6); Glucose 194 mg/dL (65-115); Osmolality Calculated 312 mOsm/kg (285-295); Potassium 4.7 mmol/L (3.5-5.1); Sodium 142 mmol/L (136-145); Total Bilirubin 0.2 mg/dL (0.15-1.2)
--- NOTE | 2025-03-08 10:14 | PC.NURSE ---
Placed on 3L NC per RT after abd completed.
[2025-03-08] MEDS: dexmedeTOMIDine 0.9 % NaCL 400 MCG/100 ML PREMIX 19.78 MCG IV (10:40)
--- NOTE | 2025-03-08 11:08 | PC.NURSE ---
Patient asking for purse and son Fish at bedside asking where patients dentures are. Notified son that it was never documented that her purse are dentures were with her when she arrived in the ICU. Patients son Fish called patients other son Walker and verified that he had taken her purse and dentures home with him.
--- NOTE | 2025-03-08 14:19 | PC.SOCIAL ---
IMM Updated Updated pt's son on IMM. No questions voiced. Provided pt a copy. Initialed, dated, & timed a copy & placed in chart.
[2025-03-08] MEDS: acetaminophen 325 mg Tablet 650 MG PO (14:51)
--- NOTE | 2025-03-08 14:53 | P.PN_ITS ---
Subjective 2 Subjective: - Patient was seen this morning - Currently on BiPAP, she is alert to pe rson, to place, not to time, she can follow commands, but continues to have global encephalopathy, is tolerating BiPAP well, no significant evidence of respiratory distress no family members at bedside - Patient was reexamined again, patient' s son Fish is at bedside - Fish tells me that Ingrid, he is on hospice, but it is not because of her COPD, but it is for the help that she needs at home, it is for helping with her medications, and her inhalers, she actually did not know that she was on hospice until she opened a piece of mail that showed that she was on hospice, - I had a detailed discussion with her a nd her son at bedside about patient's acute hypercarbic respiratory failure, CO2 narcosis, with underlying end-stage COPD, deconditioning - Discussed without BiPAP she is likely will have recurrent hospitalization, she is a high risk of morbidity or mortality, CO2 narcosis, respiratory failure - She will need to be compliant with BiP AP therapy, she was compliant last night - Discussed that she has end-stage COPD, deconditioning, significant deconditioning, overall I am worried that she is going to have persistent hospitalization, significant decline - Discussed goals of care, medical inter ventions versus hospice emphasizing more comfort - After discussing risk benefits of with Fish, patient's son was present, all consents are, for now they want to continue medical intervention, they want Ingrid to continue getting BiPAP at home, confirmed CODE STATUS DNR/DNI - Currently Ingrid remains encephalopa thic, cannot make an informed decision Vitals/I&O/Wt Last Vital Signs Temp 97.5 F L 03/08/25 12:00 Pulse 104 H 03/08/25 14:00 Resp 18 03/08/25 14:00 BP 148/99 03/08/25 14:00 Pulse Ox 93 03/08/25 14:00 O2 Del Method Nasal Cannula 03/08/25 14:00 O2 Flow Rate 3 03/08/25 14:00 FiO2 35 03/08/25 08:20 03/07/25 03/08/25 03/08/25 22:59 06:59 14:59 Intake Total 110.266 / 110.266 512.139 / 622.405 156.319 / 156.319 Output Total 1525 / 1525 1500 / 3025 1550 / 1550 Balance -1414.734 / -1414.734 -987.861 / -2402.595 -1393.681 / -1393.681 Weight last 48 hrs Weight 96.4 kg Weight 98.883 kg Weight 99.246 kg Weight 68.039 kg Physical Exam 2 Const: COMMON NORMALS: no acute distress ORIENTATION/CONSCIOUSNESS: Yes awake, Yes oriented to person and Yes confused; not oriented to place and not oriented to time Resp: COMMON NORMALS: normal respiratory effort, No retractions and No use of accessory muscles AUSCULTATION: crackles and wheezes Cardio: COMMON NORMALS: regular rate, regular rhythm, S1 normal heart sound present and S2 normal heart sound present RATE: regular rate RHYTHM: r egular rhythm HEART SOUNDS: S1 normal heart sound present and S2 normal heart sound present GI: COMMON NORMALS: Normal to inspection, nondistended, normoactive bowel sounds present and non-tender Extremity: COMMON NORMALS: no pedal edema Neuro: SENSORIUM/ORIENTATION: Yes oriented to person, No oriented to place and No oriented to time Urinary Catheter Management: Harmon: Cath Placed During This Visit: yes Reason for Continuing Indwelling Catheter: Accurate Measurement of Urinary Output in Critically Ill Patients Urinary Catheter Date of Insertion: 03/07/25 Urinary Catheter Time of Insertion: 02:05 Data 03/08/25 09:06 03/08/25 09:06 Micro: Microbiology 03/06/25 21:25 Blood Culture - Preliminary Blood NEGATIVE TO DATE 03/06/25 21:20 Blood Culture - Preliminary Blood NEGATIVE TO DATE 03/07/25 02:10 Bacterial Antigens - Final Urine,Clean Catch A&P Assessment and plan (1) CHF (congestive heart failure): (2) Dyslipidemia: (3) Class 2 obesity without serious comorbidity with body mass index (BMI) of 39.0 to 39.9 in adult: Qualifiers: Obesity type: due to excess calories Qualified Code(s): E66.09 - Other obesity due to excess calories; Z68.39 - Body mass index [BMI] 39.0-39.9, adult (4) COPD exacerbation: (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: (7) Fall: (8) Skin tear: (9) CO2 narcosis: (10) Hyperkalemia: (11) Metabolic alkalosis: (12) Azotemia: (13) Transaminitis: (14) Pneumonia: Qualifiers: Laterality: right Lung location: lower lobe of lung Pneumonia type: d ue to unspecified organism Qualified Code(s): J18.9 - Pneumonia, unspecified organism Plan Acute metabolic encephalopathy, improving - Secondary to CO2 narcosis -Pneumonia - Head CT negative for acute findings - Continue BiPAP treatment - Avoid sedating medications - Supportive care Acute hypercapnic respiratory failure requiring noninvasive mechanical ventilation Acute on chronic hypoxic respiratory failure Acute on chronic asthma/COPD overlap with acute exacerbation Respiratory acidosis with compensatory metabolic alkalosis History of end stage COPD With pneumonia With systolic and diastolic CHF exacerbation Plan -CT CT angiogram of the chest no evidence of PE -Continue Solu-Medrol 40 mg IV every 6 hours -Currently on Precedex for agitation - Pulmicort nebs - Scheduled DuoNebs - Continue Rocephin - Continue azithromycin - Patient has chronic hypercarbic respiratory failure, CO2 narcosis, she needs a home BiPAP for her COPD, to decrease her risk of recurrent hospitalization, for her chronic respiratory failure Sepsis, sepsis features met given acute respiratory failure, acute respiratory distress, pneumonia -Resolving - Secondary to pneumonia - Continue to monitor Hyperkalemia -will be receiving Lasix - Telemetry monitoring next - Repeat labs Mechanical fall Skin tear to left knee, wound care - Fall precautions - Treat underlying respiratory disease - Consider wound care consult when available - History of diastolic heart failure - BMP elevated to 1113 pg/mL - Lasix 40 IV twice daily, urine output 4500cc - Strict I's and O's - Daily assessments of volume History of stroke History of CAD History of PVD History of dysplipidemia - Continue ASA Hx of pancreatic surgery - Continue Creon Chronic pain - Hold home opioids until mentation improves Now has developed atrial fibrillation, start amiodarone drip DVT ppx: Lovenox Code: DNR/DNI Plan for today, goals of care discussion with family, amiodarone drip, daily IV antibiotics, continue IV steroids, currently on Precedex for agitation, speech therapy eval, PDMP PDMP Reviewed: Not Reviewed Attestations 2 Medical Necessity Statement*: Patient requires hospitalization for acute hypoxic respiratory failure, pneumonia, COPD exacerbation, CHF Diagnoses CHF (congestive heart failure) I50.9 Dyslipidemia E78.5 Class 2 obesity due to excess calories without serious comorbidity with body mass index (BMI) of 39.0 to 39.9 in adult E66.09; Z68.39 Obesity type: due to excess calories COPD exacerbation J44.1 End stage COPD J44.9 Lacunar stroke I63.81 Fall W19.XXXA Skin tear CO2 narcosis R06.89 Hyperkalemia E87.5 Metabolic alkalosis E87.3 Azotemia R79.89 Transaminitis R74.01 Pneumonia J18.9 Laterality: right Lung location: lower lobe of lung Pneumonia type: due to unspecified organism
[2025-03-08] MEDS: amiodarone 150 MG/100 ML PREMIX 400 MG IV (15:21)
[2025-03-08] MEDS: morphine 4 mg/mL SDV 1 mL 1 MG IVP (17:19)
[2025-03-08] MEDS: dexmedeTOMIDine 0.9 % NaCL 400 MCG/100 ML PREMIX 9.89 MCG IV (17:23)
[2025-03-08] MEDS: dexmedeTOMIDine 0.9 % NaCL 400 MCG/100 ML PREMIX 12.36 MCG IV (19:47)
[2025-03-09] VITALS (145 sets, daily range): BP systolic 155–193; BP diastolic 73–96; PULSE 65–101; RESP 11–26; TEMP 36.4–36.8; O2SAT 85–100
[2025-03-09] MEDS: AZITHROMYCIN ADD-Vantage 500 MG in 0.9% NaCl ADD-Vantage 250 ML 250 MG IV (00:32)
[2025-03-09] MEDS: enoxaparin 40 mg/0.4 mL Syringe SUBCUT (00:33)
[2025-03-09] MEDS: methylPREDNISolone sod succ 40 mg/mL INJ IVP ×2 (00:33→05:41)
[2025-03-09] MEDS: cefTRIAXone 1,000 mg SDV 1000 MG IVP ×2 (00:33→23:46)
[2025-03-09] MEDS: ipratropium-albuterol 3 mL Neb INHALATION ×7 (00:42→23:51)
[2025-03-09 03:51] LABS: Hematocrit 40.2 % (36-47); Lymphocytes # 0.4 10^3/uL (0.8-4.8); Lymphocytes % 6.5 %; Mean Corpuscular HGB Conc 31.6 g/dL (30-55); Mean Corpuscular Hemoglobin 28.8 pg (27-33); Mean Corpuscular Volume 91.2 fl (85-98); Mean Platelet Volume 11.9 fL (7.4-10.4); Monocytes # 0.5 10^3/uL (0.2-0.9); Monocytes % 8.5 %; Neutrophils # 5.04 10^3/uL (1.8-7.7); Neutrophils % 84.5 %; Nucleated Red Blood Cells % 0.7 %; Platelet Count 257 10^3/cmm (157-399); Red Blood Count 4.41 10^6/uL (3.85-5.65); Red Cell Distribution Width 15.9 % (12.1-15.1); White Blood Count 5.97 10^3/uL (3.29-11.43)
[2025-03-09 04:18] LABS: Alanine Aminotransferase 26 U/L (0-33); Albumin Level 3.7 g/dL (3.5-5.2); Alkaline Phosphatase 72 U/L (35-105); Anion Gap 13.6 (5-19); Aspartate Amino Transferase 26 U/L (0-32); Blood Urea Nitrogen 47 mg/dL (8-23); C Reactive Protein 6.6 mg/L (0.0-4.9); Calcium 8.5 mg/dL (8.5-10.5); Carbon Dioxide 34 mmol/L (22-29); Chloride 98 mmol/L (98-107); Creatinine Clr Calc Pharmacy 48.5103; Globulin 2.9 g/dL (1.3-4.6); Glucose 244 mg/dL (65-115); Magnesium 2.9 mg/dL (1.7-2.3); Osmolality Calculated 312 mOsm/kg (285-295); Phosphorus 2.2 mg/dL (2.5-4.5); Potassium 4.6 mmol/L (3.5-5.1); Sodium 141 mmol/L (136-145); Total Bilirubin 0.2 mg/dL (0.15-1.2); Total Protein 6.6 g/dL (6.6-8.7)
[2025-03-09 04:24] LABS: NT Pro B Type Natriuretic Pept 4598 pg/mL (0-450)
[2025-03-09] MEDS: dexmedeTOMIDine 0.9 % NaCL 400 MCG/100 ML PREMIX 19.78 MCG IV (05:41)
--- NOTE | 2025-03-09 07:00 | XRR_ITS ---
PROCEDURE INFORMATION: Exam: XR Chest Exam date and time: 03/09/2025 7:12 AM Age: 84 years old Clinical indication: Shortness of breath; Additional info: SOB TECHNIQUE: Imaging protocol: Radiologic exam of the chest. Views: 1 view. COMPARISON: CT angio chest w abd pel w con 03/07/2025 11:52 AM FINDINGS: Lungs: Bibasilar atelectasis or infiltrates. This has improved on the left and increased on the right side. Pleural spaces: Unremarkable. No pleural effusion. No pneumothorax. Heart/Mediastinum: See Vasculature finding. Vasculature: Mild cardiomegaly and uncoiling of the thoracic aorta. Bones/joints: Unremarkable. XR/XR chest 1V portable [id number] IMPRESSION: Waxing and waning pulmonary opacities.
[2025-03-09] MEDS: budesonide 0.5 mg/2 mL Neb INHALATION ×2 (07:57→20:24)
[2025-03-09] MEDS: FUROsemide 10 mg/mL SDV 4mL 40 MG IVP (08:09)
[2025-03-09] MEDS: morphine 4 mg/mL SDV 1 mL 1 MG IVP (08:10)
[2025-03-09] MEDS: dexmedeTOMIDine 0.9 % NaCL 400 MCG/100 ML PREMIX 24.72 MCG IV (10:34)
[2025-03-09] MEDS: amiodarone 200 mg Tablet 400 MG PO ×2 (13:16→23:43)
[2025-03-09] MEDS: apixaban 5 mg Tablet PO ×2 (13:16→20:44)
[2025-03-09] MEDS: pregabalin 25 mg Capsule 50 MG PO ×2 (15:43→20:44)
--- NOTE | 2025-03-09 16:08 | P.PN_ITS ---
Subjective 2 Subjective: Patient was seen this morning, she is much more alert awake, she can follow commands, alert to person, to place, not to time, does report persistent shortness of breath, does have a cough, no abdominal pain, yesterday she did develop A-fib, requiring amiodarone drip, continues to be on amiodarone drip 0.5, but since then has converted to normal sinus rhythm Vitals/I&O/Wt Last Vital Signs Temp 98.2 F 03/09/25 14:00 Pulse 73 03/09/25 15:37 Resp 20 H 03/09/25 15:37 BP 185/75 03/09/25 14:00 Pulse Ox 97 03/09/25 15:37 O2 Del Method Nasal Cannula 03/09/25 15:37 O2 Flow Rate 3 03/09/25 15:37 FiO2 35 03/09/25 11:27 03/09/25 03/09/25 03/09/25 06:59 14:59 22:59 Intake Total 577.971 / 1102.721 485.721 / 485.721 Output Total 500 / 2450 600 / 600 Balance 77.971 / -1347.279 -114.279 / -114.279 Weight last 48 hrs Weight 95.254 kg Weight 96.4 kg Physical Exam 2 Const: COMMON NORMALS: no acute distress ORIENTATION/CONSCIOUSNESS: Yes awake, Yes oriented to person and Yes oriented to place; not oriented to time and not confused Resp: COMMON NORMALS: normal respiratory effort, No retractions and No use of accessory muscles AUSCULTATION: crackles and wheezes Cardio: COMMON NORMALS: regular rate, regular rhythm, S1 normal heart sound present and S2 normal heart sound present RATE: regular rate RHYTHM: r egular rhythm HEART SOUNDS: S1 normal heart sound present and S2 normal heart sound present GI: COMMON NORMALS: Normal to inspection, nondistended, normoactive bowel sounds present and non-tender Extremity: COMMON NORMALS: no pedal edema Neuro: SENSORIUM/ORIENTATION: Yes oriented to person, Yes oriented to place and No oriented to time Psych: COMMON NORMALS: mental status grossly normal Urinary Catheter Management: Harmon: Cath Placed During This Visit: yes Reason for Continuing Indwelling Catheter: Accurate Measurement of Urinary Output in Critically Ill Patients Urinary Catheter Date of Insertion: 03/07/25 Urinary Catheter Time of Insertion: 02:05 Data 03/09/25 03:43 03/09/25 03:43 A&P Assessment and plan (1) CHF (congestive heart failure): (2) Dyslipidemia: (3) Class 2 obesity without serious comorbidity with body mass index (BMI) of 39.0 to 39.9 in adult: Qualifiers: Obesity type: due to excess calories Qualified Code(s): E66.09 - Other obesity due to excess calories; Z68.39 - Body mass index [BMI] 39.0-39.9, adult (4) COPD exacerbation: (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: (7) Fall: (8) Skin tear: (9) CO2 narcosis: (10) Hyperkalemia: (11) Metabolic alkalosis: (12) Azotemia: (13) Transaminitis: (14) Pneumonia: Qualifiers: Laterality: right Lung location: lower lobe of lung Pneumonia type: d ue to unspecified organism Qualified Code(s): J18.9 - Pneumonia, unspecified organism Plan Acute metabolic encephalopathy, improving - Secondary to CO2 narcosis -Pneumonia - Head CT negative for acute findings - Continue BiPAP treatment - Avoid sedating medications - Supportive care Acute hypercapnic respiratory failure requiring noninvasive mechanical ventilation Acute on chronic hypoxic respiratory failure Acute on chronic asthma/COPD overlap with acute exacerbation Respiratory acidosis with compensatory metabolic alkalosis History of end stage COPD With pneumonia With systolic and diastolic CHF exacerbation Plan -CT CT angiogram of the chest no evidence of PE - De-escalate to prednisone 40 mg daily -Weaned off Precedex drip - Pulmicort nebs - Scheduled DuoNebs - Continue Rocephin - Continue azithromycin - Patient has chronic hypercarbic respiratory failure, CO2 narcosis, she needs a home BiPAP for her COPD, to decrease her risk of recurrent hospitalization, for her chronic respiratory failure Sepsis, sepsis features met given acute respiratory failure, acute respiratory distress, pneumonia -Resolving - Secondary to pneumonia - Continue to monitor Hyperkalemia -will be receiving Lasix 40 mg IV push daily - Telemetry monitoring next - Repeat labs Mechanical fall Skin tear to left knee, wound care - Fall precautions - Treat underlying respiratory disease - Consider wound care consult when available - History of diastolic heart failure - BMP elevated to 1113 pg/mL - Lasix 40 IV daily, urine output 4500cc - Strict I's and O's - Daily assessments of volume History of stroke History of CAD History of PVD History of dysplipidemia - Continue ASA Hx of pancreatic surgery - Continue Creon Chronic pain - Hold home opioids until mentation improves Now has developed atrial fibrillation, start amiodarone drip, converted to normal sinus rhythm, transition to p.o. amiodarone, start Eliquis DVT ppx: Eliquis Code: DNR/DNI Plan for today, continue BiPAP as needed, de-escalate steroids, de-escalate amiodarone, start Eliquis continue IV antibiotics, moved to medical floors PDMP PDMP Reviewed: Last Reviewed 03/09/25 13:51 by Doron Rich MD Attestations 2 Medical Necessity Statement*: Patient requires hospitalization for acute hypoxic respiratory failure, acute encephalopathy, pneumonia, CHF, Diagnoses CHF (congestive heart failure) I50.9 Dyslipidemia E78.5 Class 2 obesity due to excess calories without serious comorbidity with body mass index (BMI) of 39.0 to 39.9 in adult E66.09; Z68.39 Obesity type: due to excess calories COPD exacerbation J44.1 End stage COPD J44.9 Lacunar stroke I63.81 Fall W19.XXXA Skin tear CO2 narcosis R06.89 Hyperkalemia E87.5 Metabolic alkalosis E87.3 Azotemia R79.89 Transaminitis R74.01 Pneumonia J18.9 Laterality: right Lung location: lower lobe of lung Pneumonia type: due to unspecified organism
--- NOTE | 2025-03-09 18:05 | PC.NURSE ---
Patient taken to [facility]. All belongings taken with patients family. Patient wore dentures to the floor. Report given to
[2025-03-09] MEDS: TRAMadol 50 mg Tablet 25 MG PO ×2 (18:22→23:43)
[2025-03-10] VITALS (13 sets, daily range): BP systolic 146–185; BP diastolic 61–79; PULSE 69–84; RESP 16–29; TEMP 36.4–37; O2SAT 89–98
[2025-03-10] MEDS: AZITHROMYCIN ADD-Vantage 500 MG in 0.9% NaCl ADD-Vantage 250 ML 250 MG IV (00:01)
[2025-03-10] MEDS: oxyCODONE 5 mg IR Tab/Cap PO (02:23)
[2025-03-10] MEDS: ALPRAZolam 0.5 mg Tablet 0.25 MG PO (02:23)
[2025-03-10 05:49] LABS: Basophils % 0.1 %; Eosinophils % 0.1 %; Hematocrit 38.6 % (36-47); Lymphocytes # 0.9 10^3/uL (0.8-4.8); Lymphocytes % 7.8 %; Mean Corpuscular HGB Conc 32.1 g/dL (30-55); Mean Corpuscular Hemoglobin 29.5 pg (27-33); Mean Corpuscular Volume 91.7 fl (85-98); Mean Platelet Volume 12.6 fL (7.4-10.4); Monocytes # 1.6 10^3/uL (0.2-0.9); Monocytes % 13.8 %; Neutrophils # 9.12 10^3/uL (1.8-7.7); Neutrophils % 77.8 %; Nucleated Red Blood Cells % 0.3 %; Platelet Count 253 10^3/cmm (157-399); Red Blood Count 4.21 10^6/uL (3.85-5.65); White Blood Count 11.72 10^3/uL (3.29-11.43)
[2025-03-10 06:07] LABS: Alanine Aminotransferase 26 U/L (0-33); Albumin Level 3.4 g/dL (3.5-5.2); Alkaline Phosphatase 66 U/L (35-105); Aspartate Amino Transferase 28 U/L (0-32); Blood Urea Nitrogen 39 mg/dL (8-23); C Reactive Protein 3.9 mg/L (0.0-4.9); Carbon Dioxide 33 mmol/L (22-29); Chloride 100 mmol/L (98-107); Creatinine Clr Calc Pharmacy 54.2391; Globulin 2.7 g/dL (1.3-4.6); Glucose 142 mg/dL (65-115); Magnesium 2.7 mg/dL (1.7-2.3); Osmolality Calculated 308 mOsm/kg (285-295); Phosphorus 1.4 mg/dL (2.5-4.5); Sodium 143 mmol/L (136-145); Total Bilirubin 0.3 mg/dL (0.15-1.2); Total Protein 6.1 g/dL (6.6-8.7)
[2025-03-10 06:15] LABS: Anion Gap 13.6 (5-19); Potassium 3.6 mmol/L (3.5-5.1)
[2025-03-10] MEDS: ipratropium-albuterol 3 mL Neb INHALATION ×5 (06:17→20:23)
[2025-03-10 06:21] LABS: NT Pro B Type Natriuretic Pept 4822 pg/mL (0-450); Procalcitonin 0.14 ng/mL (0-0.5)
[2025-03-10] MEDS: pregabalin 25 mg Capsule 75 MG PO ×3 (08:21→19:58)
[2025-03-10] MEDS: aspirin 81 mg EC Tablet PO (08:22)
[2025-03-10] MEDS: predniSONE 20 mg Tablet 40 MG PO (08:22)
[2025-03-10] MEDS: apixaban 5 mg Tablet PO ×2 (08:22→19:59)
[2025-03-10] MEDS: TRAMadol 50 mg Tablet 25 MG PO (08:22)
[2025-03-10] MEDS: FUROsemide 10 mg/mL SDV 4mL 40 MG IVP (08:23)
[2025-03-10] MEDS: budesonide 0.5 mg/2 mL Neb INHALATION ×2 (08:23→20:23)
--- NOTE | 2025-03-10 10:21 | PC.SOCIAL ---
IMM Update Updated pt on IMM. No questions voiced. Provided pt a copy. Initialed, dated, & timed a copy & placed in chart.
[2025-03-10] MEDS: amiodarone 200 mg Tablet 400 MG PO (14:01)
--- NOTE | 2025-03-10 17:21 | P.PN_ITS ---
Subjective 2 Subjective: Patient was seen this morning, does report shortness of breath, no chest pain, no palpitations, Vitals/I&O/Wt Last Vital Signs Temp 98.2 F 03/10/25 15:59 Pulse 75 03/10/25 15:59 Resp 17 03/10/25 15:59 BP 185/64 03/10/25 15:59 Pulse Ox 98 03/10/25 15:59 O2 Del Method Nasal Cannula 03/10/25 15:59 O2 Flow Rate 4 03/10/25 15:13 FiO2 35 03/10/25 03:12 03/10/25 03/10/25 03/10/25 06:59 14:59 22:59 Intake Total 370 / 855.721 Output Total 300 / 900 1800 / 1800 Balance 70 / -44.279 -1800 / -1800 Weight last 48 hrs Weight 95.368 kg Weight 95.254 kg Physical Exam 2 Const: COMMON NORMALS: no acute distress and patient oriented x3 Resp: COMMON NORMALS: normal respiratory effort, No retractions, No use of accessory muscles and clear to auscultation bilaterally AUSCULTATION: clear to auscultation bilaterally Cardio: COMMON NORMALS: regular rate, regular rhythm, S1 normal heart sound present and S2 normal heart sound present RATE: regular rate RHYTHM: r egular rhythm HEART SOUNDS: S1 normal heart sound present and S2 normal heart sound present GI: COMMON NORMALS: Normal to inspection, nondistended, normoactive bowel sounds present and non-tender Extremity: COMMON NORMALS: no clubbing, cyanosis or edema and no pedal edema Neuro: COMMON NORMALS: patient oriented x3 Psych: COMMON NORMALS: mental status grossly normal Urinary Catheter Management: Harmon: Cath Placed During This Visit: yes Reason for Continuing Indwelling Catheter: Not indwelling catheter Urinary Catheter Date of Insertion: 03/07/25 Urinary Catheter Time of Insertion: 02:05 Data 03/10/25 05:02 03/10/25 05:02 A&P Assessment and plan (1) CHF (congestive heart failure): (2) Dyslipidemia: (3) Class 2 obesity without serious comorbidity with body mass index (BMI) of 39.0 to 39.9 in adult: (4) COPD exacerbation: (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: (7) Fall: (8) Skin tear: (9) CO2 narcosis: (10) Hyperkalemia: (11) Metabolic alkalosis: (12) Azotemia: (13) Transaminitis: (14) Pneumonia: Plan Acute metabolic encephalopathy, improving - Secondary to CO2 narcosis -Pneumonia - Head CT negative for acute findings - Continue BiPAP treatment - Avoid sedating medications - Supportive care Acute hypercapnic respiratory failure requiring noninvasive mechanical ventilation Acute on chronic hypoxic respiratory failure Acute on chronic asthma/COPD overlap with acute exacerbation Respiratory acidosis with compensatory metabolic alkalosis History of end stage COPD With pneumonia With systolic and diastolic CHF exacerbation Plan -CT CT angiogram of the chest no evidence of PE - De-escalate to prednisone 40 mg daily -Weaned off Precedex drip - Pulmicort nebs - Scheduled DuoNebs - Continue Rocephin - Continue azithromycin - Patient has chronic hypercarbic respiratory failure, CO2 narcosis, she needs a home BiPAP for her COPD, to decrease her risk of recurrent hospitalization, for her chronic respiratory failure Sepsis, sepsis features met given acute respiratory failure, acute respiratory distress, pneumonia -Resolving - Secondary to pneumonia - Continue to monitor Hyperkalemia -will be receiving Lasix 40 mg IV push daily - Telemetry monitoring next - Repeat labs Mechanical fall Skin tear to left knee, wound care - Fall precautions - Treat underlying respiratory disease - Consider wound care consult when available - History of diastolic heart failure - BMP elevated to 1113 pg/mL - Lasix 40 IV daily, urine output 4500cc - Strict I's and O's - Daily assessments of volume History of stroke History of CAD History of PVD History of dysplipidemia - Continue ASA Hx of pancreatic surgery - Continue Creon Chronic pain - Hold home opioids until mentation improves Now has developed atrial fibrillation, start amiodarone drip, converted to normal sinus rhythm, transition to p.o. amiodarone, start Eliquis DVT ppx: Eliquis Code: DNR/DNI Plan for today, PT OT, monitor respiratory status, continue IV diuresis, PDMP PDMP Reviewed: Last Reviewed 03/09/25 13:51 by Doron Rich MD Attestations 2 Medical Necessity Statement*: Patient requires hospitalization for acute respiratory failure, for chf, copd Diagnoses CHF (congestive heart failure) I50.9 Dyslipidemia E78.5 Class 2 obesity due to excess calories without serious comorbidity with body mass index (BMI) of 39.0 to 39.9 in adult E66.09; Z68.39 Obesity type: due to excess calories COPD exacerbation J44.1 End stage COPD J44.9 Lacunar stroke I63.81 Fall W19.XXXA Skin tear CO2 narcosis R06.89 Hyperkalemia E87.5 Metabolic alkalosis E87.3 Azotemia R79.89 Transaminitis R74.01 Pneumonia J18.9 Laterality: right Lung location: lower lobe of lung Pneumonia type: due to unspecified organism
[2025-03-10] MEDS: acetaminophen 325 mg Tablet 650 MG PO (19:58)
[2025-03-11] VITALS (9 sets, daily range): BP systolic 124–167; BP diastolic 60–77; PULSE 63–73; RESP 16–19; TEMP 36.4–36.9; O2SAT 90–97
[2025-03-11] MEDS: AZITHROMYCIN ADD-Vantage 500 MG in 0.9% NaCl ADD-Vantage 250 ML 250 MG IV (00:40)
[2025-03-11] MEDS: cefTRIAXone 1,000 mg SDV 1000 MG IVP (00:40)
[2025-03-11] MEDS: amiodarone 200 mg Tablet 400 MG PO ×2 (00:41→13:19)
[2025-03-11] MEDS: ipratropium-albuterol 3 mL Neb INHALATION ×3 (00:49→08:52)
[2025-03-11 05:05] LABS: Basophils % 0.1 %; Hematocrit 40.2 % (36-47); Lymphocytes # 0.9 10^3/uL (0.8-4.8); Lymphocytes % 11.4 %; Mean Corpuscular HGB Conc 30.6 g/dL (30-55); Mean Corpuscular Hemoglobin 28.9 pg (27-33); Mean Corpuscular Volume 94.4 fl (85-98); Mean Platelet Volume 12.2 fL (7.4-10.4); Monocytes # 1.1 10^3/uL (0.2-0.9); Monocytes % 13.7 %; Neutrophils # 5.88 10^3/uL (1.8-7.7); Neutrophils % 74.4 %; Nucleated Red Blood Cells % 0 %; Platelet Count 222 10^3/cmm (157-399); Red Blood Count 4.26 10^6/uL (3.85-5.65); Red Cell Distribution Width 16.2 % (12.1-15.1)
[2025-03-11 05:33] LABS: Alanine Aminotransferase 27 U/L (0-33); Albumin Level 3.5 g/dL (3.5-5.2); Alkaline Phosphatase 61 U/L (35-105); Anion Gap 11.6 (5-19); Aspartate Amino Transferase 24 U/L (0-32); Blood Urea Nitrogen 30 mg/dL (8-23); C Reactive Protein 5.5 mg/L (0.0-4.9); Calcium 9.3 mg/dL (8.5-10.5); Carbon Dioxide 36 mmol/L (22-29); Chloride 102 mmol/L (98-107); Creatinine Clr Calc Pharmacy 53.5836; Glucose 140 mg/dL (65-115); Magnesium 2.8 mg/dL (1.7-2.3); Osmolality Calculated 310 mOsm/kg (285-295); Phosphorus 3.2 mg/dL (2.5-4.5); Potassium 3.6 mmol/L (3.5-5.1); Sodium 146 mmol/L (136-145); Total Bilirubin 0.3 mg/dL (0.15-1.2); Total Protein 6.5 g/dL (6.6-8.7)
[2025-03-11 05:37] LABS: NT Pro B Type Natriuretic Pept 3094 pg/mL (0-450); Procalcitonin 0.23 ng/mL (0-0.5)
[2025-03-11] MEDS: pregabalin 25 mg Capsule 75 MG PO (08:17)
[2025-03-11] MEDS: FUROsemide 10 mg/mL SDV 4mL 40 MG IVP (08:17)
[2025-03-11] MEDS: predniSONE 20 mg Tablet 40 MG PO (08:17)
[2025-03-11] MEDS: apixaban 5 mg Tablet PO (08:17)
[2025-03-11] MEDS: aspirin 81 mg EC Tablet PO (08:17)
[2025-03-11] MEDS: budesonide 0.5 mg/2 mL Neb INHALATION (08:52)
--- NOTE | 2025-03-11 10:26 | P.DS_ITS ---
Discharge Providers Date of Admission: 03/06/25 23:30 Date of Discharge: March 11, 2025 Attending Provider at Admission: Osmel Cheema MD Attending Provider at Discharge: Doron Rich MD Primary Care Provider: FELICIA Orosco Diagnoses at Discharge Discharge Diagnosis (1) CHF (congestive heart failure): Status: Acute (2) Dyslipidemia: Status: Acute (3) Class 2 obesity without serious comorbidity with body mass index (BMI) of 39.0 to 39.9 in adult: Status: Acute Qualifiers: Obesity type: due to excess calories Qualified Code(s): E66.09 - Other obesity due to excess calories; Z68.39 - Body mass index [BMI] 39.0-39.9, adult (4) COPD exacerbation: Status: Resolved (5) End stage COPD: Status: Acute (6) Lacunar stroke: Status: Acute (7) Fall: Status: Resolved (8) Skin tear: Status: Acute (9) CO2 narcosis: Status: Resolved (10) Hyperkalemia: Status: Resolved (11) Metabolic alkalosis: Status: Resolved (12) Azotemia: Status: Resolved (13) Transaminitis: Status: Resolved (14) Pneumonia: Status: Inactive Qualifiers: Laterality: right Lung location: lower lobe of lung Pneumonia type: due to unspecified organism Qualified Code(s): J18.9 - Pneumonia, unspecified organism Reason for Visit Reason for Visit: AMS Hospital Course Hospital Course This is a 84-year-old female with past medical history of COPD, chronic respiratory failure, end-stage COPD, history of CVA, history of dyslipidemia, peripheral vascular disease, who presents [facility] for shortness of breath, encephalopathy Patient was admitted to [facility] for acute metabolic encephalopathy requiring ICU level admission for CO2 narcosis requiring BiPAP therapy, overall mentation improved with BiPAP therapy, back to her baseline Acute hypoxic hypercapnic respiratory failure secondary to end-stage COPD, pneumonia, systolic and diastolic CHF, required IV steroids, broad-spectrum IV antibiotics, Precedex drip, BiPAP therapy, overall clinically improved, moved to medical floors. Overall steroid therapy, antibiotic therapy, was de-escalated, discharge to senior living facility Sepsis secondary to pneumonia, resolved Systolic and diastolic CHF, overall clinically improved with IV diuresis, Patient had new onset atrial fibrillation during hospitalization, requiring amiodarone drip, transition to p.o. amiodarone, discharged on amiodarone, Renaldo End-stage COPD, discharged with BiPAP therapy in place to senior living facility, I had multiple goals of care discussion with patient and family during hospitalization, she is DNR/DNI, patient and family understand she has end-stage COPD Physical Exam Const: COMMON NORMALS: no acute distress and patient oriented x3 Resp: COMMON NORMALS: normal respiratory effort, No retractions, No use of accessory muscles and clear to auscultation bilaterally AUSCULTATION: clear to auscultation bilaterally Cardio: COMMON NORMALS: regular rate, regular rhythm, S1 normal heart sound present and S2 normal heart sound present RATE: regular rate RHYTHM: regular rhythm HEART SOUNDS: S1 normal heart sound present and S2 normal heart sound present GI: COMMON NORMALS: Normal to inspection, nondistended, normoactive bowel sounds present and non-tender Extremity: COMMON NORMALS: no pedal edema Neuro: COMMON NORMALS: patient oriented x3 Psych: COMMON NORMALS: mental status grossly normal Urinary Catheter Management: Harmon: Cath Placed During This Visit: yes Reason for Continuing Indwelling Catheter: Chronic Indwelling Urinary Catheter on Admission Urinary Catheter Date of Insertion: 03/07/25 Urinary Catheter Time of Insertion: 02:05 Discharge Data Studies Completed and Pending Completed Studies During Hospitalization Category Date Time Status CT Angio Chest + Abdomen Pelvis w/ contrast; 41134 + Cat Scan 03/07/25 09:[address] head wo con* [id number] Stat Cat Scan 03/06/25 21:04 Completed XR chest 1V portable [id number] Routine Exams 03/09/25 07:00 Completed XR chest 1V portable [id number] Stat Exams 03/06/25 21:04 [place] [id number] Routine Ultrasound 03/07/25 09:46 Completed Pending at discharge Category Date Time Status Blood Culture Stat Lab 03/06/25 21:25 Results Radiology Impressions Head CT 03/06/25 21:04 IMPRESSION: No acute intracranial hemorrhage, CT evidence of acute territorial infarct, or mass effect. Chest/Abdomen/Pelvis CT 03/07/25 09:46 IMPRESSION: 1. No evidence for pulmonary embolism. 2. Interval development of dependent atelectasis in the right and left lower lobes. 3. Incidental/nonacute findings are listed in the report. IMPRESSION: 1. The rectum is distended and stool-filled. No wall thickening. No pneumatosis. 2. Incidental/nonacute findings are listed in the report. Venous Duplex 03/07/25 09:46 IMPRESSION: 1. No evidence for deep venous thrombosis in the right or left lower extremities. 2. Small Murry's cyst in the right popliteal fossa. 3. Kctm-td-oazxcilm subcutaneous edema in the right and left lower legs. Chest X-Ray 03/09/25 07:00 IMPRESSION: Waxing and waning pulmonary opacities. Laboratory Results WBC 7.90 10^3/uL (3.29-11.43) 03/11/25 04:40 RBC 4.26 10^6/uL (3.85-5.65) 03/11/25 04:40 Hgb 12.30 g/dL (11.27-16.99) 03/11/25 04:40 Hct 40.2 % (36-47) 03/11/25 04:40 MCV 94.4 fl (85-98) 03/11/25 04:40 MCH 28.9 pg (27-33) 03/11/25 04:40 MCHC 30.6 g/dL (30-55) 03/11/25 04:40 RDW 16.2 % (12.1-15.1) H 03/11/25 04:40 Plt Count 222 10^3/cmm (157-399) 03/11/25 04:40 MPV 12.2 fL (7.4-10.4) H 03/11/25 04:40 Neut % (Auto) 74.4 % 03/11/25 04:40 Lymph % (Auto) 11.4 % 03/11/25 04:40 Weston % (Auto) 13.7 % 03/11/25 04:40 Eos % (Auto) 0.0 % 03/11/25 04:40 Baso % (Auto) 0.1 % 03/11/25 04:40 Neut # (Auto) 5.88 10^3/uL (1.8-7.7) 03/11/25 04:40 Lymph # (Auto) 0.9 10^3/uL (0.8-4.8) 03/11/25 04:40 Weston # (Auto) 1.1 10^3/uL (0.2-0.9) H 03/11/25 04:40 Eos # (Auto) 0.0 10^3/uL (0.0-0.8) 03/11/25 04:40 Baso # (Auto) 0.0 10^3/uL (0.0-0.1) 03/11/25 04:40 Nucleated RBC % (auto) 0 % 03/11/25 04:40 Nucleated RBCs # 0.0 /100WBC 03/11/25 04:40 Specimen Type Arterial 03/08/25 09:15 Sample Site Radial, right 03/08/25 09:15 ABG pH 7.40 (7.35-7.45) 03/08/25 09:15 ABG pCO2 53.2 mmHg (35-45) H 03/08/25 09:15 ABG pO2 78.4 mmHg (80.0-100.0) L 03/08/25 09:15 ABG PO2/FiO2 Ratio 224 03/08/25 09:15 ABG HCO3 32.8 mmol/L (22-26) H 03/08/25 09:15 ABG O2 Saturation 92.8 03/07/25 13:20 ABG Base Excess 6.5 mmol/L (-2.0-2.0) H 03/08/25 09:15 Mateo Test Pos 03/08/25 09:15 A-a O2 Gradient 12.3 mmHg (5-10) H 03/07/25 13:20 Hematocrit 40.9 % (37-47) 03/08/25 09:15 Hgb O2 Saturation 90.6 % (95-100) L 03/07/25 13:20 Carboxyhemoglobin 1.1 %THgb (0.4-20.1) 03/07/25 13:20 Methemoglobin 1.2 % (0.4-1.5) 03/07/25 13:20 Total Hemoglobin 12.1 g/dL (12-16) 03/07/25 13:20 Sodium 139.0 mmol/L (131-143) 03/07/25 13:20 Potassium 4.9 mmol/L (3.5-5.0) 03/07/25 13:20 Glucose 130.0 mg/dL (70-115) H 03/07/25 13:20 Ionized Calcium 1.1 mmol/L (1.1-1.4) 03/07/25 13:20 O2 Delivery Device Bipap 03/08/25 09:15 O2 Liters/Min 6.0 % 03/06/25 21:09 FiO2 35.0 % 03/08/25 09:15 PEEP 10.0 cmH20 03/08/25 09:15 Community Outreach Coordinator ID Gd 03/08/25 09:15 Sodium 146 mmol/L (136-145) H 03/11/25 04:40 Potassium 3.6 mmol/L (3.5-5.1) 03/11/25 04:40 Chloride 102 mmol/L (98-107) 03/11/25 04:40 Carbon Dioxide 36 mmol/L (22-29) H 03/11/25 04:40 Anion Gap 11.6 (5-19) 03/11/25 04:40 BUN 30 mg/dL (8-23) H 03/11/25 04:40 Creatinine 0.7 mg/dL (0.5-0.9) 03/11/25 04:40 GFR Calculation Not Reportable 03/11/25 04:40 Glucose 140 mg/dL (65-115) H 03/11/25 04:40 Calculated Osmolality 310 mOsm/kg (285-295) H 03/11/25 04:40 Lactic Acid 0.7 mmol/L (0.5-2.2) 03/06/25 21:36 Calcium 9.3 mg/dL (8.5-10.5) 03/11/25 04:40 Phosphorus 3.2 mg/dL (2.5-4.5) D 03/11/25 04:40 Magnesium 2.8 mg/dL (1.7-2.3) H 03/11/25 04:40 Total Bilirubin 0.3 mg/dL (0.15-1.2) 03/11/25 04:40 AST 24 U/L (0-32) 03/11/25 04:40 ALT 27 U/L (0-33) 03/11/25 04:40 Alkaline Phosphatase 61 U/L (35-105) 03/11/25 04:40 Troponin T Baseline 41 ng/L (0-10) H 03/06/25 21:36 Troponin T 120 Minute 37.88 ng/L (0-10) H 03/06/25 23:20 Delta Troponin T -3.12 ABS# (0-10) L 03/06/25 23:20 Troponin T Hi Sens 6Hr 37.68 ng/L (0-10) H 03/07/25 05:10 Troponin T Hi Sens 6Hr Delta -3.32 ng/L (0-12) L 03/07/25 05:10 C-Reactive Protein 5.5 mg/L (0.0-4.9) H 03/11/25 04:40 NT-Pro-B Natriuret Pep 3094 pg/mL (0-450) H 03/11/25 04:40 Total Protein 6.5 g/dL (6.6-8.7) L 03/11/25 04:40 Albumin 3.5 g/dL (3.5-5.2) 03/11/25 04:40 Globulin 3.0 g/dL (1.3-4.6) 03/11/25 04:40 Procalcitonin 0.23 ng/mL (0-0.5) 03/11/25 04:40 Nasal MRSA (PCR) Not detected (Not Detecte) 03/07/25 02:10 Influenza A (PCR) Negative (Negative) 03/06/25 21:55 Influenza Type B (PCR) Negative (Negative) 03/06/25 21:55 RSV (PCR) Negative (Negative) 03/06/25 21:55 SARS-CoV-2 (PCR) Negative (Negative) 03/06/25 21:55 Vitals Last Vital Signs Temp 97.6 F 03/11/25 08:05 Pulse 73 03/11/25 08:20 Resp 16 03/11/25 08:05 BP 164/77 03/11/25 08:05 Pulse Ox 95 03/11/25 08:05 O2 Del Method BiPAP 03/11/25 08:05 O2 Flow Rate 5 03/11/25 08:00 FiO2 35 03/11/25 04:13 Discharge Plan Discharge Patient Disposition: Xfer SNF Condition: Stable Prescriptions: New amiodarone [Pacerone] 200 mg Tablet See Rx Instructions .ROUTE .COMPLEX 30 Days Qty: 120 0RF Rx Instructions: 1 tab twice daily for 7 days, followed by 1 tab daily prednisone 20 mg Tablet 40 mg PO DAILY 5 Days Qty: 10 0RF Eliquis 5 mg Tablet 5 mg PO BID@0900,2100 30 Days Qty: 60 0RF Continued albuterol sulfate [Ventolin HFA] 90 mcg/actuation HFA aerosol inhaler 2 puff INHALATION QID PRN (Reason: Shortness Of Breath) tramadol 50 mg tablet 25 mg PO Q8H MDD 1.5 tabs PRN (Reason: Pain) aspirin 81 mg tablet,delayed release (DR/EC) 81 mg PO DAILY pregabalin 25 mg capsule 50 mg PO TID budesonide 0.5 mg/2 mL suspension for nebulization 0.25 mg inhalation BID budesonide 0.5 mg/2 mL suspension for nebulization 0.5 mg inhalation BID Qty: 120 11RF formoterol fumarate [Perforomist] 20 mcg/2 mL solution for nebulization 2 ml inhalation BID Qty: 120 11RF Yupelri 175 mcg/3 mL solution for nebulization 175 mcg inhalation DAILY Qty: 90 11RF ginkgo biloba 40 mg tablet 40 mg PO DAILY Rx Instructions: give with meal/snack magnesium oxide 420 mg Tablet 420 mg PO DAILY Creon 36,000-114,000- 180,000 unit capsule,delayed release(DR/EC) 2 cap PO AC Rx Instructions: and before snacks Xlear 1 spray nasal BID albuterol sulfate 2.5 mg /3 mL (0.083 %) solution for nebulization 2.5 mg inhalation Q3H PRN (Reason: Shortness Of Breath) potassium chloride 20 mEq tablet,ER particles/crystals 20 meq PO QAM coenzyme Q10 [CoQ-10] 100 mg Capsule 100 mg PO DAILY Changed furosemide [Lasix] 40 mg tablet 40 mg PO DAILY 30 Days Qty: 30 0RF Discontinued azithromycin 250 mg tablet 250 mg PO .COMPLEX 90 Days Qty: 45 1RF Rx Instructions: 250 mg orally; Saturday olmesartan 5 mg tablet 5 mg PO QAM Discharge Orders: Discharge Order (Routine); Ordered 03/11/25 Ordered By: Doron Rich Other Ambulatory Orders: DME: BIPAP (Order) Location: None Selected Ordered By: Doron Rich Referrals: [facility] [Outside] Lorraine Samaniego FNP [Primary Care Provider, Unknown] Discharge Diet: Cardiac Discharge Activity: Resume usual activity Patient Instructions: Prednisone (By mouth), Amiodarone (By mouth), Levofloxacin (By mouth) (Levaquin, Levaquin Leva-johanna), Apixaban (By mouth), Altered Mental Status (ED), Opioid Safety Activity Restrictions/Additional Instructions: -recheck cbc in one week Discharge Attestations Time Spent in Discharge Care*: greater than 30 min Quality Metrics Clinical Quality Measures [ No reported AMI, CVA or VTE this stay] Coding Level of Care Code 59894 Total time (in minutes) for Discharge: 45 Diagnoses CHF (congestive heart failure) I50.9 Dyslipidemia E78.5 Class 2 obesity due to excess calories without serious comorbidity with body mass index (BMI) of 39.0 to 39.9 in adult E66.09; Z68.39 Obesity type: due to excess calories COPD exacerbation J44.1 End stage COPD J44.9 Lacunar stroke I63.81 Fall W19.XXXA Skin tear CO2 narcosis R06.89 Hyperkalemia E87.5 Metabolic alkalosis E87.3 Azotemia R79.89 Transaminitis R74.01 Pneumonia J18.9 Laterality: right Lung location: lower lobe of lung Pneumonia type: due to unspecified organism
[2025-03-11 12:45] LABS: SARS Covid-2 Antigen Negative (Negative)
[2025-03-11] MEDS: polyethylene glycol 3350 Pkt 17 gm PO (13:38)
== END 2025-03-11 14:34 | disposition skilled nursing facility (03) | DRG 871 ==
LOC: ER 23:21 → ER IP 23:57 → ICU 03-07 00:01 → MEDSURG 03-09 17:55
PROVIDERS: Admitting Provider Internal Medicine; Emergency Provider Emergency Medicine; PCP Nurse Practitioner Family; Visit Provider Family Medicine
DX: A41.9 Sepsis, unspecified organism (principal); G93.41 Metabolic encephalopathy; J96.21 Acute and chronic respiratory failure with hypoxia; J96.22 Acute and chronic respiratory failure with hypercapnia; J18.9 Pneumonia, unspecified organism; I50.43 Acute on chronic combined systolic (congestive) and diastolic (congestive) heart failure; E87.3 Alkalosis; J44.1 Chronic obstructive pulmonary disease with (acute) exacerbation; E87.4 Mixed disorder of acid-base balance; J44.0 Chronic obstructive pulmonary disease with (acute) lower respiratory infection; R41.82 Altered mental status, unspecified; I25.10 Atherosclerotic heart disease of native coronary artery without angina pectoris; I73.9 Peripheral vascular disease, unspecified; F41.9 Anxiety disorder, unspecified; Z66 Do not resuscitate; E87.5 Hyperkalemia; Z86.73 Personal history of transient ischemic attack (TIA), and cerebral infarction without residual deficits; E78.5 Hyperlipidemia, unspecified; G89.29 Other chronic pain; R79.89 Other specified abnormal findings of blood chemistry; R74.01 Elevation of levels of liver transaminase levels; E66.812 Obesity, class 2; Z68.39 Body mass index [BMI] 39.0-39.9, adult; Z99.81 Dependence on supplemental oxygen; Z79.82 Long term (current) use of aspirin; Z79.52 Long term (current) use of systemic steroids; Z91.048 Other nonmedicinal substance allergy status; Z87.891 Personal history of nicotine dependence; T14.8XXA Other injury of unspecified body region, initial encounter; W19.XXXA Unspecified fall, initial encounter
CPT/HCPCS: 36415; 36600; 51702; 70450; 71045; 71275; 74177; 80051; 80053; 82330; 82803; 82805; 83605; 83735; 83880; 84100; 84145; 84484; 85025; 86140; 86403; 87040; 87426; 87637; 92523; 92610; 93005; 93970; 94640; 94660; 96365; 96367; 96372; 96374; 96376; 97116; 97162; 99291; A4222; J0283; J0360; J0456; J0612; J0696; J1650; J1940; J2270; J2543; J2919; J3370; J7030; J7050; J7512; J7626; J9999

== ENCOUNTER 2025-03-19 12:37 | Inpatient (IN) | payer MEDICARE, OTHER, SELFPAY ==
[2025-03-19] VITALS (30 sets, daily range): BP systolic 82–141; BP diastolic 39–64; PULSE 59–81; RESP 14–25; TEMP 36.3–36.8; O2SAT 81–100; BMI 32.1; BMI 20.5
--- NOTE | 2025-03-19 12:42 | XR_ITS ---
WS: [id number] XR chest 1V portable [id number] REASON FOR EXAM: shortness of breath FINDINGS: Moderate to significant tortuosity of the thoracic aorta. Cardiomegaly. Central pulmonary venous congestion. Chronic atelectasis/parenchymal scarring in both lower lung felix. The groundglass and patchy consolidative opacities in both lower lung felix have improved compared to the previous examination of 03/09/2025. No no new lung opacities. XR/XR chest 1V portable [id number] IMPRESSION: Stable to improved abnormal chest with no new abnormality as above.
--- NOTE | 2025-03-19 12:45 | ECG_ITS ---
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 Measurements Intervals [place] Rate: 71 P: 71 WV: 179 QRS: -26 QRSD: 84 T: 47 QT: 386 QTc: 422 Interpretive Statements SINUS RHYTHM LOW QRS VOLTAGE IN PRECORDIAL LEADS [QRS DEFLECTION < 1.0 mV IN CHEST LEADS] POSSIBLE ANTERIOR MYOCARDIAL INFARCTION , OF INDETERMINATE AGE [30 ms Q WAVE IN V3/V4, OR R < 0.2 mV IN V4] Compared to ECG 03/06/2025 23:01:50 Low QRS voltage now present Myocardial infarct finding now present Electronically Signed On 03-19-2025 13:32:22 CDT by Cruzito Coronado M.D. [email or web address]
--- NOTE | 2025-03-19 12:45 | W.ED.SOB ---
HPI - SOB/Dyspnea General: Chief Complaint: Shortness of Breath/Dyspnea Stated Complaint: SOB Time Seen by Provider: 03/19/25 12:38 History of Present Illness: HPI Narrative: 84-year-old female with a history of chronic hypoxemic respiratory failure on 2 L nasal cannula at all times, COPD, congestive heart failure, hyperlipidemia, peripheral vascular disease, hypertension, A-fib and chronic anticoagulation on Eliquis who presents emergency room with worsening shortness of breath and increasing oxygen requirements [facility]. She says she feels a bit better now. She received some albuterol in the ambulance. They report she had gone from 2 to 4 L nasal cannula at the [facility]. She complains of no chest pain. No new edema. No abdominal pain. No nausea or vomiting. No focal motor deficits. Appears at her baseline mental status. Related Data Home Medications ?Medication ?Instructions ?Recorded ?Confirmed albuterol sulfate 90 mcg/actuation 2 puff inhalation QID PRN 12/30/19 03/19/25 aerosol inhaler (Ventolin HFA) Shortness Of Breath [id number] 2 cap PO AC 10/02/21 03/19/25 36,000-114,000-180,000 unit capsule,delay rel (Creon) tramadol 50 mg tablet 25 mg PO Q8H PRN Pain 06/13/22 03/19/25 albuterol sulfate 2.5 mg/3 mL 2.5 mg inhalation Q3H PRN 06/18/22 03/19/25 (0.083 %) solution for nebulization Shortness Of Breath coenzyme Q10 100 mg capsule 100 mg PO DAILY 06/18/22 03/19/25 (CoQ-10) potassium chloride 20 mEq 20 meq PO QAM 06/18/22 03/19/25 tablet,extended release(part/cryst) aspirin 81 mg tablet,delayed 81 mg PO DAILY 03/14/23 03/19/25 release ginkgo biloba 40 mg tablet 40 mg PO DAILY 01/23/24 03/19/25 Xlear 1 spray nasal BID 03/07/25 03/19/25 amiodarone 200 mg tablet (Pacerone) 200 mg PO DAILY 03/19/25 03/19/25 bisacodyl 10 mg rectal suppository 10 mg NE DAILY PRN Constipation 03/19/25 03/19/25 (Dulcolax (bisacodyl)) magnesium hydroxide 400 mg/5 mL 30 ml PO DAILY PRN Constipation 03/19/25 03/19/25 oral suspension (Milk of Magnesia) polyethylene glycol 3350 17 4 g PO DAILY 03/19/25 03/19/25 gram/dose oral powder (Miralax) pregabalin 50 mg capsule 50 mg PO TID 03/19/25 03/19/25 psyllium husk 3.4 gram/6 gram oral 3.4 g PO DAILY 03/19/25 03/19/25 powder sodium phosphates 19 gram-7 118 ml NE DAILY PRN Constipation 03/19/25 03/19/25 gram/118 mL enema (Fleet Enema) Previous Rx's ?Medication ?Instructions ?Recorded budesonide 0.5 mg/2 mL suspension 0.5 mg (2 mL) inhalation BID COPD 01/23/24 for nebulization #120 mL formoterol fumarate 20 mcg/2 mL 2 ml inhalation BID COPD #120 mL 01/23/24 solution for nebulization (Perforomist) revefenacin 175 mcg/3 mL solution 175 mcg (3 mL) inhalation DAILY 01/23/24 for nebulization (Yupelri) COPD #90 mL apixaban 5 mg tablet (Eliquis) 5 mg PO BID@0900,2100 30 days #60 03/11/25 tabs furosemide 40 mg tablet (Lasix) 40 mg PO DAILY 30 days #30 tabs 03/11/25 Allergies Allergy/AdvReac Type Severity Reaction Status Date / Time adhesive tape Allergy Unknown Unknown Verified 07/29/24 10:44 Review of Systems Narrative: Constitutional symptoms: Negative except as documented in HPI. Skin symptoms: Negative except as documented in HPI. Eye symptoms: Negative except as documented in HPI. ENMT symptoms: Negative except as documented in HPI. Respiratory symptoms: Negative except as documented in HPI. Cardiovascular symptoms: Negative except as documented in HPI. Gastrointestinal symptoms: Negative except as documented in HPI. Genitourinary symptoms: Negative except as documented in HPI. Musculoskeletal symptoms: Negative except as documented in HPI. Neurologic symptoms: Negative except as documented in HPI. Psychiatric symptoms: Negative except as documented in HPI. Endocrine symptoms: Negative except as documented in HPI. PFSH ED PFSH: Medical History CHF (congestive heart failure) Anemia Acute exacerbation of COPD with asthma Chest pain Acute respiratory failure Anxiety disorder Osteoporosis GERD (gastroesophageal reflux disease) Tobacco abuse, in remission ASHD (arteriosclerotic heart disease) Dyslipidemia HTN (hypertension) PAD (peripheral artery disease) COPD (chronic obstructive pulmonary disease) Renal cell cancer Surgical History Hx of exploratory laparotomy (08/28/18) 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 recurrent renal cell cancer Hx of hemorrhoidectomy Hx of cholecystectomy S/p nephrectomy (2004) Laparoscopic left nephrectomy for renal cell cancer Family History Father CAD (coronary artery disease) Brother CAD (coronary artery disease) Myocardial infarction Sister Psychiatric illness Other Cancer Chronic kidney disease (CKD) Hyperlipidemia Hypertension Lung disease Denies family history of Diabetes Clotting disorder Dementia Suicide Anesthesia complication Bleeding disorder Stroke Social History Smoking and tobacco/nicotine status: former use of tobacco/nicotine Quit status (tobacco/nicotine): has quit using Year quit tobacco: 1991 Former quit date comment: 1ppd X 30 years Alcohol intake: never Lives independently: Yes Marital status: / Pets and animals: Yes Physical Exam Narrative: EXAM NARRATIVE: General: Alert, no acute distress. Skin: Warm, dry. Head: Normocephalic, atraumatic. Neck: Supple, trachea midline. Eye: Extraocular movements are intact. Ears, nose, mouth and throat: Oral mucosa moist. Cardiovascular: Regular rate and rhythm, Normal peripheral perfusion. Respiratory: coarse, scattered wheeze, mild increased wob. tachypnea, breath sounds are equal, Symmetrical chest wall expansion. Gastrointestinal: Soft, Nontender, Non distended Musculoskeletal: Normal ROM, no deformity. Neurological: Alert and oriented, No focal neurological deficit observed. Psychiatric: Cooperative, appropriate mood & affect. Course Vital Signs: Vital signs: Vital Signs Temperature 98.3 F 03/19/25 12:38 Pulse Rate 73 03/19/25 14:08 Respiratory Rate 16 03/19/25 12:38 Blood Pressure 109/46 03/19/25 14:08 Pulse Oximetry 98 03/19/25 14:08 Oxygen Delivery Me thod BiPAP 03/19/25 14:08 Oxygen Flow Rate 10 03/19/25 12:38 Fraction of Inspir ed Oxygen 40 03/19/25 13:09 MDM - SOB/Dyspnea Medical Decision Making Differential diagnosis for patient with shortness of breath includes but is not limited to and based on the above HPI, review of systems and physical exam: Pneumonia. Bronchitis. Asthma or COPD with acute exacerbation. Acute coronary syndrome / CA. Pulmonary embolism. Anxiety. Congestive heart failure. Viral infections including influenza and Covid-19. Atrial fibrillation. Anxiety. Pleural effusion. Pneumothorax. Orders placed to evaluate differential diagnosis based on the above differential, HPI and physical exam EKG: Time 1245. Rate 71. Normal sinus rhythm, nonspecific ST changes, no ectopy, normal NE & QRS intervals, This was reviewed and interpreted by myself the ER physician at 1250. Chest x-ray: Improving infiltrates from previous chest x-ray done about a week ago. This was reviewed and interpreted by myself the emergency room physician. I also reviewed the radiology report. Lab Review: Laboratory results were reviewed and interpreted by myself the emergency room physician. Significant leukocytosis with a white count of 21,000. Potassium is slightly elevated 6.1. BUN and creatinine are elevated over baseline at 47 and 1.7. proBNP is quite a bit down from previous at 800. I reviewed the patient's medical record. Reexamination: Patient is stable and appears more comfortable on the BiPAP. Work of breathing is improved. Lung sounds sound a bit better. No altered mental status. No focal motor deficits. Consultation: I spoke with Dr. Rich who is on-call for the hospitalist service who agrees to admission. Assessment and plan: Acute on chronic hypoxemic respiratory failure COPD with acute exacerbation Hypercapnic respiratory failure Acute renal insufficiency Hyperkalemia ?BiPAP, breathing treatments and Solu-Medrol ?Pneumonia seems to be improving. Lactate is not elevated but she does have leukocytosis. Blood pressure is little soft but she is not tachycardic. I do not believe she is septic, but following protocol - 1 L normal saline bolus. Limited fluid resuscitation. Patient with heart failure. Also receiving 250 D10 - Antibiotics administered Rocephin and azithromycin -Sepsis quality measures. -Lactic acid with a reflex was ordered. -Blood cultures were ordered. ?Kayexalate, D10, insulin, calcium gluconate for hyperkalemia. -I discussed the patient with the hospitalist on-call who is admitting the patient. - Discussed findings and plan with patient. Answered any questions. - All laboratory values were reviewed and interpreted personally by myself, the ER physician - All imaging was reviewed and interpreted personally by myself, the ER physician. - Evaluation and treatment of this problem were appropriate in the emergency setting Lab Data 03/19/25 13:09 03/19/25 13:09 Labs/Radiology: Radiology Impressions Chest X-Ray 03/19/25 12:42 IMPRESSION: Stable to improved abnormal chest with no new abnormality as above. Laboratory Results WBC 21.27 10^3/uL (3.29-11.43) H 03/19/25 13:09 RBC 4.24 10^6/uL (3.85-5.65) 03/19/25 13:09 Hgb 12.40 g/dL (11.27-16.99) 03/19/25 13:09 Hct 39.4 % (36-47) 03/19/25 13:09 MCV 92.9 fl (85-98) 03/19/25 13:09 MCH 29.2 pg (27-33) 03/19/25 13:09 MCHC 31.5 g/dL (30-55) 03/19/25 13:09 RDW 16.1 % (12.1-15.1) H 03/19/25 13:09 Plt Count 278 10^3/cmm (157-399) 03/19/25 13:09 MPV 11.9 fL (7.4-10.4) H 03/19/25 13:09 Neut % (Auto) 85.8 % 03/19/25 13:09 Lymph % (Auto) 4.0 % 03/19/25 13:09 [place] % (Auto) 9.0 % 03/19/25 13:09 Eos % (Auto) 0.3 % 03/19/25 13:09 Baso % (Auto) 0.1 % 03/19/25 13:09 Neut # (Auto) 18.24 10^3/uL (1.8-7.7) H 03/19/25 13:09 Lymph # (Auto) 0.9 10^3/uL (0.8-4.8) 03/19/25 13:09 [place] # (Auto) 1.9 10^3/uL (0.2-0.9) H 03/19/25 13:09 Eos # (Auto) 0.1 10^3/uL (0.0-0.8) 03/19/25 13:09 Baso # (Auto) 0.0 10^3/uL (0.0-0.1) 03/19/25 13:09 Nucleated RBC % (auto) 0 % 03/19/25 13:09 Nucleated RBCs # 0.0 /100WBC 03/19/25 13:09 Specimen Type Arterial 03/19/25 12:38 Sample Site Radial, left 03/19/25 12:38 ABG pH 7.36 (7.35-7.45) 03/19/25 12:38 ABG pCO2 72.4 mmHg (35-45) H* 03/19/25 12:38 ABG pO2 124.0 mmHg (80.0-100.0) H 03/19/25 12:38 ABG HCO3 40.9 mmol/L (22-26) H 03/19/25 12:38 ABG O2 Saturation 99.0 03/19/25 12:38 ABG Base Excess 12.4 mmol/L (-2.0-2.0) H 03/19/25 12:38 Mateo Test N/a 03/19/25 12:38 A-a O2 Gradient Not Reportable 03/19/25 12:38 Hematocrit 38.3 % (37-47) 03/19/25 12:38 Hgb O2 Saturation 97.2 % (95-100) 03/19/25 12:38 Carboxyhemoglobin 1.5 %THgb (0.4-20.1) 03/19/25 12:38 Methemoglobin 0.3 % (0.4-1.5) L 03/19/25 12:38 Total Hemoglobin 12.5 g/dL (12-16) 03/19/25 12:38 Sodium 132.0 mmol/L (131-143) 03/19/25 12:38 Potassium 5.4 mmol/L (3.5-5.0) H 03/19/25 12:38 Glucose 149.0 mg/dL (70-115) H 03/19/25 12:38 Ionized Calcium 1.1 mmol/L (1.1-1.4) 03/19/25 12:38 O2 Delivery Device Simple mask 03/19/25 12:38 O2 Liters/Min 8.0 % 03/19/25 12:38 [employer] Officer ID [place] 03/19/25 12:38 Sodium 133 mmol/L (136-145) L 03/19/25 13:09 Potassium 6.1 mmol/L (3.5-5.1) H 03/19/25 13:09 Chloride 89 mmol/L (98-107) L 03/19/25 13:09 Carbon Dioxide 38 mmol/L (22-29) H 03/19/25 13:09 Anion Gap 12.1 (5-19) 03/19/25 13:09 BUN 47 mg/dL (8-23) H 03/19/25 13:09 Creatinine 1.7 mg/dL (0.5-0.9) H 03/19/25 13:09 GFR Calculation Not Reportable 03/19/25 13:09 Glucose 158 mg/dL (65-115) H 03/19/25 13:09 Calculated Osmolality 292 mOsm/kg (285-295) 03/19/25 13:09 Lactic Acid 1.5 mmol/L (0.5-2.2) 03/19/25 13:09 Calcium 8.5 mg/dL (8.5-10.5) 03/19/25 13:09 Total Bilirubin 0.4 mg/dL (0.15-1.2) 03/19/25 13:09 AST 19 U/L (0-32) 03/19/25 13:09 ALT 34 U/L (0-33) H 03/19/25 13:09 Alkaline Phosphatase 82 U/L (35-105) 03/19/25 13:09 Troponin T Baseline 45 ng/L (0-10) H 03/19/25 13:09 NT-Pro-B Natriuret Pep 802 pg/mL (0-450) H 03/19/25 13:09 Total Protein 5.6 g/dL (6.6-8.7) L 03/19/25 13:09 Albumin 3.3 g/dL (3.5-5.2) L 03/19/25 13:09 Globulin 2.3 g/dL (1.3-4.6) 03/19/25 13:09 All radiology interpretation(s) finalized by discharge Discharge Plan Discharge Patient Disposition: Admitted As Inpatient Clinical Impression: COPD with acute exacerbation, Acute on chronic hypoxic respiratory failure, Hypercapnic respiratory failure, Acute hyperkalemia, Acute renal insufficiency Condition: Stable Coding Level of Care 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
[2025-03-19 12:50] LABS: ABG PH Result 7.36 (7.35-7.45); Arterial Blood Gas Hematocrit 38.3 % (37-47); Base Excess ABG 12.4 mmol/L (-2.0-2.0); Blood Gas Operator Identificat MONRO; Blood Gas Sample Site Radial, left; Blood Gas Sample Type Arterial; Carboxyhemoglobin 1.5 %THgb (0.4-20.1); HCO3 ABG 40.9 mmol/L (22-26); HGB O2 Sat 97.2 % (95-100); Ionized Calcium Level - ABG 1.1 mmol/L (1.1-1.4); Methemoglobin 0.3 % (0.4-1.5); Potassium Level - ABG 5.4 mmol/L (3.5-5.0); Total Hemoglobin 12.5 g/dL (12-16)
[2025-03-19 12:51] LABS: ABG PCO2 72.4 mmHg (35-45); Oxygen Device SIMPLE MASK
--- NOTE | 2025-03-19 13:01 | PC.PHAR ---
patient is from [facility]
[2025-03-19 13:30] LABS: Basophils % 0.1 %; Eosinophils # 0.1 10^3/uL (0.0-0.8); Eosinophils % 0.3 %; Hematocrit 39.4 % (36-47); Lymphocytes # 0.9 10^3/uL (0.8-4.8); Mean Corpuscular HGB Conc 31.5 g/dL (30-55); Mean Corpuscular Hemoglobin 29.2 pg (27-33); Mean Corpuscular Volume 92.9 fl (85-98); Mean Platelet Volume 11.9 fL (7.4-10.4); Monocytes # 1.9 10^3/uL (0.2-0.9); Neutrophils # 18.24 10^3/uL (1.8-7.7); Neutrophils % 85.8 %; Nucleated Red Blood Cells % 0 %; Platelet Count 278 10^3/cmm (157-399); Red Blood Count 4.24 10^6/uL (3.85-5.65); Red Cell Distribution Width 16.1 % (12.1-15.1); White Blood Count 21.27 10^3/uL (3.29-11.43)
[2025-03-19 13:48] LABS: Troponin(5th) Baseline 45 ng/L (0-10)
[2025-03-19 13:51] LABS: Lactic Sepsis W/Reflex 1.5 mmol/L (0.5-2.2)
[2025-03-19 14:23] LABS: Alanine Aminotransferase 34 U/L (0-33); Albumin Level 3.3 g/dL (3.5-5.2); Alkaline Phosphatase 82 U/L (35-105); Blood Urea Nitrogen 47 mg/dL (8-23); Calcium 8.5 mg/dL (8.5-10.5); Carbon Dioxide 38 mmol/L (22-29); Globulin 2.3 g/dL (1.3-4.6); Glucose 158 mg/dL (65-115); NT Pro B Type Natriuretic Pept 802 pg/mL (0-450); Osmolality Calculated 292 mOsm/kg (285-295); Total Bilirubin 0.4 mg/dL (0.15-1.2); Total Protein 5.6 g/dL (6.6-8.7)
[2025-03-19 14:37] LABS: Anion Gap 12.1 (5-19); Aspartate Amino Transferase 19 U/L (0-32); Chloride 89 mmol/L (98-107); Potassium 6.1 mmol/L (3.5-5.1); Sodium 133 mmol/L (136-145)
[2025-03-19] MEDS: albuterol 2.5 mg/3 mL Neb INHALATION (14:43)
[2025-03-19] MEDS: methylPREDNISolone sod succ 125 mg/2 mL INJ IVP (14:44)
[2025-03-19] MEDS: sodium chloride 0.9% 1,000 ML 999 ML IV (14:44)
[2025-03-19] MEDS: AZITHROMYCIN ADD-Vantage 500 MG in 0.9% NaCl ADD-Vantage 250 ML 250 MG IV (14:45)
[2025-03-19] MEDS: cefTRIAXone 1,000 mg SDV 1000 MG IVP (14:45)
--- NOTE | 2025-03-19 14:59 | CTR_ITS ---
PROCEDURE INFORMATION: Exam: CT Chest Without Contrast; Diagnostic Exam date and time: 03/19/2025 3:51 PM Age: 84 years old Clinical indication: Other: Abd pain; Shortness of breath; Additional info: SOB TECHNIQUE: Imaging protocol: Diagnostic computed tomography of the chest without contrast. Radiation optimization: All CT scans at this facility use at least one of these dose optimization techniques: automated exposure control; mA and/or kV adjustment per patient size (includes targeted exams where dose is matched to clinical indication); or iterative reconstruction. COMPARISON: CT angio chest w abd pel w con 03/07/2025 11:52 AM RADIATION DOSE METRICS: Total DLP (mGy-cm): 1160.98 FINDINGS: Lungs: Patchy atelectasis involves both lung bases. No lung mass or infiltrate noted. Prominent centrilobular emphysematous change involves the upper lung felix bilaterally. Pleural spaces: Unremarkable. No pneumothorax. No pleural effusion. Heart: Mild cardiomegaly is noted. Coronary arteries: Coronary artery calcifications are noted. Lymph nodes: Unremarkable. No enlarged lymph nodes. Vasculature: Unremarkable. No aortic aneurysm. Bones/joints: There are 2 separate old thoracic compression fractures. Soft tissues: Unremarkable. PROCEDURE INFORMATION: Exam: CT Abdomen And Pelvis Without Contrast Exam date and time: 03/19/2025 3:51 PM Age: 84 years old Clinical indication: Other: Abd pain; Shortness of breath; Additional info: SOB TECHNIQUE: Imaging protocol: Computed tomography of the abdomen and pelvis without contrast. Radiation optimization: All CT scans at this facility use at least one of these dose optimization techniques: automated exposure control; mA and/or kV adjustment per patient size (includes targeted exams where dose is matched to clinical indication); or iterative reconstruction. COMPARISON: CT abdomen pelvis w con* [id number] 10/10/2021 12:22 PM RADIATION DOSE METRICS: Total DLP (mGy-cm): 1160.98 FINDINGS: Lungs: Lung bases are clear. No pleural effusion. Liver: Normal. No mass. Gallbladder and biliary ducts: The gallbladder has been resected. Pancreas: Normal. No ductal dilation. Spleen: Normal. No splenomegaly. Adrenal glands: Normal. No mass. Kidneys and ureters: The left kidney has been resected. Stomach and bowel: There is a prominent collection of stool within the rectum causing mild rectal distension. No other bowel distension noted. Appendix: No evidence of appendicitis. Intraperitoneal space: Unremarkable. No free air. No significant fluid collection. Vasculature: Unremarkable. No abdominal aortic aneurysm. Lymph nodes: Unremarkable. No enlarged lymph nodes. Urinary bladder: Unremarkable as visualized. Reproductive: Unremarkable as visualized. Bones/joints: Old compression fractures involve L1 and L2. No acute fracture noted. Soft tissues: Unremarkable. CT/[place] [id number] IMPRESSION: 1. Bibasilar atelectasis which has improved somewhat over the past 2 weeks 2. Stable cardiomegaly IMPRESSION: Constipation
[2025-03-19 15:16] LABS: Influenza A NEGATIVE (Negative); Influenza B NEGATIVE (Negative); Respiratory Syncytial Virus Ce NEGATIVE (Negative); SARS-CoV-2 PCR NEGATIVE (Negative)
--- NOTE | 2025-03-19 15:17 | P.HP_ITS ---
Providers/Chief Complaint 2 Admitting Physician: Doron Rich MD Primary Care Provider: FELICIA Orosco Chief Complaint: SOB History of Present Illness Ingrid De Leon is a 84 year old female with a past medical history of chronic hypoxic hypercarbic respiratory failure, end-stage COPD, hypertension, hyperlipidemia, atrial fibrillation, obesity, history of CO2 narcosis, history of BiPAP noncompliance, history of systolic and diastolic CHF, history of CVA, CAD, peripheral vascular disease, who presents to [facility] due to shortness of breath, low O2 readings on her pulse ox, and altered mental status. Currently patient is alert to person, not place, time she is on BiPAP, she does not follow commands, family members at bedside, according to family members, patient has had increased shortness of breath, has had issues with constipation, has not had a bowel movement in 5 days, possibly bowel movement last night this time is exactly unsure, there have been issues with BiPAP compliance at [facility]. I spoke to [facility], they advised me that patient is noncompliant with BiPAP, she did not use it last night, she has been complaining of increased shortness of breath, she had low O2 readings on her pulse ox, her abdomen is more distended, she did have a small bowel movement last night, but has been complaining of constipation, confirmed with family members at bedside patient is a DNR/DNI, patient's son tells me that him and his brother have discussed Christina CODE STATUS, and they have agreed on DNR/DNI, they tell me that if it is her time to go, the [facility] can take her Review of Systems 2 General: Reports: ROS unobtainable due to mental status Medications/Allergies Home Medications ?Medication ?Instructions ?Recorded ?Confirmed ?Last Taken ?Type albuterol sulfate 90 mcg/actuation 2 puff inhalation Q ID PRN 12/30/19 03/19/25 03/19/25 History aerosol inhaler (Ventolin HFA) Shortness Of Breath [id number]-[id number]-mfrcstg 2 cap PO AC 10/02/21 5 03/19/25 History 36,000-114,000-180,000 unit capsule,delay rel (Creon) tramadol 50 mg tablet 25 mg PO Q8H PRN Pain 0803/19/25 03/05/25 History albuterol sulfate 2.5 mg/3 mL 2.5 mg inhalation Q3H HI N 06/18/22 03/19/25 03/19/25 History (0.083 %) solution for nebulization Shortness Of Breat h coenzyme Q10 100 mg capsule 100 mg PO DAILY 06/18/22 0 03/19/25 03/19/25 History (CoQ-10) potassium chloride 20 mEq 20 meq PO QAM 06/18/2203/1903/19/25 History tablet,extended release(part/cryst) aspirin 81 mg tablet,delayed 81 mg PO DAILY 03/14/23 0 03/19/25 03/19/25 History release budesonide 0.5 mg/2 mL suspension 0.5 mg (2 mL) inhala tion BID COPD 01/23/24 03/19/25 03/19/25 Rx for nebulization #120 mL formoterol fumarate 20 mcg/2 mL 2 ml inhalation BID CO PD #120 mL 01/23/24 03/19/25 03/19/25 Rx solution for nebulization (Perforomist) ginkgo biloba 40 mg tablet 40 mg PO DAILY 01/23/2408/0503/19/25 History revefenacin 175 mcg/3 mL solution 175 mcg (3 mL) inhal ation DAILY 01/23/24 03/19/25 03/19/25 Rx for nebulization (Yupelri) COPD #90 mL Xlear 1 spray nasal BID 03/07/25 0 03/19/25 03/19/25 History apixaban 5 mg tablet (Eliquis) 5 mg PO BID@0900,2100 3 0 days #60 03/11/25 03/19/25 03/19/25 Rx tabs furosemide 40 mg tablet (Lasix) 40 mg PO DAILY 30 days #30 tabs 03/11/25 03/19/25 03/19/25 Rx amiodarone 200 mg tablet (Pacerone) 200 mg PO DAILY 03/19/25 03/19/25 History bisacodyl 10 mg rectal suppository 10 mg HI DAILY PRN Constipation 03/19/25 03/19/25 03/19/25 History (Dulcolax (bisacodyl)) magnesium hydroxide 400 mg/5 mL 30 ml PO DAILY PRN Con stipation 03/19/25 03/19/25 Unknown History oral suspension (Milk of Magnesia) polyethylene glycol 3350 17 4 g PO DAILY 03/19/2508/0503/19/25 History gram/dose oral powder (Miralax) pregabalin 50 mg capsule 50 mg PO TID 03/19/2503/19/25 History psyllium husk 3.4 gram/6 gram oral 3.4 g PO DAILY 08/0503/19/25 03/19/25 History powder sodium phosphates 19 gram-7 118 ml HI DAILY PRN Consti pation 03/19/25 03/19/25 03/19/25 History gram/118 mL enema (Fleet Enema) Allergies Allergy/AdvReac Type Severity Reaction Status Date / Time adhesive tape Allergy Unknown Unknown Verified 07/29/24 10:44 PFSH Acute 2 PFSH: Medical History CHF (congestive heart failure) Anemia Acute exacerbation of COPD with asthma Chest pain Acute respiratory failure Anxiety disorder Osteoporosis GERD (gastroesophageal reflux disease) Tobacco abuse, in remission ASHD (arteriosclerotic heart disease) Dyslipidemia HTN (hypertension) PAD (peripheral artery disease) COPD (chronic obstructive pulmonary disease) Renal cell cancer Surgical History Hx of exploratory laparotomy (08/28/18) 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 recurrent renal cell cancer Hx of hemorrhoidectomy Hx of cholecystectomy S/p nephrectomy (2004) Laparoscopic left nephrectomy for renal cell cancer Family History Father CAD (coronary artery disease) Brother CAD (coronary artery disease) Myocardial infarction Sister Psychiatric illness Other Cancer Chronic kidney disease (CKD) Hyperlipidemia Hypertension Lung disease Denies family history of Diabetes Clotting disorder Dementia Suicide Anesthesia complication Bleeding disorder Stroke Social History Smoking and tobacco/nicotine status: former use of tobacco/nicotine Quit status (tobacco/nicotine): has quit using Year quit tobacco: 1991 Former quit date comment: 1ppd X 30 years Alcohol intake: never Lives independently: Yes Marital status: / Pets and animals: Yes Vitals/I&O/Wt Last Vital Signs Temp 98.3 F 03/19/25 12:38 Pulse 72 03/19/25 14:49 Resp 17 03/19/25 14:44 BP 109/46 03/19/25 14:08 Pulse Ox 97 03/19/25 14:49 O2 Del Method BiPAP 03/19/25 14:44 O2 Flow Rate 10 03/19/25 12:38 FiO2 40 03/19/25 14:49 Weight last 48 hrs Weight 77.111 kg Physical Exam 2 Const: COMMON NORMALS: no acute distress ORIENTATION/CONSCIOUSNESS: Yes awake, Yes oriented to person and Yes confused; not oriented to place and not oriented to time Eye: COMMON NORMALS: Equal, round and reactive pupils present Neck/C-Spine: COMMON NORMALS: no JVD Lymph: LYMPHATIC: no lymphadenopathy noted Resp: AUSCULTATION: crackles and wheezes OTHER: Nasal flaring, intercostal retractions, suprasternal retractions, tachypnea, crackles or wheezing in all lung felix Cardio: COMMON NORMALS: no JVD, regular rate, regular rhythm, S1 normal heart sound present and S2 normal heart sound present RATE: regular rate RHYTHM: regular rhythm HEART SOUNDS: S1 normal heart sound present and S2 normal heart sound present GI: OTHER: abdomen soft, distended, diminished bowel sounds in all 4 quadrants, no guarding, no rebound, NO rigidity Extremity: COMMON NORMALS: no calf tenderness and no pedal edema Neuro: OTHER: Does not follow neurologic testing Psych: COMMON NORMALS: mental status grossly normal Skin: NARRATIVE SKIN EXAM: DP PT pulses diminished bilaterally, cap refill greater than 2 seconds, mild mottling lower extremities, patient is septic, time evaluated 3 PM 03/19/2025 Data 03/19/25 13:09 03/19/25 13:09 Micro: Microbiology 03/19/25 13:22 Blood Culture - Preliminary Blood SPECIMEN COLLECTED 03/19/25 13:09 Blood Culture - Preliminary Blood SPECIMEN COLLECTED A&P Assessment and plan (1) Acute hypercapnic respiratory failure: (2) Pneumonia: (3) Sepsis: (4) Dehydration: (5) Acute kidney injury: (6) Hyperkalemia: (7) COPD exacerbation: (8) Acute encephalopathy: Plan Acute encephalopathy - Secondary to sepsis, pneumonia - Secondary to CO2 narcosis - N.p.o. - Neurochecks, aspiration precautions Acute hypercarbic respiratory failure - Secondary to COPD - Secondary to pneumonia, concern for healthcare associated pneumonia Plan - Monitor respiratory status closely - Admit to ICU - BiPAP - Concerns for healthcare associate pneumonia given recent hospitalization - vancomycin, Zosyn - Monitor blood cultures - Monitor sputum cultures - Solu-Medrol 40 mg IV every 8 hours - DuoNeb - Budesonide Acute renal failure - Second dehydration - IV fluids Hyperkalemia - Status post insulin, D50, calcium gluconate - Telemetry monitoring Sepsis, secondary to pneumonia, sepsis features met, given leukocytosis, respiratory failure, source of infection pneumonia, ALBERT Abdominal distention, complains constipation, CT scan abdomen pelvis Atrial fibrillation, - Hold p.o. medications until mentation improves - Start therapeutic Lovenox Elevated blood sugars, A1c, monitor blood sugars DNR/DNI Therapeutic Lovenox for DVT prophylaxis PDMP PDMP Reviewed: Not Reviewed Attestations 2 Medical Necessity Statement*: Patient requires hospitalization, inpatient, greater than 2 midnights, for acute hypercarbic respiratory failure secondary to COPD exacerbation, pneumonia, ALBERT, hyperkalemia, encephalopathy Diagnoses Acute hypercapnic respiratory failure J96.02 Pneumonia J18.9 Laterality: right Lung location: lower lobe of lung Pneumonia type: due to unspecified organism Sepsis A41.9 Dehydration E86.0 Acute kidney injury N17.9 Hyperkalemia E87.5 COPD exacerbation J44.1 Acute encephalopathy G93.40
[2025-03-19 15:21] LABS: INR 1.35 (0.8-1.2)
[2025-03-19] MEDS: insulin regular-human 100 units/1 mL 10 UNIT IVP (15:23)
[2025-03-19] MEDS: sodium polystyrene sulfonate 15 gm/60 mL Btl PO (15:23)
[2025-03-19] MEDS: calcium gluconate 0.9% NaCL 1 GM/50 ML PREMIX IV (15:24)
[2025-03-19 15:36] LABS: Procalcitonin 0.38 ng/mL (0-0.5)
[2025-03-19 15:38] LABS: Troponin 5 2HR 38.88 ng/L (0-10); Troponin 5 2HR Delta -6.12 ABS# (0-10)
--- NOTE | 2025-03-19 16:17 | ECG_ITS ---
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1940 Requested By: Pauly Branham Order Number: [id number] Reading MD: BRIAN MUELLER Measurements Intervals [place] Rate: 73 P: 76 DC: 175 QRS: -23 QRSD: 85 T: 42 QT: 408 QTc: 450 Interpretive Statements SINUS RHYTHM LOW QRS VOLTAGE IN PRECORDIAL LEADS [QRS DEFLECTION < 1.0 mV IN CHEST LEADS] POSSIBLE ANTERIOR MYOCARDIAL INFARCTION , OF INDETERMINATE AGE [30 ms Q WAVE IN V3/V4, OR R < 0.2 mV IN V4] Compared to ECG 03/19/2025 12:45:50 No significant changes Electronically Signed On 03-20-2025 16:25:14 CDT by BRIAN MUELLER [email or web address] [id number]
--- NOTE | 2025-03-19 16:21 | PHA.VACGOAL ---
Vancomycin Goal - Goal Vancomycin Goal:: 15-20 mg/L Vancomycin Indication:: Pneumonia (SEPSIS) - Therapy Current therapy:: Pip/Tazo Day of therpy:: Day []of [] . Actual body weight (kg): 170 lb - Data Labs: WBC 21.27 10^3/uL (3.29-11.43) H 03/19/25 13:09 RBC 4.24 10^6/uL (3.85-5.65) 03/19/25 13:09 Hgb 12.40 g/dL (11.27-16.99) 03/19/25 13:09 Hct 39.4 % (36-47) 03/19/25 13:09 MCV 92.9 fl (85-98) 03/19/25 13:09 MCH 29.2 pg (27-33) 03/19/25 13:09 MCHC 31.5 g/dL (30-55) 03/19/25 13:09 RDW 16.1 % (12.1-15.1) H 03/19/25 13:09 Sodium 133 mmol/L (136-145) L 03/19/25 13:09 Potassium 6.1 mmol/L (3.5-5.1) H 03/19/25 13:09 Chloride 89 mmol/L (98-107) L 03/19/25 13:09 Carbon Dioxide 38 mmol/L (22-29) H 03/19/25 13:09 Anion Gap 12.1 (5-19) 03/19/25 13:09 BUN 47 mg/dL (8-23) H 03/19/25 13:09 Creatinine 1.7 mg/dL (0.5-0.9) H 03/19/25 13:09 GFR Calculation Not Reportable 03/19/25 13:09 Last dialysis session:: N/A Treatment plan:: new consult Regimen:: INITIAL LOADING DOSE OF 2000 MG PER DOSING PROTOCOL. DUE TO RENAL FUNCTION, WILL PULSE DOSE INTERMITTENTLY. TROUGH TO BE OBTAINED 24 HOURS POST LOADING DOSE. Follow up:: TROUGH 03/20 @1883
[2025-03-19] MEDS: ipratropium-albuterol 3 mL Neb INHALATION ×2 (16:41→19:55)
--- NOTE | 2025-03-19 17:55 | ECG_ITS ---
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1940 Requested By: Pauly Branham Order Number: [id number] Reading MD: BRIAN MUELLER Measurements Intervals [place] Rate: 68 P: 75 MA: 176 QRS: -15 QRSD: 88 T: 47 QT: 415 QTc: 442 Interpretive Statements SINUS RHYTHM LOW QRS VOLTAGE IN PRECORDIAL LEADS [QRS DEFLECTION < 1.0 mV IN CHEST LEADS] POSSIBLE ANTERIOR MYOCARDIAL INFARCTION , OF INDETERMINATE AGE [30 ms Q WAVE IN V3/V4, OR R < 0.2 mV IN V4] Compared to ECG 03/19/2025 16:17:50 No significant changes Electronically Signed On 03-20-2025 16:25:02 CDT by BRIAN MUELLER [email or web address] [id number]
[2025-03-19] MEDS: pantoprazole 40 mg SDV IVP (18:03)
[2025-03-19] MEDS: vancomycin 2,000 MG/400 ML PIGGYBACK 200 MG IV (18:12)
[2025-03-19] MEDS: piperacillin-tazobactam 3.375 GM in sodium chloride 0.9% (plus) 50 ML IV (18:19)
[2025-03-19 18:21] LABS: Glucose Point of Care 128 mg/dL (70-110)
[2025-03-19 19:38] LABS: Anion Gap 13.7 (5-19); Blood Urea Nitrogen 48 mg/dL (8-23); C Reactive Protein 40.7 mg/L (0.0-4.9); Calcium 7.7 mg/dL (8.5-10.5); Carbon Dioxide 31 mmol/L (22-29); Chloride 95 mmol/L (98-107); Creatinine Clr Calc Pharmacy 19.6277; Glucose 163 mg/dL (65-115); Osmolality Calculated 294 mOsm/kg (285-295); Potassium 5.7 mmol/L (3.5-5.1); Sodium 134 mmol/L (136-145)
[2025-03-19 19:52] LABS: Troponin 5 6HR 35.97 ng/L (0-10); Troponin 5 6HR Delta -9.03 ng/L (0-12)
[2025-03-19] MEDS: budesonide 0.5 mg/2 mL Neb INHALATION (19:55)
[2025-03-19] MEDS: enoxaparin 100 mg/mL Syringe 80 MG SUBCUT (22:28)
[2025-03-19] MEDS: glycerin adult supp 1 EACH PR (22:29)
[2025-03-20] VITALS (136 sets, daily range): BP systolic 85–154; BP diastolic 40–129; PULSE 61–75; RESP 9–26; TEMP 36.5–37.1; O2SAT 88–100
[2025-03-20 00:04] LABS: Glucose Point of Care 245 mg/dL (70-110)
[2025-03-20] MEDS: piperacillin-tazobactam 3.375 GM in sodium chloride 0.9% (plus) 50 ML IV ×4 (01:00→23:41)
[2025-03-20] MEDS: morphine 4 mg/mL SDV 1 mL 2 MG IVP (03:00)
[2025-03-20] MEDS: ipratropium-albuterol 3 mL Neb INHALATION ×5 (03:16→20:02)
[2025-03-20 03:57] LABS: ABG PH Result 7.37 (7.35-7.45); Arterial Blood Gas Hematocrit 37.3 % (37-47); Base Excess ABG 10.2 mmol/L (-2.0-2.0); Blood Gas Operator Identificat JDB; Blood Gas Sample Site Brachial, right; Blood Gas Sample Type Arterial; Blood Gas Tidal Volume 0.55; HCO3 ABG 37.8 mmol/L (22-26); Oxygen Device BIPAP; PO2 ABG 61.7 mmHg (80.0-100.0); PO2 FiO2 Ratio Arterial Blood 176
[2025-03-20 03:58] LABS: ABG PCO2 65.1 mmHg (35-45)
[2025-03-20 05:03] LABS: Basophils % 0.2 %; Hematocrit 38.7 % (36-47); Lymphocytes # 0.3 10^3/uL (0.8-4.8); Lymphocytes % 1.2 %; Mean Corpuscular Volume 93.5 fl (85-98); Monocytes # 0.5 10^3/uL (0.2-0.9); Monocytes % 1.8 %; Neutrophils # 25.56 10^3/uL (1.8-7.7); Neutrophils % 96.1 %; Nucleated Red Blood Cells % 0 %; Platelet Count 275 10^3/cmm (157-399); Red Blood Count 4.14 10^6/uL (3.85-5.65); Red Cell Distribution Width 16.4 % (12.1-15.1); White Blood Count 26.58 10^3/uL (3.29-11.43)
[2025-03-20 05:29] LABS: Estmated Average Glucose 151; Hemoglobin A1C 6.9 % (4.0-6.0)
[2025-03-20 05:31] LABS: Chol HDL Ratio 2.67 mg/dL (0.0-4.40); Cholesterol 160 mg/dL (0-200); HDL Cholesterol 60 mg/dL (60-100); LDL Cholesterol Calculated 85 mg/dL (50-129); LDL HDL Ratio 1.42 RATIO (0.00-3.22); NT Pro B Type Natriuretic Pept 1030 pg/mL (0-450); Triglycerides 75 mg/dL (0-150)
[2025-03-20 05:32] LABS: Alanine Aminotransferase 30 U/L (0-33); Albumin Level 3.1 g/dL (3.5-5.2); Alkaline Phosphatase 71 U/L (35-105); Anion Gap 16.1 (5-19); Aspartate Amino Transferase 15 U/L (0-32); Blood Urea Nitrogen 44 mg/dL (8-23); Calcium 8.2 mg/dL (8.5-10.5); Carbon Dioxide 33 mmol/L (22-29); Chloride 95 mmol/L (98-107); Creatinine Clr Calc Pharmacy 22.4317; Globulin 2.7 g/dL (1.3-4.6); Glucose 210 mg/dL (65-115); Magnesium 3.1 mg/dL (1.7-2.3); Osmolality Calculated 305 mOsm/kg (285-295); Phosphorus 3.3 mg/dL (2.5-4.5); Potassium 5.1 mmol/L (3.5-5.1); Sodium 139 mmol/L (136-145); Thyroid Stimulating Hormone 0.62 uIU/mL (0.27-4.20); Total Bilirubin 0.4 mg/dL (0.15-1.2); Total Protein 5.8 g/dL (6.6-8.7)
[2025-03-20 05:46] LABS: Lactate (Lactic Acid level) 1.9 mmol/L (0.5-2.2)
--- NOTE | 2025-03-20 07:00 | XRR_ITS ---
PROCEDURE INFORMATION: Exam: XR Chest Exam date and time: 03/20/2025 9:16 AM Age: 84 years old Clinical indication: Shortness of breath; Additional info: SOB TECHNIQUE: Imaging protocol: Radiologic exam of the chest. Views: 1 view. COMPARISON: Single AP chest x-ray March 19, 2025 at 1:57 p.m. FINDINGS: Lungs: Scarring in the lower lungs remains unchanged. Otherwise, unremarkable. Pleural spaces: Unremarkable. No pleural effusion. No pneumothorax. Heart/Mediastinum: Unchanged mild cardiomegaly. Otherwise, unremarkable. Bones/joints: Nothing acute. No change. XR/XR chest 1V portable [id number] IMPRESSION: 1. Unchanged mild cardiomegaly. 2. No superimposed acute disease.
[2025-03-20] MEDS: budesonide 0.5 mg/2 mL Neb INHALATION ×2 (07:44→20:02)
[2025-03-20] MEDS: aspirin 81 mg EC Tablet PO (07:49)
[2025-03-20] MEDS: enoxaparin 100 mg/mL Syringe 80 MG SUBCUT (07:49)
[2025-03-20] MEDS: magnesium citrate Btl 296 mL 150 ML PO (09:26)
[2025-03-20] MEDS: mineral oil ENEMA 133 mL PR (09:26)
[2025-03-20] MEDS: sennosides-docusate Tablet 1 TAB PO ×2 (09:27→17:52)
[2025-03-20 10:11] LABS: Bilirubin Urine Negative (Negative); Blood Urine Negative (Negative); Glucose Urine UA Negative (Normal); Ketones Urine Negative (Negative); Leukocyte Esterase Urine Negative (Negative); Nitrate Urine Negative (Negative); Protein Urine 1+ (Negative); Specific Gravity, Urine 1.019 (1.005-1.030); Urine Appearance Clear (CLEAR); Urine Color Yellow (Yellow); Urobilinogen Urine 0.2 mg/dL (Negative); pH Urine 6.5 (5-7)
[2025-03-20 10:16] LABS: Add Urine Microscopic? YES; Hyaline Casts Urine 43.84 /lpf; RBC Urine 0-2 /hpf (0-2); Squamous Epithelial Cell Urine 0-5 /hpf (0-5)
[2025-03-20 10:26] LABS: Bacteria Urine 1+ /hpf; UA Slide Review UA Slide Review Perf
[2025-03-20 11:30] LABS: Glucose Point of Care 211 mg/dL (70-110)
[2025-03-20 11:30] LABS: Glucose Point of Care 207 mg/dL (70-110)
[2025-03-20] MEDS: insulin lispro 100 unit/1 mL SUBCUT ×2 (12:20→17:53)
[2025-03-20] MEDS: lactulose oral liq 20 gm/30 mL UDC PO ×2 (12:20→23:10)
--- NOTE | 2025-03-20 13:55 | P.PN_ITS ---
Subjective 2 Subjective: Patient was seen this morning, she is alert oriented x 2, following all commands she is becoming quite agitated with me she keeps yelling and screaming that she wants to go to the senior care, she tells me that she did not know that she had to use the BiPAP as needed, she was never told this, she can follow commands, we discussed her hypercarbic respiratory failure, will continue to monitor as inpatient, continue IV antibiotics for her pneumonia, monitor kidney function, potassium, hopefully if she clinically improves we can likely discharge her in the next few days, she also tells me that she is quite constipated we discussed starting on a bowel regiment Vitals/I&O/Wt Last Vital Signs Temp 97.7 F 03/20/25 12:00 Pulse 68 03/20/25 13:42 Resp 17 03/20/25 13:10 BP 148/60 03/20/25 13:10 Pulse Ox 98 03/20/25 13:42 O2 Del Method BiPAP 03/20/25 13:10 O2 Flow Rate 4 03/20/25 11:40 FiO2 35 03/20/25 13:42 03/19/25 03/20/25 03/20/25 22:59 06:59 14:59 Intake Total 0 / 0 100 / 100 50 / 50 Output Total 1500 / 1500 Balance 0 / 0 100 / 100 -1450 / -1450 Weight last 48 hrs Weight 105 kg Weight 49.215 kg Weight 77.111 kg Physical Exam 2 Const: COMMON NORMALS: no acute distress ORIENTATION/CONSCIOUSNESS: Yes awake, Yes oriented to person and Yes oriented to place; not oriented to time Resp: COMMON NORMALS: normal respiratory effort AUSCULTATION: crackles and wheezes OTHER: Does become short of breath with a few words, nasopharynx manage without retractions, suprasternal retractions Cardio: COMMON NORMALS: regular rate, regular rhythm, S1 normal heart sound present and S2 normal heart sound present RATE: regular rate RHYTHM: r egular rhythm HEART SOUNDS: S1 normal heart sound present and S2 normal heart sound present GI: COMMON NORMALS: Normal to inspection, nondistended, normoactive bowel sounds present and non-tender Extremity: COMMON NORMALS: no calf tenderness and no pedal edema Neuro: SENSORIUM/ORIENTATION: Yes oriented to person, Yes oriented to place and No oriented to time Skin: NARRATIVE SKIN EXAM: DP PT pulses palpable, cap refill less than 2 seconds, no mottling Urinary Catheter Management: Harmon: Cath Placed During This Visit: yes Urinary Catheter Date of Insertion: 03/20/25 Urinary Catheter Time of Insertion: 10:09 Data 03/20/25 04:01 03/20/25 04:01 Micro: Microbiology 03/19/25 13:09 Blood Culture - Preliminary Blood NEGATIVE TO DATE 03/19/25 13:22 Blood Culture - Preliminary Blood NEGATIVE TO DATE A&P Assessment and plan (1) Acute hypercapnic respiratory failure: (2) Pneumonia: (3) Sepsis: (4) Dehydration: (5) Acute kidney injury: (6) Hyperkalemia: (7) COPD exacerbation: (8) Acute encephalopathy: Plan Acute encephalopathy, resolving - Secondary to sepsis, pneumonia - Secondary to CO2 narcosis - Advance to dysphagia level 4 diet, moderately thickened - Neurochecks, aspiration precautions Acute hypercarbic respiratory failure - Secondary to COPD - Secondary to pneumonia, concern for healthcare associated pneumonia Plan - Monitor respiratory status closely - Will moved to MedSurg - BiPAP - Concerns for healthcare associate pneumonia given recent hospitalization - vancomycin, Zosyn - Monitor blood cultures - Monitor sputum cultures - Solu-Medrol 40 mg IV every 8 hours - DuoNeb - Budesonide Acute renal failure, improving - Second dehydration - IV fluids Hyperkalemia, resolved - Status post insulin, D50, calcium gluconate - Telemetry monitoring Sepsis, secondary to pneumonia, sepsis features met, given leukocytosis, respiratory failure, source of infection pneumonia, ALBERT Abdominal distention, complains constipation, CT scan abdomen pelvis shows evidence of constipation, started on bowel regimen Atrial fibrillation, - Resume home amiodarone - Switch Eliquis Type 2 diabetes mellitus, insulin sliding scale DNR/DNI Therapeutic Lovenox for DVT prophylaxis PDMP PDMP Reviewed: Not Reviewed Attestations 2 Medical Necessity Statement*: Patient requires hospitalization for acute hypercarbic respiratory failure secondary COPD Diagnoses Acute hypercapnic respiratory failure J96.02 Pneumonia J18.9 Laterality: right Lung location: lower lobe of lung Pneumonia type: due to unspecified organism Sepsis A41.9 Dehydration E86.0 Acute kidney injury N17.9 Hyperkalemia E87.5 COPD exacerbation J44.1 Acute encephalopathy G93.40
[2025-03-20] MEDS: pregabalin 50 mg Capsule PO ×2 (14:16→20:31)
[2025-03-20] MEDS: amiodarone 200 mg Tablet PO (14:16)
[2025-03-20] MEDS: lanolin oint 7 gm 1 APPLIC TOPICAL (14:16)
[2025-03-20] MEDS: pantoprazole 40 mg SDV IVP (15:58)
[2025-03-20 17:20] LABS: Glucose Point of Care 211 mg/dL (70-110)
--- NOTE | 2025-03-20 18:14 | PC.NURSE ---
Shift note: Patient requested straight cath for bladder relief, Dr. Rich contacted and order received for Harmon catheter, patient tolerated well. Enema completed and patient had small amount of stool, brown liquid output. Patient then had large, unassisted bowel movement in afternoon. Low dose sliding scale start today to treat elevated BG. Level 4 diet start. Patient able to help with turning in bed. Patient denied need for pain medication through shift, but stated turning and repositioning is painful.
[2025-03-20] MEDS: vancomycin 1,500 MG/300 ML PIGGYBACK 200 MG IV (19:56)
[2025-03-20] MEDS: apixaban 5 mg Tablet PO (20:31)
[2025-03-20 23:18] LABS: Glucose Point of Care 155 mg/dL (70-110)
[2025-03-21] VITALS (150 sets, daily range): BP systolic 95–155; BP diastolic 45–75; PULSE 64–94; RESP 9–34; TEMP 36.4; O2SAT 83–100
[2025-03-21] MEDS: ipratropium-albuterol 3 mL Neb INHALATION ×7 (00:10→23:36)
[2025-03-21 04:40] LABS: ABG PCO2 62.8 mmHg (35-45); ABG PH Result 7.43 (7.35-7.45); Arterial Blood Gas Hematocrit 33.7 % (37-47); Base Excess ABG 14.5 mmol/L (-2.0-2.0); Blood Gas Allen Test Pos; Blood Gas Operator Identificat JDB; Blood Gas Sample Site Radial, right; Blood Gas Sample Type Arterial; Blood Gas Tidal Volume 0.55; HCO3 ABG 41.3 mmol/L (22-26); Oxygen Device BIPAP; PO2 FiO2 Ratio Arterial Blood 277
[2025-03-21 05:16] LABS: Basophils % 0.1 %; Eosinophils % 0.1 %; Hematocrit 32.5 % (36-47); Lymphocytes # 0.7 10^3/uL (0.8-4.8); Lymphocytes % 3.3 %; Mean Corpuscular HGB Conc 31.7 g/dL (30-55); Mean Corpuscular Hemoglobin 28.8 pg (27-33); Mean Corpuscular Volume 90.8 fl (85-98); Mean Platelet Volume 12.8 fL (7.4-10.4); Monocytes # 1.5 10^3/uL (0.2-0.9); Monocytes % 7.4 %; Neutrophils # 18.34 10^3/uL (1.8-7.7); Neutrophils % 88.5 %; Nucleated Red Blood Cells % 0 %; Platelet Count 233 10^3/cmm (157-399); Red Blood Count 3.58 10^6/uL (3.85-5.65); Red Cell Distribution Width 16.2 % (12.1-15.1); White Blood Count 20.72 10^3/uL (3.29-11.43)
[2025-03-21 05:39] LABS: Lactate (Lactic Acid level) 0.9 mmol/L (0.5-2.2)
[2025-03-21 05:41] LABS: Alanine Aminotransferase 23 U/L (0-33); Albumin Level 2.8 g/dL (3.5-5.2); Alkaline Phosphatase 98 U/L (35-105); Anion Gap 9.4 (5-19); Aspartate Amino Transferase 17 U/L (0-32); Blood Urea Nitrogen 33 mg/dL (8-23); Carbon Dioxide 37 mmol/L (22-29); Chloride 98 mmol/L (98-107); Creatinine Clr Calc Pharmacy 45.8929; Globulin 2.5 g/dL (1.3-4.6); Glucose 184 mg/dL (65-115); Magnesium 4.2 mg/dL (1.7-2.3); Osmolality Calculated 302 mOsm/kg (285-295); Phosphorus 1.9 mg/dL (2.5-4.5); Potassium 4.4 mmol/L (3.5-5.1); Sodium 140 mmol/L (136-145); Total Bilirubin 0.4 mg/dL (0.15-1.2); Total Protein 5.3 g/dL (6.6-8.7)
[2025-03-21 05:51] LABS: NT Pro B Type Natriuretic Pept 875 pg/mL (0-450)
[2025-03-21] MEDS: budesonide 0.5 mg/2 mL Neb INHALATION (08:19)
[2025-03-21] MEDS: pregabalin 50 mg Capsule PO ×3 (08:48→20:32)
[2025-03-21] MEDS: aspirin 81 mg EC Tablet PO (08:48)
[2025-03-21] MEDS: apixaban 5 mg Tablet PO ×2 (08:48→20:32)
[2025-03-21] MEDS: piperacillin-tazobactam 3.375 GM in sodium chloride 0.9% (plus) 50 ML IV ×2 (08:49→16:14)
[2025-03-21] MEDS: amiodarone 200 mg Tablet PO (08:49)
[2025-03-21] MEDS: insulin lispro 100 unit/1 mL SUBCUT ×3 (08:49→18:00)
--- NOTE | 2025-03-21 09:54 | P.PN_ITS ---
Subjective 2 Subjective: Patient was seen this morning, she denies any fevers, chills, , no nausea, no vomiting, no abdominal pain, she does report shortness of breath, does have a cough, she tells me that she will be compliant with her BiPAP Vitals/I&O/Wt Last Vital Signs Temp 98.7 F 03/20/25 18:04 Pulse 73 03/21/25 09:40 Resp 18 03/21/25 09:40 BP 140/65 03/21/25 09:40 Pulse Ox 90 03/21/25 09:40 O2 Del Method Nasal Cannula 03/21/25 09:40 O2 Flow Rate 3 03/21/25 08:19 FiO2 35 03/21/25 04:25 03/20/25 03/21/25 03/21/25 22:59 06:59 14:59 Intake Total 490 / 540 530 / 1070 200 / 200 Output Total 450 / 1950 700 / 2650 Balance 40 / -1410 -170 / -1580 200 / 200 Weight last 48 hrs Weight 103 kg Weight 105 kg Weight 49.215 kg Weight 77.111 kg Physical Exam 2 Const: COMMON NORMALS: no acute distress ORIENTATION/CONSCIOUSNESS: Yes awake, Yes oriented to person and Yes oriented to place; not oriented to time Resp: COMMON NORMALS: normal respiratory effort, No retractions and No use of accessory muscles AUSCULTATION: crackles and wheezes Cardio: COMMON NORMALS: regular rate, regular rhythm, S1 normal heart sound present and S2 normal heart sound present RATE: regular rate RHYTHM: r egular rhythm HEART SOUNDS: S1 normal heart sound present and S2 normal heart sound present GI: COMMON NORMALS: Normal to inspection, nondistended, normoactive bowel sounds present and non-tender Extremity: COMMON NORMALS: no pedal edema Neuro: SENSORIUM/ORIENTATION: Yes oriented to person, Yes oriented to place and No oriented to time Psych: COMMON NORMALS: mental status grossly normal Urinary Catheter Management: Harmon: Cath Placed During This Visit: yes Reason for Continuing Indwelling Catheter: Accurate Measurement of Urinary Output in Critically Ill Patients Urinary Catheter Date of Insertion: 03/20/25 Urinary Catheter Time of Insertion: 10:09 Data 03/21/25 04:17 03/21/25 04:17 Micro: Microbiology 03/19/25 13:09 Blood Culture - Preliminary Blood NEGATIVE TO DATE 03/19/25 13:22 Blood Culture - Preliminary Blood NEGATIVE TO DATE A&P Assessment and plan (1) Acute hypercapnic respiratory failure: (2) Pneumonia: (3) Sepsis: (4) Dehydration: (5) Acute kidney injury: (6) Hyperkalemia: (7) COPD exacerbation: (8) Acute encephalopathy: Plan Acute encephalopathy, resolving - Secondary to sepsis, pneumonia - Secondary to CO2 narcosis - Advance to dysphagia level 4 diet, moderately thickened - Neurochecks, aspiration precautions Acute hypercarbic respiratory failure - Secondary to COPD - Secondary to pneumonia, concern for healthcare associated pneumonia Plan - Monitor respiratory status closely - Will moved to [facility] - BiPAP - Concerns for healthcare associate pneumonia given recent hospitalization - vancomycin stopped, Zosyn - Monitor blood cultures - Monitor sputum cultures - Solu-Medrol 40 mg IV every 8 hours - DuoNeb - Budesonide Acute renal failure, improving - Second dehydration - IV fluids completed Hyperkalemia, resolved - Status post insulin, D50, calcium gluconate - Telemetry monitoring Sepsis, secondary to pneumonia, sepsis features met, given leukocytosis, respiratory failure, source of infection pneumonia, ALBERT, resolved Abdominal distention, complains constipation, CT scan abdomen pelvis shows evidence of constipation, started on bowel regimen Atrial fibrillation, - Resume home amiodarone - Switch Eliquis Type 2 diabetes mellitus, insulin sliding scale DNR/DNI Therapeutic Lovenox for DVT prophylaxis Plan for today de-escalate steroids, de-escalate vancomycin moved to medical floors, monitor leukocytosis, plan to discharge in the next 24 to 48 hours PDMP PDMP Reviewed: Not Reviewed Attestations 2 Medical Necessity Statement*: Patient requires hospitalization for acute encephalopathy, acute hypercarbic respiratory failure, COPD, pneumonia Diagnoses Acute hypercapnic respiratory failure J96.02 Pneumonia J18.9 Laterality: right Lung location: lower lobe of lung Pneumonia type: due to unspecified organism Sepsis A41.9 Dehydration E86.0 Acute kidney injury N17.9 Hyperkalemia E87.5 COPD exacerbation J44.1 Acute encephalopathy G93.40
--- NOTE | 2025-03-21 12:13 | PC.RESP ---
Pt states her mouth is sore. Dr. Rich notified. Order given to stop Pulmicort.
[2025-03-21] MEDS: pantoprazole 40 mg SDV IVP (16:13)
[2025-03-21 17:49] LABS: Glucose Point of Care 198 mg/dL (70-110)
[2025-03-21 17:49] LABS: Glucose Point of Care 181 mg/dL (70-110)
[2025-03-21 17:49] LABS: Glucose Point of Care 175 mg/dL (70-110)
[2025-03-21] MEDS: sennosides-docusate Tablet 1 TAB PO (18:00)
[2025-03-21 20:40] LABS: Glucose Point of Care 117 mg/dL (70-110)
[2025-03-22] VITALS (31 sets, daily range): BP systolic 114–153; BP diastolic 48–76; PULSE 65–92; RESP 14–27; TEMP 36.4–37.2; O2SAT 88–98; BMI 41.6
[2025-03-22] MEDS: lactulose oral liq 20 gm/30 mL UDC PO (02:45)
[2025-03-22] MEDS: piperacillin-tazobactam 3.375 GM in sodium chloride 0.9% (plus) 50 ML IV ×2 (02:45→07:57)
[2025-03-22] MEDS: ipratropium-albuterol 3 mL Neb INHALATION ×6 (03:00→23:54)
[2025-03-22 04:57] LABS: Basophils % 0.1 %; Eosinophils # 0.2 10^3/uL (0.0-0.8); Eosinophils % 1.4 %; Hematocrit 33.2 % (36-47); Lymphocytes # 1.1 10^3/uL (0.8-4.8); Lymphocytes % 8.2 %; Mean Corpuscular HGB Conc 31.3 g/dL (30-55); Mean Corpuscular Hemoglobin 29.3 pg (27-33); Mean Corpuscular Volume 93.5 fl (85-98); Mean Platelet Volume 13.1 fL (7.4-10.4); Monocytes # 1.5 10^3/uL (0.2-0.9); Monocytes % 10.7 %; Neutrophils # 11.05 10^3/uL (1.8-7.7); Neutrophils % 79.2 %; Nucleated Red Blood Cells % 0 %; Platelet Count 225 10^3/cmm (157-399); Red Blood Count 3.55 10^6/uL (3.85-5.65); Red Cell Distribution Width 16.5 % (12.1-15.1); White Blood Count 13.96 10^3/uL (3.29-11.43)
[2025-03-22 05:16] LABS: Alanine Aminotransferase 20 U/L (0-33); Albumin Level 2.7 g/dL (3.5-5.2); Alkaline Phosphatase 73 U/L (35-105); Anion Gap 10.8 (5-19); Aspartate Amino Transferase 13 U/L (0-32); Blood Urea Nitrogen 21 mg/dL (8-23); Calcium 8.2 mg/dL (8.5-10.5); Carbon Dioxide 33 mmol/L (22-29); Chloride 100 mmol/L (98-107); Creatinine Clr Calc Pharmacy 56.7168; Globulin 2.7 g/dL (1.3-4.6); Glucose 157 mg/dL (65-115); Magnesium 3.2 mg/dL (1.7-2.3); Osmolality Calculated 296 mOsm/kg (285-295); Phosphorus 1.6 mg/dL (2.5-4.5); Potassium 3.8 mmol/L (3.5-5.1); Sodium 140 mmol/L (136-145); Total Bilirubin 0.4 mg/dL (0.15-1.2); Total Protein 5.4 g/dL (6.6-8.7)
[2025-03-22 05:29] LABS: NT Pro B Type Natriuretic Pept 742 pg/mL (0-450)
[2025-03-22] MEDS: insulin lispro 100 unit/1 mL SUBCUT ×2 (07:56→17:29)
[2025-03-22 07:58] LABS: Glucose Point of Care 158 mg/dL (70-110)
[2025-03-22] MEDS: amiodarone 200 mg Tablet PO (08:00)
[2025-03-22] MEDS: apixaban 5 mg Tablet PO ×2 (08:00→20:56)
[2025-03-22] MEDS: sennosides-docusate Tablet 1 TAB PO (08:00)
[2025-03-22] MEDS: aspirin 81 mg EC Tablet PO (08:00)
[2025-03-22] MEDS: predniSONE 20 mg Tablet 40 MG PO (08:00)
[2025-03-22] MEDS: pregabalin 50 mg Capsule PO ×3 (08:00→20:56)
--- NOTE | 2025-03-22 08:59 | PC.RESP ---
pt says she has sores in mouth. alison held.
[2025-03-22 09:03] LABS: Iron 23 ug/dL (37-145); Percent Saturation 13.8 % (20-50); Total Iron Binding Capacity 166 mcg/dl; Unsaturated Iron Binding 143 ug/dL (112-347)
[2025-03-22 09:18] LABS: Procalcitonin 0.28 ng/mL (0-0.5); Vitamin B12 254 pg/mL (232-1245)
--- NOTE | 2025-03-22 11:14 | PC.NURSE ---
Report called to [facility] nurse Senthil. Moved patient to [facility]
--- NOTE | 2025-03-22 12:01 | PC.SOCIAL ---
IMM Updated Updated pt on IMM. No questions voiced. Provided pt a copy. Initialed, dated, & timed a copy & placed in chart.
--- NOTE | 2025-03-22 12:06 | USCV_ITS ---
[place] Age: 84 Gender: F : 1940 Exam Date: 03/22/2025 14:08 Ordering Phys: Luis Enrique Norman MD Technologist: Exam Location: [facility] Indication: chf BP: 124 / 73 HR: 76 Rhythm: Sinus Technical Quality: Adequate MEASUREMENTS (Male / Female) Normal Values 2D ECHO LV Diastolic Diameter PLAX 4.4 cm 4.2 - 5.9 / 3.9 - 5.3 cm IVS Diastolic Thickness 1.2 cm 0.6 - 1.0 / 0.6 - 0.9 cm IVS Systolic Thickness 1.9 cm LVPW Diastolic Thickness 1.3 cm 0.6 - 1.0 / 0.6 - 0.9 cm LVPW Systolic Thickness 1.3 cm LVOT Diameter 2.0 cm LV Ejection Fraction 2D Teich 70.1 % LV Ejection Fraction MOD 4C 70.5 % LV Ejection Fraction MOD 2C 51.8 % LV Ejection Fraction 2C AL 51.7 % LA Diameter 3.6 cm RA Systolic Volume 4C AL 52.2 ml RA Systolic Volume 4C MOD 50.5 ml Aorta at Sinotubular Diameter 3.3 cm M-MODE LA Ao Ratio MM 1.2 AV Cusp Separation MM 2.9 cm DOPPLER AV Peak Velocity 153.0 cm/s LVOT Peak Velocity 132.0 cm/s AV Area Cont Eq vti 3.5 cm squared AV Area Cont Eq pk 2.8 cm squared MV Peak Velocity 107.0 cm/s TR Peak Velocity 159.0 cm/s TR Peak Gradient 10.1 mmHg TV Peak E Velocity 85.0 cm/s PV Peak Velocity 91.0 cm/s FINDINGS Left Ventricle Normal left ventricular size, systolic function and wall thickness, with no regional wall motion abnormalities. Left ventricular ejection fraction is estimated at 60 %. Grade I/IV diastolic dysfunction (abnormal relaxation filling pattern), normal to mildly elevated filling pressures. Right Ventricle The right ventricle is normal in size and function. Right Atrium The right atrium is normal in size. Left Atrium The left atrium is normal in size. Mitral Valve Moderately thickened mitral valve. No mitral valve stenosis. Aortic Valve Structurally normal aortic valve without significant sclerosis or stenosis. There is no aortic regurgitation. Tricuspid Valve Structurally normal tricuspid valve without significant stenosis or regurgitation. Pulmonary artery systolic pressure is normal. Pulmonic Valve Structurally normal pulmonic valve without significant stenosis. There is no pulmonic regurgitation. Pericardium Normal pericardium without effusion. Aorta Normal ascending aorta dimension. IVC The inferior vena cava appears normal. CONCLUSIONS Normal left ventricular size, systolic function and wall thickness, with no regional wall motion abnormalities. Left ventricular ejection fraction is estimated at 60 %. Grade I/IV diastolic dysfunction (abnormal relaxation filling pattern), normal to mildly elevated filling pressures. There is no pericardial effusion. No significant valve abnormalities. Right atrial pressure is around 5 mm of mercury. Stanley Little MD (Electronically Signed) Final Date: 23 Mar 2025 13:34 S
[2025-03-22 12:37] LABS: Glucose Point of Care 143 mg/dL (70-110)
[2025-03-22] MEDS: nystatin 100,000 unit/mL UDC 5 mL 100000 UNIT PO ×3 (12:50→20:55)
[2025-03-22] MEDS: lipase-protease-amylase Capsule 2 EACH PO ×2 (12:50→17:28)
[2025-03-22 16:36] LABS: Glucose Point of Care 248 mg/dL (70-110)
[2025-03-22] MEDS: pantoprazole 40 mg SDV IVP (16:56)
[2025-03-22] MEDS: piperacillin-tazobactam 3.375 GM in sodium chloride 0.9% (plus) 50 ML 1 GM IV ×2 (16:57→23:45)
--- NOTE | 2025-03-22 17:17 | P.PN_ITS ---
Subjective 2 Subjective: Hospital course, labs appreciated. Patient seen sitting up in bed. Denies any nausea, vomiting, headache. States she is at her baseline oxygen supplementation. States breathing is at baseline now. Denies any chest pain Vitals/I&O/Wt Last Vital Signs Temp 98.4 F 03/22/25 15:56 Pulse 74 03/22/25 15:56 Resp 17 03/22/25 15:56 BP 153/65 03/22/25 15:56 Pulse Ox 95 03/22/25 15:56 O2 Del Method Nasal Cannula 03/22/25 15:56 O2 Flow Rate 3 03/22/25 15:15 FiO2 35 03/22/25 10:49 03/22/25 03/22/25 03/22/25 06:59 14:59 22:59 Intake Total 576 / 576 Output Total 250 / 650 950 / 950 Balance -250 / 530 576 / 576 -950 / -374 Weight last 48 hrs Weight 100 kg Weight 103 kg Physical Exam 2 Const: COMMON NORMALS: no acute distress ORIENTATION/CONSCIOUSNESS: Yes awake, Yes oriented to person, Yes oriented to place and Yes confused; not oriented to time Eye: COMMON NORMALS: Equal, round and reactive pupils present PUPIL: Yes Equal, round and reactive pupils present Neck/C-Spine: COMMON NORMALS: no JVD Lymph: LYMPHATIC: no lymphadenopathy noted Resp: COMMON NORMALS: normal respiratory effort, No retractions and No use of accessory muscles AUSCULTATION: crackles and wheezes OTHER: Does become short of breath with a few words, nasopharynx manage without retractions, suprasternal retractions Cardio: COMMON NORMALS: no JVD, regular rate, regular rhythm, S1 normal heart sound present and S2 normal heart sound present RATE: regular rate RHYTHM: regular rhythm HEART SOUNDS: S1 normal heart sound present and S2 normal heart sound present GI: COMMON NORMALS: Normal to inspection, nondistended, normoactive bowel sounds present and non-tender OTHER: abdomen soft, distended, diminished bowel sounds in all 4 quadrants, no guarding, no rebound, NO rigidity Extremity: COMMON NORMALS: no calf tenderness and no pedal edema Neuro: SENSORIUM/ORIENTATION: Yes oriented to person, Yes oriented to place and No oriented to time OTHER: Does not follow neurologic testing Psych: COMMON NORMALS: mental status grossly normal Skin: NARRATIVE SKIN EXAM: DP PT pulses palpable, cap refill less than 2 seconds, no mottling Urinary Catheter Management: Harmon: Cath Placed During This Visit: yes Reason for Continuing Indwelling Catheter: Accurate Measurement of Urinary Output in Critically Ill Patients Urinary Catheter Date of Insertion: 03/20/25 Urinary Catheter Time of Insertion: 10:09 Data 03/22/25 03:59 03/22/25 03:59 A&P Assessment and plan (1) Acute hypercapnic respiratory failure: (2) Pneumonia: (3) Sepsis: (4) Dehydration: (5) Acute kidney injury: (6) Hyperkalemia: (7) COPD exacerbation: (8) Acute encephalopathy: Plan Acute encephalopathy, resolving - Secondary to sepsis, pneumonia - Secondary to CO2 narcosis - Advance to dysphagia level 4 diet, moderately thickened - Neurochecks, aspiration precautions Acute hypercarbic respiratory failure - Secondary to COPD - Secondary to pneumonia, concern for healthcare associated pneumonia Plan - Monitor respiratory status closely - Will moved to MedSurg - BiPAP - Concerns for healthcare associate pneumonia given recent hospitalization - vancomycin stopped, Zosyn - Monitor blood cultures - Monitor sputum cultures - Solu-Medrol 40 mg IV every 8 hours - DuoNeb - Budesonide Acute renal failure, improving - Second dehydration - IV fluids completed Hyperkalemia, resolved - Status post insulin, D50, calcium gluconate - Telemetry monitoring Sepsis, secondary to pneumonia, sepsis features met, given leukocytosis, respiratory failure, source of infection pneumonia, ALBERT, resolved Abdominal distention, complains constipation, CT scan abdomen pelvis shows evidence of constipation, started on bowel regimen Atrial fibrillation, - Resume home amiodarone - Switch Eliquis Type 2 diabetes mellitus, insulin sliding scale DNR/DNI Therapeutic Lovenox for DVT prophylaxis Plan for the day: Respiratory failure seems to be resolving. States she is back to her baseline oxygen supplementation. Denies any nausea, vomiting. Patient has not been out of bed over 3 days since admission. Try to get her out of bed to sit in chair. Depending on the same will plan for physical therapy evaluation. Monitor for hypoxia. Ox supplementation given saturation of 88%. Add Pulmicort. Complain of thrush. Will add nystatin swish and swallow. Continue with prednisone 40 mg oral daily. Will plan for quick 5-day taper as an outpatient. Restart home dose of Creon. Advance diet as per speech evaluation. MRSA swab negative. Continue IV Zosyn for now. [facility]. Discharge plan: Depending on how patient does while getting out of bed we will decide about physical therapy and further discharge planning. PDMP PDMP Reviewed: Not Reviewed Attestations 2 Medical Necessity Statement*: Requested hospitalization for management of acute on chronic hypoxic and hypercapnic respiratory failure in setting of COPD exacerbation with concerns for aspiration pneumonia, acute encephalopathy Diagnoses Acute hypercapnic respiratory failure J96.02 Pneumonia J18.9 Laterality: right Lung location: lower lobe of lung Pneumonia type: due to unspecified organism Sepsis A41.9 Dehydration E86.0 Acute kidney injury N17.9 Hyperkalemia E87.5 COPD exacerbation J44.1 Acute encephalopathy G93.40
[2025-03-22] MEDS: TRAMadol 50 mg Tablet 25 MG PO (17:29)
--- NOTE | 2025-03-22 18:39 | PC.NURSE ---
pt got up from bed after she finished her dinner to bedside commode. She is a standby assist to with walker from bed to bedside commode.she walk few steps from bed to bedside commode, she then sat up on edge of bed to a recliner without much difficulty.she is mildly short of breath upon activity, advise pt on rest periods in between. PT breanne per Dr Norman should be on hold today since pt got up from bed to chair with standby assist.
[2025-03-22 20:19] LABS: Glucose Point of Care 245 mg/dL (70-110)
[2025-03-23] VITALS (7 sets, daily range): BP systolic 136–162; BP diastolic 63–76; PULSE 62–83; RESP 14–18; TEMP 36.4–36.8; O2SAT 93–97
[2025-03-23] MEDS: ipratropium-albuterol 3 mL Neb INHALATION ×2 (04:02→08:22)
[2025-03-23 06:13] LABS: Glucose Point of Care 205 mg/dL (70-110)
[2025-03-23 06:35] LABS: Basophils % 0.1 %; Eosinophils % 0.1 %; Lymphocytes # 0.7 10^3/uL (0.8-4.8); Lymphocytes % 6.6 %; Mean Corpuscular HGB Conc 31.5 g/dL (30-55); Mean Corpuscular Hemoglobin 28.8 pg (27-33); Mean Corpuscular Volume 91.4 fl (85-98); Mean Platelet Volume 12.3 fL (7.4-10.4); Monocytes # 0.8 10^3/uL (0.2-0.9); Monocytes % 7.5 %; Neutrophils # 8.89 10^3/uL (1.8-7.7); Neutrophils % 85.1 %; Nucleated Red Blood Cells % 0 %; Platelet Count 216 10^3/cmm (157-399); Red Blood Count 3.72 10^6/uL (3.85-5.65); Red Cell Distribution Width 16.5 % (12.1-15.1); White Blood Count 10.44 10^3/uL (3.29-11.43)
[2025-03-23 06:49] LABS: Alanine Aminotransferase 22 U/L (0-33); Albumin Level 3.1 g/dL (3.5-5.2); Alkaline Phosphatase 63 U/L (35-105); Aspartate Amino Transferase 10 U/L (0-32); Blood Urea Nitrogen 17 mg/dL (8-23); Calcium 8.9 mg/dL (8.5-10.5); Carbon Dioxide 33 mmol/L (22-29); Chloride 100 mmol/L (98-107); Creatinine Clr Calc Pharmacy 54.8355; Globulin 2.6 g/dL (1.3-4.6); Glucose 182 mg/dL (65-115); Osmolality Calculated 294 mOsm/kg (285-295); Sodium 139 mmol/L (136-145); Total Bilirubin 0.3 mg/dL (0.15-1.2); Total Protein 5.7 g/dL (6.6-8.7)
[2025-03-23 07:05] LABS: Folate Level 9.6 ng/mL (4.8-37.3)
--- NOTE | 2025-03-23 07:58 | PM.DCS ---
Discharge Providers Date of Admission: 03/19/25 14:55 Date of Discharge: March 23, 2025 Attending Provider at Admission: Doron Rich MD Attending Provider at Discharge: Luis Enrique Norman MD Primary Care Provider: FELICIA Orosco Diagnoses at Discharge Discharge Diagnosis (1) Acute hypercapnic respiratory failure: Status: Acute (2) Pneumonia: Status: Inactive Qualifiers: Laterality: right Lung location: lower lobe of lung Pneumonia type: due to unspecified organism Qualified Code(s): J18.9 - Pneumonia, unspecified organism (3) Sepsis: Status: Acute (4) Dehydration: Status: Acute (5) Acute kidney injury: Status: Acute (6) Hyperkalemia: Status: Resolved (7) COPD exacerbation: Status: Resolved (8) Acute encephalopathy: Status: Acute Reason for Visit Reason for Visit: SOB Brief History: History as per HPI: Ingrid De Leon is a 84 year old female with a past medical history of chronic hypoxic hypercarbic respiratory failure, end-stage COPD, hypertension, hyperlipidemia, atrial fibrillation, obesity, history of CO2 narcosis, history of BiPAP noncompliance, history of systolic and diastolic CHF, history of CVA, CAD, peripheral vascular disease, who presents to [facility] due to shortness of breath, low O2 readings on her pulse ox, and altered mental status. Currently patient is alert to person, not place, time she is on BiPAP, she does not follow commands, family members at bedside, according to family members, patient has had increased shortness of breath, has had issues with constipation, has not had a bowel movement in 5 days, possibly bowel movement last night this time is exactly unsure, there have been issues with BiPAP compliance at [facility] I spoke to [facility], they advised me that patient is noncompliant with BiPAP, she did not use it last night, she has been complaining of increased shortness of breath, she had low O2 readings on her pulse ox, her abdomen is more distended, she did have a small bowel movement last night, but has been complaining of constipation, confirmed with family members at bedside patient is a DNR/DNI, patient's son tells me that him and his brother have discussed Ingrid's CODE STATUS, and they have agreed on DNR/DNI, they tell me that if it is her time to go, the good [facility] can take her Hospital Course Hospital Course Patient was admitted to the hospital further evaluation and management of acute on chronic hypoxic and hypercapnic respiratory failure leading to an metabolic encephalopathy. She was started on IV steroids, nebulization treatment along with broad-spectrum antibiotics with concerns for hospital-acquired pneumonia. She was started on BiPAP ventilation after which her hypercapnia resolved. She responded well to the treatment and has been at her baseline mentation, oxygen requirements both at rest on exertion for last 24 to 48 hours. She has been discharged back to snf in hemoglobin stable condition on oral antibiotics for 5 more days, 5 more days of oral prednisone with advised to continue being more compliant with her BiPAP use. Physical Exam Const: COMMON NORMALS: no acute distress ORIENTATION/CONSCIOUSNESS: Yes awake, Yes oriented to person, Yes oriented to place and Yes confused; not oriented to time Eye: COMMON NORMALS: Equal, round and reactive pupils present PUPIL: Yes Equal, round and reactive pupils present Neck/C-Spine: COMMON NORMALS: no JVD Lymph: LYMPHATIC: no lymphadenopathy noted Resp: COMMON NORMALS: normal respiratory effort, No retractions and No use of accessory muscles AUSCULTATION: crackles and wheezes OTHER: Does become short of breath with a few words, nasopharynx manage without retractions, suprasternal retractions Cardio: COMMON NORMALS: no JVD, regular rate, regular rhythm, S1 normal heart sound present and S2 normal heart sound present RATE: regular rate RHYTHM: regular rhythm HEART SOUNDS: S1 normal heart sound present and S2 normal heart sound present GI: COMMON NORMALS: Normal to inspection, nondistended, normoactive bowel sounds present and non-tender OTHER: abdomen soft, distended, diminished bowel sounds in all 4 quadrants, no guarding, no rebound, NO rigidity Extremity: COMMON NORMALS: no calf tenderness and no pedal edema Neuro: SENSORIUM/ORIENTATION: Yes oriented to person, Yes oriented to place and No oriented to time OTHER: Does not follow neurologic testing Psych: COMMON NORMALS: mental status grossly normal Skin: NARRATIVE SKIN EXAM: DP PT pulses palpable, cap refill less than 2 seconds, no mottling Urinary Catheter Management: Harmon: Cath Placed During This Visit: yes, but has since been removed by the nurse Reason for Continuing Indwelling Catheter: Decision to DC Catheter Urinary Catheter Date of Insertion: 03/20/25 Urinary Catheter Time of Insertion: 10:09 Date Urinary Catheter Removed: 03/22/25 Time Urinary Catheter Discontinued: 18:22 Discharge Data Studies Completed and Pending Completed Studies During Hospitalization Category Date Time Status CT chest abdomen pelvis [[place] [id number] Cat Scan 03/19/25 14:59 Completed ] Stat XR chest 1V portable [id number] Routine Exams 03/20/25 07:00 Completed XR chest 1V portable [id number] Stat Exams 03/19/25 12:42 Completed Pending at discharge Category Date Time Status Blood Culture Stat Lab 03/19/25 13:22 Results CV. echo complete* [id number] Routine Ultrasound 03/22/25 12:06 Taken Radiology Impressions Chest/Abdomen/Pelvis CT 03/19/25 14:59 IMPRESSION: 1. Bibasilar atelectasis which has improved somewhat over the past 2 weeks 2. Stable cardiomegaly IMPRESSION: Constipation Chest X-Ray 03/20/25 07:00 IMPRESSION: 1. Unchanged mild cardiomegaly. 2. No superimposed acute disease. Microbiology 03/19/25 13:09 Blood Blood Culture - Preliminary NEGATIVE TO DATE 03/19/25 13:22 Blood Blood Culture - Preliminary NEGATIVE TO DATE Laboratory Results WBC 10.44 10^3/uL (3.29-11.43) 03/23/25 05:47 RBC 3.72 10^6/uL (3.85-5.65) L 03/23/25 05:47 Hgb 10.70 g/dL (11.27-16.99) L 03/23/25 05:47 Hct 34.0 % (36-47) L 03/23/25 05:47 MCV 91.4 fl (85-98) 03/23/25 05:47 MCH 28.8 pg (27-33) 03/23/25 05:47 MCHC 31.5 g/dL (30-55) 03/23/25 05:47 RDW 16.5 % (12.1-15.1) H 03/23/25 05:47 Plt Count 216 10^3/cmm (157-399) 03/23/25 05:47 MPV 12.3 fL (7.4-10.4) H 03/23/25 05:47 Neut % (Auto) 85.1 % 03/23/25 05:47 Lymph % (Auto) 6.6 % 03/23/25 05:47 [place] % (Auto) 7.5 % 03/23/25 05:47 Eos % (Auto) 0.1 % 03/23/25 05:47 Baso % (Auto) 0.1 % 03/23/25 05:47 Neut # (Auto) 8.89 10^3/uL (1.8-7.7) H 03/23/25 05:47 Lymph # (Auto) 0.7 10^3/uL (0.8-4.8) L 03/23/25 05:47 [place] # (Auto) 0.8 10^3/uL (0.2-0.9) 03/23/25 05:47 Eos # (Auto) 0.0 10^3/uL (0.0-0.8) 03/23/25 05:47 Baso # (Auto) 0.0 10^3/uL (0.0-0.1) 03/23/25 05:47 Nucleated RBC % (auto) 0 % 03/23/25 05:47 Nucleated RBCs # 0.0 /100WBC 03/23/25 05:47 PT 17.60 SECONDS (12.1-14.9) H 03/19/25 13:09 INR 1.35 (0.8-1.2) H 03/19/25 13:09 Specimen Type Arterial 03/21/25 04:26 Sample Site Radial, right 03/21/25 04:26 ABG pH 7.43 (7.35-7.45) 03/21/25 04:26 ABG pCO2 62.8 mmHg (35-45) H* 03/21/25 04:26 ABG pO2 97.0 mmHg (80.0-100.0) 03/21/25 04:26 ABG PO2/FiO2 Ratio 277 03/21/25 04:26 ABG HCO3 41.3 mmol/L (22-26) H 03/21/25 04:26 ABG O2 Saturation 99.0 03/19/25 12:38 ABG Base Excess 14.5 mmol/L (-2.0-2.0) H 03/21/25 04:26 Mateo Test Pos 03/21/25 04:26 A-a O2 Gradient Not Reportable 03/19/25 12:38 Hematocrit 33.7 % (37-47) L 03/21/25 04:26 Hgb O2 Saturation 97.2 % (95-100) 03/19/25 12:38 Carboxyhemoglobin 1.5 %THgb (0.4-20.1) 03/19/25 12:38 Methemoglobin 0.3 % (0.4-1.5) L 03/19/25 12:38 Total Hemoglobin 12.5 g/dL (12-16) 03/19/25 12:38 Sodium 132.0 mmol/L (131-143) 03/19/25 12:38 Potassium 5.4 mmol/L (3.5-5.0) H 03/19/25 12:38 Glucose 149.0 mg/dL (70-115) H 03/19/25 12:38 Ionized Calcium 1.1 mmol/L (1.1-1.4) 03/19/25 12:38 O2 Delivery Device Bipap 03/21/25 04:26 O2 Liters/Min 8.0 % 03/19/25 12:38 FiO2 35.0 % 03/21/25 04:26 Tidal Volume 0.55 03/21/25 04:26 PEEP 8.0 cmH20 03/21/25 04:26 Family Service Counselor ID Jdb 03/21/25 04:26 Sodium 139 mmol/L (136-145) 03/23/25 05:47 Potassium 4.0 mmol/L (3.5-5.1) 03/23/25 05:47 Chloride 100 mmol/L (98-107) 03/23/25 05:47 Carbon Dioxide 33 mmol/L (22-29) H 03/23/25 05:47 Anion Gap 10.0 (5-19) 03/23/25 05:47 BUN 17 mg/dL (8-23) 03/23/25 05:47 Creatinine 0.8 mg/dL (0.5-0.9) 03/23/25 05:47 GFR Calculation Not Reportable 03/23/25 05:47 Glucose 182 mg/dL (65-115) H 03/23/25 05:47 POC Glucose 205 mg/dL (70-110) H 03/23/25 06:04 Estimat Average Glucose 151 03/20/25 04:01 Hemoglobin A1c 6.9 % (4.0-6.0) H 03/20/25 04:01 Calculated Osmolality 294 mOsm/kg (285-295) 03/23/25 05:47 Lactic Acid 1.5 mmol/L (0.5-2.2) 03/19/25 13:09 Lactate 0.9 mmol/L (0.5-2.2) 03/21/25 04:17 Calcium 8.9 mg/dL (8.5-10.5) 03/23/25 05:47 Phosphorus 1.6 mg/dL (2.5-4.5) L 03/22/25 03:59 Magnesium 3.2 mg/dL (1.7-2.3) H 03/22/25 03:59 Iron 23 ug/dL (37-145) L 03/22/25 03:59 TIBC 166 mcg/dl 03/22/25 03:59 % Saturation 13.8 % (20-50) L 03/22/25 03:59 Unsat Iron Binding 143 ug/dL (112-347) 03/22/25 03:59 Total Bilirubin 0.3 mg/dL (0.15-1.2) 03/23/25 05:47 AST 10 U/L (0-32) 03/23/25 05:47 ALT 22 U/L (0-33) 03/23/25 05:47 Alkaline Phosphatase 63 U/L (35-105) 03/23/25 05:47 Troponin T Baseline 45 ng/L (0-10) H 03/19/25 13:09 Troponin T 120 Minute 38.88 ng/L (0-10) H 03/19/25 15:15 Delta Troponin T -6.12 ABS# (0-10) L 03/19/25 15:15 Troponin T Hi Sens 6Hr 35.97 ng/L (0-10) H 03/19/25 19:11 Troponin T Hi Sens 6Hr Delta -9.03 ng/L (0-12) L 03/19/25 19:11 C-Reactive Protein 40.7 mg/L (0.0-4.9) H 03/19/25 19:11 NT-Pro-B Natriuret Pep 742 pg/mL (0-450) H 03/22/25 03:59 Total Protein 5.7 g/dL (6.6-8.7) L 03/23/25 05:47 Albumin 3.1 g/dL (3.5-5.2) L 03/23/25 05:47 Globulin 2.6 g/dL (1.3-4.6) 03/23/25 05:47 Triglycerides 75 mg/dL (0-150) 03/20/25 04:01 Cholesterol 160 mg/dL (0-200) 03/20/25 04:01 LDL Cholesterol, Calc 85 mg/dL (50-129) 03/20/25 04:01 HDL Cholesterol 60 mg/dL (60-100) 03/20/25 04:01 LDL/HDL Ratio 1.42 RATIO (0.00-3.22) 03/20/25 04:01 Cholesterol/HDL Ratio 2.67 mg/dL (0.0-4.40) 03/20/25 04:01 Vitamin B12 254 pg/mL (232-1245) 03/22/25 03:59 Folate 9.6 ng/mL (4.8-37.3) 03/23/25 05:47 Procalcitonin 0.28 ng/mL (0-0.5) 03/22/25 03:59 TSH 0.62 uIU/mL (0.27-4.20) 03/20/25 04:01 Urine Color Yellow (Yellow) 03/20/25 09:58 Urine Appearance Clear (CLEAR) 03/20/25 09:58 Urine pH 6.5 (5-7) 03/20/25 09:58 Ur Specific [place] 1.019 (1.005-1.030) 03/20/25 09:58 Urine Protein 1+ (Negative) A 03/20/25 09:58 Urine Glucose (UA) Negative (Normal) 03/20/25 09:58 Urine Ketones Negative (Negative) 03/20/25 09:58 Urine Blood Negative (Negative) 03/20/25 09:58 Urine Nitrate Negative (Negative) 03/20/25 09:58 Urine Bilirubin Negative (Negative) 03/20/25 09:58 Urine Urobilinogen 0.2 mg/dL (Negative) 03/20/25 09:58 Ur Leukocyte Esterase Negative (Negative) 03/20/25 09:58 Urine RBC 0-2 /hpf (0-2) 03/20/25 09:58 Urine WBC 5-10 /hpf (0-5) H 03/20/25 09:58 Ur Squamous Epith Cells 0-5 /hpf (0-5) 03/20/25 09:58 Calcium Oxalate Crystal 5-10 /hpf H 03/20/25 09:58 Amorphous Sediment Not Reportable 03/20/25 09:58 Urine Bacteria 1+ /hpf (NONE) H 03/20/25 09:58 Hyaline Casts 43.84 /lpf 03/20/25 09:58 Vancomycin Trough 15.0 ug/mL (10-15) 03/20/25 16:17 Influenza A (PCR) Negative (Negative) 03/19/25 14:24 Influenza Type B (PCR) Negative (Negative) 03/19/25 14:24 RSV (PCR) Negative (Negative) 03/19/25 14:24 SARS-CoV-2 (PCR) Negative (Negative) 03/19/25 14:24 Vitals Last Vital Signs Temp 98.3 F 03/23/25 04:00 Pulse 62 03/23/25 04:00 Resp 14 03/23/25 04:00 BP 136/71 03/23/25 04:00 Pulse Ox 96 03/23/25 04:00 O2 Del Method BiPAP 03/23/25 04:00 O2 Flow Rate 3 03/22/25 20:08 FiO2 35 03/23/25 04:00 Discharge Plan Discharge Patient Disposition: Xfer SNF Condition: Stable Prescriptions: New prednisone 20 mg Tablet 40 mg PO DAILY 5 Days Qty: 10 0RF levofloxacin 750 mg tablet 750 mg PO Q24H 3 Days Qty: 3 0RF amoxicillin-pot clavulanate 875-125 mg tablet 1 tab PO BID Qty: 6 0RF dapagliflozin propanediol [Farxiga] 10 mg tablet 10 mg PO DAILY Qty: 30 3RF nystatin 100,000 unit/mL Suspension 100,000 unit PO QID Qty: 60 0RF ferrous gluconate 324 mg (37.5 mg iron) Tablet 324 mg PO BIDWM Qty: 60 0RF Continued albuterol sulfate [Ventolin HFA] 90 mcg/actuation HFA aerosol inhaler 2 puff INHALATION QID PRN (Reason: Shortness Of Breath) tramadol 50 mg tablet 25 mg PO Q8H MDD 1.5 tabs PRN (Reason: Pain) aspirin 81 mg tablet,delayed release (DR/EC) 81 mg PO DAILY budesonide 0.5 mg/2 mL suspension for nebulization 0.5 mg inhalation BID Qty: 120 11RF formoterol fumarate [Perforomist] 20 mcg/2 mL solution for nebulization 2 ml inhalation BID Qty: 120 11RF Yupelri 175 mcg/3 mL solution for nebulization 175 mcg inhalation DAILY Qty: 90 11RF ginkgo biloba 40 mg tablet 40 mg PO DAILY Rx Instructions: give with meal/snack Creon 36,000-114,000- 180,000 unit capsule,delayed release(DR/EC) 2 cap PO AC Rx Instructions: and before snacks Xlear 1 spray nasal BID Eliquis 5 mg Tablet 5 mg PO BID@0900,2100 30 Days Qty: 60 0RF magnesium hydroxide [Milk of Magnesia] 400 mg/5 mL Suspension 30 ml PO DAILY PRN (Reason: Constipation) bisacodyl [Dulcolax (bisacodyl)] 10 mg Suppository 10 mg HI DAILY PRN (Reason: Constipation) Fleet Enema 19-7 gram/118 mL Enema 118 ml HI DAILY PRN (Reason: Constipation) polyethylene glycol 3350 [Miralax] 17 gram/dose Powder 4 g PO DAILY pregabalin 50 mg Capsule 50 mg PO TID psyllium husk 3.4 gram/6 gram Powder 3.4 g PO DAILY amiodarone [Pacerone] 200 mg tablet 200 mg PO DAILY albuterol sulfate 2.5 mg /3 mL (0.083 %) solution for nebulization 2.5 mg inhalation Q3H PRN (Reason: Shortness Of Breath) potassium chloride 20 mEq tablet,ER particles/crystals 20 meq PO QAM coenzyme Q10 [CoQ-10] 100 mg Capsule 100 mg PO DAILY Changed furosemide [Lasix] 40 mg tablet 40 mg PO DAILY PRN (Reason: sob, swelling) 30 Days Qty: 30 0RF Discharge Orders: Discharge Order (Routine); Ordered 03/23/25 Ordered By: Luis Enrique Norman Referrals: [facility] [Outside] Lorraine Samaniego FNP [Primary Care Provider, Unknown] Discharge Activity: Resume usual activity and Increase activity as tolerated Patient Instructions: Prednisone (By mouth), Amoxicillin/Clavulanate Potassium (By mouth), Levofloxacin (By mouth) (Levaquin, Levaquin Leva-johanna), Dapagliflozin (By mouth), Opioid Safety Activity Restrictions/Additional Instructions: Dysphagia level 6 diet?soft and bite sized. Should continue to work with speech therapy as an outpatient. Should have a repeat HbA1c done in next 3 months. Please continue to use BiPAP Discharge Attestations Time Spent in Discharge Care*: greater than 30 min Specific Discharge Activities: educating patient, discussing with pcp/other providers, discussing with caseworker/social workers/dc planners, documenting/other paperwork and evaluating patient/reviewing data Status at Discharge: Cognitive status at discharge: cognitively intact, Behavioral status at discharge: cooperative, Functional status at discharge: independent ambulation, Overall status at discharge: patient is back to baseline Quality Metrics Clinical Quality Measures [ No reported AMI, CVA or VTE this stay] Coding Level of Care Code 35838 Total time (in minutes) for Discharge: 60 Diagnoses Acute hypercapnic respiratory failure J96.02 Pneumonia J18.9 Laterality: right Lung location: lower lobe of lung Pneumonia type: due to unspecified organism Sepsis A41.9 Dehydration E86.0 Acute kidney injury N17.9 Hyperkalemia E87.5 COPD exacerbation J44.1 Acute encephalopathy G93.40
[2025-03-23] MEDS: lipase-protease-amylase Capsule 2 EACH PO ×2 (09:49→12:11)
[2025-03-23] MEDS: pregabalin 50 mg Capsule PO ×2 (09:50→14:10)
[2025-03-23] MEDS: aspirin 81 mg EC Tablet PO (09:50)
[2025-03-23] MEDS: amiodarone 200 mg Tablet PO (09:50)
[2025-03-23] MEDS: predniSONE 20 mg Tablet 40 MG PO (09:50)
[2025-03-23] MEDS: sennosides-docusate Tablet 1 TAB PO (09:50)
[2025-03-23] MEDS: apixaban 5 mg Tablet PO (09:50)
[2025-03-23] MEDS: nystatin 100,000 unit/mL UDC 5 mL 100000 UNIT PO ×2 (09:51→12:11)
[2025-03-23] MEDS: insulin lispro 100 unit/1 mL SUBCUT ×2 (09:53→12:11)
[2025-03-23] MEDS: piperacillin-tazobactam 3.375 GM in sodium chloride 0.9% (plus) 50 ML IV (09:55)
[2025-03-23 11:31] LABS: Glucose Point of Care 171 mg/dL (70-110)
[2025-03-23 11:49] LABS: SARS Covid-2 Antigen Negative (Negative)
[2025-03-23] MEDS: lactulose oral liq 20 gm/30 mL UDC PO (12:12)
== END 2025-03-23 14:45 | disposition skilled nursing facility (03) | DRG 871 ==
LOC: ER 14:44 → ICU 14:55 → MEDSURG 03-22 11:11
PROVIDERS: Admitting Provider Family Medicine; Emergency Provider Emergency Medicine; PCP Nurse Practitioner Family; Visit Provider Student in an Organized Health Care Education/Training Program
DX: A41.9 Sepsis, unspecified organism (principal); G93.41 Metabolic encephalopathy; J96.22 Acute and chronic respiratory failure with hypercapnia; J96.21 Acute and chronic respiratory failure with hypoxia; J18.9 Pneumonia, unspecified organism; J44.0 Chronic obstructive pulmonary disease with (acute) lower respiratory infection; J44.1 Chronic obstructive pulmonary disease with (acute) exacerbation; N17.9 Acute kidney failure, unspecified; I50.40 Unspecified combined systolic (congestive) and diastolic (congestive) heart failure; R65.20 Severe sepsis without septic shock; E86.0 Dehydration; E87.5 Hyperkalemia; I48.91 Unspecified atrial fibrillation; I25.10 Atherosclerotic heart disease of native coronary artery without angina pectoris; I73.9 Peripheral vascular disease, unspecified; Z91.199 Patient's noncompliance with other medical treatment and regimen due to unspecified reason; K59.00 Constipation, unspecified; Z66 Do not resuscitate; R73.9 Hyperglycemia, unspecified; Z86.73 Personal history of transient ischemic attack (TIA), and cerebral infarction without residual deficits; Z87.891 Personal history of nicotine dependence; Z79.82 Long term (current) use of aspirin; Z79.02 Long term (current) use of antithrombotics/antiplatelets
CPT/HCPCS: 36415; 36416; 36600; 51702; 71045; 71250; 74176; 80048; 80051; 80053; 80061; 80202; 81001; 82330; 82607; 82746; 82803; 82805; 82962; 83036; 83540; 83550; 83605; 83735; 83880; 84100; 84145; 84443; 84484; 85025; 85610; 86140; 87040; 87426; 87637; 92610; 93005; 93306; 94640; 94660; 96365; 96367; 96372; 96374; 96375; 96376; 99291; 99292; J0456; J0612; J0696; J1650; J1815; J2270; J2470; J2543; J2919; J3370; J3372; J7030; J7050; J7512; J7613; J7626; J9999

== ENCOUNTER → 2025-03-31 09:03 | Outpatient (BNVA) | payer MEDICARE, OTHER, SELFPAY | PROVIDERS: PCP Nurse Practitioner Family; Visit Provider Internal Medicine | DX: I25.10 Atherosclerotic heart disease of native coronary artery without angina pectoris (principal); J44.9 Chronic obstructive pulmonary disease, unspecified; I73.9 Peripheral vascular disease, unspecified; I10 Essential (primary) hypertension; E78.5 Hyperlipidemia, unspecified; Z79.01 Long term (current) use of anticoagulants; Z79.82 Long term (current) use of aspirin; Z87.891 Personal history of nicotine dependence | CPT/HCPCS: 99214 ==

== ENCOUNTER → 2025-08-04 09:36 | Outpatient (BNVA) | payer MEDICARE, OTHER, SELFPAY | PROVIDERS: PCP Nurse Practitioner Family; Visit Provider Nurse Practitioner Family | DX: L57.0 Actinic keratosis (principal); L82.1 Other seborrheic keratosis; L82.0 Inflamed seborrheic keratosis; L84 Corns and callosities; L57.8 Other skin changes due to chronic exposure to nonionizing radiation; D22.39 Melanocytic nevi of other parts of face; D48.5 Neoplasm of uncertain behavior of skin; L98.8 Other specified disorders of the skin and subcutaneous tissue; L53.8 Other specified erythematous conditions; Z78.9 Other specified health status; R20.8 Other disturbances of skin sensation | CPT/HCPCS: 11102; 17110; 99213 ==

== ENCOUNTER → 2025-09-29 13:11 | Outpatient (BNVA) | payer MEDICARE, OTHER, SELFPAY | PROVIDERS: PCP Nurse Practitioner Family; Visit Provider Internal Medicine | DX: R06.02 Shortness of breath (principal); I73.9 Peripheral vascular disease, unspecified; I10 Essential (primary) hypertension; E78.5 Hyperlipidemia, unspecified; I25.10 Atherosclerotic heart disease of native coronary artery without angina pectoris; Z87.891 Personal history of nicotine dependence | CPT/HCPCS: 99213 ==